=== PATIENT | male | born 1935 | race Caucasian/White ===

== ENCOUNTER 2016-05-22 10:33 | Emergency (ER) | payer MEDICARE ==
[~2016-05-22] VITALS: Ht 167.6 cm; Wt 76.2 kg
[~2016-05-22 10:33] MED LIST: ALFU10TA7 PO; ASPI-558 PO; ATEN100T77 PO; FINA5TAB30 PO; LISI-127 PO; SIMV20TA89 PO; [UNRECOGNIZED DRUG - CODE] PO
--- OUTSIDE RECORDS SUMMARY | 2016-05-22 10:37 | XMS REPORT | Referral Summary ---
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 Name Role Phone Lilliam Mancini Primary Care Physician [phone] Encounter VC Date(s): 07/08/14 - 07/08/14 [facility] [address] [place] [address] [place] [address]- Discharge Diagnosis: BPH with obstruction/lower urinary tract symptoms Discharge Disposition: 01-Home or Self Care Attending Physician: Jamie Meehan JR, MD Admitting Physician: Jamie Meehan JR, MD Referring Physician: Shiva Mancini MD Vital Signs Most recent to 1 oldest [Reference Range]: Peripheral Pulse 60 bpm Rate [60-100 bpm] (07/08/14 1:33 PM) Blood Pressure 154/72 mmHg [90-140/60-90 mmHg] *HI* (07/08/14 1:33 PM) Problem List Condition Effective Dates Status Health Status Informant Benign essential Active hypertension (disorder)(Confirmed ) Benign prostatic Active hypertrophy(Confirme d) gross bladder Active trabeculation(Confir med) Coronary Active arteriosclerosis (disorder)(Confirmed ) Generalized Active osteoarthritis (disorder)(Confirmed ) 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) Difficult or painful Active urination(Confirmed) Hx of hydrocele Active right side(Confirmed) Hyperlipidemia(Confi Active rmed) Impotence of organic Active origin (disorder)(Confirmed ) Obesity(Confirmed) Active patient Osteoarthritis(Confi Active rmed) Pneumonia(Confirmed) Active Pure Active hypercholesterolemia (disorder)(Confirmed ) Suprapubic Active pain(Confirmed) Allergies, Adverse Reactions, Alerts No Known Medication Allergies Medications Aspirin Low Dose 81 mg, Oral, Daily, 0 Refill(s) Start Date: 08/15/13 Status: Ordered atenolol 100 mg oral tablet See Instructions, TAKE 1 BY MOUTH EVERY DAY., # 90 unknown unit, 3 Refill(s), eRx: [facility] [id number], TAKE 1 BY MOUTH EVERY DAY. Start Date: 01/30/14 Status: Ordered ibuprofen 200 mg oral tablet 1 tabs, Oral, q6hr, as needed, 0 Refill(s) Start Date: 08/15/13 Status: Ordered lisinopril 40 mg oral tablet See Instructions, TAKE 1 TABLET (40MG) BY ORAL ROUTE EVERY DAY, # 90 unknown unit, 3 Refill(s), eRx: [facility] [id number], TAKE 1 TABLET (40MG) BY ORAL ROUTE EVERY DAY Start Date: 01/30/14 Status: Ordered multivitamin 1 tablet, Oral, Daily, 0 Refill(s) Start Date: 08/15/13 Status: Ordered Proscar 5 mg oral tablet See Instructions, TAKE 1 TABLET BY MOUTH AT BEDTIME., # 90 unknown unit, eRx: [facility] [id number], TAKE 1 TABLET BY MOUTH AT BEDTIME. Start Date: 12/22/14 Status: Ordered simvastatin 20 mg oral tablet See Instructions, TAKE 1 TABLET BY MOUTH EVERY DAY., # 90 unknown unit, 1 Refill (s), eRx: [facility] 05508, TAKE 1 TABLET BY MOUTH EVERY DAY. Start Date: 09/12/14 Status: Ordered Uroxatral 10 mg oral tablet, extended release See Instructions, TAKE 1 TABLET BY MOUTH AT BEDTIME., # 90 unknown unit, 2 Refill(s), eRx: [facility] [id number], TAKE 1 TABLET BY MOUTH AT BEDTIME. Start Date: 08/01/14 Status: Ordered Results No data available for this section Immunizations Vaccine Date Refusal Reason tetanus/diphth/pertuss (Tdap) adult/adol 09/11/12 influenza virus vaccine, inactivated 11/26/13 influenza virus vaccine, live 12/03/10 pneumococcal 13-valent conjugate vaccine1 06/18/14 pneumococcal 23-polyvalent vaccine 12/12/05 1Early/Late Reason: Nursing Judgment Procedures Procedure Date Related Diagnosis Body Site Knee replacement L 10/20/10 Cystoscopy 10/15/08 hydrodistention 10/15/08 Urethral dilatation 10/15/08 Orchiectomy 02/07/03 Social History Social History Type Response Smoking Status Never smoker Assessment and Plan Extracted from: Title: Ambulatory Patient Education Author: Jamie Meehan JR, MD Date : 07/08/14 Follow Up With: Where: When: Shiva Mancini [address]; [place] [address] Business (1) Within 3 to 5 days Comments: Follow Up With: Where: When: Jamie Zoran [address]; [place] [address] Business (1) In 6 months 01/08/2015 Comments: Extracted from: Title: Office Visit Note Author: Jamie Meehan JR, MD Date: 07/08/14 Assessment/Plan BPH with obstruction/lower urinary tract symptoms Strong family history of prostate cancer (brother). Continue taking the Uroxatral and finasteride. Recheck in my office in 6 months. PSA a week before next visit. 15 minute face to face visit with 2/3 of the visit devoted to counseling. Ordered: Office Visit Level 3 Est 39405
--- OUTSIDE RECORDS SUMMARY | 2016-05-22 10:37 | XMS REPORT | Referral Summary ---
Author Author [facility] Organization [facility] Address Unknown Phone Unavailable Care Team Providers Care Poiser Balance Name Role Phone Lilliam Mancini Primary Care Physician [phone] Encounter Date(s): 03/04/16 - 03/04/16 [facility] [address] [place], [place] [address] Discharge Diagnosis: ILD (interstitial lung disease) Discharge Diagnosis: Chronic hypoxemic respiratory failure Discharge Disposition: 01-Home or Self Care Attending Physician: Mynor Pillai MD Admitting Physician: Mynor Pillai MD Vital Signs Most recent to 1 oldest [Reference Range]: Peripheral Pulse 60 bpm Rate [60-100 bpm] (03/04/16 9:52 AM) Respiratory Rate 28 br/min [14-20 br/min] *HI* (03/04/16 9:52 AM) Blood Pressure 108/60 mmHg [90-140/60-90 mmHg] (03/04/16 9:52 AM) SpO2 95 % (03/04/16 9:52 AM) Problem List Condition Effective Dates Status Health Status Informant Benign essential Active hypertension (disorder)(Confirmed ) Benign prostatic Active hypertrophy(Confirme d) gross bladder Active trabeculation(Confir med) Coronary Active arteriosclerosis (disorder)(Confirmed ) Generalized Active osteoarthritis (disorder)(Confirmed ) 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) Difficult or painful Active urination(Confirmed) Hx of hydrocele Active right side(Confirmed) Impotence of organic Active origin (disorder)(Confirmed ) Hyperlipidemia(Confi Active rmed) Obesity(Confirmed) Active patient Osteoarthritis(Confi Active rmed) Pneumonia(Confirmed) Active Pure Active hypercholesterolemia (disorder)(Confirmed ) Suprapubic Active pain(Confirmed) Allergies, Adverse Reactions, Alerts No Known Medication Allergies Medications acetaminophen 500 mg oral tablet 1,000 mg 2 tabs, Oral, q6hr, as needed for pain, 0 Refill(s) Start Date: 03/25/15 Status: Ordered alfuzosin 10 mg oral tablet, extended release See Instructions, TAKE 1 TABLET BY MOUTH AT BEDTIME, # 90 tabs, eRx: [facility] [id number], TAKE 1 TABLET BY MOUTH AT BEDTIME Start Date: 01/20/16 Status: Ordered Aspirin Low Dose 81 mg, Oral, Daily, 0 Refill(s) Start Date: 08/15/13 Status: Ordered atenolol 100 mg oral tablet See Instructions, TAKE 1 TABLET BY MOUTH EVERY DAY, # 90 tabs, 1 Refill(s), eRx : [facility] [id number], TAKE 1 TABLET BY MOUTH EVERY DAY Start Date: 10/27/15 Status: Ordered finasteride 5 mg oral tablet See Instructions, TAKE 1 TABLET BY MOUTH AT BEDTIME, # 90 tabs, 1 Refill(s), eRx : [facility] [id number], TAKE 1 TABLET BY MOUTH AT BEDTIME Start Date: 12/17/15 Status: Ordered furosemide 20 mg oral tablet See Instructions, TAKE 1 TABLET BY MOUTH DAILY, # 30 tabs, 5 Refill(s), eRx: [facility] 52126, TAKE 1 TABLET BY MOUTH DAILY Start Date: 11/23/15 Status: Ordered Home Oxygen (DME) DME Item O2 to use with activity, 2 LPM per [place] OK for POC or OCD per patient choice to use with activity. Titrate SaO2 >/=90%. Dx: J84.9, R09.02 JANIE: 99 [facility], See Instructions, # 1 Each, 0 Refill(s), Supply Start Date: 10/15/15 Status: Ordered losartan 100 mg oral tablet 100 mg 1 tabs, Oral, Daily, # 90 tabs, 5 Refill(s), Pharmacy: [facility] [id number], 1 tabs Oral Daily Start Date: 10/07/15 Status: Ordered multivitamin 1 tablet, Oral, Daily, 0 Refill(s) Start Date: 08/15/13 Status: Ordered simvastatin 20 mg oral tablet See Instructions, TAKE 1 TABLET BY MOUTH EVERY DAY, # 90 tabs, 2 Refill(s), eRx : [facility] [id number], TAKE 1 TABLET BY MOUTH EVERY DAY Start Date: 09/07/15 Status: Ordered Results No data available for this section Immunizations Given and Recorded Vaccine Date Status Refusal Reason tetanus/diphth/pertuss (Tdap) adult/adol 09/11/12 Recorded influenza virus vaccine, inactivated 11/18/15 Recorded influenza virus vaccine, inactivated 11/20/14 Recorded influenza virus vaccine, inactivated 11/26/13 Recorded influenza virus vaccine, live 12/03/10 Given pneumococcal 13-valent conjugate vaccine1 06/18/14 Given pneumococcal 23-polyvalent vaccine 12/12/05 Recorded 1Early/Late Reason: Nursing Judgment Procedures Procedure Date Related Diagnosis Body Site Knee replacement L 10/20/10 Cystoscopy 10/15/08 hydrodistention 10/15/08 Urethral dilatation 10/15/08 Orchiectomy 02/07/03 Social History Social History Type Response Smoking Status Never smoker Assessment and Plan Extracted from: Title: Office Visit Note Author: Mynor Pillai MD Date: 03/04/16 Assessment/Plan 1.ILD (interstitial lung disease) 1. Would attribute his coughing and shortness of breath to some mild progression of the patient's interstitial lung disease. At the present time him not sureof his etiology. If it's mostly with idiopathic pulmonary fibrosis except for the lack of crackles on physical exam. 2. We'll see him back in 6 months with a spirometry and diffusion capacity. 3. He is up-to-date on all his vaccinations. 4. We'll add a proton pump inhibitordue to his gastroesophageal reflux complaints. 2.Chronic hypoxemic respiratory failure 1. Recommendedoxygen on a continuous basis at 2 L/m. He could turn this up to 3 L/mwith exertion.
--- OUTSIDE RECORDS SUMMARY | 2016-05-22 10:37 | XMS REPORT | Referral Summary ---
Author Author [facility] Organization [facility] Address Unknown Phone Unavailable Care Team Providers Care Belt Notcher Name Role Phone Lilliam Mancini Primary Care Physician [phone] Encounter VC Date(s): 07/07/15 - 07/07/15 [facility] [address] [place] [address] [place] [address]- Discharge Diagnosis: Hypercholesterolemia Discharge Diagnosis: BPH with obstruction/lower urinary tract symptoms Discharge Diagnosis: Family history of prostate cancer Discharge Diagnosis: Essential hypertension Discharge Disposition: 01-Home or Self Care Attending Physician: Jamie Meehan JR, MD Admitting Physician: Jamie Meehan JR, MD Vital Signs Most recent to 1 oldest [Reference Range]: Peripheral Pulse 60 bpm Rate [60-100 bpm] (07/07/15 10:15 AM) Blood Pressure 118/50 mmHg [90-140/60-90 mmHg] (07/07/15 10:15 AM) Problem List Condition Effective Dates Status [...] 0 Refill(s) Start Date: 03/25/15 Status: Ordered Aspirin Low Dose 81 mg, Oral, Daily, 0 Refill(s) Start Date: 08/15/13 Status: Ordered atenolol 100 mg oral tablet See Instructions, TAKE 1 BY MOUTH EVERY DAY., # 90 unknown unit, 1 Refill(s), eRx: [facility] [id number], TAKE 1 BY MOUTH EVERY DAY. Start Date: 04/24/15 Status: Ordered finasteride 5 mg oral tablet See Instructions, TAKE 1 TABLET BY MOUTH AT BEDTIME, # 90 tabs, eRx: [facility] [id number], TAKE 1 TABLET BY MOUTH AT BEDTIME Start Date: 06/23/15 Status: Ordered furosemide 20 mg oral tablet 20 mg 1 tabs, Oral, Daily, # 30 tabs, 3 Refill(s), Pharmacy: [facility] [id number], 1 tabs Oral Daily Start Date: 03/20/15 Status: Ordered ibuprofen 200 mg oral tablet 1 tabs, Oral, q6hr, as needed, 0 Refill(s) Start Date: 08/15/13 Status: Ordered lisinopril 40 mg oral tablet See Instructions, TAKE 1 TABLET (40MG) BY ORAL ROUTE EVERY DAY, # 90 unknown unit, 1 Refill(s), eRx: [facility] [id number], TAKE 1 TABLET (40MG) BY ORAL ROUTE EVERY DAY Start Date: 04/24/15 Status: Ordered multivitamin 1 tablet, Oral, Daily, 0 Refill(s) Start Date: 08/15/13 Status: Ordered simvastatin 20 mg oral tablet See Instructions, TAKE 1 TABLET BY MOUTH EVERY DAY, # 90 tabs, eRx: [facility] [id number], TAKE 1 TABLET BY MOUTH EVERY DAY Start Date: 06/12/15 Status: Ordered Uroxatral 10 mg oral tablet, extended release See Instructions, TAKE 1 TABLET BY MOUTH AT BEDTIME., # 90 unknown unit, eRx: [facility] [id number], TAKE 1 TABLET BY MOUTH AT BEDTIME. Start Date: 04/24/15 Status: Ordered Results No data available for this section Immunizations Vaccine Date Refusal Reason tetanus/diphth/pertuss (Tdap) adult/adol 09/11/12 influenza virus vaccine, inactivated 11/20/14 influenza virus vaccine, inactivated 10/7/14 influenza virus vaccine, live 12/03/10 pneumococcal 13-valent [...] Author: Jamie Meehan JR, MD Date : 07/07/15 Follow Up With: Where: When: [facility] [address] [place] [address] Drive; [place] [address] Business (1) Within 3 to 5 days Comments: Follow Up With: Where: When: Jamie Zoran [address]; [place] [address] Business (1) In 1 year 07/06/2016 Comments: Extracted from: Title: Office Visit Note Author: Jamie Meehan JR, MD Date: 07/07/15 Assessment/Plan 1.BPH with obstruction/lower urinary tract symptoms Ordered: Office Visit Level 3 Est 82791 2.Family history of prostate cancer Ordered: Office Visit Level 3 Est 04619 3.Hypercholesterolemia Ordered: Office Visit Level 3 Est 79587 4.Essential hypertension Ordered: Office Visit Level 3 Est 97512 Extracted from: Title: Office Visit Note Author: Jamie Meehan JR, MD Date: 07/07/15 Assessment/Plan 1.BPH with obstruction/lower urinary tract symptoms Continue Uroxatral and finasteride. Recheck in my office in one year or sooner if neededPSA a week before next visit. Ordered: Office Visit Level 3 Est 66592 2.Family history of prostate cancer PSA a week before next visit Ordered: Office Visit Level 3 Est 67144 3.Hypercholesterolemia Continuesimvastatin 20 mg daily Ordered: Office Visit Level 3 Est 43201 4.Essential hypertension Continue aspirin and atenolol and lisinopril Ordered: Office Visit Level 3 Est 06012
--- OUTSIDE RECORDS SUMMARY | 2016-05-22 10:37 | XMS REPORT | Referral Summary ---
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 Discharge Diagnosis: Hyperlipidemia Discharge Diagnosis: Pneumonia Discharge Diagnosis: Benign essential hypertension Discharge Diagnosis: Benign prostatic hypertrophy Discharge Disposition: 01-Home or Self Care Attending Physician: Shiva Mancini MD Admitting Physician: Shiva Mancini MD Referring Physician: Shiva Mancini MD Vital Signs Most recent to 1 oldest [Reference Range]: Temperature Tympanic 36.7 degC [36.6-38.1 degC] (06/18/14 2:11 PM) Peripheral Pulse 60 bpm Rate [60-100 bpm] (06/18/14 2:11 PM) Blood Pressure 146/56 mmHg [90-140/60-90 mmHg] *HI* (06/18/14 2:11 PM) SpO2 92 % (06/18/14 2:11 PM) Problem List Condition Effective Dates Status [...] # 90 unknown unit, 3 Refill(s), eRx: [facility] [id number], TAKE 1 BY MOUTH EVERY DAY. Start Date: 01/30/14 Status: Ordered ibuprofen 200 mg oral tablet 1 tabs, Oral, q6hr, as needed, 0 Refill(s) Start Date: 08/15/13 Status: Ordered lisinopril 40 mg oral tablet See Instructions, TAKE 1 TABLET (40MG) BY ORAL ROUTE EVERY DAY, # 90 unknown unit, 3 Refill(s), eRx: [facility] [id number], TAKE 1 TABLET (40MG) BY ORAL ROUTE EVERY DAY Start Date: 01/30/14 Status: Ordered multivitamin 1 tablet, Oral, Daily, 0 Refill(s) Start Date: 08/15/13 Status: Ordered Proscar 5 mg oral tablet See Instructions, TAKE 1 TABLET BY MOUTH AT BEDTIME., # 90 unknown unit, eRx: [facility] [id number], TAKE 1 TABLET BY MOUTH AT BEDTIME. Start Date: 12/22/14 Status: Ordered simvastatin 20 mg oral tablet See Instructions, TAKE 1 TABLET BY MOUTH EVERY DAY., # 90 unknown unit, 1 Refill (s), eRx: [facility] [id number], TAKE 1 TABLET BY MOUTH EVERY DAY. Start Date: 09/12/14 Status: Ordered Uroxatral 10 mg oral tablet, extended release See Instructions, TAKE 1 TABLET BY MOUTH AT BEDTIME., # 90 unknown unit, 2 Refill(s), eRx: [facility] [id number], TAKE 1 TABLET BY MOUTH AT BEDTIME. [...] Extracted from: Title: Ambulatory Patient Education Author: Shiva Mancini MD Date: Family Medicine Pneumonia, Adult Pneumonia is an infection of the lungs. It may be caused by a germ (virus or bacteria). Some types of pneumonia can spread easily from person to person. This can happen when you cough or sneeze. HOME CARE Only take medicine as told by your doctor. Take your medicine (antibiotics ) as told. Finish it even if you start to feel better. Do not smoke. You may use a vaporizer or humidifier in your room. This can help loosen thick spit (mucus ). Sleep so you are almost sitting up (semi-upright ). This helps reduce coughing. Rest. A shot (vaccine ) can help prevent pneumonia. Shots are often advised for: People over 65 years old. Patients on chemotherapy. People with long-term (chronic ) lung problems. People with immune system problems. GET HELP RIGHT AWAY IF: You are getting worse. You cannot control your cough, and you are losing sleep. You cough up blood. Your pain gets worse, even with medicine. You have a fever. Any of your problems are getting worse, not better. You have shortness of breath or chest pain. MAKE SURE YOU: Understand these instructions. Will watch your condition. Will get help right away if you are not doing well or get worse. Document Released: 07/25/2008 Document Revised: 04/30/2012 Document Reviewed: [employer] Patient Information 2014 [employer]. No follow up information was provided. Extracted from: Title: Office Visit Note Author: Shiva Mancini MD Date: 06/18/14 Assessment/Plan Benign essential hypertension Blood pressure is adequately controlled continue current medications and treatments without change. Follow-up in 3 months. Ordered: Office Visit Level 4 Est 78320 Benign prostatic hypertrophy Briceño stable no change in treatment recommended. Ordered: Office Visit Level 4 Est 55859 Coronary arteriosclerosis Stable no change in current treatment. We'll continue to follow-up with his rn hospital as well. Follow-up here in 3 months. Ordered: Office Visit Level 4 Est 74096 Degenerative joint disease involving multiple joints Stable no change in current treatment. Ordered: Office Visit Level 4 Est 64674 Hyperlipidemia Stable no change in current treatment. Follow-up in 3 months. Ordered: Office Visit Level 4 Est 50193 Pneumonia He appears to have recovered from his pneumonia fairly well. Give Prevnar today. If he has further problems or concerns he'll let me know. Ordered: pneumococcal 13-valent conjugate vaccine, 0.5 mL, IntraMuscular, Once, First Dose: 06/18/14 15:00:00 CDT, Stop Date: 06/18/14 15:00:00 CDT, Form: Injection Office Visit Level 4 Est 16145
--- OUTSIDE RECORDS SUMMARY | 2016-05-22 10:37 | XMS REPORT | Continuity of Care Document ---
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 - *Stable CAD, Unspecified - Chronic Hypercholesterolemia - Chronic Hypertension, Benign - Chronic Erectile Dysfunction - Chronic BPH - Chronic CAD, Unspecified - *Chronic CAD, Unspecified - Cardiomyopathy, Other Primary - Hypercholesterolemia - Hypertension, Unspecified - HX TIA/STROKE W/O RESID - BPH - *Controlled Family history of malignant neoplasm of prostate - *Routine Hypertension, Unspecified - *Controlled CAD, Unspecified - *Chronic Hypertension, Benign - *Chronic Hypercholesterolemia - *Chronic BPH - *Chronic Osteoarthrosis, generalized, involving unspecified site - * Chronic CAD, Unspecified - *Chronic Hypertension, Benign - *Chronic Hypercholesterolemia - *Chronic BPH - *Chronic Osteoarthrosis, generalized, involving unspecified site - * Chronic Erectile Dysfunction - *Chronic CAD, Unspecified - Chronic Hypertension, Benign - Chronic Hypercholesterolemia - Chronic BPH - Chronic Osteoarthrosis, generalized, involving unspecified site - Chronic Erectile Dysfunction - Chronic Upper Respiratory Infection, Acute - *Acute Hypertension, Benign - *Chronic CAD, Unspecified - *Chronic Hypercholesterolemia - *Chronic Osteoarthrosis, generalized, involving unspecified site - * Chronic Other symptoms involving cardiovascular system - *Chronic CAD (coronary artery disease) - *Controlled Hypertension - *Fair Control Hyperlipidemia LDL goal < 70 - *Controlled Hx-TIA (transient ischemic attack) - *Controlled PURE HYPERCHOLESTEROLEM - BENIGN HYPERTENSION - COR ATH UNSP VSL NTV/GFT - BPH - *Controlled Family history of malignant neoplasm of prostate - *Routine Hypertension, Benign - *Chronic CAD, Unspecified - *Chronic Hypercholesterolemia - *Chronic Osteoarthrosis, generalized, involving unspecified site - * Chronic BPH - *Chronic Erectile Dysfunction - *Chronic Hypertension, Benign - Chronic CAD, Unspecified - Chronic Hypercholesterolemia - Chronic Osteoarthrosis, generalized, involving unspecified site - Chronic BPH - Chronic Erectile Dysfunction - Chronic NEED FOR PROPHYLACTIC VACCINATION WITH COMBINED INSSHKPAGX-KLDPLGY-TZUUEJEUS ( DTP) (DTAP) VACCINE - CAD, Unspecified - *Chronic Hypertension, Benign - *Chronic Hypercholesterolemia - *Chronic Osteoarthrosis, generalized, involving unspecified site - * Chronic Erectile Dysfunction - *Chronic CAD, Unspecified - Chronic Hypertension, Benign - Chronic Hypercholesterolemia - Chronic Osteoarthrosis, generalized, involving unspecified site - Chronic Erectile Dysfunction - Chronic HYPERTROPHY (BENIGN) OF PROSTATE WITH URINARY OBSTRUCTION - * Chronic CAD, Unspecified - *Chronic Hypertension, Benign - *Chronic Hypercholesterolemia - *Chronic Osteoarthrosis, generalized, involving unspecified site - * Chronic BPH - *Chronic CAD, Unspecified - Chronic Hypertension, Benign - Chronic Hypercholesterolemia - Chronic Osteoarthrosis, generalized, involving unspecified site - Chronic BPH - Chronic Family History Family Member Diagnosis Age At Onset Status Unknown Social History Social History Element Description Quantity Unknown Allergies, Adverse Reactions, Alerts Substance Reaction Severity Status Unknown Medications Medication Instructions Dosage Effective Dates (start - stop) Status aspirin 81 mg chewable tablet chew 1 tablet (81MG) by oral route every day 81 MG - Active multivitamin tablet take 1 Tablet by Oral route every day 0 - Active lisinopril 40 mg tablet take 1 tablet (40MG) by oral route every day 40 MG - Active simvastatin 20 mg tablet Take 1 tablet by mouth every day. - Active atenolol 100 mg tablet Take 1 by mouth every day. - Active Proscar 5 mg tablet Take 1 tablet by mouth at bedtime. - Active IBUPROFEN (unknown strength) take 1 capsule by oral route every 6 hours as needed - Active Immunizations Vaccine Date Status Comments flu (split) (3 yrs or older) completed - Completed reason: previously given pneumo (2 yrs or older) (PPV23) completed - Completed reason: previously given Tdap (Boostrix r) completed Results Test Name Date and Time Measure Units Reference Range Abnormal Flag Comments Unknown Vital Signs Date / Time: Height Weight Pulse Rate Blood Pressure Temperature /10:55:00 65.50 in 179.50 lbs 58 /min 130/62 mm[Hg] /10:56:00 122/62 mm[Hg] Procedures Procedure Date Unknown Encounters Encounter Location Date Patient Visit [facility] Advance Directives Directive Effective Date Unknown
--- OUTSIDE RECORDS SUMMARY | 2016-05-22 10:37 | XMS REPORT | Referral Summary ---
Author Author [facility] Organization [facility] Address Unknown Phone Unavailable Care Team Providers Care Vegetable Loader Machine Operator Name Role Phone Lilliam Mancini Primary Care Physician [phone] Encounter [facility] Date(s): 10/15/15 - 10/15/15 [facility] [address] [place] [address] Discharge Diagnosis: SOB (shortness of breath) Discharge Disposition: 01-Home or Self Care Attending Physician: Mynor Pillai MD Admitting Physician: Mynor Pillai MD Vital Signs No data available for this section Problem List Condition Effective Dates Status Health [...] MOUTH AT BEDTIME, # 90 tabs, eRx: [facility] [id number], TAKE 1 TABLET BY MOUTH AT BEDTIME Start Date: 07/27/15 Status: Ordered Aspirin Low Dose 81 mg, Oral, Daily, 0 Refill(s) Start Date: 08/15/13 Status: Ordered atenolol 100 mg oral tablet See Instructions, TAKE 1 BY MOUTH EVERY DAY., # 90 unknown unit, 1 Refill(s), eRx: [facility] [id number], TAKE 1 BY MOUTH EVERY DAY. Start Date: 04/24/15 Status: Ordered finasteride 5 mg oral tablet See Instructions, TAKE 1 TABLET BY MOUTH AT BEDTIME, # 90 tabs, eRx: [facility] [id number], TAKE 1 TABLET BY MOUTH AT BEDTIME Start Date: 06/23/15 Status: Ordered furosemide 20 mg oral tablet See Instructions, TAKE 1 TABLET BY MOUTH DAILY, # 30 tabs, 2 Refill(s), eRx: [facility] [id number], TAKE 1 TABLET BY MOUTH DAILY Start Date: 08/25/15 Status: Ordered Home Oxygen (DME) DME Item [...] Daily, # 90 tabs, 5 Refill(s), Pharmacy: [facility] [id number], 1 tabs Oral Daily Start Date: 10/07/15 Status: Ordered multivitamin 1 tablet, Oral, Daily, 0 Refill(s) Start Date: 08/15/13 Status: Ordered simvastatin 20 mg oral tablet See Instructions, TAKE 1 TABLET BY MOUTH EVERY DAY, # 90 tabs, 2 Refill(s), eRx : [facility] [id number], TAKE 1 TABLET BY MOUTH EVERY DAY Start Date: 09/07/15 Status: Ordered Results Blood Gases Most recent to 1 oldest [Reference Range]: PCO2 Arterial POC 36 mmHg [34-45 mmHg] (10/15/15 9:50 AM) CO2 Totl Art [24-30 26 mmol/L mmol/L] (10/15/15 9:50 AM) Bicarbonate Arterial 24 mmol/L POC [23-29 mmol/L] (10/15/15 9:50 AM) Base Excess Arterial 0.0 mmol/L POC [-2.4-2.3 (10/15/15 9:50 AM) mmol/L] O2 Saturation 94 % Arterial POC [94-100 (10/15/15 9:50 AM) %] pH Arterial POC 7.44 1 [7.37-7.44] (10/15/15 9:50 AM) PO2 Arterial POC 67 mmHg [78-85 mmHg] *LOW* (10/15/15 9:50 AM) 1Result Comment: Room air Allens positive Immunizations Vaccine Date Refusal Reason tetanus/diphth/pertuss (Tdap) adult/adol 09/11/12 influenza virus vaccine, inactivated 11/20/14 influenza virus vaccine, inactivated 11/26/13 influenza virus vaccine, live 12/03/10 pneumococcal 13-valent conjugate vaccine1 06/18/14 pneumococcal 23-polyvalent vaccine 12/12/05 1Early/Late Reason: Nursing Judgment Procedures Procedure Date Related Diagnosis Body Site Knee replacement L 10/20/10 Cystoscopy 10/15/08 hydrodistention 10/15/08 Urethral dilatation 10/15/08 Orchiectomy 02/07/03 Social History Social History Type Response Smoking Status Never smoker Assessment and Plan No data available for this section
--- OUTSIDE RECORDS SUMMARY | 2016-05-22 10:37 | XMS REPORT ---
Author Author Jorge Macedo Organization [employer] Address Unknown Phone Unavailable Care Team Providers Care Supervisor Backfilling Name Role Phone Jorge Macedo CP Unavailable Allergies, Adverse Reactions, Alerts Substance Reaction Event Type hayfever runny nose Non Drug Allergy Problems Problem Type Condition Code Onset Dates Condition Status Assessment Dental caries, unspecified K02.9 Active Medications Medication Code System Code Instructions Start Date End Date Status Dosage Simvastatin [facility] [address]-60 not defined Alfuzosin HCl NDC 0 not defined Aspirin Adult Low Strength [facility] [address]-49 not defined Multi Vitamin Mens [facility] [address] not defined atenolol NDC 0 not defined Losartan Potassium [facility] [address]-93 not defined Finasteride [facility] [address]-39 not defined Furosemide NDC 0 not defined Procedures Procedure Coding System Code Date EXTRAC ERUPTED TOOTH/EXPOSED ROOT CPT-4 D7140 Oct 14, 2015 EXTRAC ERUPTED TOOTH/EXPOSED ROOT CPT-4 D7140 Oct 14, 2015 Vital Signs Date/Time: Oct 14, 2015 Blood Pressure Diastolic 63 mm Hg Blood Pressure Systolic 142 mm Hg Cardiac Monitoring Heart Rate 56 /min Results No Known Results Summary Purpose [employer] Submission
--- OUTSIDE RECORDS SUMMARY | 2016-05-22 10:37 | XMS REPORT | Referral Summary ---
Author Author [facility] Organization [facility] Address Unknown Phone Unavailable Care Team Providers Care Clip Riveter Name Role Phone Lilliam Mancini Primary Care Physician [phone] Encounter [facility] Date(s): 03/04/16 - 03/04/16 [facility] [address] [place], [place] [address] Discharge Diagnosis: SOB (shortness of breath) Discharge Disposition: 01-Home or Self Care Attending Physician: Mynor Pillai MD Vital Signs No [...] MOUTH AT BEDTIME, # 90 tabs, eRx: [facility] [id number], TAKE 1 TABLET BY MOUTH AT BEDTIME Start Date: 01/20/16 Status: Ordered Aspirin Low Dose 81 mg, Oral, Daily, 0 Refill(s) Start Date: 08/15/13 Status: Ordered atenolol 100 mg oral tablet See Instructions, TAKE 1 TABLET BY MOUTH EVERY DAY, # 90 tabs, 1 Refill(s), eRx : [facility] 11381, TAKE 1 TABLET BY MOUTH EVERY DAY Start Date: 10/27/15 Status: Ordered finasteride 5 mg oral tablet See Instructions, TAKE 1 TABLET BY MOUTH AT BEDTIME, # 90 tabs, 1 Refill(s), eRx : [facility] [id number], TAKE 1 TABLET BY MOUTH AT BEDTIME Start Date: 12/17/15 Status: Ordered furosemide 20 mg oral tablet See Instructions, TAKE 1 TABLET BY MOUTH DAILY, # 30 tabs, 5 Refill(s), eRx: [facility] 58735, TAKE 1 TABLET BY MOUTH DAILY Start [...] Daily, # 90 tabs, 5 Refill(s), Pharmacy: [facility] [id number], 1 tabs Oral Daily Start Date: 10/07/15 Status: Ordered multivitamin 1 tablet, Oral, Daily, 0 Refill(s) Start Date: 08/15/13 Status: Ordered simvastatin 20 mg oral tablet See Instructions, TAKE 1 TABLET BY MOUTH EVERY DAY, # 90 tabs, 2 Refill(s), eRx : [facility] [id number], TAKE 1 TABLET BY MOUTH EVERY DAY [...]
--- OUTSIDE RECORDS SUMMARY | 2016-05-22 10:37 | XMS REPORT | Referral Summary ---
Author Author [facility] Organization [facility] Address Unknown Phone Unavailable Care Team Providers Care Sales And Marketing Engineer Name Role Phone Lilliam Mancini Primary Care Physician [phone] Encounter Date(s): 10/07/15 - 10/07/15 [facility] [address] [place] [address] [place] [address] [place] Discharge Diagnosis: Cough Discharge Diagnosis: Coronary heart disease Discharge Diagnosis: Hypercholesteremia Discharge Diagnosis: Essential hypertension Discharge Diagnosis: Interstitial lung disease Discharge Disposition: 01-Home or Self Care Attending Physician: Rick Sun MD Admitting Physician: Rick Sun MD Referring Physician: Shiva Mancini MD Vital Signs Most recent to 1 oldest [Reference Range]: Peripheral Pulse 56 bpm Rate [60-100 bpm] *LOW* (10/07/15 1:17 PM) Blood Pressure 130/60 mmHg [90-140/60-90 mmHg] (10/07/15 1:17 PM) Problem List Condition Effective Dates Status [...] MOUTH AT BEDTIME, # 90 tabs, eRx: [facility] [id number], TAKE 1 TABLET BY MOUTH AT BEDTIME Start Date: 07/27/15 Status: Ordered Aspirin Low Dose 81 mg, Oral, Daily, 0 Refill(s) Start Date: 08/15/13 Status: Ordered atenolol 100 mg oral tablet See Instructions, TAKE 1 BY MOUTH EVERY DAY., # 90 unknown unit, 1 Refill(s), eRx: [facility] , TAKE 1 BY MOUTH EVERY DAY. Start Date: 04/24/15 Status: Ordered finasteride 5 mg oral tablet See Instructions, TAKE 1 TABLET BY MOUTH AT BEDTIME, # 90 tabs, eRx: [facility] , TAKE 1 TABLET BY MOUTH AT BEDTIME Start Date: 06/23/15 Status: Ordered furosemide 20 mg oral tablet See Instructions, TAKE 1 TABLET BY MOUTH DAILY, # 30 tabs, 2 Refill(s), eRx: [facility] , TAKE 1 TABLET BY MOUTH DAILY Start Date: 08/25/15 Status: Ordered ibuprofen 200 mg oral tablet 1 tabs, Oral, q6hr, as needed, 0 Refill(s) Start Date: 08/15/13 Status: Ordered losartan 100 mg oral tablet 100 mg 1 tabs, Oral, Daily, # 90 tabs, 5 Refill(s), Pharmacy: [facility] [id number], 1 tabs Oral Daily Start Date: 10/07/15 Status: Ordered multivitamin 1 tablet, Oral, Daily, 0 Refill(s) Start Date: 08/15/13 Status: Ordered simvastatin 20 mg oral tablet See Instructions, TAKE 1 TABLET BY MOUTH EVERY DAY, # 90 tabs, 2 Refill(s), eRx : [facility] , TAKE 1 TABLET BY MOUTH EVERY DAY Start Date: 09/07/15 Status: Ordered Results Hematology Most recent to 1 oldest [Reference Range]: WBC [4.8-10.8 10.9 10*3/uL 10*3/uL] *HI* (10/07/15 2:18 PM) RBC [4.60-6.20] 4.58 *LOW* (10/07/15 2:18 PM) Hgb [14.0-18.0 13.7 gm/dL gm/dL] *LOW* (10/07/15 2:18 PM) Hct [42.0-52.0 %] 40.7 % *LOW* (10/07/15 2:18 PM) MCV [82.0-99.0 fL] 88.9 fL (10/07/15 2:18 PM) MCH [27.0-32.0 pg] 29.9 pg (10/07/15 2:18 PM) MCHC [32.0-36.0 33.7 gm/dL gm/dL] (10/07/15 2:18 PM) RDW [11.5-14.5 %] 14.3 % (10/07/15 2:18 PM) Platelet [150-400 231 10*3/uL 10*3/uL] (10/07/15 2:18 PM) MPV [8.8-14.8 fL] 10.7 fL (10/07/15 2:18 PM) Immature 0.3 % Granulocytes (10/07/15 2:18 PM) [0.0-1.0 %] Neutrophils [51-75 63 % %] (10/07/15 2:18 PM) Lymphocytes [20-46 26 % %] (10/07/15 2:18 PM) Monocytes [4-11 %] 7 % (10/07/15 2:18 PM) Eosinophils [0-4 %] 4 % (10/07/15 2:18 PM) Basophils [0-2 %] 0 % (10/07/15 2:18 PM) Neutro Absolute 6.90 10*3 [1.90-7.00 10*3] (10/07/15 2:18 PM) Lymph Absolute 2.87 10*3 [0.80-3.30 10*3] (10/07/15 2:18 PM) [place] Absolute 0.71 10*3 [0.30-1.00 10*3] (10/07/15 2:18 PM) Eos Absolute 0.39 10*3 [0.00-0.50 10*3] (10/07/15 2:18 PM) Baso Absolute 0.03 10*3 [0.00-0.20 10*3] (10/07/15 2:18 PM) Chemistry Most recent to 1 oldest [Reference Range]: Sodium Lvl [135-144 141 mEq/L mEq/L] (10/07/15 2:18 PM) Potassium Lvl 5.0 mEq/L [3.5-5.2 mEq/L] (10/07/15 2:18 PM) Chloride [99-111 108 mEq/L mEq/L] (10/07/15 2:18 PM) CO2 [23-31 mEq/L] 25 mEq/L (10/07/15 2:18 PM) AGAP [3-20] 8 (10/07/15 2:18 PM) BUN [8-26 mg/dL] 19 mg/dL (10/07/15 2:18 PM) Glucose Lvl [70-99 92 mg/dL mg/dL] (10/07/15 2:18 PM) Creatinine Lvl 1.28 mg/dL [0.72-1.25 mg/dL] *HI* (10/07/15 2:18 PM) eGFR [>60 mL/min] 54 mL/min 1 *ABN* (10/07/15 2:18 PM) Calcium Lvl 9.6 mg/dL [8.9-10.5 mg/dL] (10/07/15 2:18 PM) Albumin Lvl [3.4-4.8 4.3 gm/dL gm/dL] (10/07/15 2:18 PM) Total Protein 6.7 gm/dL 2 [6.0-7.6 gm/dL] (10/07/15 2:18 PM) Globulin [1.8-4.0 2.4 gm/dL gm/dL] (10/07/15 2:18 PM) ALT [0-55 U/L] 22 U/L (10/07/15 2:18 PM) AST [5-34 U/L] 27 U/L (10/07/15 2:18 PM) Alk Phos [40-150 47 U/L U/L] (10/07/15 2:18 PM) Bili Total [0.2-1.2 0.6 mg/dL mg/dL] (10/07/15 2:18 PM) 1Result Comment: Multiply eGFR results by 1.21 for race. 2Result Comment: Please note new reference range for adult Protein. Immunizations Vaccine Date Refusal Reason tetanus/diphth/pertuss (Tdap) [...] Extracted from: Title: Office Visit Note Author: Rick Sun MD Date: 10/07/15 Assessment/Plan 1.Coronary heart disease Ordered: Comprehensive Metabolic Panel Echo, 2-D + Doppler + Color Flow Return to Clinic 2.Hypercholesteremia Ordered: Comprehensive Metabolic Panel Echo, 2-D + Doppler + Color Flow Return to Clinic 3.Essential hypertension Ordered: Comprehensive Metabolic Panel Echo, 2-D + Doppler + Color Flow Return to Clinic 4.Interstitial lung disease Ordered: Comprehensive Metabolic Panel Echo, 2-D + Doppler + Color Flow Return to Clinic 5.Cough Discussion:Usage this patient is very positive anddenies symptoms so his current status is a concern. I advised him to have a chest x-rayand an echocardiogram and relevant laboratory studies and a follow-up visit. I advised himto call if he notices any progression of his symptom. 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 Ordered: Comprehensive Metabolic Panel Echo, 2-D + Doppler + Color Flow Return to Clinic Orders: losartan, 100 mg 1 tabs, Oral, Daily, # 90 tabs, 5 Refill(s), Pharmacy : [facility] [id number], 1 tabs Oral Daily Referrals to Other Providers Referred by: Rick Sun MD
--- OUTSIDE RECORDS SUMMARY | 2016-05-22 10:37 | XMS REPORT | Referral Summary ---
Author Author [facility] Organization [facility] [place] Address Unknown Phone Unavailable Care Team Providers Care Insole Reinforcer Name Role Phone Lilliam Mancini Primary Care Physician [phone] Encounter [facility] Date(s): 10/19/15 - 10/19/15 [facility] [place] [address] [place], [place] [address] Discharge Disposition: 01-Home or Self Care Attending Physician: Mynor Pillai MD Admitting Physician: Mynor Pillai MD Referring Physician: Mynor Pillai MD Vital Signs No [...] MOUTH AT BEDTIME, # 90 tabs, eRx: [facility] [id number], TAKE 1 TABLET BY MOUTH AT BEDTIME Start Date: 07/27/15 Status: Ordered Aspirin Low Dose 81 mg, Oral, Daily, 0 Refill(s) Start Date: 08/15/13 Status: Ordered atenolol 100 mg oral tablet See Instructions, TAKE 1 BY MOUTH EVERY DAY., # 90 unknown unit, 1 Refill(s), eRx: [facility] [id number], TAKE 1 BY MOUTH EVERY DAY. Start Date: 04/24/15 Status: Ordered finasteride 5 mg oral tablet See Instructions, TAKE 1 TABLET BY MOUTH AT BEDTIME, # 90 tabs, eRx: [facility] [id number], TAKE 1 TABLET BY MOUTH AT BEDTIME Start Date: 06/23/15 Status: Ordered furosemide 20 mg oral tablet See Instructions, TAKE 1 TABLET BY MOUTH DAILY, # 30 tabs, 2 Refill(s), eRx: [facility] [id number], TAKE 1 TABLET BY MOUTH DAILY Start [...] Daily, # 90 tabs, 5 Refill(s), Pharmacy: [facility] [id number], 1 tabs Oral Daily Start Date: 10/07/15 Status: Ordered multivitamin 1 tablet, Oral, Daily, 0 Refill(s) Start Date: 08/15/13 Status: Ordered simvastatin 20 mg oral tablet See Instructions, TAKE 1 TABLET BY MOUTH EVERY DAY, # 90 tabs, 2 Refill(s), eRx : [facility] [id number], TAKE 1 TABLET BY MOUTH EVERY DAY [...]
--- OUTSIDE RECORDS SUMMARY | 2016-05-22 10:38 | XMS REPORT | Referral Summary ---
Author Author [facility] Organization [facility] Address Unknown Phone Unavailable Care Team Providers Care Resort Manager Name Role Phone Lilliam Mancini Primary Care Physician [phone] Encounter Date(s): 10/19/15 - 10/19/15 [facility] [address] [place] [address] Discharge Diagnosis: SOB (shortness of [...] MOUTH AT BEDTIME, # 90 tabs, eRx: [facility] [id number], TAKE 1 TABLET BY MOUTH AT BEDTIME Start Date: 07/27/15 Status: Ordered Aspirin Low Dose 81 mg, Oral, Daily, 0 Refill(s) Start Date: 08/15/13 Status: Ordered atenolol 100 mg oral tablet See Instructions, TAKE 1 BY MOUTH EVERY DAY., # 90 unknown unit, 1 Refill(s), eRx: [facility] [id number], TAKE 1 BY MOUTH EVERY DAY. Start Date: 04/24/15 Status: Ordered finasteride 5 mg oral tablet See Instructions, TAKE 1 TABLET BY MOUTH AT BEDTIME, # 90 tabs, eRx: [facility] [id number], TAKE 1 TABLET BY MOUTH AT BEDTIME Start Date: 06/23/15 Status: Ordered furosemide 20 mg oral tablet See Instructions, TAKE 1 TABLET BY MOUTH DAILY, # 30 tabs, 2 Refill(s), eRx: [facility] [id number], TAKE 1 TABLET BY MOUTH DAILY Start [...] Daily, # 90 tabs, 5 Refill(s), Pharmacy: [facility] [id number], 1 tabs Oral Daily Start Date: 10/07/15 Status: Ordered multivitamin 1 tablet, Oral, Daily, 0 Refill(s) Start Date: 08/15/13 Status: Ordered simvastatin 20 mg oral tablet See Instructions, TAKE 1 TABLET BY MOUTH EVERY DAY, # 90 tabs, 2 Refill(s), eRx : [facility] [id number], TAKE 1 TABLET BY MOUTH EVERY DAY Start Date: 09/07/15 Status: Ordered Results No data available for this section Immunizations Vaccine Date Refusal Reason tetanus/diphth/pertuss (Tdap) adult/adol 09/11/12 influenza virus vaccine, inactivated 11/20/14 influenza virus vaccine, inactivated 11/26/13 influenza virus vaccine, live 12/03/10 pneumococcal 13-valent conjugate vaccine1 06/18/14 pneumococcal 23-polyvalent vaccine 10/23/06 1Early/Late Reason: Nursing Judgment Procedures Procedure Date Related Diagnosis Body Site Knee replacement L 10/20/10 Cystoscopy 10/15/08 hydrodistention 10/15/08 Urethral dilatation 10/15/08 Orchiectomy 02/07/03 Social History Social History Type Response Smoking Status Never smoker Assessment and Plan No data available for this section
--- OUTSIDE RECORDS SUMMARY | 2016-05-22 10:38 | XMS REPORT | Referral Summary ---
Author Author [facility], [facility] Organization 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 Discharge Diagnosis: Coronary arteriosclerosis Discharge Disposition: 01-Home or Self Care Attending Physician: Shiva Mancini MD Admitting Physician: Shiva Mancini MD Vital Signs Most recent to 1 oldest [Reference Range]: Temperature Tympanic 36.6 degC [36.6-38.1 degC] (11/11/14 10:42 AM) Peripheral Pulse 68 bpm Rate [60-100 bpm] (11/11/14 10:42 AM) Respiratory Rate 16 br/min [14-20 br/min] (11/11/14 10:42 AM) Blood Pressure 148/64 mmHg [90-140/60-90 mmHg] *HI* (11/11/14 10:42 AM) Problem List Condition Effective Dates Status [...] # 90 unknown unit, 1 Refill(s), eRx: [facility] [id number], TAKE 1 BY MOUTH EVERY DAY. Start Date: 04/24/15 Status: Ordered furosemide 20 mg oral tablet 20 mg 1 tabs, Oral, Daily, # 30 tabs, 3 Refill(s), Pharmacy: [facility] [id number], 1 tabs Oral Daily Start Date: 03/20/15 Status: Ordered ibuprofen 200 mg oral tablet 1 tabs, Oral, q6hr, as needed, 0 Refill(s) Start Date: 08/15/13 Status: Ordered lisinopril 40 mg oral tablet See Instructions, TAKE 1 TABLET (40MG) BY ORAL ROUTE EVERY DAY, # 90 unknown unit, 1 Refill(s), eRx: [facility] [id number], TAKE 1 TABLET (40MG) BY ORAL ROUTE EVERY DAY Start Date: 04/24/15 Status: Ordered multivitamin 1 tablet, Oral, Daily, 0 Refill(s) Start Date: 08/15/13 Status: Ordered Proscar 5 mg oral tablet See Instructions, TAKE 1 TABLET BY MOUTH AT BEDTIME., # 90 unknown unit, 1 Refill(s), eRx: [facility] [id number], TAKE 1 TABLET BY MOUTH AT BEDTIME. Start Date: 03/25/15 Status: Ordered simvastatin 20 mg oral tablet See Instructions, TAKE 1 TABLET BY MOUTH EVERY DAY., # 30 tabs, eRx: [facility] [id number], TAKE 1 TABLET BY MOUTH EVERY DAY. Start Date: 03/06/15 Status: Ordered Tessalon Perles 100 mg oral capsule 200 mg 2 caps, Oral, q8hr, # 40 caps, 0 Refill(s), Pharmacy: [facility] [id number], 2 caps Oral q8hr Start Date: 04/06/15 Status: Ordered Uroxatral 10 mg oral tablet, extended release See Instructions, TAKE 1 TABLET BY MOUTH AT BEDTIME., # 90 unknown unit, eRx: [facility] [id number], TAKE 1 TABLET BY MOUTH AT BEDTIME. [...] Author: Shiva Mancini MD Date: Family Medicine Cholesterol Cholesterol is a white, waxy, fat-like substance needed by your body in small amounts. The liver makes all the cholesterol you need. Cholesterol is carried from the liver by the blood through the blood vessels. Deposits of cholesterol ( plaque) may build up on blood vessel jordan. These make the arteries narrower and stiffer. Cholesterol plaques increase the risk for heart attack and stroke. You cannot feel your cholesterol level even if it is very high. The only way to know it is high is with a blood test. Once you know your cholesterol levels, you should keep a record of the test results. Work with your health care provider to keep your levels in the desired range. WHAT DO THE RESULTS MEAN? Total cholesterol is a rough measure of all the cholesterol in your blood. LDL is the so-called bad cholesterol. This is the type that deposits cholesterol in the jordan of the arteries. You want this level to be low. HDL is the good cholesterol because it cleans the arteries and carries the LDL away. You want this level to be high. Triglycerides are fat that the body can either burn for energy or store. High levels are closely linked to heart disease. WHAT ARE THE DESIRED LEVELS OF CHOLESTEROL? Total cholesterol below 200. LDL below 100 for people at risk, below 70 for those at very high risk. HDL above 50 is good, above 60 is best. Triglycerides below 150. HOW CAN I LOWER MY CHOLESTEROL? Diet. Follow your diet programs as directed by your health care provider. Choose fish or white meat chicken and turkey, roasted or baked. Limit fatty cuts of red meat, fried foods, and processed meats, such as sausage and lunch meats. Eat lots of fresh fruits and vegetables. Choose whole grains, beans, pasta, potatoes, and cereals. Use only small amounts of olive, corn, or canola oils. Avoid butter, mayonnaise, shortening, or palm kernel oils. Avoid foods with trans fats. Drink skim or nonfat milk and eat low-fat or nonfat yogurt and cheeses. Avoid whole milk, cream, ice cream, egg yolks, and full-fat cheeses. Healthy desserts include carol food cake, adolfo snaps, animal crackers, hard candy, popsicles, and low-fat or nonfat frozen yogurt. Avoid pastries, cakes, pies, and cookies. Exercise. Follow your exercise programs as directed by your health care provider. A regular program helps decrease LDL and raise HDL. A regular program helps with weight control. Do things that increase your activity level like gardening, walking, or taking the stairs. Ask your health care provider about how you can be more active in your daily life. Medicine. Take medicine only as directed by your health care provider. Medicine may be prescribed by your health care provider to help lower cholesterol and decrease the risk for heart disease. If you have several risk factors, you may need medicine even if your levels are normal. Document Released: 11/01/2001 Document Revised: 06/23/2014 Document Reviewed: ExitCare Patient Information 2015 [employer]. This information is not intended to replace advice given to you by your health care provider. Make sure you discuss any questions you have with your health care provider. No follow up information was provided. Extracted from: Title: Office Visit Note Author: Shiva Mancini MD Date: 11/11/14 Assessment/Plan Benign essential hypertension Blood pressure appears to be adequately controlled. No changes are recommended. Continue current treatment plan. Report card reviewed and provided. Follow-up in 3 months with fasting lab. Ordered: Office Visit Level 4 Est 31747 Coronary arteriosclerosis No signs of ischemia continue current treatment plan. Recheck in 3 months. Ordered: Office Visit Level 4 Est 84196 Degenerative joint disease involving multiple joints Chronic stable no change in current treatment. Ordered: Office Visit Level 4 Est 31307 Pure hypercholesterolemia Laboratory studies reviewed from July no changes recommended. Recheck in 3 months with fasting lab. Ordered: Office Visit Level 4 Est 59123
--- OUTSIDE RECORDS SUMMARY | 2016-05-22 10:38 | XMS REPORT | Referral Summary ---
Author Author [facility] Organization [facility] Address Unknown Phone Unavailable Care Team Providers Care Assistant Professor Of Biology Name Role Phone Lilliam Mancini Primary Care Physician [phone] Encounter VC Date(s): 03/25/15 - 03/25/15 [facility] [address] [place] [address] [place] [address]- Discharge Disposition: 01-Home or Self Care Attending Physician: Rick Sun MD Admitting Physician: Rick Sun MD Referring Physician: Shiva Mancini MD Vital Signs Most recent to 1 oldest [Reference Range]: Peripheral Pulse 60 bpm Rate [60-100 bpm] (03/25/15 10:08 AM) Blood Pressure 110/64 mmHg [90-140/60-90 mmHg] (03/25/15 10:08 AM) Problem List Condition Effective Dates Status [...] MOUTH EVERY DAY., # 90 unknown unit, eRx: [facility] [id number], TAKE 1 BY MOUTH EVERY DAY. Start Date: 01/26/15 Status: Ordered furosemide 20 mg oral tablet 20 mg 1 tabs, Oral, Daily, # 30 tabs, 3 Refill(s), Pharmacy: [facility] [id number], 1 tabs Oral Daily Start Date: 03/20/15 Status: Ordered ibuprofen 200 mg oral tablet 1 tabs, Oral, q6hr, as needed, 0 Refill(s) Start Date: 08/15/13 Status: Ordered lisinopril 40 mg oral tablet See Instructions, TAKE 1 TABLET (40MG) BY ORAL ROUTE EVERY DAY, # 90 unknown unit, eRx: [facility] [id number], TAKE 1 TABLET (40MG) BY ORAL ROUTE EVERY DAY Start Date: 01/26/15 Status: Ordered multivitamin 1 tablet, Oral, Daily, 0 Refill(s) Start Date: 08/15/13 Status: Ordered Proscar 5 mg oral tablet See Instructions, TAKE 1 TABLET BY MOUTH AT BEDTIME., # 90 unknown unit, 1 Refill(s), eRx: [facility] [id number], TAKE 1 TABLET BY MOUTH AT BEDTIME. Start Date: 03/25/15 Status: Ordered simvastatin 20 mg oral tablet See Instructions, TAKE 1 TABLET BY MOUTH EVERY DAY., # 30 tabs, eRx: [facility] [id number], TAKE 1 TABLET BY MOUTH EVERY DAY. Start Date: 03/06/15 Status: Ordered Tessalon Perles 100 mg oral capsule 200 mg 2 caps, Oral, q8hr, # 30 caps, 0 Refill(s), Pharmacy: [facility] [id number], 2 caps Oral q8hr Start Date: 03/19/15 Stop Date: 04/20/15 Status: Ordered Uroxatral 10 mg oral tablet, extended release See Instructions, TAKE 1 TABLET BY MOUTH AT BEDTIME., # 90 unknown unit, 2 Refill(s), eRx: [facility] [id number], TAKE 1 TABLET BY MOUTH AT BEDTIME. [...]
--- OUTSIDE RECORDS SUMMARY | 2016-05-22 10:38 | XMS REPORT | Referral Summary ---
Author Organization Unknown Address Unknown Phone Unavailable Care Team Providers Care Accounting Director Name Role Phone Lilliam Mancini Primary Care Physician [phone] Encounter VC Date(s): 03/04/14 - 03/04/14 [facility] [address] [place] [address] [place] [address] Discharge Diagnosis: Coronary artery disease Discharge Diagnosis: Hypertension Discharge Diagnosis: Dyslipidemia Discharge Disposition: Home or Self Care Attending Physician: Compa Foley MD Admitting Physician: Compa Foley MD Referring Physician: Shiva Mancini MD Vital Signs Most recent to 1 oldest [Reference Range]: Peripheral Pulse 56 bpm Rate [60-100 bpm] *LOW* (03/04/14 10:04 AM) Blood Pressure 142/72 mmHg [90-140/60-90 mmHg] *HI* (03/04/14 10:04 AM) Problem List Condition Effective Dates Status [...] Impotence of organic Active origin (disorder)(Confirmed ) Osteoarthritis(Confi Active rmed) Pure Active hypercholesterolemia (disorder)(Confirmed ) Suprapubic Active pain(Confirmed) Allergies, Adverse Reactions, Alerts No Known Medication Allergies Medications Aspirin Low Dose 81 mg, Oral, Daily, 0 Refill(s) Start Date: 08/15/13 Status: Ordered atenolol 100 mg oral tablet See Instructions, TAKE 1 BY MOUTH EVERY DAY., # 90 unknown unit, 3 Refill(s), eRx: [facility] [id number], TAKE 1 BY MOUTH EVERY DAY. Special Instructions: TAKE 1 BY MOUTH EVERY DAY. Start Date: 01/30/14 Status: Ordered ibuprofen 200 mg oral tablet 1 tabs, Oral, q6hr, as needed, 0 Refill(s) Start Date: 08/15/13 Status: Ordered lisinopril 40 mg oral tablet See Instructions, TAKE 1 TABLET (40MG) BY ORAL ROUTE EVERY DAY, # 90 unknown unit, 3 Refill(s), eRx: [facility] [id number], TAKE 1 TABLET (40MG) BY ORAL ROUTE EVERY DAY Special Instructions: TAKE 1 TABLET (40MG) BY ORAL ROUTE EVERY DAY Start Date: 01/30/14 Status: Ordered multivitamin 1 tablet, Oral, Daily, 0 Refill(s) Start Date: 08/15/13 Status: Ordered Proscar 5 mg oral tablet 1 tabs, Oral, Daily, 0 Refill(s) Start Date: 08/15/13 Status: Ordered simvastatin 20 mg oral tablet See Instructions, TAKE 1 TABLET BY MOUTH EVERY DAY., # 90 unknown unit, 3 Refill (s), eRx: [facility] [id number], TAKE 1 TABLET BY MOUTH EVERY DAY. Special Instructions: TAKE 1 TABLET BY MOUTH EVERY DAY. Start Date: 09/12/13 Status: Ordered Uroxatral 10 mg oral tablet, extended release See Instructions, TAKE 1 TABLET BY MOUTH AT BEDTIME., # 90 unknown unit, eRx: [facility] [id number], TAKE 1 TABLET BY MOUTH AT BEDTIME. Special Instructions: TAKE 1 TABLET BY MOUTH AT BEDTIME. Start Date: 02/10/14 Status: Ordered Results No data available for this section Immunizations Vaccine Date Refusal Reason tetanus/diphth/pertuss (Tdap) adult/adol 09/11/12 influenza virus vaccine, inactivated 11/26/13 influenza virus vaccine, live 12/03/10 pneumococcal 23-polyvalent vaccine 12/12/05 Procedures Procedure Date Related Diagnosis Body Site Knee replacement L 10/20/10 Cystoscopy 10/15/08 hydrodistention 10/15/08 Urethral dilatation 10/15/08 Orchiectomy 02/07/03 Social History Social History Type Response Smoking Status Never smoker Assessment and Plan Extracted from: Title: Ambulatory Patient Education Author: Compa Foley MD Date: 03/04/14 Family Medicine Coronary Artery Disease, Risk Factors Research has shown that the risk of developing coronary artery disease (CAD) and having a heart attack increases with each factor you have. RISK FACTORS YOU CANNOT CHANGE Your age. Your risk goes up as you get older. Most heart attacks happen to people over the age of 65. Gender. Men have a greater risk of heart attack than women, and they have attacks earlier in life. However, women are more likely to from a heart attack. Heredity. Children of parents with heart disease are more likely to develop it themselves. Race. Americans and other ethnic groups have a higher risk, possibly because of high blood pressure, a tendency toward obesity, and diabetes. Your family. Most people with a strong family history of heart disease have one or more other risk factors. RISK FACTORS YOU CAN CHANGE Exposure to tobacco smoke. Even secondhand smoke greatly increases the risk for heart disease. High blood cholesterol may be lowered with changes in diet, activity, and medicines. High blood pressure makes the heart work harder. This causes the heart muscles to become thick and, eventually, weaker. It also increases your risk of stroke, heart attack, and kidney or heart failure. Physical inactivity is a risk factor for CAD. Regular physical activity helps prevent heart and blood vessel disease. Exercise helps control blood cholesterol, diabetes, obesity, and it may help lower blood pressure in some people. Excess body fat, especially belly fat, increases the risk of heart disease and stroke even if there are no other risk factors. Excess weight increases the heart's workload and raises blood pressure and blood cholesterol. Diabetes seriously increases your risk of developing CAD. If you have diabetes, you should work with your caregiver to manage it and control other risk factors. OTHER RISK FACTORS FOR CAD How you respond to stress. Drinking too much alcohol may raise blood pressure, cause heart failure, and lead to stroke. Total cholesterol greater than 200 milligrams. HDL (good) cholesterol less than 40 milligrams. HDL helps keep cholesterol from building up in the jordan of the arteries. PREVENTING CAD Maintain a healthy weight. Exercise or do physical activity. Eat a heart-healthy diet low in fat and salt and high in fiber. Control your blood pressure to keep it below 120 over 80. Keep your cholesterol at a level that lowers your risk. Manage diabetes if you have it. Stop smoking. Learn how to manage stress. HEART SMART SUBSTITUTIONS Instead of whole or 2% milk and cream, use skim milk. Instead of fried foods, eat baked, steamed, boiled, broiled, or microwaved foods. Instead of lard, butter, palm and coconut oils, cook with unsaturated vegetable oils, such as corn, olive, canola, safflower, sesame, soybean, sunflower, or peanut. Instead of fatty cuts of meat, eat lean cuts of meat or cut off the fatty parts. Instead of 1 whole egg in recipes, use 2 egg whites. Instead of sauces, butter, and salt, season vegetables with herbs and spices. Instead of regular hard and processed cheeses, eat low-fat, low-sodium cheeses. Instead of salted potato chips, choose low-fat, unsalted tortilla and potato chips and unsalted pretzels and popcorn. Instead of sour cream and mayonnaise, use plain low-fat yogurt, low-fat cottage cheese, or low-fat or "light" sour cream. FOR MORE INFORMATION [employer]: www.nhlbi.nih.gov/health/hearttruth [place] [employer]: www.heart.org/HEARTORG Document Released: 04/28/2004 Document Revised: 04/30/2012 Document Reviewed: ExitCare Patient Information 2014 [employer]. No follow up information was provided. Extracted from: Title: Office Visit Note Author: Compa Foley MD Date: 03/04/14 Assessment/Plan Coronary artery disease status post four-vessel CABG in 2005 with likely some areas of scar tissue in the apical and lateral jordan on dobutamine stress echocardiogram from 2010. Aneurysmal segments seen in the distal septal and distal anteroseptal jordan with preserved left ventricular systolic function overall. Free of any anginal symptoms currently. Continue aspirin for prevention. Men stress testing to exclude underlying ischemia; assess for interval changes. History cardiomyopathy, but with last echocardiogram with preserved left ventricular systolic function. Watch for congestive heart symptoms. Low-salt diet encourage. Hypertension, borderline elevated today, but controlled at home. Continue to monitor blood pressure at home. Continue current medical therapy. Emphasized low-salt diet and consistent exercise. History of TIA, continue aspirin. Dyslipidemia, with last cholesterol undercontrol. Continue activities with walking. Continue simvastatin. Heart healthy diet discussed. Referrals to Other Providers Referred by: Compa Foley MD
--- OUTSIDE RECORDS SUMMARY | 2016-05-22 10:38 | XMS REPORT | Referral Summary ---
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 Start Date: 01/30/14 Status: Ordered ibuprofen 200 mg oral tablet 1 tabs, Oral, q6hr, as needed, 0 Refill(s) Start Date: 08/15/13 Status: Ordered lisinopril 40 mg oral tablet See Instructions, TAKE 1 TABLET (40MG) BY ORAL ROUTE EVERY DAY, # 90 unknown unit, 3 Refill(s), eRx: [facility] [id number], TAKE 1 TABLET (40MG) BY ORAL ROUTE EVERY DAY Start Date: 01/30/14 Status: Ordered multivitamin 1 tablet, Oral, Daily, 0 Refill(s) Start Date: 08/15/13 Status: Ordered Proscar 5 mg oral tablet See Instructions, TAKE 1 TABLET BY MOUTH AT BEDTIME., # 90 unknown unit, eRx: [facility] [id number], TAKE 1 TABLET BY MOUTH AT BEDTIME. Start Date: 12/22/14 Status: Ordered simvastatin 20 mg oral tablet See Instructions, TAKE 1 TABLET BY MOUTH EVERY DAY., # 90 unknown unit, 1 Refill (s), eRx: [facility] [id number], TAKE 1 TABLET BY MOUTH EVERY DAY. Start Date: 09/12/14 Status: Ordered Uroxatral 10 mg oral tablet, extended release See Instructions, TAKE 1 TABLET BY MOUTH AT BEDTIME., # 90 unknown unit, 2 Refill(s), eRx: [facility] [id number], TAKE 1 TABLET BY MOUTH AT BEDTIME. [...] Up With: Where: When: Shiva Mancini [address]; [place] [address] Business (1) Within 3 to 5 days Comments: Follow Up With: Where: When: Jamie Zoran [address]; [place] [address] Business (1) In 6 months [...] counseling. Ordered: Office Visit Level 3 Est 94526
--- OUTSIDE RECORDS SUMMARY | 2016-05-22 10:38 | XMS REPORT | Continuity of Care Document ---
Author Author [facility] Organization [facility] Address Unknown Phone Unavailable Allergies Active Description Code Type Severity Reaction Onset Reported/Identified Relationship to Patient Clinical Status Yes No Known Drug Intolerances No Known Drug Intolerances Drug Allergy Unknown N/A 03/17/2005 Yes NO KNOW CONTRAST MEDIA ALLERGY NO KNOW CONTRAST MEDIA ALLERGY Drug Allergy Unknown N/A 2005 Yes No Known Drug Allergies No Known Drug Allergies Drug Allergy Unknown N/A 03/19/2005 Yes No Known Food Allergies No Known Food Allergies Drug Allergy Unknown N/A 03/19/2005 Yes No Known Other Allergies No Known Other Allergies Drug Allergy Unknown N/A 03/19/2005 Yes No Known Medication Allergies NKMA N/A N/A 08/28/2013 Yes No Known Drug Intolerances No Known Drug Intolerances Drug Allergy Unknown Z 05/27/2014 Medications Problems Date Dx Coded Attending Type Code Diagnosis Diagnosed By 05/27/2014 Dameon LOCKE, Wassim H F 038.9 SEPTICEMIA NOS 05/27/2014 Dameon LOCKE, Wassim H F 272.4 HYPERLIPIDEMIA NEC/NOS 05/27/2014 Dameon LOCKE, Wassim H F 401.9 HYPERTENSION NOS 05/27/2014 Dameon LOCKE, Wassim H F 410.91 ACUTE MYOCARD INFARCT,UNSPEC SITE, INITIAL EPISODE 05/27/2014 Dameon LOCKE, Wassim H F 414.00 CORON ATHEROSCLER NOS TYPE VESSEL, [place] OR GRAFT 05/27/2014 Dameon LOCKE, Wassim H F 486 PNEUMONIA, ORGANISM NOS 05/27/2014 Dameon LOCKE, Wassim H F 780.2 SYNCOPE AND COLLAPSE 05/27/2014 Dameon LOCKE, Wassim H A 786.50 05/27/2014 Dameon LOCKE, Wassim H F 995.92 SEVERE SEPSIS 05/27/2014 Dameon LOCKE, Wassim H F V45.81 AORTOCORONARY BYPASS Procedures Results Test Result Range CHEM/HEM PROFILE-BEDSIDE - 05/27/14 04:13 POTASSIUM 3.8 mmol/L 3.5-5.3 METHOD Bedside ANION GAP 22 mmol/L 10-20 METHOD Bedside GLUCOSE 144 mg/dL 70-99 BLOOD UREA NITROGEN 24 mg/dL 7-20 CREATININE 1.7 mg/dL 0.8-1.3 HEMOGLOBIN 11.9 gm/dL 14.0-18.0 HEMATOCRIT 35.0 % 40.0-54.0 SODIUM 140 mmol/L 135-148 CHLORIDE 105 mmol/L 98-110 CARBON DIOXIDE 17 mmol/L 21-32 CALCIUM IONIZED 4.7 mg/dL 4.5-5.3 TROPONIN I BEDSIDE - 05/27/14 04:14 METHOD Bedside TROPONIN I < 0.04 ng/mL < 0.11 CBC - 05/27/14 04:45 MEAN CELL HGB 28.9 pg 27.0-33.0 MEAN CELL HGB CONCENTRATION 33.2 g/dL 32.0-37.0 MEAN CELL VOLUME 87.3 fl 80.0-100.0 RED BLOOD CELL 4.18 m/cumm 4.00-6.00 RED CELL DISTRIBUTION WIDTH 13.2 % 11.0- 15.6 WHITE BLOOD CELL 26.6 k/cumm 5.0-10.0 HEMOGLOBIN 12.1 gm/dL 14.0-18.0 HEMATOCRIT 36.5 % 40.0-54.0 PLATELET COUNT 197 k/cumm 150-400 PROTHROMBIN TIME WITH INR - 05/27/14 04:45 INTERNATIONAL NORMAL RATIO 1.3 0.9-1.1 PROTHROMBIN TIME 14.4 sec 9.3-12.2 PARTIAL THROMBOPLASTIN TIME - 05/27/14 04:45 PARTIAL THROMBOPLASTIN TIME 30 sec 24-36 BC REFLEX LACTIC ACID - 05/27/14 06:55 LACTIC ACID 2.1 mmol/L 0.5-2.2 TROPONIN I - 05/27/14 06:55 TROPONIN I 0.06 ng/mL < 0.07 BLOOD CULTURE - 05/27/14 06:55 Microbiology BLOOD CULTURE - 05/27/14 06:55 Microbiology VIRUS RESPIRATORY PROFILE - 05/27/14 07:46 Microbiology PROTHROMBIN TIME WITH INR - 05/27/14 10:03 INTERNATIONAL NORMAL RATIO 1.4 0.9-1.1 PROTHROMBIN TIME 16.3 sec 9.3-12.2 PARTIAL THROMBOPLASTIN TIME - 05/27/14 10:03 PARTIAL THROMBOPLASTIN TIME 29 sec 24-36 METABOLIC PANEL, COMPREHN - 05/27/14 10:03 POTASSIUM 3.9 mmol/L 3.5-5.3 EST GFR (MDRD) 39 mL/min > 59 ANION GAP 11 mmol/L 5-15 EST CrCl (CG) 33 mL/min > 59 GLUCOSE 216 mg/dL 70-99 CALCIUM 8.3 mg/dL 8.5-10.1 BLOOD UREA NITROGEN 30 mg/dL 7-20 CREATININE 1.8 mg/dL 0.8-1.3 SODIUM 140 mmol/L 135-148 CHLORIDE 109 mmol/L 98-110 AST/SGOT 45 Units/L 10-37 ALT/SGPT 25 Units/L < 66 CARBON DIOXIDE 20 mmol/L 21-32 TOTAL PROTEIN 5.9 gm/dL 6.4-8.2 ALBUMIN 3.0 gm/dL 3.4-5.0 BILI TOTAL 0.7 mg/dL 0.0-1.0 ALKALINE PHOSPHATASE TOTAL 50 IU/L 45- 117 CK MB - 05/27/14 10:03 CK MB 7.9 ng/mL < 4.0 MAGNESIUM - 05/27/14 10:03 MAGNESIUM 2.1 mg/dL 1.8-2.4 THYROID STIM HORMONE (TSH) - 05/27/14 10:03 THYROID STIM HORMONE (TSH) 0.86 uIU/mL 0.34-4.82 TROPONIN I - 05/27/14 10:03 TROPONIN I 0.07 ng/mL < 0.07 B-TYPE NATRIURETIC PEPTIDE - 05/27/14 10:03 B-TYPE NATRIURETIC PEPTIDE 712 pg/mL < 100 HEMOGLOBIN A1C - 05/27/14 10:03 HEMOGLOBIN A1C 5.7 % < 5.7 URINALYSIS, ROUTINE - 05/27/14 12:08 UA LEUKOCYTE ESTERASE DIPSTICK NEGATIVE NEGATIVE UA NITRITE DIPSTICK NEGATIVE NEGATIVE UA PROTEIN DIPSTICK TRACE NEGATIVE UA GLUCOSE DIPSTICK NEGATIVE NEGATIVE UA KETONE DIPSTICK NEGATIVE NEGATIVE UA UROBILINOGEN DIPSTICK NORMAL NORMAL UA BILIRUBIN DIPSTICK NEGATIVE NEGATIVE UA BLOOD DIPSTICK 2+ NEGATIVE UA SPECIFIC GRAVITY 1.021 1.015-1.025 UR PH 5.0 5.0-7.0 UA MICROSCOPIC - 05/27/14 12:08 UA HYALINE CAST 5-10 cast/lpf 0 - 1 UA MUCUS 2+ NEG TO 1+ UA RBC 3-5 rbc/hpf 0 - 3 UA VOLUME FOR EXAM 12.0 mL (12mL STD) UA WBC 0-1 wbc/hpf 0 - 5 URINE CULTURE - 05/27/14 12:08 Microbiology GRAM STAIN SPUTUM - SPUTUM CULTURE - 05/27/14 15:55 Microbiology TROPONIN I - 05/27/14 20:14 TROPONIN I 0.07 ng/mL < 0.07 METABOLIC PANEL, BASIC - 05/28/14 03:45 POTASSIUM 3.9 mmol/L 3.5-5.3 EST GFR (MDRD) 57 mL/min > 59 ANION GAP 5 mmol/L 5-15 EST CrCl (CG) 46 mL/min > 59 GLUCOSE 100 mg/dL 70-99 CALCIUM 7.2 mg/dL 8.5-10.1 BLOOD UREA NITROGEN 24 mg/dL 7-20 CREATININE 1.3 mg/dL 0.8-1.3 SODIUM 137 mmol/L 135-148 CHLORIDE 110 mmol/L 98-110 CARBON DIOXIDE 22 mmol/L 21-32 LIPID PANEL - 05/28/14 03:45 CHOLESTEROL/HDL RATIO 2.3 < 5.0 LDL CHOLESTEROL 35 mg/dL < 100 VLDL CHOLESTEROL 13 mg/dL < 30 TRIGLYCERIDES 65 mg/dL < 150 CHOLESTEROL 86 mg/dL < 200 HDL CHOLESTEROL 38 mg/dL > 39 MAGNESIUM - 05/28/14 03:45 MAGNESIUM 2.2 mg/dL 1.8-2.4 B-TYPE NATRIURETIC PEPTIDE - 05/28/14 03:45 B-TYPE NATRIURETIC PEPTIDE 236 pg/mL < 100 CBC W/DIFF - 05/28/14 03:45 COMMENT REVIEWED GRANULOCYTE # 21.1 k/cumm 2.0-9.0 LYMPHOCYTE # 1.6 k/cumm 1.0-4.0 LYMPHOCYTE % 7 % 20-30 MEAN CELL HGB 28.9 pg 27.0-33.0 MEAN CELL HGB CONCENTRATION 32.6 g/dL 32.0-37.0 MEAN CELL VOLUME 88.9 fl 80.0-100.0 MONOCYTE # 0.7 k/cumm 0.1-1.0 MONOCYTE % 3 % 4-6 RED BLOOD CELL 3.87 m/cumm 4.00-6.00 RED CELL DISTRIBUTION WIDTH 13.6 % 11.0- 15.6 WHITE BLOOD CELL 23.4 k/cumm 5.0-10.0 HEMOGLOBIN 11.2 gm/dL 14.0-18.0 HEMATOCRIT 34.4 % 40.0-54.0 PLATELET COUNT 178 k/cumm 150-400 MANUAL DIFF(R) - 05/28/14 03:45 DIFFERENTIAL MANUAL RBC MORPH NOTED SEGMENTED NEUTROPHIL % 90 % 50-70 Encounters ACCT No. Visit Date/Time Discharge Status Pt. Type Provider Facility Loc./Unit Complaint [id number] 03/25/2013 09:03:00 03/25/2013 23 :59:59 CLS Outpatient [id number] 02/27/2013 10:49:00 02/27/2013 23 :59:59 CLS Outpatient [id number] 12/18/2012 08:50:00 12/18/2012 23 :59:59 CLS Outpatient
--- OUTSIDE RECORDS SUMMARY | 2016-05-22 10:38 | XMS REPORT | Referral Summary ---
Author Author [facility] Organization [facility] Address Unknown Phone Unavailable Care Team Providers Care Guest Room Attendant Name Role Phone Lilliam Mancini Primary Care Physician [phone] Encounter Date(s): 04/06/15 - 04/06/15 [facility] [address] [place] [address]- Discharge Diagnosis: Coronary arteriosclerosis Discharge Diagnosis: Benign essential hypertension Discharge Diagnosis: Cough Discharge Disposition: 01-Home or Self Care Attending Physician: Shiva Mancini MD Admitting Physician: Shiva Mancini MD Vital Signs Most recent to 1 oldest [Reference Range]: Temperature Tympanic 36.5 degC [36.6-38.1 degC] *LOW* (04/06/15 1:14 PM) Peripheral Pulse 64 bpm Rate [60-100 bpm] (04/06/15 1:14 PM) Respiratory Rate 16 br/min [14-20 br/min] (04/06/15 1:14 PM) Blood Pressure 108/50 mmHg [90-140/60-90 mmHg] (04/06/15 1:14 PM) Problem List Condition Effective Dates Status [...] EVERY DAY., # 90 unknown unit, eRx: [facility] [id number], TAKE 1 BY MOUTH EVERY DAY. Start Date: 01/26/15 Status: Ordered furosemide 20 mg oral tablet 20 mg 1 tabs, Oral, Daily, # 30 tabs, 3 Refill(s), Pharmacy: [id number], 1 tabs Oral Daily Start Date: 03/20/15 Status: Ordered ibuprofen 200 mg oral tablet 1 tabs, Oral, q6hr, as needed, 0 Refill(s) Start Date: 08/15/13 Status: Ordered lisinopril 40 mg oral tablet See Instructions, TAKE 1 TABLET (40MG) BY ORAL ROUTE EVERY DAY, # 90 unknown unit, eRx: [facility] [id number], TAKE 1 TABLET (40MG) BY ORAL ROUTE EVERY DAY Start Date: 01/26/15 Status: Ordered multivitamin 1 tablet, Oral, Daily, 0 Refill(s) Start Date: 08/15/13 Status: Ordered Proscar 5 mg oral tablet See Instructions, TAKE 1 TABLET BY MOUTH AT BEDTIME., # 90 unknown unit, 1 Refill(s), eRx: [facility] [id number], TAKE 1 TABLET BY MOUTH AT BEDTIME. Start Date: 03/25/15 Status: Ordered simvastatin 20 mg oral tablet See Instructions, TAKE 1 TABLET BY MOUTH EVERY DAY., # 30 tabs, eRx: [facility] [id number], TAKE 1 TABLET BY MOUTH EVERY DAY. Start Date: 03/06/15 Status: Ordered Tessalon Perles 100 mg oral capsule 200 mg 2 caps, Oral, q8hr, # 40 caps, 0 Refill(s), Pharmacy: [facility] [id number], 2 caps Oral q8hr Start Date: 04/06/15 Status: Ordered Uroxatral 10 mg oral tablet, extended release See Instructions, TAKE 1 TABLET BY MOUTH AT BEDTIME., # 90 unknown unit, 2 Refill(s), eRx: [id number], TAKE 1 TABLET BY MOUTH AT BEDTIME. Start Date: 08/01/14 Status: Ordered Results Hematology Most recent to 1 oldest [Reference Range]: WBC [4.8-10.8 11.9 10*3/uL 10*3/uL] *HI* (04/06/15 1:55 PM) RBC [4.60-6.20] 3.91 *LOW* (04/06/15 1:55 PM) Hgb [14.0-18.0 11.4 gm/dL gm/dL] *LOW* (04/06/15 1:55 PM) Hct [42.0-52.0 %] 34.5 % *LOW* (04/06/15 1:55 PM) MCV [82.0-99.0 fL] 88.2 fL (04/06/15 1:55 PM) MCH [27.0-32.0 pg] 29.2 pg (04/06/15 1:55 PM) MCHC [32.0-36.0 33.0 gm/dL gm/dL] (04/06/15 1:55 PM) RDW [11.5-14.5 %] 14.8 % *HI* (04/06/15 1:55 PM) Platelet [150-400 276 10*3/uL 10*3/uL] (04/06/15 1:55 PM) MPV [8.8-14.8 fL] 10.0 fL (04/06/15 1:55 PM) Immature 0.3 % Granulocytes (04/06/15 1:55 PM) [0.0-1.0 %] Neutrophils [51-75 73 % %] (04/06/15 1:55 PM) Lymphocytes [20-46 19 % %] *LOW* (04/06/15 1:55 PM) Monocytes [4-11 %] 6 % (04/06/15 1:55 PM) Eosinophils [0-4 %] 2 % (04/06/15 1:55 PM) Basophils [0-2 %] 0 % (04/06/15 1:55 PM) Neutro Absolute 8.62 10*3 [1.90-7.00 10*3] *HI* (04/06/15 1:55 PM) Lymph Absolute 2.23 10*3 [0.80-3.30 10*3] (04/06/15 1:55 PM) [place] Absolute 0.74 10*3 [0.30-1.00 10*3] (04/06/15 1:55 PM) Eos Absolute 0.22 10*3 [0.00-0.50 10*3] (04/06/15 1:55 PM) Baso Absolute 0.02 10*3 [0.00-0.20 10*3] (04/06/15 1:55 PM) Chemistry Most recent to 1 oldest [Reference Range]: Sodium Lvl [135-144 135 mEq/L mEq/L] (04/06/15 1:55 PM) Potassium Lvl 4.4 mEq/L [3.5-5.2 mEq/L] (04/06/15 1:55 PM) Chloride [99-111 103 mEq/L mEq/L] (04/06/15 1:55 PM) CO2 [23-31 mEq/L] 24 mEq/L (04/06/15 1:55 PM) AGAP [3-20] 8 (04/06/15 1:55 PM) BUN [8-26 mg/dL] 16 mg/dL (04/06/15 1:55 PM) Glucose Lvl [70-99 129 mg/dL mg/dL] *HI* (04/06/15 1:55 PM) Creatinine Lvl 1.24 mg/dL [0.72-1.25 mg/dL] (04/06/15 1:55 PM) eGFR [>60 mL/min] 56 mL/min 1 *ABN* (04/06/15 1:55 PM) Calcium Lvl 8.9 mg/dL [8.9-10.5 mg/dL] (04/06/15 1:55 PM) 1Result Comment: Multiply eGFR results by 1.21 for race. Immunizations Vaccine Date Refusal Reason tetanus/diphth/pertuss (Tdap) [...] Visit Note Author: Shiva Mancini MD Date: 04/06/15 Assessment/Plan Atherosclerotic heart disease of [place] coronary artery without angina pectoris , Coronary arteriosclerosis Overall this appears stable no change in current treatment is recommended Ordered: Basic Metabolic Panel Office Visit Level 4 Est 01130 Benign essential hypertension, Essential (primary) hypertension Blood pressures well-controlled no change in current treatment Ordered: Basic Metabolic Panel Office Visit Level 4 Est 77929 Cough, Cough I agree with Dr. Sun that a pulmonology consultation would be appropriate in light of his recentchest x-rayabnormalities and his ongoing cough. Willschedule that. In the interim I gave some Tessalon Perles to be used on a when necessary basis. He may use cough drops as well. I've also recommended some lab today. Ordered: Basic Metabolic Panel CBC w/ Differential Office Visit Level 4 Est 83789 Orders: benzonatate, 200 mg 2 caps, Oral, q8hr, # 40 caps, 0 Refill(s), Pharmacy: [id number], 2 caps Oral q8hr
--- OUTSIDE RECORDS SUMMARY | 2016-05-22 10:38 | XMS REPORT | Referral Summary ---
Author Author [facility] Organization [facility] Address Unknown Phone Unavailable Care Team Providers Care Form Worker Name Role Phone Lilliam Mancnii Primary Care Physician [phone] Encounter Date(s): 10/15/15 - 10/15/15 [facility] [address] [place] [address] Discharge Diagnosis: ILD (interstitial lung disease) Discharge Disposition: 01-Home or Self Care Attending Physician: Mynor Pillai MD Admitting Physician: Mynor Pillai MD Referring Physician: Rick Sun MD Vital Signs Most recent to 1 oldest [Reference Range]: Peripheral Pulse 60 bpm Rate [60-100 bpm] (10/15/15 8:08 AM) Respiratory Rate 24 br/min [14-20 br/min] *HI* (10/15/15 8:08 AM) Blood Pressure 120/60 mmHg [90-140/60-90 mmHg] (10/15/15 8:08 AM) SpO2 94 % (10/15/15 8:08 AM) Problem List Condition Effective Dates Status [...] MOUTH AT BEDTIME, # 90 tabs, eRx: [facility] [id number], TAKE 1 TABLET BY MOUTH AT BEDTIME Start Date: 07/27/15 Status: Ordered Aspirin Low Dose 81 mg, Oral, Daily, 0 Refill(s) Start Date: 08/15/13 Status: Ordered atenolol 100 mg oral tablet See Instructions, TAKE 1 BY MOUTH EVERY DAY., # 90 unknown unit, 1 Refill(s), eRx: [facility] [id number], TAKE 1 BY MOUTH EVERY DAY. Start Date: 04/24/15 Status: Ordered finasteride 5 mg oral tablet See Instructions, TAKE 1 TABLET BY MOUTH AT BEDTIME, # 90 tabs, eRx: [facility] [id number], TAKE 1 TABLET BY MOUTH AT BEDTIME Start Date: 06/23/15 Status: Ordered furosemide 20 mg oral tablet See Instructions, TAKE 1 TABLET BY MOUTH DAILY, # 30 tabs, 2 Refill(s), eRx: [facility] [id number], TAKE 1 TABLET BY MOUTH DAILY Start [...] Daily, # 90 tabs, 5 Refill(s), Pharmacy: [facility] [id number], 1 tabs Oral Daily Start Date: 10/07/15 Status: Ordered multivitamin 1 tablet, Oral, Daily, 0 Refill(s) Start Date: 08/15/13 Status: Ordered simvastatin 20 mg oral tablet See Instructions, TAKE 1 TABLET BY MOUTH EVERY DAY, # 90 tabs, 2 Refill(s), eRx : [facility] [id number], TAKE 1 TABLET BY MOUTH EVERY DAY Start Date: 09/07/15 Status: Ordered Results Hematology Most recent to 1 oldest [Reference Range]: WBC [4.8-10.8 10.2 10*3/uL 10*3/uL] (10/15/15 9:30 AM) RBC [4.60-6.20] 4.42 *LOW* (10/15/15 9:30 AM) Hgb [14.0-18.0 13.1 gm/dL gm/dL] *LOW* (10/15/15 9:30 AM) Hct [42.0-52.0 %] 39.1 % *LOW* (10/15/15 9:30 AM) MCV [82.0-99.0 fL] 88.5 fL (10/15/15 9:30 AM) MCH [27.0-32.0 pg] 29.6 pg (10/15/15 9:30 AM) MCHC [32.0-36.0 33.5 gm/dL gm/dL] (10/15/15 9:30 AM) RDW [11.5-14.5 %] 14.0 % (10/15/15 9:30 AM) Platelet [150-400 226 10*3/uL 10*3/uL] (10/15/15 9:30 AM) MPV [8.8-14.8 fL] 11.0 fL (10/15/15 9:30 AM) Immature 0.1 % Granulocytes (10/15/15 9:30 AM) [0.0-1.0 %] Neutrophils [51-75 75 % %] (10/15/15 9:30 AM) Lymphocytes [20-46 15 % %] *LOW* (10/15/15 9:30 AM) Monocytes [4-11 %] 8 % (10/15/15 9:30 AM) Eosinophils [0-4 %] 2 % (10/15/15 9:30 AM) Basophils [0-2 %] 0 % (10/15/15 9:30 AM) Neutro Absolute 7.70 10*3 [1.90-7.00 10*3] *HI* (10/15/15 9:30 AM) Lymph Absolute 1.53 10*3 [0.80-3.30 10*3] (10/15/15 9:30 AM) [place] Absolute 0.80 10*3 [0.30-1.00 10*3] (10/15/15 9:30 AM) Eos Absolute 0.16 10*3 [0.00-0.50 10*3] (10/15/15 9:30 AM) Baso Absolute 0.02 10*3 [0.00-0.20 10*3] (10/15/15 9:30 AM) Sed Rate [0-15] 9 (10/15/15 9:30 AM) Chemistry Most recent to 1 oldest [Reference Range]: Sodium Lvl [135-144 138 mEq/L mEq/L] (10/15/15:30 AM) Potassium Lvl 4.7 mEq/L [3.5-5.2 mEq/L] (10/15/15 9:30 AM) Chloride [99-111 106 mEq/L mEq/L] (10/15/15:30 AM) CO2 [23-31 mEq/L] 24 mEq/L (10/15/15:30 AM) AGAP [3-20] 8 (10/15/15 9:30 AM) BUN [8-26 mg/dL] 16 mg/dL (10/15/15:30 AM) Glucose Lvl [70-99 97 mg/dL mg/dL] (10/15/15 9:30 AM) Creatinine Lvl 1.19 mg/dL [0.72-1.25 mg/dL] (10/15/15 9:30 AM) eGFR [>60 mL/min] 59 mL/min 1 *ABN* (10/15/15:30 AM) Calcium Lvl 9.6 mg/dL [8.9-10.5 mg/dL] (10/15/15 9:30 AM) Albumin Lvl [3.4-4.8 3.5 gm/dL gm/dL] (10/15/15 9:30 AM) Total Protein 6.2 gm/dL 2 [6.0-7.6 gm/dL] (10/15/15 9:30 AM) Globulin [1.8-4.0 2.7 gm/dL gm/dL] (8/25/16 9:30 AM) ALT [0-55 U/L] 19 U/L (10/15/15 9:30 AM) AST [5-34 U/L] 23 U/L (10/15/15 9:30 AM) Alk Phos [40-150 46 U/L U/L] (10/15/15 9:30 AM) Bili Total [0.2-1.2 1.0 mg/dL mg/dL] (10/15/15 9:30 AM) BNP [0-99 pg/mL] 390 pg/mL *HI* (10/15/15 9:30 AM) 1Result Comment: Multiply eGFR results by 1.21 [...] Extracted from: Title: Ambulatory Patient Education Author: Mynor Pillai MD Date: 10/15/15 Pulmonary Medicine Pulmonary Fibrosis Pulmonary fibrosis is a type of lung disease that causes scarring. Over time, the scar tissue (fibrosis) builds up in the air sacs of your lungs. This makes it hard for you to breathe. Less oxygen can get into your blood. Scarring from pulmonary fibrosis gets worse over time. This damage is permanent. Having damaged lungs may make it more likely that you will have heart problems as well. CAUSES Usually, the cause of pulmonary fibrosis is not known (idiopathic pulmonary fibrosis). However, pulmonary fibrosis can be caused by: Exposure to occupational and environmental toxins. These include asbestos , silica, and metal dusts. Inhaling moldy hay. This can cause an allergic reaction in the lung ( handy's lung) that can lead to pulmonary fibrosis. Inhaling toxic fumes. Certain medicines. These include drugs used in radiation therapy or used to treat seizures, heart problems, and some infections. Autoimmune diseases, such as rheumatoid arthritis, systemic sclerosis, and connective tissue diseases. Sarcoidosis. In this disease, areas of inflammatory cells (granulomas) form and most often affect the lungs. Genes. Some cases of pulmonary fibrosis may be passed down through families. RISK FACTORS You may be at a higher risk for developing pulmonary fibrosis if: You have a family history of the disease. You have an autoimmune disease or another condition linked to pulmonary fibrosis. You are exposed to certain substances or fumes found in agricultural, farm, construction, or factory work. You take certain medicines. SIGNS AND SYMPTOMS Symptoms may include: Difficulty breathing that gets worse with activity. Dry, hacking cough. Rapid, shallow breathing during exercise or while at rest. Shortness of breath that gets worse (dyspnea). Bluish skin and lips. Loss of appetite. Loss of strength. Weight loss and fatigue. Rounded and enlarged fingertips (clubbing). DIAGNOSIS Your health care provider may suspect pulmonary fibrosis based on your symptoms and medical history. Diagnosis may include a physical exam. Your health care provider will check for signs that strongly suggest that you have pulmonary fibrosis, such as: Blue skin around your fingernails or mouth from reduced oxygen. Clubbing around the ends of your fingers. A crackling sound when you breathe. Your health care provider may also do tests to confirm the diagnosis. These may include: Looking inside your lungs with an instrument (bronchoscopy). Imaging studies of your lungs and heart using: X-rays. CT scan. Sound waves (echocardiogram). Tests to measure how well you are breathing (pulmonary function tests). Exercise testing to see how well your lungs work while you are walking. Blood tests. A procedure to remove a small piece of lung tissue to examine in a lab ( biopsy). TREATMENT There is no cure for pulmonary fibrosis. Treatments focus on managing symptoms and preventing scarring from getting worse. This can include: Medicines. You may take steroids to prevent permanent lung changes. Your health care provider may put you on a high dose at first, then on lower dosages for the retirement. Medicines to suppress your body's defense (immune) system. These can have serious side effects. You may be monitored with X-rays and laboratory work. Oxygen therapy may be helpful if oxygen in your blood is low. Surgery. In some cases, a lung transplant is an option. HOME CARE INSTRUCTIONS Take medicines only as directed by your health care provider. Keep your vaccinations up to date as recommended by your health care provider. Do not use any tobacco products, including cigarettes, chewing tobacco, or electronic cigarettes. If you need help quitting, ask your health care provider. Get regular exercise, but do not overexert yourself. Ask your health care provider to suggest some activities that are safe for you to do. Walking and chair exercises can help if you have physical limitations. Consider joining a pulmonary rehabilitation program or a support group for people with pulmonary fibrosis. Eat small meals often so you do not get too full. Overeating can make breathing trouble worse. Maintain a healthy weight. Lose weight if you need to. Do breathing exercises as directed by your health care provider. Keep all follow-up visits as directed by your health care provider. This is important. SEEK MEDICAL CARE IF: You are not able to be as active as usual. You have a long-lasting (chronic) cough. You are often short of breath. You have a fever or chills. SEEK IMMEDIATE MEDICAL CARE IF: You have chest pain. Your breathing is much worse. You cannot take a deep breath. You have blue skin around your mouth or fingers. You have clubbing of your fingers. You cough up mucus that is dark in color. You have a lot of headaches. You get very confused or sleepy. This information is not intended to replace advice given to you by your health care provider. Make sure you discuss any questions you have with your health care provider. Document Released: 04/28/2004 Document Revised: 02/27/2015 Document Reviewed: [employer] Patient Information 2016 [employer]. No follow up information was provided.
--- OUTSIDE RECORDS SUMMARY | 2016-05-22 10:38 | XMS REPORT | Continuity of Care Document ---
Author Author Genesis Chong RN Ambulatory Address [facility] [place] [address] Phone Unavailable Care Team Providers Care Manager Dairy Name Role Phone Shiva Mancini PP Unavailable Payers Payer name Insurance type Covered libertarian ID Authorization(s) Unknown Problems Condition Effective Dates (start - stop) Clinical Status CAD, Unspecified - *Chronic Hypertension, Benign - *Chronic Hypercholesterolemia - *Chronic BPH - *Chronic Osteoarthrosis, generalized, involving unspecified site - * Chronic Erectile Dysfunction - *Chronic CAD, Unspecified - Chronic Hypertension, Benign - Chronic Hypercholesterolemia - Chronic BPH - Chronic Osteoarthrosis, generalized, involving unspecified site - Chronic Erectile Dysfunction - Chronic Upper Respiratory Infection, Acute - *Acute CAD, Unspecified - Chronic Hypercholesterolemia - Chronic [...] site - * Chronic CAD, Unspecified - *Stable Other and unspecified hyperlipidemia - *Chronic Hypertension, Unspecified - *Controlled Cardiomyopathy, Other Primary - *Stable HX TIA/STROKE W/O RESID - *Stable Hypertension, Benign - *Chronic CAD, Unspecified - [...] Chronic NEED FOR PROPHYLACTIC VACCINATION WITH COMBINED [id number] ( DTP) (DTAP) VACCINE - CAD, Unspecified [...] Height Weight Pulse Rate Blood Pressure Temperature /09:07:00 65.50 in 180.00 lbs 52 /min 136/60 mm[Hg] 97.7 F Procedures Procedure Date Unknown Encounters Encounter Location Date Patient Visit [facility] Patient Visit [facility] Patient Visit [facility] Patient Visit [facility] Patient Visit [facility] Patient Visit [facility] Patient Visit [facility] Visit Conversion Patient Visit [facility] Patient Visit [facility] Patient Visit [facility] Patient Visit [facility] Patient Visit [facility] Advance Directives Directive Effective Date Unknown
--- OUTSIDE RECORDS SUMMARY | 2016-05-22 10:38 | XMS REPORT | Referral Summary ---
Author Author [facility], [facility] Organization [facility] Address Unknown Phone Unavailable Care Team Providers Care Claims Manager Name Role Phone Lilliam Mancini Primary Care Physician [phone] Encounter VC Date(s): 03/20/15 - 03/20/15 [facility] [address] [place] [address]- Discharge Diagnosis: Cough Discharge Diagnosis: Benign essential hypertension Discharge Diagnosis: Acute CHF Discharge Diagnosis: Coronary arteriosclerosis Discharge Disposition: 01-Home or Self Care Attending Physician: Shiva Mancini MD Admitting Physician: Shiva Mancini MD Vital Signs Most recent to 1 oldest [Reference Range]: Temperature Tympanic 36.6 degC [36.6-38.1 degC] (03/20/15 11:05 AM) Peripheral Pulse 66 bpm Rate [60-100 bpm] (03/20/15 11:05 AM) Respiratory Rate 32 br/min [14-20 br/min] *HI* (03/20/15 11:05 AM) Blood Pressure 128/68 mmHg [90-140/60-90 mmHg] (03/20/15 11:05 AM) SpO2 93 % (03/20/15 11:05 AM) Problem List Condition Effective Dates Status [...] EVERY DAY., # 90 unknown unit, eRx: [facility] [id number], TAKE 1 BY MOUTH EVERY DAY. Start Date: 01/26/15 Status: Ordered furosemide 20 mg oral tablet 20 mg 1 tabs, Oral, Daily, # 30 tabs, 3 Refill(s), Pharmacy: [facility] [id number], 1 tabs Oral Daily Start Date: 03/20/15 Status: Ordered ibuprofen 200 mg oral tablet 1 tabs, Oral, q6hr, as needed, 0 Refill(s) Start Date: 08/15/13 Status: Ordered Levaquin 500 mg oral tablet 500 mg 1 tabs, Oral, q24hr, X 10 days, # 10 tabs, 0 Refill(s), Pharmacy: [facility] [id number], 1 tabs Oral q24hr,x10 days Start Date: 03/16/15 Stop Date: 03/26/15 Status: Ordered lisinopril 40 mg oral tablet See Instructions, TAKE 1 TABLET (40MG) BY ORAL ROUTE EVERY DAY, # 90 unknown unit, eRx: [facility] [id number], TAKE 1 TABLET (40MG) BY ORAL ROUTE EVERY DAY Start Date: 01/26/15 Status: Ordered multivitamin 1 tablet, Oral, Daily, 0 Refill(s) Start Date: 08/15/13 Status: Ordered Proscar 5 mg oral tablet See Instructions, TAKE 1 TABLET BY MOUTH AT BEDTIME., # 90 unknown unit, eRx: [facility] [id number], TAKE 1 TABLET BY MOUTH AT BEDTIME. Start Date: 12/22/14 Status: Ordered simvastatin 20 mg oral tablet See Instructions, TAKE 1 TABLET BY MOUTH EVERY DAY., # 30 tabs, eRx: [facility] [id number], TAKE 1 TABLET BY MOUTH EVERY DAY. Start Date: 03/06/15 Status: Ordered Tessalon Perles 100 mg oral capsule 200 mg 2 caps, Oral, q8hr, # 30 caps, 0 Refill(s), Pharmacy: [facility] [id number], 2 caps Oral q8hr Start Date: 03/19/15 Stop Date: 04/20/15 Status: Ordered traMADol 50 mg oral tablet 50 mg 1 tabs, Oral, q8hr, as needed for pain, cathleen, # 30 tabs, 0 Refill(s) Start Date: 02/09/15 Status: Ordered Uroxatral 10 mg oral tablet, extended release See Instructions, TAKE 1 TABLET BY MOUTH AT BEDTIME., # 90 unknown unit, 2 Refill(s), eRx: [facility] [id number], TAKE 1 TABLET BY MOUTH AT BEDTIME. Start Date: 08/01/14 Status: Ordered Results Chemistry Most recent to 1 oldest [Reference Range]: Sodium Lvl [135-144 134 mEq/L mEq/L] *LOW* (03/20/15 12:18 PM) Potassium Lvl 4.4 mEq/L [3.5-5.2 mEq/L] (03/20/15 12:18 PM) Chloride [99-111 105 mEq/L mEq/L] (03/20/15 12:18 PM) CO2 [23-31 mEq/L] 22 mEq/L *LOW* (03/20/15 12:18 PM) AGAP [3-20] 7 (03/20/15 12:18 PM) BUN [8-26 mg/dL] 34 mg/dL *HI* (03/20/15 12:18 PM) Glucose Lvl [70-99 98 mg/dL mg/dL] (03/20/15 12:18 PM) Creatinine Lvl 1.45 mg/dL [0.72-1.25 mg/dL] *HI* (03/20/15 12:18 PM) eGFR [>60 mL/min] 47 mL/min 1 *ABN* (03/20/15 12:18 PM) Calcium Lvl 8.9 mg/dL [8.9-10.5 mg/dL] (03/20/15 12:18 PM) BNP [0-99 pg/mL] 451 pg/mL *HI* (03/20/15 12:18 PM) 1Result Comment: Multiply eGFR results by [...] Visit Note Author: Shiva Mancini MD Date: 03/20/15 Assessment/Plan Acute CHF, Acute on chronic diastolic (congestive) heart failure His chest x-ray looks like there some fluid on board. 3 months and furosemide 20 mg a day and checksome electrolytes and BNP. He does have an appointment to reestablish care with Dr. Sunnex. He may need an echo and further evaluation ifhe does indeed have some heart failureas I suspect. Ordered: B-Type Natriuretic Peptide Basic Metabolic Panel Office Visit Level 4 Est 21453 Atherosclerotic heart disease of [place] coronary artery without angina pectoris , Coronary arteriosclerosis This appears to be chronic and stable no signs of ischemia. Ordered: Office Visit Level 4 Est 40040 Benign essential hypertension, Essential (primary) hypertension Blood pressure is adequately controlled no change in treatment. Ordered: Office Visit Level 4 Est 80143 Cough I've asked him to finish out his antibiotic. He may use Tessalon Perles as needed. His cough may improve with theLasix if we canhave some mild diuresis as well. Ordered: Office Visit Level 4 Est 21511 XR Chest 2 Views Orders: benzonatate, 200 mg 2 caps, Oral, q8hr, # 30 caps, 0 Refill(s), Pharmacy: [facility] 11825, 2 caps Oral q8hr furosemide, 20 mg 1 tabs, Oral, Daily, # 30 tabs, 3 Refill(s), Pharmacy: [facility] 30950, 1 tabs Oral Daily
[2016-05-22 10:39] VITALS: Ht 167.6 cm; Wt 76.2 kg
--- OUTSIDE RECORDS SUMMARY | 2016-05-22 10:39 | XMS REPORT | Referral Summary ---
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 Discharge Diagnosis: Bicipital tendinitis of shoulder Discharge Disposition: Home or Self Care Attending Physician: Shiva Mancini MD Admitting Physician: Shiva Mancini MD Vital Signs Most recent to 1 oldest [Reference Range]: Temperature Tympanic 36.1 degC [36.6-38.1 degC] *LOW* (03/28/14 10:02 AM) Peripheral Pulse 52 bpm Rate [60-100 bpm] *LOW* (03/28/14 10:02 AM) Respiratory Rate 14 br/min [14-20 br/min] (03/28/14 10:02 AM) Blood Pressure 132/62 mmHg [90-140/60-90 mmHg] (03/28/14 10:02 AM) Problem List Condition Effective Dates Status [...] # 90 unknown unit, 3 Refill(s), eRx: [facility] [id number], TAKE 1 BY MOUTH EVERY DAY. Special Instructions: TAKE 1 BY MOUTH EVERY DAY. Start Date: 01/30/14 Status: Ordered ibuprofen 200 mg oral tablet 1 tabs, Oral, q6hr, as needed, 0 Refill(s) Start Date: 08/15/13 Status: Ordered lisinopril 40 mg oral tablet See Instructions, TAKE 1 TABLET (40MG) BY ORAL ROUTE EVERY DAY, # 90 unknown unit, 3 Refill(s), eRx: [facility] [id number], TAKE 1 TABLET (40MG) BY ORAL ROUTE EVERY DAY Special Instructions: TAKE 1 TABLET (40MG) BY ORAL ROUTE EVERY DAY Start Date: 01/30/14 Status: Ordered multivitamin 1 tablet, Oral, Daily, 0 Refill(s) Start Date: 08/15/13 Status: Ordered Proscar 5 mg oral tablet See Instructions, TAKE 1 TABLET BY MOUTH AT BEDTIME., # 90 unknown unit, eRx: [facility] [id number], TAKE 1 TABLET BY MOUTH AT BEDTIME. Special Instructions: TAKE 1 TABLET BY MOUTH AT BEDTIME. Start Date: 03/27/14 Status: Ordered simvastatin 20 mg oral tablet See Instructions, TAKE 1 TABLET BY MOUTH EVERY DAY., # 90 unknown unit, 3 Refill (s), eRx: [facility] [id number], TAKE 1 TABLET BY MOUTH EVERY DAY. Special Instructions: TAKE 1 TABLET BY MOUTH EVERY DAY. Start Date: 09/12/13 Status: Ordered triamcinolone 0.1% topical cream 1 laureen, Topical, BID, # 60 g, 0 Refill(s), Pharmacy: [facility] Start Date: 03/28/14 Status: Ordered Uroxatral 10 mg oral tablet, extended release See Instructions, TAKE 1 TABLET BY MOUTH AT BEDTIME., # 90 unknown unit, eRx: [facility] [id number], TAKE 1 TABLET BY MOUTH AT BEDTIME. [...] Author: Shiva Mancini MD Date: Family Medicine Bicipital Tendonitis Bicipital tendonitis refers to redness, soreness, and swelling (inflammation ) or irritation of the bicep tendon. The biceps muscle is located between the elbow and shoulder of the inner arm. The tendon heads, similar to pieces of rope , connect the bicep muscle to the shoulder socket. They are called short head and long head tendons. When tendonitis occurs, the long head tendon is inflamed and swollen, and may be thickened or partially torn. Bicipital tendonitis can occur with other problems as well, such as arthritis in the shoulder or acromioclavicular joints, tears in the tendons, or other rotator cuff problems. CAUSES Overuse of of the arms for overhead activities is the major cause of tendonitis. Many athletes, such as swimmers, baseball players, and tennis players are prone to bicipital tendonitis. Jobs that require manual labor or routine chores, especially chores involving overhead activities can result in overuse and tendonitis. SYMPTOMS Symptoms may include: Pain in and around the front of the shoulder. Pain may be worse with overhead motion. Pain or aching that radiates down the arm. Clicking or shifting sensations in the shoulder. DIAGNOSIS Your caregiver may perform the following: Physical exam and tests of the biceps and shoulder to observe range of motion, strength, and stability. X-rays or magnetic resonance imaging (MRI) to confirm the diagnosis. In most common cases, these tests are not necessary. Since other problems may exist in the shoulder or rotator cuff, additional tests may be recommended. TREATMENT Treatment may include the following: Medications Your caregiver may prescribe [id number]-[id number] pain relievers. Steroid injections, such as cortisone, may be recommended. These may help to reduce inflammation and pain. Physical Therapy - Your caregiver may recommend gentle exercises with the arm. These can help restore strength and range of motion. They may be done at home or with a physical therapist's supervision and input. Surgery - Arthroscopic or open surgery sometimes is necessary. Surgery may include: Reattachment or repair of the tendon at the shoulder socket. Removal of the damaged section of the tendon. Anchoring the tendon to a different area of the shoulder (tenodesis ). HOME CARE INSTRUCTIONS Avoid overhead motion of the affected arm or any other motion that causes pain. Take medication for pain as directed. Do not take these for more than 3 weeks, unless directed to do so by your caregiver. Ice the affected area for 20 minutes at a time, 3-[address] a towel on the skin over the painful area and the ice or cold pack over the towel. Do not place ice directly on the skin. Perform gentle exercises at home as directed. These will increase strength and flexibility. PREVENTION Modify your activities as much as possible to protect your arm. A physical therapist or sports medicine physician can help you understand options for safe motion. Avoid repetitive overhead pulling, lifting, reaching, and throwing until your caregiver tells you it is ok to resume these activities. SEEK MEDICAL CARE IF: Your pain worsens. You have difficulty moving the affected arm. You have trouble performing any of the self-care instructions. MAKE SURE YOU: Understand these instructions. Will watch your condition. Will get help right away if you are not doing well or get worse. Document Released: 03/11/2011 Document Revised: 04/30/2012 Document Reviewed: [facility] Patient Information 2014 [employer]. No follow up information was provided. Extracted from: Title: Office Visit Note Author: Shiva Mancini MD Date: 03/28/14 Assessment/Plan Benign essential hypertension Blood pressure is adequately controlled. Continue current treatment plan. Report card provided. Recent laboratory studies reviewed. Follow-up in 3 months. Ordered: Office Visit Level 4 Est 78254 Bicipital tendinitis of shoulder Recommended activity restriction and using a topical sports cream. If not improving he'll let me know. Ordered: Office Visit Level 4 Est 92041 Coronary arteriosclerosis Stable no change in current treatment plan follow- up in 3 months. Ordered: Office Visit Level 4 Est 03286 Degenerative joint disease involving multiple joints Stable no change in current treatment plan. Ordered: Office Visit Level 4 Est 04866 Dry skin I recommended some triamcinolone cream 0.1 percent applied twice a day continue moisturizing creams as well if not improving let me know. Ordered: Office Visit Level 4 Est 55026 Pure hypercholesterolemia Stable lab studies from December reviewed. Follow-up in 3 months with fasting lab prior to that appointment. Ordered: Office Visit Level 4 Est 22058 Orders: triamcinolone topical, 1 laureen, Topical, BID, # 60 g, 0 Refill(s), Pharmacy: [facility] [id number]
--- OUTSIDE RECORDS SUMMARY | 2016-05-22 10:39 | XMS REPORT | Referral Summary ---
Author Author [facility], [facility] Organization [facility] Address Unknown Phone Unavailable Care Team Providers Care Winery Worker Name Role Phone Lilliam Mancini Primary Care Physician [phone] Encounter VC Date(s): 01/06/15 - 01/06/15 [facility], [facility] [address] [place] [address] [place] [address]- Discharge Diagnosis: Family history of prostate cancer Discharge Diagnosis: Family history of prostate cancer Discharge Diagnosis: Benign localized prostatic hyperplasia with lower urinary tract symptoms (LUTS) Discharge Disposition: -Home or Self Care Attending Physician: Jamie Meehan JR, MD Admitting Physician: Jamie Meehan JR, MD Referring Physician: Shiva Mancini MD Vital Signs Most recent to 1 oldest [Reference Range]: Peripheral Pulse 54 bpm Rate [60-100 bpm] *LOW* (01/06/15 10:33 AM) Blood Pressure 140/66 mmHg [90-140/60-90 mmHg] (01/06/15 10:33 AM) Problem List Condition Effective Dates Status [...] # 90 unknown unit, 3 Refill(s), eRx: [facility] [id number], TAKE 1 BY MOUTH EVERY DAY. Start Date: 01/30/14 Status: Ordered ibuprofen 200 mg oral tablet 1 tabs, Oral, q6hr, as needed, 0 Refill(s) Start Date: 08/15/13 Status: Ordered lisinopril 40 mg oral tablet See Instructions, TAKE 1 TABLET (40MG) BY ORAL ROUTE EVERY DAY, # 90 unknown unit, 3 Refill(s), eRx: [facility] [id number], TAKE 1 TABLET (40MG) BY ORAL ROUTE EVERY DAY Start Date: 01/30/14 Status: Ordered multivitamin 1 tablet, Oral, Daily, 0 Refill(s) Start Date: 08/15/13 Status: Ordered Proscar 5 mg oral tablet See Instructions, TAKE 1 TABLET BY MOUTH AT BEDTIME., # 90 unknown unit, eRx: [facility] [id number], TAKE 1 TABLET BY MOUTH AT BEDTIME. Start Date: 12/22/14 Status: Ordered simvastatin 20 mg oral tablet See Instructions, TAKE 1 TABLET BY MOUTH EVERY DAY., # 90 unknown unit, 1 Refill (s), eRx: [facility] [id number], TAKE 1 TABLET BY MOUTH EVERY DAY. Start Date: 09/12/14 Status: Ordered Uroxatral 10 mg oral tablet, extended release See Instructions, TAKE 1 TABLET BY MOUTH AT BEDTIME., # 90 unknown unit, 2 Refill(s), eRx: [facility] [id number], TAKE 1 TABLET BY MOUTH AT BEDTIME. [...] Author: Jamie Meehan JR, MD Date : 01/06/15 Follow Up With: Where: When: Shiva Mancini [address] [place] [address] Drive; [place] [address] Business (1) Within 3 to 5 days Comments: Follow Up With: Where: When: Jamie Meehan [address]; [place], [place] [id number] Business (1) In 6 months 07/07/2015 Comments: Extracted from: Title: Office Visit Note Author: Jamie Meehan JR, MD Date: 01/06/15 Assessment/Plan 1.Family history of prostate cancer, Family history of prostate cancer his PSA is rising. His prostate examination is abnormal. I will see this patient again in 6 months repeat PSA a week before next visit. Continue Uroxatral and finasteride Ordered: Office Visit Level 3 Est 64835 2.Benign localized prostatic hyperplasia with lower urinary tract symptoms ( LUTS)
--- OUTSIDE RECORDS SUMMARY | 2016-05-22 10:39 | XMS REPORT | Referral Summary ---
Author Author [facility], [facility] Organization [facility] Address Unknown Phone Unavailable Care Team Providers Care Process Control Supervisor Name Role Phone Lilliam Mancini Primary Care Physician [phone] Encounter VC Date(s): 03/16/15 - 03/16/15 [facility] [address] [place] [address]- Discharge Diagnosis: Benign essential hypertension Discharge Diagnosis: Coronary arteriosclerosis Discharge Diagnosis: Left otitis media Discharge Diagnosis: Acute bronchitis Discharge Disposition: 01-Home or Self Care Attending Physician: Shiva Mancini MD Admitting Physician: Shiva Mancini MD Vital Signs Most recent to 1 oldest [Reference Range]: Temperature Tympanic 36.6 degC [36.6-38.1 degC] (03/16/15 9:13 AM) Peripheral Pulse 72 bpm Rate [60-100 bpm] (03/16/15 9:13 AM) Respiratory Rate 28 br/min [14-20 br/min] *HI* (03/16/15 9:13 AM) Blood Pressure 100/52 mmHg [90-140/60-90 mmHg] (03/16/15 9:13 AM) Problem List Condition Effective Dates Status [...] EVERY DAY., # 90 unknown unit, eRx: [facility] 70061, TAKE 1 BY MOUTH EVERY DAY. Start Date: 01/26/15 Status: Ordered ibuprofen 200 mg oral tablet 1 tabs, Oral, q6hr, as needed, 0 Refill(s) Start Date: 08/15/13 Status: Ordered Levaquin 500 mg oral tablet 500 mg 1 tabs, Oral, q24hr, X 10 days, # 10 tabs, 0 Refill(s), Pharmacy: [facility] 66444, 1 tabs Oral q24hr,x10 days Start Date: 03/16/15 Stop Date: 03/26/15 Status: Ordered lisinopril 40 mg oral tablet See Instructions, TAKE 1 TABLET (40MG) BY ORAL ROUTE EVERY DAY, # 90 unknown unit, eRx: [facility] [id number], TAKE 1 TABLET (40MG) BY ORAL ROUTE EVERY DAY Start Date: 01/26/15 Status: Ordered multivitamin 1 tablet, Oral, Daily, 0 Refill(s) Start Date: 08/15/13 Status: Ordered Proscar 5 mg oral tablet See Instructions, TAKE 1 TABLET BY MOUTH AT BEDTIME., # 90 unknown unit, eRx: [facility] 57535, TAKE 1 TABLET BY MOUTH AT BEDTIME. Start Date: 12/22/14 Status: Ordered simvastatin 20 mg oral tablet See Instructions, TAKE 1 TABLET BY MOUTH EVERY DAY., # 30 tabs, eRx: [facility] 56105, TAKE 1 TABLET BY MOUTH EVERY DAY. Start Date: 03/06/15 Status: Ordered traMADol 50 mg oral tablet 50 mg 1 tabs, Oral, q8hr, as needed for pain, cathleen, # 30 tabs, 0 Refill(s) Start Date: 02/09/15 Status: Ordered Uroxatral 10 mg oral tablet, extended release See Instructions, TAKE 1 TABLET BY MOUTH AT BEDTIME., # 90 unknown unit, 2 Refill(s), eRx: [facility] 69974, TAKE 1 TABLET BY MOUTH AT BEDTIME. [...] Visit Note Author: Shiva Mancini MD Date: 03/16/15 Assessment/Plan Acute bronchitis I've recommended [id number] mg daily. Over-the- counter Mucinexmay beof benefit. Plenty of rest and increased fluid intake encouraged. Ordered: Office Visit Level 4 Est 15978 Benign essential hypertension Blood pressures adequately controlled no change in current treatment. Ordered: Office Visit Level 4 Est 37384 Coronary arteriosclerosis Stable no signs of ischemia. Ordered: Office Visit Level 4 Est 42275 Left otitis media He did have a left ear that look infected. Levaquin should cover this as well. Ordered: Office Visit Level 4 Est 88797 Orders: levofloxacin, 500 mg 1 tabs, Oral, q24hr, X 10 days, # 10 tabs, 0 Refill(s), Pharmacy: [facility] 23443, 1 tabs Oral q24hr,x10 days
--- OUTSIDE RECORDS SUMMARY | 2016-05-22 10:39 | XMS REPORT | Referral Summary ---
Author Author [facility] Organization [facility] Address Unknown Phone Unavailable Care Team Providers Care Charging Crane Operator Name Role Phone Lilliam Mancini Primary Care Physician [phone] Encounter VC Date(s): 02/26/16 - 02/26/16 [facility] [address] [place] [address]- Discharge Diagnosis: Generalized osteoarthritis (disorder) Discharge Diagnosis: Hyperlipidemia Discharge Diagnosis: Benign essential hypertension Discharge Diagnosis: Interstitial lung disease Discharge Diagnosis: Coronary arteriosclerosis Discharge Disposition: 01-Home or Self Care Attending Physician: Shiva Mancini MD Vital Signs Most recent to 1 oldest [Reference Range]: Temperature Tympanic 36.0 degC [36.6-38.1 degC] *LOW* (02/26/16 1:31 PM) Peripheral Pulse 72 bpm Rate [60-100 bpm] (02/26/16 1:31 PM) Blood Pressure 126/56 mmHg [90-140/60-90 mmHg] (02/26/16 1:31 PM) SpO2 85 % (02/26/16 1:31 PM) Problem List Condition Effective Dates Status [...] MOUTH AT BEDTIME, # 90 tabs, eRx: [facility] [id number], TAKE 1 TABLET BY MOUTH AT BEDTIME Start Date: 01/20/16 Status: Ordered Aspirin Low Dose 81 mg, Oral, Daily, 0 Refill(s) Start Date: 08/15/13 Status: Ordered atenolol 100 mg oral tablet See Instructions, TAKE 1 TABLET BY MOUTH EVERY DAY, # 90 tabs, 1 Refill(s), eRx : [facility] [id number], TAKE 1 TABLET BY MOUTH EVERY DAY Start Date: 10/27/15 Status: Ordered finasteride 5 mg oral tablet See Instructions, TAKE 1 TABLET BY MOUTH AT BEDTIME, # 90 tabs, 1 Refill(s), eRx : [facility] [id number], TAKE 1 TABLET BY MOUTH AT BEDTIME Start Date: 12/17/15 Status: Ordered furosemide 20 mg oral tablet See Instructions, TAKE 1 TABLET BY MOUTH DAILY, # 30 tabs, 5 Refill(s), eRx: [facility] [id number], TAKE 1 TABLET BY MOUTH DAILY Start [...] Daily, # 90 tabs, 5 Refill(s), Pharmacy: [facility] [id number], 1 tabs Oral Daily Start Date: 10/07/15 Status: Ordered multivitamin 1 tablet, Oral, Daily, 0 Refill(s) Start Date: 08/15/13 Status: Ordered simvastatin 20 mg oral tablet See Instructions, TAKE 1 TABLET BY MOUTH EVERY DAY, # 90 tabs, 2 Refill(s), eRx : [facility] [id number], TAKE 1 TABLET BY MOUTH EVERY DAY [...] Visit Note Author: Shiva Mancini MD Date: 02/26/16 Assessment/Plan 1.Benign essential hypertension Blood pressure appears to be adequately controlled. Medications and treatments reviewed no changes are recommended. Report card reviewed and provided. Follow-up in 3 months. 2.Coronary arteriosclerosis Chronic stable no signs of ischemia or angina. No change in current treatment. Follow-up in 3 months. 3.Generalized osteoarthritis (disorder) Chronic and relatively stable no change in current treatment. 4.Hyperlipidemia Previous laboratory studies reviewed no changes are recommended at this time. 5.Interstitial lung disease His O2 sats are office sitting at restwere in the mid 80s. Emphasized importance of using his oxygen perhaps a little more consistently than just at night. I encouraged him to keep his pulmonary follow-up.
--- OUTSIDE RECORDS SUMMARY | 2016-05-22 10:39 | XMS REPORT ---
Author Author Jorge Macedo Organization [employer] Address Unknown Phone Unavailable Care Team Providers Care Filler In Name Role Phone Jorge Macedo CP Unavailable Allergies, Adverse Reactions, Alerts Substance Reaction Event Type hayfever runny nose Non Drug Allergy Problems Problem Type Condition Code Onset Dates Condition Status Assessment Encounter for dental examination and cleaning without abnormal findings Z01.20 Active Medications Medication Code System Code Instructions Start Date End Date Status Dosage Finasteride [facility] [address]-34 not defined Alfuzosin HCl NDC 0 not defined Simvastatin [facility] [address]-59 not defined Multi Vitamin Mens [facility] [address] not defined Lisinopril [facility] [address]-97 not defined atenolol NDC 0 not defined Procedures Procedure Coding System Code Date LTD ORAL EVALUATION - PROBLEM FOCUS CPT-4 D0140 Oct 06, 2015 Results No Known Results Summary Purpose [employer] Submission
--- OUTSIDE RECORDS SUMMARY | 2016-05-22 10:39 | XMS REPORT | Referral Summary ---
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 Discharge Diagnosis: Hyperlipidemia Discharge Diagnosis: Pneumonia Discharge Diagnosis: Benign essential hypertension Discharge Diagnosis: Benign prostatic hypertrophy Discharge Disposition: Home or Self Care Attending Physician: Shiva Mancini MD Admitting Physician: Shiva Mancini MD Referring Physician: Shiva Mancini MD Vital Signs Most recent to 1 oldest [Reference Range]: Temperature Tympanic 36.7 degC [36.6-38.1 degC] (06/18/14 2:11 PM) Peripheral Pulse 60 bpm Rate [60-100 bpm] (06/18/14 2:11 PM) Blood Pressure 146/56 mmHg [90-140/60-90 mmHg] *HI* (06/18/14 2:11 PM) Most recent to 1 oldest [Reference Range]: SpO2 92 % (06/18/14 2:11 PM) Problem [...] # 90 unknown unit, 3 Refill(s), eRx: [facility] [id number], TAKE 1 BY MOUTH EVERY DAY. Special Instructions: TAKE 1 BY MOUTH EVERY DAY. Start Date: 01/30/14 Status: Ordered ibuprofen 200 mg oral tablet 1 tabs, Oral, q6hr, as needed, 0 Refill(s) Start Date: 08/15/13 Status: Ordered lisinopril 40 mg oral tablet See Instructions, TAKE 1 TABLET (40MG) BY ORAL ROUTE EVERY DAY, # 90 unknown unit, 3 Refill(s), eRx: [facility] [id number], TAKE 1 TABLET (40MG) BY ORAL ROUTE EVERY DAY Special Instructions: TAKE 1 TABLET (40MG) BY ORAL ROUTE EVERY DAY Start Date: 01/30/14 Status: Ordered multivitamin 1 tablet, Oral, Daily, 0 Refill(s) Start Date: 08/15/13 Status: Ordered Proscar 5 mg oral tablet See Instructions, TAKE 1 TABLET BY MOUTH AT BEDTIME., # 90 unknown unit, eRx: [facility] [id number], TAKE 1 TABLET BY MOUTH AT BEDTIME. Special Instructions: TAKE 1 TABLET BY MOUTH AT BEDTIME. Start Date: 03/27/14 Status: Ordered simvastatin 20 mg oral tablet See Instructions, TAKE 1 TABLET BY MOUTH EVERY DAY., # 90 unknown unit, 3 Refill (s), eRx: [facility] [id number], TAKE 1 TABLET BY MOUTH EVERY DAY. Special Instructions: TAKE 1 TABLET BY MOUTH EVERY DAY. Start Date: 09/12/13 Status: Ordered triamcinolone 0.1% topical cream 1 laureen, Topical, BID, # 60 g, 0 Refill(s), Pharmacy: [facility] Start Date: 03/28/14 Status: Ordered Uroxatral 10 mg oral tablet, extended release See Instructions, TAKE 1 TABLET BY MOUTH AT BEDTIME., # 90 unknown unit, eRx: [facility] [id number], TAKE 1 TABLET BY MOUTH AT BEDTIME. Special Instructions: TAKE 1 TABLET BY MOUTH AT BEDTIME. Start Date: 05/14/14 Status: Ordered Results No data available for [...] 04/30/2012 Document Reviewed: ExitCare Patient Information 2014 [email or web address] [facility]. No follow up information was provided. Extracted from: Title: Office Visit Note Author: Shiva Mancini MD Date: 06/18/14 Assessment/Plan Benign essential hypertension Blood pressure is adequately controlled continue current medications and treatments without change. Follow-up in 3 months. Ordered: Office Visit Level 4 Est 17421 Benign prostatic hypertrophy Briceño stable no change in treatment recommended. Ordered: Office Visit Level 4 Est 53552 Coronary arteriosclerosis Stable no change in current treatment. We'll continue to follow-up with his flake miller helper as well. Follow-up here in 3 months. Ordered: Office Visit Level 4 Est 56404 Degenerative joint disease involving multiple joints Stable no change in current treatment. Ordered: Office Visit Level 4 Est 62396 Hyperlipidemia Stable no change in current treatment. Follow-up in 3 months. Ordered: Office Visit Level 4 Est 08029 Pneumonia He appears to have recovered from his pneumonia fairly well. Give Prevnar today. If he has further problems or concerns he'll let me know. Ordered: pneumococcal 13-valent conjugate vaccine, 0.5 mL, IntraMuscular, Once, First Dose: 06/18/14 15:00:00 CDT, Stop Date: 06/18/14 15:00:00 CDT, Form: Injection Office Visit Level 4 Est 75040
--- OUTSIDE RECORDS SUMMARY | 2016-05-22 10:39 | XMS REPORT | Referral Summary ---
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 Career Representative Name Role Phone Lilliam Mancini Primary Care Physician [phone] Encounter VC Date(s): 07/08/14 - 07/08/14 [facility] [address] [place] [address] [place] [address]- Discharge Diagnosis: BPH with obstruction/lower urinary tract [...] # 90 unknown unit, 3 Refill(s), eRx: [facility] [id number], TAKE 1 BY MOUTH EVERY DAY. Start Date: 01/30/14 Status: Ordered ibuprofen 200 mg oral tablet 1 tabs, Oral, q6hr, as needed, 0 Refill(s) Start Date: 08/15/13 Status: Ordered lisinopril 40 mg oral tablet See Instructions, TAKE 1 TABLET (40MG) BY ORAL ROUTE EVERY DAY, # 90 unknown unit, 3 Refill(s), eRx: [facility] 85956, TAKE 1 TABLET (40MG) BY ORAL ROUTE EVERY DAY Start Date: 01/30/14 Status: Ordered multivitamin 1 tablet, Oral, Daily, 0 Refill(s) Start Date: 08/15/13 Status: Ordered Proscar 5 mg oral tablet See Instructions, TAKE 1 TABLET BY MOUTH AT BEDTIME., # 90 unknown unit, eRx: [facility] 47454, TAKE 1 TABLET BY MOUTH AT BEDTIME. Start Date: 12/22/14 Status: Ordered simvastatin 20 mg oral tablet See Instructions, TAKE 1 TABLET BY MOUTH EVERY DAY., # 90 unknown unit, 1 Refill (s), eRx: [facility] 61762, TAKE 1 TABLET BY MOUTH EVERY DAY. Start Date: 09/12/14 Status: Ordered Uroxatral 10 mg oral tablet, extended release See Instructions, TAKE 1 TABLET BY MOUTH AT BEDTIME., # 90 unknown unit, 2 Refill(s), eRx: [facility] 23699, TAKE 1 TABLET BY MOUTH AT BEDTIME. [...] Up With: Where: When: Shiva Mancini [address]; [place] [address] Business (1) Within 3 to 5 days Comments: Follow Up With: Where: When: Jamie Zoran [address]; [place] [address] Business (1) In 6 months [...] counseling. Ordered: Office Visit Level 3 Est 46958
--- OUTSIDE RECORDS SUMMARY | 2016-05-22 10:39 | XMS REPORT | Continuity of Care Document ---
Author Author Darwin Dennis MA Ambulatory Address [address] [place] [id number] Phone Unavailable Care Team Providers Care Internet Database Specialist Name Role Phone Shiva Mancini PP Unavailable Payers Payer name Insurance type Covered constitution party ID Authorization(s) Unknown Problems Condition Effective Dates (start - stop) Clinical Status CAD, Unspecified - *Chronic Hypertension, Benign - *Chronic Hypercholesterolemia - *Chronic Osteoarthrosis, generalized, involving unspecified site - * Chronic Erectile Dysfunction - *Chronic CAD, Unspecified - Chronic Hypertension, Benign - Chronic Hypercholesterolemia - Chronic Osteoarthrosis, generalized, involving unspecified site - Chronic Erectile Dysfunction - Chronic CAD, Unspecified - Chronic Hypercholesterolemia [...] generalized, involving unspecified site - * Chronic Hypertension, Benign - *Chronic CAD, Unspecified - [...] Chronic NEED FOR PROPHYLACTIC VACCINATION WITH COMBINED [id number] ( DTP) (DTAP) VACCINE - HYPERTROPHY (BENIGN) OF PROSTATE WITH URINARY OBSTRUCTION [...] Height Weight Pulse Rate Blood Pressure Temperature /08:56:00 65.50 in 151.00 lbs 64 /min 130/60 mm[Hg] 98.2 F Procedures Procedure Date Unknown Encounters Encounter Location Date Patient Visit [facility] Patient Visit [facility] Patient Visit [facility] Patient Visit [facility] Patient Visit [facility] Patient Visit [facility] Patient Visit [facility] Patient Visit [facility] Patient Visit [facility] Patient Visit [facility] Patient Visit [facility] Patient Visit [facility] Patient Visit [facility] Patient Visit [facility] Patient Visit [facility] Advance Directives Directive Effective Date Unknown
--- OUTSIDE RECORDS SUMMARY | 2016-05-22 10:39 | XMS REPORT | Referral Summary ---
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 Commercial Lease Administrator Name Role Phone Lilliam Mancini Primary Care Physician [phone] Encounter VC Date(s): 07/08/14 - 07/08/14 [facility] [address] [place] [address] [place] [address]- Discharge Diagnosis: BPH with obstruction/lower urinary tract [...] # 90 unknown unit, 3 Refill(s), eRx: [facility] 68447, TAKE 1 BY MOUTH EVERY DAY. Start Date: 01/30/14 Status: Ordered ibuprofen 200 mg oral tablet 1 tabs, Oral, q6hr, as needed, 0 Refill(s) Start Date: 08/15/13 Status: Ordered lisinopril 40 mg oral tablet See Instructions, TAKE 1 TABLET (40MG) BY ORAL ROUTE EVERY DAY, # 90 unknown unit, 3 Refill(s), eRx: [facility] 92282, TAKE 1 TABLET (40MG) BY ORAL ROUTE EVERY DAY Start Date: 01/30/14 Status: Ordered multivitamin 1 tablet, Oral, Daily, 0 Refill(s) Start Date: 08/15/13 Status: Ordered Proscar 5 mg oral tablet See Instructions, TAKE 1 TABLET BY MOUTH AT BEDTIME., # 90 unknown unit, eRx: [facility] 37213, TAKE 1 TABLET BY MOUTH AT BEDTIME. Start Date: 12/22/14 Status: Ordered simvastatin 20 mg oral tablet See Instructions, TAKE 1 TABLET BY MOUTH EVERY DAY., # 90 unknown unit, 1 Refill (s), eRx: [facility] 88346, TAKE 1 TABLET BY MOUTH EVERY DAY. Start Date: 09/12/14 Status: Ordered Uroxatral 10 mg oral tablet, extended release See Instructions, TAKE 1 TABLET BY MOUTH AT BEDTIME., # 90 unknown unit, 2 Refill(s), eRx: [facility] 88502, TAKE 1 TABLET BY MOUTH AT BEDTIME. [...] Up With: Where: When: Shiva Mancini [address]; [place] [address] Business (1) Within 3 to 5 days Comments: Follow Up With: Where: When: Jamie Zoran [address]; [place] [address] Business (1) In 6 months [...] counseling. Ordered: Office Visit Level 3 Est 43036
--- OUTSIDE RECORDS SUMMARY | 2016-05-22 10:39 | XMS REPORT | Referral Summary ---
Author Author [facility] Organization [facility] Address Unknown Phone Unavailable Care Team Providers Care Semiconductor Wafers Etch Operator Name Role Phone Lilliam Mancini Primary Care Physician [phone] Encounter Date(s): 12/30/15 - 12/30/15 [facility] How[facility] [address] [place] [address]- Discharge Diagnosis: Interstitial lung disease Discharge Diagnosis: Acute maxillary sinusitis Discharge Disposition: 01-Home or Self Care Attending Physician: Norma Goldsmith APRN Admitting Physician: Norma Goldsmith APRN Vital Signs Most recent to 1 oldest [Reference Range]: Temperature Tympanic 36.8 degC [36.6-38.1 degC] (12/30/15 8:24 AM) Peripheral Pulse 78 bpm Rate [60-100 bpm] (12/30/15 8:24 AM) Blood Pressure 122/72 mmHg [90-140/60-90 mmHg] (12/30/15 8:24 AM) SpO2 93 % (12/30/15 8:24 AM) Problem List Condition Effective Dates Status [...] MOUTH AT BEDTIME, # 90 tabs, eRx: [facility] [id number], TAKE 1 TABLET BY MOUTH AT BEDTIME Start Date: 10/27/15 Status: Ordered amoxicillin 875 mg oral tablet 875 mg 1 tabs, Oral, BID, X 10 days, # 20 tabs, 0 Refill(s), Pharmacy: [facility] [id number], 1 tabs Oral BID,x10 days Start Date: 12/30/15 Stop Date: 01/09/16 Status: Ordered Aspirin Low Dose 81 mg, Oral, Daily, 0 Refill(s) Start Date: 08/15/13 Status: Ordered atenolol 100 mg oral tablet See Instructions, TAKE 1 TABLET BY MOUTH EVERY DAY, # 90 tabs, 1 Refill(s), eRx : [facility] [id number], TAKE 1 TABLET BY MOUTH EVERY DAY Start Date: 10/27/15 Status: Ordered finasteride 5 mg oral tablet See Instructions, TAKE 1 TABLET BY MOUTH AT BEDTIME, # 90 tabs, 1 Refill(s), eRx : [facility] [id number], TAKE 1 TABLET BY MOUTH AT BEDTIME Start Date: 12/17/15 Status: Ordered furosemide 20 mg oral tablet See Instructions, TAKE 1 TABLET BY MOUTH DAILY, # 30 tabs, 5 Refill(s), eRx: [facility] 38742, TAKE 1 TABLET BY MOUTH DAILY Start [...] Daily, # 90 tabs, 5 Refill(s), Pharmacy: [facility] 75394, 1 tabs Oral Daily Start Date: 10/07/15 Status: Ordered multivitamin 1 tablet, Oral, Daily, 0 Refill(s) Start Date: 08/15/13 Status: Ordered simvastatin 20 mg oral tablet See Instructions, TAKE 1 TABLET BY MOUTH EVERY DAY, # 90 tabs, 2 Refill(s), eRx : [facility] 77787, TAKE 1 TABLET BY MOUTH EVERY DAY Start Date: 09/07/15 Status: Ordered Results No data available for this section Immunizations Vaccine Date Refusal Reason tetanus/diphth/pertuss (Tdap) adult/adol 09/11/12 influenza virus vaccine, inactivated 11/18/15 influenza virus vaccine, inactivated 11/20/14 influenza virus [...] and Plan Extracted from: Title: Office Visit Note-sinus Author: Norma Goldsmith POT FILLER Date: Assessment/Plan 1.Acute maxillary sinusitis Patient counseled regarding diagnosis, natural history, pathophysiology, typical treatment, and expected results. Questions and concerns answered. There is no overlying erythema to suggest an associated cellulitis or abscess formation. Take antibiotics till complete. Amoxicillin 875 mg one by mouth twice a day 10 days. Mucinex twice a day as needed. . Tylenol per package instructions for comfort. Notify office if symptoms fail to improve. 2.Interstitial lung disease Monitor closely for increased shortness of breath/cough. If symptoms get worse let us know.
--- OUTSIDE RECORDS SUMMARY | 2016-05-22 10:39 | XMS REPORT | Referral Summary ---
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 Start Date: 01/26/15 Status: Ordered ibuprofen 200 mg oral tablet 1 tabs, Oral, q6hr, as needed, 0 Refill(s) Start Date: 08/15/13 Status: Ordered lisinopril 40 mg oral tablet See Instructions, TAKE 1 TABLET (40MG) BY ORAL ROUTE EVERY DAY, # 90 unknown unit, eRx: [facility] 74137, TAKE 1 TABLET (40MG) BY ORAL ROUTE EVERY DAY Start Date: 01/26/15 Status: Ordered multivitamin 1 tablet, Oral, Daily, 0 Refill(s) Start Date: 08/15/13 Status: Ordered Proscar 5 mg oral tablet See Instructions, TAKE 1 TABLET BY MOUTH AT BEDTIME., # 90 unknown unit, eRx: [facility] 98585, TAKE 1 TABLET BY MOUTH AT BEDTIME. Start Date: 12/22/14 Status: Ordered simvastatin 20 mg oral tablet See Instructions, TAKE 1 TABLET BY MOUTH EVERY DAY., # 90 unknown unit, 1 Refill (s), eRx: [facility] 05096, TAKE 1 TABLET BY MOUTH EVERY DAY. Start Date: 09/12/14 Status: Ordered traMADol 50 mg oral tablet 50 mg 1 tabs, Oral, q8hr, as needed for pain, cathleen, # 30 tabs, 0 Refill(s) Start Date: 02/09/15 Status: Ordered Uroxatral 10 mg oral tablet, extended release See Instructions, TAKE 1 TABLET BY MOUTH AT BEDTIME., # 90 unknown unit, 2 Refill(s), eRx: [facility] 47148, TAKE 1 TABLET BY MOUTH AT BEDTIME. [...] Visit Note Author: Shiva Mancini MD Date: 08/07/14 Assessment/Plan Benign essential hypertension Medications reviewed no changes recommended. Blood pressure appears to be well controlled. I have asked him to cut back on his ibuprofen to 2 tablets 3-4 times a day as needed. Ordered: Office Visit Level 4 Est 38537 Coronary arteriosclerosis Stable no signs of ischemia. If symptoms persist or worsen or further problems develop follow-up. Ordered: Office Visit Level 4 Est 98713 Degenerative joint disease involving multiple joints I've asked him to cut back on ibuprofen to 2 tablets 3-4 times a day and add an extra strength Tylenol 3-4 times a day and see how that works. Ordered: Office Visit Level 4 Est 12838 Pure hypercholesterolemia Recent laboratory studies reviewed lipid studies are excellent no change in current treatment recommended. Ordered: Office Visit Level 4 Est 05586 Left hip pain X-ray of left hip today we talked about hip replacement this symptoms continue to progress and his pain is severe enough. Call with questions or concerns.
--- OUTSIDE RECORDS SUMMARY | 2016-05-22 10:39 | XMS REPORT | Referral Summary ---
Author Author [facility] Organization [facility] Address Unknown Phone Unavailable Care Team Providers Care Folder Inspector Name Role Phone Lilliam Mancini Primary Care Physician [phone] Encounter VC Date(s): 11/20/15 - 11/20/15 [facility] [address] [place] [address]- Discharge Diagnosis: Generalized osteoarthritis (disorder) Discharge Diagnosis: Hyperlipidemia Discharge Diagnosis: Coronary arteriosclerosis Discharge Diagnosis: Interstitial lung disease Discharge Diagnosis: Benign essential hypertension Discharge Disposition: 01-Home or Self Care Attending Physician: Shiva Mancini MD Admitting Physician: Shiva Mancini MD Referring Physician: Shiva Mancini MD Vital Signs Most recent to 1 oldest [Reference Range]: Temperature Tympanic 36.0 degC [36.6-38.1 degC] *LOW* (11/20/15 1:37 PM) Peripheral Pulse 56 bpm Rate [60-100 bpm] *LOW* (11/20/15 1:37 PM) Respiratory Rate 16 br/min [14-20 br/min] (11/20/15 1:37 PM) Blood Pressure 124/62 mmHg [90-140/60-90 mmHg] (11/20/15 1:37 PM) Problem List Condition Effective Dates Status [...] MOUTH AT BEDTIME, # 90 tabs, eRx: [facility] [id number], TAKE 1 TABLET BY MOUTH AT BEDTIME Start Date: 10/27/15 Status: Ordered Aspirin Low Dose 81 mg, Oral, Daily, 0 Refill(s) Start Date: 08/15/13 Status: Ordered atenolol 100 mg oral tablet See Instructions, TAKE 1 TABLET BY MOUTH EVERY DAY, # 90 tabs, 1 Refill(s), eRx : [facility] [id number], TAKE 1 TABLET BY MOUTH EVERY DAY Start Date: 10/27/15 Status: Ordered finasteride 5 mg oral tablet See Instructions, TAKE 1 TABLET BY MOUTH AT BEDTIME, # 90 tabs, eRx: [facility] [id number], TAKE 1 TABLET BY MOUTH AT BEDTIME Start Date: 06/23/15 Status: Ordered furosemide 20 mg oral tablet See Instructions, TAKE 1 TABLET BY MOUTH DAILY, # 30 tabs, 2 Refill(s), eRx: [facility] , TAKE 1 TABLET BY MOUTH DAILY [...] Daily, # 90 tabs, 5 Refill(s), Pharmacy: [facility] 77084, 1 tabs Oral Daily Start Date: 10/07/15 Status: Ordered multivitamin 1 tablet, Oral, Daily, 0 Refill(s) Start Date: 08/15/13 Status: Ordered simvastatin 20 mg oral tablet See Instructions, TAKE 1 TABLET BY MOUTH EVERY DAY, # 90 tabs, 2 Refill(s), eRx : [facility] 09343, TAKE 1 TABLET BY MOUTH EVERY DAY [...] Visit Note Author: Shiva Mancini MD Date: 11/20/15 Assessment/Plan 1.Coronary arteriosclerosis Chronic relatively stable no change in current treatment is recommended. No signs of angina or ischemia. Follow-up in 3 months. Ordered: Office Visit Level 4 Est 76791 2.Generalized osteoarthritis (disorder) Chronic stable no change in current treatment. Ordered: Office Visit Level 4 Est 37617 3.Hyperlipidemia Chronic and stable previous laboratory studies reviewed follow-up in 3 months with fasting lab. Ordered: Office Visit Level 4 Est 40052 4.Interstitial lung disease He'll continue to follow-up with pulmonology and Dr. Ramsay change in current treatment I encouraged him to use oxygen asprescribed. Ordered: Office Visit Level 4 Est 31522 5.Benign essential hypertension Blood pressure is adequately controlled. Medications and treatments reviewed no changes recommended. Recent laboratory studies reviewed. Follow-up in3 months. Ordered: Office Visit Level 4 Est 93799
--- OUTSIDE RECORDS SUMMARY | 2016-05-22 10:39 | XMS REPORT | Referral Summary ---
Author Organization Unknown Address Unknown Phone Unavailable Care Team Providers Care Seat Builder Name Role Phone Lilliam Mancini Primary Care Physician [phone] Encounter VC Date(s): 06/02/14 - 06/02/14 [facility], Srinivas, Family [address] [place] [address] Discharge Diagnosis: Benign essential hypertension Discharge Diagnosis: Coronary arteriosclerosis Discharge Diagnosis: Hyperlipidemia Discharge Diagnosis: Pneumonia Discharge Disposition: Home or Self Care Attending Physician: Shiva Mancini MD Admitting Physician: Shiva Mancini MD Vital Signs Most recent to 1 oldest [Reference Range]: Temperature Tympanic 36.6 degC [36.6-38.1 degC] (06/02/14 3:19 PM) Peripheral Pulse 64 bpm Rate [60-100 bpm] (06/02/14 3:19 PM) Respiratory Rate 16 br/min [14-20 br/min] (06/02/14 3:19 PM) Blood Pressure 152/60 mmHg [90-140/60-90 mmHg] *HI* (06/02/14 3:19 PM) Most recent to 1 oldest [Reference Range]: SpO2 97 % (06/02/14 3:19 PM) Problem List Condition Effective Dates Status [...] ) Obesity(Confirmed) Active patient Osteoarthritis(Confi Active rmed) Pure Active hypercholesterolemia (disorder)(Confirmed ) Suprapubic Active pain(Confirmed) Allergies, Adverse Reactions, Alerts No Known Medication Allergies Medications Aspirin Low Dose 81 mg, Oral, Daily, 0 Refill(s) Start Date: 08/15/13 Status: Ordered atenolol 100 mg oral tablet See Instructions, TAKE 1 BY MOUTH EVERY DAY., # 90 unknown unit, 3 Refill(s), eRx: [facility] [id number], TAKE 1 BY MOUTH EVERY DAY. Special Instructions: TAKE 1 BY MOUTH EVERY DAY. Start Date: 01/30/14 Status: Ordered ibuprofen 200 mg oral tablet 1 tabs, Oral, q6hr, as needed, 0 Refill(s) Start Date: 08/15/13 Status: Ordered lisinopril 40 mg oral tablet See Instructions, TAKE 1 TABLET (40MG) BY ORAL ROUTE EVERY DAY, # 90 unknown unit, 3 Refill(s), eRx: QPD [id number], TAKE 1 TABLET (40MG) BY ORAL ROUTE EVERY DAY Special Instructions: TAKE 1 TABLET (40MG) BY ORAL ROUTE EVERY DAY Start Date: 01/30/14 Status: Ordered multivitamin 1 tablet, Oral, Daily, 0 Refill(s) Start Date: 08/15/13 Status: Ordered Omnicef 300 mg, Oral, q12hr, 0 Refill(s) Start Date: 05/30/14 Stop Date: 06/05/14 Status: Ordered Proscar 5 mg oral tablet See Instructions, TAKE 1 TABLET BY MOUTH AT BEDTIME., # 90 unknown unit, eRx: QPD [id number], TAKE 1 TABLET BY MOUTH AT BEDTIME. Special Instructions: TAKE 1 TABLET BY MOUTH AT BEDTIME. Start Date: 03/27/14 Status: Ordered simvastatin 20 mg oral tablet See Instructions, TAKE 1 TABLET BY MOUTH EVERY DAY., # 90 unknown unit, 3 Refill (s), eRx: QPD [id number], TAKE 1 TABLET BY MOUTH EVERY DAY. Special Instructions: TAKE 1 TABLET BY MOUTH EVERY DAY. Start Date: 09/12/13 Status: Ordered triamcinolone 0.1% topical cream 1 laureen, Topical, BID, # 60 g, 0 Refill(s), Pharmacy: [facility] [id number] Start Date: 03/28/14 Status: Ordered Uroxatral 10 mg oral tablet, extended release See Instructions, TAKE 1 TABLET BY MOUTH AT BEDTIME., # 90 unknown unit, eRx: [facility] 18335, TAKE 1 TABLET BY MOUTH AT BEDTIME. [...] Pneumonia is an infection of the lungs. CAUSES Pneumonia may be caused by bacteria or a virus. Usually, these infections are caused by breathing infectious particles into the lungs (respiratory tract ). SYMPTOMS Cough. Fever. Chest pain. Increased rate of breathing. Wheezing. Mucus production. DIAGNOSIS If you have the common symptoms of pneumonia, your caregiver will typically confirm the diagnosis with a chest X-ray. The X-ray will show an abnormality in the lung (pulmonary infiltrate ) if you have pneumonia. Other tests of your blood, urine, or sputum may be done to find the specific cause of your pneumonia. Your caregiver may also do tests (blood gases or pulse oximetry) to see how well your lungs are working. TREATMENT Some forms of pneumonia may be spread to other people when you cough or sneeze. You may be asked to wear a mask before and during your exam. Pneumonia that is caused by bacteria is treated with antibiotic medicine. Pneumonia that is caused by the influenza virus may be treated with an antiviral medicine. Most other viral infections must run their course. These infections will not respond to antibiotics. PREVENTION A pneumococcal shot (vaccine ) is available to prevent a common bacterial cause of pneumonia. This is usually suggested for: People over 65 years old. Patients on chemotherapy. People with chronic lung problems, such as bronchitis or emphysema. People with immune system problems. If you are over 65 or have a high risk condition, you may receive the pneumococcal vaccine if you have not received it before. In some countries, a routine influenza vaccine is also recommended. This vaccine can help prevent some cases of pneumonia.You may be offered the influenza vaccine as part of your care. If you smoke, it is time to quit. You may receive instructions on how to stop smoking. Your caregiver can provide medicines and counseling to help you quit. HOME CARE INSTRUCTIONS Cough suppressants may be used if you are losing too much rest. However, coughing protects you by clearing your lungs. You should avoid using cough suppressants if you can. Your caregiver may have prescribed medicine if he or she thinks your pneumonia is caused by a bacteria or influenza. Finish your medicine even if you start to feel better. Your caregiver may also prescribe an expectorant. This loosens the mucus to be coughed up. Only take [id number] or prescription medicines for pain, discomfort, or fever as directed by your caregiver. Do not smoke. Smoking is a common cause of bronchitis and can contribute to pneumonia. If you are a smoker and continue to smoke, your cough may last several weeks after your pneumonia has cleared. A cold steam vaporizer or humidifier in your room or home may help loosen mucus. Coughing is often worse at night. Sleeping in a semi-upright position in a recliner or using a couple pillows under your head will help with this. Get rest as you feel it is needed. Your body will usually let you know when you need to rest. SEEK IMMEDIATE MEDICAL CARE IF: Your illness becomes worse. This is especially true if you are elderly or weakened from any other disease. You cannot control your cough with suppressants and are losing sleep. You begin coughing up blood. You develop pain which is getting worse or is uncontrolled with medicines. You have a fever. Any of the symptoms which initially brought you in for treatment are getting worse rather than better. You develop shortness of breath or chest pain. MAKE SURE YOU: Understand these instructions. Will watch your condition. Will get help right away if you are not doing well or get worse. Document Released: 02/06/2006 Document Revised: 04/30/2012 Document Reviewed: Exit[employer] Patient Information 2014 [employer]. No follow up information was provided. Extracted from: Title: Office Visit Note Author: Shiva Mancini MD Date: 06/02/14 Assessment/Plan Benign essential hypertension Blood pressure is mildly elevated here today will continue to follow and monitor carefully. Continue current treatment plan. Ordered: Office Visit Level 4 Est 84346 Coronary arteriosclerosis Overall appears stable no change in current treatment. Ordered: Office Visit Level 4 Est 07930 Hyperlipidemia Stable no change in current treatment. Ordered: Office Visit Level 4 Est 43221 Pneumonia He'll finish out his Omnicef and continued use oxygen as needed. When I recheck him in 2 weeks. She has problems before then or further difficulties prior to that appointment he'll let me know. Ordered: Office Visit Level 4 Est 06505
--- OUTSIDE RECORDS SUMMARY | 2016-05-22 10:39 | XMS REPORT | Referral Summary ---
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 Start Date: 01/30/14 Status: Ordered ibuprofen 200 mg oral tablet 1 tabs, Oral, q6hr, as needed, 0 Refill(s) Start Date: 08/15/13 Status: Ordered lisinopril 40 mg oral tablet See Instructions, TAKE 1 TABLET (40MG) BY ORAL ROUTE EVERY DAY, # 90 unknown unit, 3 Refill(s), eRx: [facility] 52010, TAKE 1 TABLET (40MG) BY ORAL ROUTE EVERY DAY Start Date: 01/30/14 Status: Ordered multivitamin 1 tablet, Oral, Daily, 0 Refill(s) Start Date: 08/15/13 Status: Ordered Proscar 5 mg oral tablet See Instructions, TAKE 1 TABLET BY MOUTH AT BEDTIME., # 90 unknown unit, eRx: [facility] 17186, TAKE 1 TABLET BY MOUTH AT BEDTIME. Start Date: 12/22/14 Status: Ordered simvastatin 20 mg oral tablet See Instructions, TAKE 1 TABLET BY MOUTH EVERY DAY., # 90 unknown unit, 1 Refill (s), eRx: [facility] 18679, TAKE 1 TABLET BY MOUTH EVERY DAY. Start Date: 09/12/14 Status: Ordered Uroxatral 10 mg oral tablet, extended release See Instructions, TAKE 1 TABLET BY MOUTH AT BEDTIME., # 90 unknown unit, 2 Refill(s), eRx: [facility] 54959, TAKE 1 TABLET BY MOUTH AT BEDTIME. [...] Up With: Where: When: Shiva Mancini [address]; [place] [address] Business (1) Within 3 to 5 days Comments: Follow Up With: Where: When: Jamie Zoran [address]; [place] [address] Business (1) In 6 months [...] counseling. Ordered: Office Visit Level 3 Est 33931
--- OUTSIDE RECORDS SUMMARY | 2016-05-22 10:39 | XMS REPORT | Referral Summary ---
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 Start Date: 01/30/14 Status: Ordered ibuprofen 200 mg oral tablet 1 tabs, Oral, q6hr, as needed, 0 Refill(s) Start Date: 08/15/13 Status: Ordered lisinopril 40 mg oral tablet See Instructions, TAKE 1 TABLET (40MG) BY ORAL ROUTE EVERY DAY, # 90 unknown unit, 3 Refill(s), eRx: [facility] 49051, TAKE 1 TABLET (40MG) BY ORAL ROUTE EVERY DAY Start Date: 01/30/14 Status: Ordered multivitamin 1 tablet, Oral, Daily, 0 Refill(s) Start Date: 08/15/13 Status: Ordered Proscar 5 mg oral tablet See Instructions, TAKE 1 TABLET BY MOUTH AT BEDTIME., # 90 unknown unit, eRx: [facility] 64941, TAKE 1 TABLET BY MOUTH AT BEDTIME. Start Date: 12/22/14 Status: Ordered simvastatin 20 mg oral tablet See Instructions, TAKE 1 TABLET BY MOUTH EVERY DAY., # 90 unknown unit, 1 Refill (s), eRx: [facility] 69786, TAKE 1 TABLET BY MOUTH EVERY DAY. Start Date: 09/12/14 Status: Ordered Uroxatral 10 mg oral tablet, extended release See Instructions, TAKE 1 TABLET BY MOUTH AT BEDTIME., # 90 unknown unit, 2 Refill(s), eRx: [facility] 60012, TAKE 1 TABLET BY MOUTH AT BEDTIME. [...] Up With: Where: When: Shiva Mancini [address]; [place] [address] Business (1) Within 3 to 5 days Comments: Follow Up With: Where: When: Jamie Zoran [address]; [place] [address] Business (1) In 6 months [...] counseling. Ordered: Office Visit Level 3 Est 83748
--- OUTSIDE RECORDS SUMMARY | 2016-05-22 10:40 | XMS REPORT | Referral Summary ---
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 Marketing Agent Name Role Phone Lilliam Mancini Primary Care Physician [phone] Encounter VC Date(s): 07/08/14 - 07/08/14 [facility] [address] [place] [address] [place] [address] Discharge Diagnosis: BPH with obstruction/lower urinary tract symptoms Discharge Disposition: 01-Home or Self Care Attending Physician: Jamie Meehan JR, MD Admitting Physician: Jamei Meehan JR, MD Referring Physician: Shiva Mancini [...] # 90 unknown unit, 3 Refill(s), eRx: [email or web address] 07147, TAKE 1 BY MOUTH EVERY DAY. Start Date: 01/30/14 Status: Ordered ibuprofen 200 mg oral tablet 1 tabs, Oral, q6hr, as needed, 0 Refill(s) Start Date: 08/15/13 Status: Ordered lisinopril 40 mg oral tablet See Instructions, TAKE 1 TABLET (40MG) BY ORAL ROUTE EVERY DAY, # 90 unknown unit, 3 Refill(s), eRx: [facility] 78948, TAKE 1 TABLET (40MG) BY ORAL ROUTE EVERY DAY Start Date: 01/30/14 Status: Ordered multivitamin 1 tablet, Oral, Daily, 0 Refill(s) Start Date: 08/15/13 Status: Ordered Proscar 5 mg oral tablet See Instructions, TAKE 1 TABLET BY MOUTH AT BEDTIME., # 90 unknown unit, eRx: [email or web address] 97893, TAKE 1 TABLET BY MOUTH AT BEDTIME. Start Date: 12/22/14 Status: Ordered simvastatin 20 mg oral tablet See Instructions, TAKE 1 TABLET BY MOUTH EVERY DAY., # 90 unknown unit, 1 Refill (s), eRx: [facility] 76987, TAKE 1 TABLET BY MOUTH EVERY DAY. Start Date: 09/12/14 Status: Ordered Uroxatral 10 mg oral tablet, extended release See Instructions, TAKE 1 TABLET BY MOUTH AT BEDTIME., # 90 unknown unit, 2 Refill(s), eRx: [facility] 64479, TAKE 1 TABLET BY MOUTH AT BEDTIME. [...] Up With: Where: When: Shiva Mancini [address]; [place] [address] Business (1) Within 3 to 5 days Comments: Follow Up With: Where: When: Jamie Zoran [address]; [place] [address] Business (1) In 6 months [...] counseling. Ordered: Office Visit Level 3 Est 46628
--- OUTSIDE RECORDS SUMMARY | 2016-05-22 10:40 | XMS REPORT ---
Author Author Dionna Aylaa Organization [employer] Address Unknown Phone Unavailable Care Team Providers Care Ward Attendant Name Role Phone Dionna Ayala CP Unavailable Allergies, Adverse Reactions, Alerts Substance Reaction Event Type hayfever runny nose Non Drug Allergy Problems Problem Type Condition Code Onset Dates Condition Status Assessment Gingival ulcer K06.8 Active Medications Medication Code System Code Instructions Start Date End Date Status Dosage Finasteride [facility] [address]-55 not defined Furosemide NDC 0 not defined atenolol NDC 0 not defined Simvastatin [facility] [address]-43 not defined Alfuzosin HCl NDC 0 not defined Aspirin Adult Low Strength [facility] [address]-55 not defined Losartan Potassium [facility] [address]-20 not defined Multi Vitamin Mens [facility] 1975[address]-4[address] not defined Lidocaine Viscous [facility] [address]-35 2 % Mouth/Throat every 3 hrs Oct 22, 2015 Oct 27, 2015 5 ml as needed Procedures Procedure Coding System Code Date OFFICE VISIT, EST-LOW COMPLEXITY (15 MIN.) CPT-4 78548 Oct 21, 2015 [facility] visit Established Patient CPT-4 G0467 Oct 21, 2015 Vital Signs Date/Time: Oct 21, 2015 Temperature 98.1 F Height 65 in Weight 159.4 lbs Blood Pressure Diastolic 60 mm Hg Blood Pressure Systolic 138 mm Hg Cardiac Monitoring Heart Rate 56 /min BMI 26.52 Index Respiratory Rate 20 /min Results No Known Results Summary Purpose [employer] Submission
--- OUTSIDE RECORDS SUMMARY | 2016-05-22 10:40 | XMS REPORT | Referral Summary ---
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 Name Role Phone Lilliam Mancini Primary Care Physician [phone] Encounter VC Date(s): 02/09/15 - 02/09/15 [facility] [address] [place] [address]- Discharge Diagnosis: Benign essential hypertension Discharge Diagnosis: Generalized osteoarthritis (disorder) Discharge Diagnosis: Back contusion Discharge Diagnosis: Hyperlipidemia Discharge Disposition: 01-Home or Self Care Attending Physician: Shiva Mancini MD Admitting Physician: Shiva Mancini MD Vital Signs Most recent to 1 oldest [Reference Range]: Temperature Tympanic 36.4 degC [36.6-38.1 degC] *LOW* (02/09/15 1:58 PM) Peripheral Pulse 68 bpm Rate [60-100 bpm] (02/09/15 1:58 PM) Respiratory Rate 22 br/min [14-20 br/min] *HI* (02/09/15 1:58 PM) Blood Pressure 106/56 mmHg [90-140/60-90 mmHg] (02/09/15 1:58 PM) Problem List Condition Effective Dates Status [...] EVERY DAY., # 90 unknown unit, eRx: [facility] 16506, TAKE 1 BY MOUTH EVERY DAY. Start Date: 01/26/15 Status: Ordered ibuprofen 200 mg oral tablet 1 tabs, Oral, q6hr, as needed, 0 Refill(s) Start Date: 08/15/13 Status: Ordered lisinopril 40 mg oral tablet See Instructions, TAKE 1 TABLET (40MG) BY ORAL ROUTE EVERY DAY, # 90 unknown unit, eRx: [facility] 88464, TAKE 1 TABLET (40MG) BY ORAL ROUTE EVERY DAY Start Date: 01/26/15 Status: Ordered multivitamin 1 tablet, Oral, Daily, 0 Refill(s) Start Date: 08/15/13 Status: Ordered Proscar 5 mg oral tablet See Instructions, TAKE 1 TABLET BY MOUTH AT BEDTIME., # 90 unknown unit, eRx: [facility] 24771, TAKE 1 TABLET BY MOUTH AT BEDTIME. Start Date: 12/22/14 Status: Ordered simvastatin 20 mg oral tablet See Instructions, TAKE 1 TABLET BY MOUTH EVERY DAY., # 90 unknown unit, 1 Refill (s), eRx: [facility] 87280, TAKE 1 TABLET BY MOUTH EVERY DAY. Start Date: 09/12/14 Status: Ordered traMADol 50 mg oral tablet 50 mg 1 tabs, Oral, q8hr, as needed for pain, cathleen, # 30 tabs, 0 Refill(s) Start Date: 02/09/15 Status: Ordered Uroxatral 10 mg oral tablet, extended release See Instructions, TAKE 1 TABLET BY MOUTH AT BEDTIME., # 90 unknown unit, 2 Refill(s), eRx: [facility] 69089, TAKE 1 TABLET BY MOUTH AT BEDTIME. [...] Visit Note Author: Shiva Mancini MD Date: 02/09/15 Assessment/Plan Back contusion Overall this will improve with time. I did call out some tramadol for him to use on a when necessary basis along with Tylenol. If she' s not improving or worsening Ordered: Office Visit Level 4 Est 43979 Benign essential hypertension Blood pressures adequately controlled no change in current treatment is recommended. Report card reviewed and provided. Laboratory studies reviewed. Follow-up in 3 months. Ordered: Office Visit Level 4 Est 25407 Generalized osteoarthritis (disorder) Chronic relatively stable contributing to his back and hip pain. No change in treatmentother than as mentioned above. Ordered: Office Visit Level 4 Est 32513 Hyperlipidemia Chronic stable no change in current treatment. Ordered: Office Visit Level 4 Est 60828 Orders: traMADol, 50 mg 1 tabs, Oral, q8hr, as needed for pain, cathleen, # 30 tabs, 0 Refill(s)
--- OUTSIDE RECORDS SUMMARY | 2016-05-22 10:40 | XMS REPORT | Referral Summary ---
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 Name Role Phone Lilliam Mancini Primary Care Physician [phone] Encounter Date(s): 11/05/15 - 11/05/15 [facility] [address] [place], [place] [address] Discharge Diagnosis: Exercise hypoxemia Discharge Diagnosis: Nocturnal hypoxia Discharge Diagnosis: ILD (interstitial lung disease) Discharge Disposition: 01-Home or Self Care Attending Physician: Mynor Pillai MD Admitting Physician: Mynor Pillai MD Vital Signs Most recent to 1 oldest [Reference Range]: Peripheral Pulse 57 bpm Rate [60-100 bpm] *LOW* (11/05/15 1:49 PM) Respiratory Rate 24 br/min [14-20 br/min] *HI* (11/05/15 1:49 PM) Blood Pressure 120/60 mmHg [90-140/60-90 mmHg] (11/05/15 1:49 PM) SpO2 93 % (11/05/15 1:49 PM) Problem List Condition Effective Dates Status [...] MOUTH AT BEDTIME, # 90 tabs, eRx: [facility] 03914, TAKE 1 TABLET BY MOUTH AT BEDTIME Start Date: 10/27/15 Status: Ordered Aspirin Low Dose 81 mg, Oral, Daily, 0 Refill(s) Start Date: 08/15/13 Status: Ordered atenolol 100 mg oral tablet See Instructions, TAKE 1 TABLET BY MOUTH EVERY DAY, # 90 tabs, 1 Refill(s), eRx : [facility] 10967, TAKE 1 TABLET BY MOUTH EVERY DAY Start Date: 10/27/15 Status: Ordered finasteride 5 mg oral tablet See Instructions, TAKE 1 TABLET BY MOUTH AT BEDTIME, # 90 tabs, eRx: [facility] 77199, TAKE 1 TABLET BY MOUTH AT BEDTIME Start Date: 06/23/15 Status: Ordered furosemide 20 mg oral tablet See Instructions, TAKE 1 TABLET BY MOUTH DAILY, # 30 tabs, 2 Refill(s), eRx: [facility] 17067, TAKE 1 TABLET BY MOUTH DAILY Start [...] Daily, # 90 tabs, 5 Refill(s), Pharmacy: [facility] 21256, 1 tabs Oral Daily Start Date: 10/07/15 Status: Ordered multivitamin 1 tablet, Oral, Daily, 0 Refill(s) Start Date: 08/15/13 Status: Ordered simvastatin 20 mg oral tablet See Instructions, TAKE 1 TABLET BY MOUTH EVERY DAY, # 90 tabs, 2 Refill(s), eRx : [facility] 36856, TAKE 1 TABLET BY MOUTH EVERY DAY [...] Visit Note Author: Mynor Pillai MD Date: 11/05/15 Assessment/Plan 1.ILD (interstitial lung disease) 1. Have discussed with him lack of diagnosis. I've told him that in all likelihood will require an open lung biopsy which would be a surgical procedure. This was discussed. 2. The above objective data was reviewed with the patient as well as giving the patient copies of his high-resolution CT scan and laboratory tests. 3. We'll try to obtain a more portable source of oxygen. 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 He takes would not be sufficient to allow him to do this. 4. Supplemental oxygen with exertion and nighttime at 2 L/m. 5. Repeat overnight oximetry on 2 L. 6. Have discussed empiric treatment with steroids. Given the patient's slow progression lack of signs of inflammation I think this would probably be counterproductive. Will defer on this at the present time. 7. Prevnar 13 will be given today. Patient will be getting his flu shot in a couple weeks. 8. We'll see the patient back in 6 months or when necessary. I see him back in 6 months we'll have him do a spirometry and a diffusion capacity. 2.Exercise hypoxemia 1. See above. 3.Nocturnal hypoxia 1. See above.
--- OUTSIDE RECORDS SUMMARY | 2016-05-22 10:40 | XMS REPORT | Referral Summary ---
Author Author [facility], [facility] Organization [facility] Address Unknown Phone Unavailable Care Team Providers Care Community Integration Specialist Name Role Phone Lilliam Mancini Primary Care Physician [phone] Encounter VC Date(s): 05/04/15 - 05/04/15 [facility] [address] [place] [address]- Discharge Diagnosis: Benign prostatic hypertrophy Discharge Diagnosis: Generalized osteoarthritis (disorder) Discharge Diagnosis: Coronary arteriosclerosis Discharge Diagnosis: Benign essential hypertension Discharge Disposition: 01-Home or Self Care Attending Physician: Shiva Mancini MD Admitting Physician: Shiva Mancini MD Vital Signs Most recent to 1 oldest [Reference Range]: Temperature Tympanic 36.5 degC [36.6-38.1 degC] *LOW* (05/04/15 10:56 AM) Peripheral Pulse 64 bpm Rate [60-100 bpm] (05/04/15 10:56 AM) Respiratory Rate 18 br/min [14-20 br/min] (05/04/15 10:56 AM) Blood Pressure 90/64 mmHg [90-140/60-90 mmHg] (05/04/15 10:56 AM) Problem List Condition Effective Dates Status [...] # 90 unknown unit, 1 Refill(s), eRx: [facility] [id number], TAKE 1 BY MOUTH EVERY DAY. Start Date: 04/24/15 Status: Ordered furosemide 20 mg oral tablet 20 mg 1 tabs, Oral, Daily, # 30 tabs, 3 Refill(s), Pharmacy: [facility] [id number], 1 tabs Oral Daily Start Date: 03/20/15 Status: Ordered ibuprofen 200 mg oral tablet 1 tabs, Oral, q6hr, as needed, 0 Refill(s) Start Date: 08/15/13 Status: Ordered lisinopril 40 mg oral tablet See Instructions, TAKE 1 TABLET (40MG) BY ORAL ROUTE EVERY DAY, # 90 unknown unit, 1 Refill(s), eRx: [facility] [id number], TAKE 1 TABLET (40MG) BY ORAL ROUTE EVERY DAY Start Date: 04/24/15 Status: Ordered multivitamin 1 tablet, Oral, Daily, 0 Refill(s) Start Date: 08/15/13 Status: Ordered Proscar 5 mg oral tablet See Instructions, TAKE 1 TABLET BY MOUTH AT BEDTIME., # 90 unknown unit, 1 Refill(s), eRx: [facility] [id number], TAKE 1 TABLET BY MOUTH AT BEDTIME. Start Date: 03/25/15 Status: Ordered simvastatin 20 mg oral tablet See Instructions, TAKE 1 TABLET BY MOUTH EVERY DAY., # 30 tabs, eRx: [facility] [id number], TAKE 1 TABLET BY MOUTH EVERY DAY. Start Date: 03/06/15 Status: Ordered Tessalon Perles 100 mg oral capsule 200 mg 2 caps, Oral, q8hr, # 40 caps, 0 Refill(s), Pharmacy: [facility] [id number], 2 caps Oral q8hr Start Date: 04/06/15 Status: Ordered Uroxatral 10 mg oral tablet, extended release See Instructions, TAKE 1 TABLET BY MOUTH AT BEDTIME., # 90 unknown unit, [id number], TAKE 1 TABLET BY MOUTH AT BEDTIME. [...] Visit Note Author: Shiva Mancini MD Date: 05/04/15 Assessment/Plan Atherosclerotic heart disease of [place] coronary artery without angina pectoris , Coronary arteriosclerosis Chronic stable no signs of ischemia. Continue current treatment plan. Ordered: Office Visit Level 4 Est 11643 Benign essential hypertension, Essential (primary) hypertension I've asked him to reduce his lisinopril from 40 to 20 mg daily. He'll continue to monitor his blood pressure. Recheck here in 3 months. Ordered: Office Visit Level 4 Est 52634 Benign prostatic hypertrophy, Enlarged prostate without lower urinary tract symptoms Chronic stable no change in current treatment. Ordered: Office Visit Level 4 Est 43086 Generalized osteoarthritis (disorder), Polyosteoarthritis, unspecified Chronic stable no change in current treatment Ordered: Office Visit Level 4 Est 70684 Interstitial lung disease This showed up on his last chest x-ray. He feels like his respiratory status is back to normal. We talked previously about seeing a blueprinter. He's fairly adamant that he doesn't want to proceed with that since he's feels like he is back to normalif hehas any increased and respiratory difficulties he' ll let us know.
--- NOTE | 2016-05-22 10:51 | NUR ---
O2 INCREASED TO 6L TO GET SAO2 UP TO 91%
[2016-05-22] MEDS ORDERED: FURO20TA4 PO (10:53)
[2016-05-22] MEDS ORDERED: LOSA100T44 PO (10:53)
[2016-05-22] MEDS ORDERED: MULT1TAB69 PO (10:53)
--- OUTSIDE RECORDS SUMMARY | 2016-05-22 10:55 | XMS REPORT | Continuity of Care Document ---
Author Author [facility] Organization [facility] Address Unknown Phone Unavailable Allergies Active Description [...] F 414.00 CORON ATHEROSCLER NOS TYPE VESSEL, BIG LAGOON OR GRAFT 05/27/2014 Dameon LOCKE, Wassim H [...] Status Pt. Type Provider Facility Loc./Unit Complaint [id number] 03/25/2013 09:03:00 03/25/2013 23 :59:59 CLS Outpatient [id number] 02/27/2013 10:49:00 02/27/2013 23 :59:59 CLS Outpatient [id number] 12/18/2012 08:50:00 12/18/2012 23 :59:59 CLS Outpatient
--- NOTE | 2016-05-22 11:15 | NUR ---
O2 DECREASED TO 4L/NC
--- NOTE | 2016-05-22 11:25 | NUR ---
DR Lilliam MORENO IN
[2016-05-22 11:34] LABS: BASOPHILS % (AUTO) 0.4 % (0-2); EOSINOPHILS # (AUTO) 0.4 T/MM3 (0-0.5); EOSINOPHILS % (AUTO) 3.6 % (0-4); HCT - HEMATOCRIT 37.7 % (41-53); HGB - HEMOGLOBIN 12.2 GM/DL (13.5-17.5); IMMATURE GRANULOCYTE # (AUTO) 0.05 T/MM3 (0.00-0.03); IMMATURE GRANULOCYTE % (AUTO) 0.4 % (0.0-0.5); LYMPHOCYTES # (AUTO) 2.2 T/MM3 (1-4.8); LYMPHOCYTES % (AUTO) 18.9 % (23-45); MEAN CORPUSCULAR HGB 29.5 UUG (26-34); MEAN CORPUSCULAR HGB CONC(MCHC 32.4 GM/DL (31-37); MEAN CORPUSCULAR VOLUME 91.3 UM3 (80-100); MEAN PLATELET VOLUME 10.8 UM3 (9.4-12.4); MONOCYTES # (AUTO) 0.5 T/MM3 (0-0.8); MONOCYTES % (AUTO) 4.5 % (0-9.0); NEUTROPHILS #(AUTO)-ABSOLUTE 8.2 T/MM3 (1.8-7.7); NEUTROPHILS % (AUTO) 72.2 % (33-66); RED BLOOD COUNT 4.13 M/MM3 (4.50-5.90); WBC - WHITE BLOOD COUNT 11.4 T/MM3 (4.5-11.0)
[2016-05-22 11:49] LABS: ALBUMIN 3.8 G/DL (3.5-5.0); ALBUMIN/GLOBULIN RATIO 1.5 RATIO (1.1-2.2); ALKALINE PHOSPHATASE 57 U/L (38-126); ALT (SGPT) 46 U/L (21-72); ANION GAP 11 MEQ/L (5-15); AST (SGOT) 38 U/L (17-59); BUN/CREATININE RATIO 18 RATIO (6-26); CALCIUM 9.4 MG/DL (8.4-10.2); CHLORIDE 105 MEQ/L (98-107); CO2 - CARBON DIOXIDE 25 MEQ/L (22-30); CREATININE 1.3 MG/DL (0.8-1.5); GLOMERULAR FILTRATION RATE 53; GLUCOSE 177 MG/DL (75-110); POTASSIUM 4.3 MEQ/L (3.6-5); SODIUM 141 MEQ/L (134-144); TOTAL PROTEIN 6.4 G/DL (6.3-8.2)
--- NOTE | 2016-05-22 11:55 | NUR ---
O2 DECREASED TO 3L/NC
--- NOTE | 2016-05-22 12:21 | NUR ---
IVL PT ACCIDENTALLY PULLED IVL OUT
--- NOTE | 2016-05-22 12:28 | ERPDOC ---
Departure Disposition Decision Date: May 22, 2016 Disposition Decision Time: 12:25 Disposition: 01 DISCHARGED HOME, SELF-CARE Impression Impression Impression: Primary Impression: Acute on chronic respiratory failure with hypoxia Additional Impressions: Hypoxemia requiring supplemental oxygen Pulmonary edema Chronicity: acute Qualified Codes: J81.0 - Acute pulmonary edema Severity: Moderate Condition: Stable Seen By: Physician only Referrals: CORINE MANCINI MD (Family) 1 Day Patient Instructions: Using Oxygen at Home (ED) Problems/Meds/Labs Reviewed?: Yes Medications reviewed and manag: Yes Additional Instructions: Call your medical supply company in the morning and see if they will give you the smaller portable O2 tanks instead of the concentrator. If they need a doctor 's order to do that, call your PCP and get him to help arrange this. Take two of your Lasix pills when you get home (total 40 mg). This should make you have to pass the extra fluid that we see in your lungs out in your urine. Follow up with Dr Mancini this week as already scheduled to see if you need to increase the Lasix to a higher dose on a daily basis. Follow up care ordered?: Yes Mental Status: Alert, Oriented HPI - Dyspnea General Chief Complaint: Dyspnea/Respdistress Stated Complaint: SOA Time Seen by Provider: 10:44 Source: patient, RN notes reviewed, old records Exam Limitations: no limitations HPI - Dyspnea Initial Comments This patient presents complaining of increased dyspnea with walking for one room to the next today. He has chronic home O2 on and was complaining that his O2 concentrator wasn't working. He was doing fine on his home O2 from the O2 tanks however. He had called and gotten a different concentrator, but does not feel any O2 coming from it. EMS was called and when they got there, his sats were in the 70s on the concentrator. They switched him to their O2 supply and his sats immediately came up to the 90s. They switched back again to his concentrator and the sats went down again, so they put him back on the EMS oxygen. When his sats were low he felt somewhat dizzy and his family says that he was more confused. No cough or fever, no increased edema recently. Symptoms are gone with O2 back on. Occurred At: home Onset/Timing: Rapid Pain/Severity Scale: Now: 0/10 Activities at Onset: activity (walking to next room) Prior Episodes/Possible Cause: occasional episodes Modifying Factors: IMPROVES WITH: oxygen Associated Symptoms: shortness of breath Hx of Similar Symptoms: Yes Allergies: Coded Allergies: No Known Drug Allergies (Verified Allergy, Unknown, 05/22/16) Past History Past Medical History Metabolic: hypercholesterolemia, hypertension ENMT: other (chronic hearing loss) Cardiac: CAD, [place] Respiratory: pneumonia (as a child) Male: BPH Musculoskeletal: osteoarthritis Hematologic: blood transfusion Surgical History Cardiac: cardiac bypass (x4) Joint: knee (bilateral TKA) Vaccines Hx Influenza Vaccination: Yes (APRIL 2011) Hx Pneumococcal Vaccination: Yes (2009) Social History Smoking Status: Unknown if ever smoked Substance Use Type: does not use Alcohol Intake: none Record Review Pertinent history updated: Yes Review of Systems Constitutional Constitutional: dizziness, see HPI, DENIES: appetite decrease, fever, insomnia , syncope, weakness, weight loss Eyes General: DENIES: pain Lids/Accessories: DENIES: erythema Vision: DENIES: blurring ENMT Ears: DENIES: pain Hearing: hearing loss (chronic) Balance: DENIES: vertigo Sinuses: DENIES: congestion, rhinorrhea Mouth/Throat: DENIES: sore throat Teeth: DENIES: pain Cardiovascular Cardiac: dyspnea on exertion, see HPI, DENIES: chest pain Rhythm/Rate: DENIES: palpitations Vascular: DENIES: pedal edema, unilateral swelling Pulmonary Respiratory: dyspnea, see HPI, DENIES: cough, pleuritic chest pain, sputum GI Upper Abdomen: DENIES: heartburn/indigestion, nausea, vomiting Lower Abdomen: DENIES: blood in stool, constipation, diarrhea General: frequency, nocturia Musculoskeletal Comments joint stiffness - diffuse Integumentary Skin: DENIES: itching, rash Neurological General: DENIES: headache, memory disturbances, seizures, syncope Psychiatric Psychiatric: DENIES: anxiety, depression Endocrine Endocrine: DENIES: heat/cold intolerance Hematologic/Lymphatic Hematologic/Lymphatic: DENIES: anemia, easy bruising Allergic/Immunological Allergic/Immunoligical: DENIES: hives All other Systems All Other Systems: Reviewed and Negative Physical Exam General General Nourishment: well nourished, well developed, appears stated age, no acute distress, adult General Body Habitus: well groomed Vitals and Pain First Documented Vital Signs Date Time Temp Pulse Resp B/P Pulse Ox O2 Delivery O2 Flow Rate FiO2 05/22/16 10:35 99.0 56 24 121/57 67 Room Air 05/22/16 10:37 4.00 Weight: Kilograms: 76.200 Height (feet): 5 Height (inches): 6.00 Triage Pain Scale: RN VS reviewed by Provider: Yes Normal Exams: Head: Normocephalic w/o trauma Eyes: Pupils are PERRLA w/ EOMI, No scleral icterus, irritation, or foreign bodies noted ENMT: No facial trauma, nasal exudates, pharyngeal erythema, or exudates are noted Dental: No fractured, loose, or missing teeth noted Neck: Full range of motion, without adenopathy, JVD, bruits or thyromegaly Chest/Resp: Clear all marinelli, with good airflow, and symmetry bilaterally CV: Regular rate and rhythm, without murmur or gallop, Pulses 2+ all extremities, capillary refill, <2 seconds all ext., no pedal edema noted Abdomen: Bowel sounds positive, soft, non-tender, non-distended, no hepatosplenomegaly, masses or bruits noted Lymphatic: No lymphadenopathy, or lymphedema noted Musculoskeletal: No tenderness, or deformity noted, good range of motion, all extremities Integumentary: No rashes, hives, or bruising noted, hair and nails, without abnormality Neurologic: Patient is alert, and oriented, cranial nerves, motor/sensory/ cerebellar, exams w/o gross deficits, to observation Psychiatric: Patient exhibits, appropriate attention, emotion and affect Differential Diagnoses Considering: Acute Bronchitis, Acute Respiratory Failure, Influenza, Pneumonia , Viral Syndrome, Other (malfunction of oxygen supply) Progress Results/Orders Orders Procedure Category Date Status Time Iv Lock (Ed Only) EDM 05/22/16 Transmitted 11:06 Oxygen Administration EDM 05/22/16 Transmitted 11:06 Nothing By Mouth (Ed EDM 05/22/16 Transmitted Only) 11:06 Cbc W/Auto LAB 05/22/16 Complete Diff-Reflex Manual 11:06 Cmp - Comprehensive LAB 05/22/16 Complete Metabolic 11:06 Blood Culture YONG 05/22/16 In Process 11:06 Chest 1 View RAD 05/22/16 Resulted 11:06 EKG EKG 05/22/16 Taken 11:06 Troponin I W LAB 05/22/16 Complete Hemolysis Index 11:06 Lab Results Laboratory Tests Test 4/2/17 11:14 White Blood Count 11.4T/MM3 Red Blood Count 4.13M/MM3 Hemoglobin 12.2GM/DL Hematocrit 37.7% Mean Corpuscular Volume 91.3UM3 Mean Corpuscular Hemoglobin 29.5UUG Mean Corpuscular Hemoglobin Concent 32.4GM/DL RDW Standard Deviation 46.1FL Platelet Count 223T/MM3 Mean Platelet Volume 10.8UM3 Immature Granulocyte % (Auto) 0.4% Neutrophils (%) (Auto) 72.2% Lymphocytes (%) (Auto) 18.9% Monocytes (%) (Auto) 4.5% Eosinophils (%) (Auto) 3.6% Basophils (%) (Auto) 0.4% Absolute Immature Granulocyte (auto 0.05T/MM3 Absolute Neutrophils (auto) 8.2T/MM3 Absolute Lymphocytes (auto) 2.2T/MM3 Absolute Monocytes (auto) 0.5T/MM3 Absolute Eosinophils (auto) 0.4T/MM3 Absolute Basophils (auto) 0.0T/MM3 Turbidity < 20 Sodium Level 141MEQ/L Potassium Level 4.3MEQ/L Chloride Level 105MEQ/L Carbon Dioxide Level 25MEQ/L Anion Gap 11MEQ/L Blood Urea Nitrogen 23.0MG/DL Creatinine 1.3MG/DL Glomerular Filtration Rate Calc 53 BUN/Creatinine Ratio 18RATIO Glucose Level 177MG/DL Calculated Osmolality 279MOSM/KG Calcium Level 9.4MG/DL Total Bilirubin 0.90MG/DL Icterus Index < 2 Aspartate Amino Transf (AST/SGOT) 38U/L Alanine Aminotransferase (ALT/SGPT) 46U/L Alkaline Phosphatase 57U/L Troponin I 0.015ng/ml Total Protein 6.4G/DL Albumin 3.8G/DL Globulin 2.6G/DL Albumin/Globulin Ratio 1.5RATIO Chemistry Specimen Hemolysis 16 Progress Progress Labs were okay EKG minor changes. CXR showed possible bibasilar effusions and mild cardiomegaly with either edema, consolidation or fibrosis. Suspect some of this is chronic by history. Patient will be given extra dose of diuretics today to see if this helps him -- may have some edema due to increased stress on the heart from the low oxygenation. Patient was asymptomatic once he was back on oxygen. Will have him use his tanks instead of the concentrator and work on getting the smaller portable oxygen supply. Suspect this was due to a malfunction of the concentrator. Follow up with PCP. EKG EKG : Rate: <60 (50) Rhythm: sinus [place]: normal QRS: normal Intervals: normal ST/T: inverted Interpreted by: signing physician EKG Comments resolution of inferior T wave inversions (II,III,aVF) on 07/15/11, with new inversions on V3-4 Xray Xray : Xray: CXR Portable Interpretation: Abnormal, Interpreted by Me, Reviewed Written Report ( bibasilar effusions with cardiomegaly, poss pulm edema versus fibrosis) SONNY MORENO MD May 22, 2016 12:28
--- NOTE | 2016-05-22 12:57 | DI ---
Indication: ITS.REASON: low sats PROCEDURE: CHEST 1 VIEW: Encounter: Initial Comparison: None Findings: Bilateral airspace consolidation with interstitial opacity as well with a basilar predominance. Small possible effusions. No pneumothorax. Cardiac silhouette is mildly enlarged. Prior CABG. Pulmonary vascularity is obscured by the pulmonary process. Impression: Bilateral basilar predominant interstitial and airspace disease. Findings could be due to severe pulmonary edema, atypical pneumonia and/or a chronic process such as pulmonary fibrosis/usual interstitial pneumonitis. Comparison with prior radiographs would be helpful. Noncontrast chest CT may be helpful for further evaluation. .
[2016-05-22 13:05] VITALS: BP 135/62; PULSE 46; RESP 22; TEMP 98.3; O2SAT 94
--- NOTE | 2016-05-22 13:05 | NUR ---
DISMISSAL PER WC ON O2
== END 2016-05-22 13:05 | disposition home or self-care (01) ==
LOC: ED 10:33
DX: J96.21 Acute and chronic respiratory failure with hypoxia (principal); Z99.81 Dependence on supplemental oxygen; J81.0 Acute pulmonary edema
CPT/HCPCS: 36415; 80053; 84484; 85025; 87040; 93005

== ENCOUNTER → 2016-06-15 | Outpatient (CLI) | payer MEDICARE ==
[~2016-06-15] VITALS: Ht 160 cm; Wt 74.1 kg
[~2016-06-15] MED LIST changes: +FURO20TA4 PO; -LISI-127 PO; +LOSA100T44 PO; +MULT1TAB69 PO
== END ==
LOC: RC 14:02
PROVIDERS: ATTEND Internal Medicine Pulmonary Disease
DX: J84.112 Idiopathic pulmonary fibrosis (principal); R94.2 Abnormal results of pulmonary function studies
CPT/HCPCS: 94060; 94726

== ENCOUNTER 2016-08-16 14:26 | Inpatient (IN) ==
[2016-08-16] MEDS ORDERED: ALBUTEROL/IPRATROPIUM 2.5mg-0.5mg/3ml NEB AEROSOL ONE (14:43)
--- NOTE | 2016-08-16 15:52 | XRay Report ---
Indication: sob PROCEDURE: XR chest 1V: Encounter: Initial Comparison: May 22, 2016 Findings: Poststernotomy changes. Continued severe bilateral airspace disease with interstitial infiltrates. Small bilateral pleural effusions. No pneumothorax. Cardiac silhouette remains moderately enlarged. Mediastinal contours are unchanged. Pulmonary vascularity is indistinct. Impression: Severe pulmonary edema, probably due to CHF. .
[2016-08-16] MEDS ORDERED: CEFEPIME 1 GM in NS 100 ML IV ONE (16:06)
[2016-08-16] MEDS ORDERED: FUROSEMIDE 20 MG/2 ML INJECTION IVP ONE (16:14)
[2016-08-16] MEDS ORDERED: ASPIRIN 81 MG CHEWABLE TABLET PO ONE (16:15)
--- NOTE | 2016-08-16 16:29 | Emergency Department Report ---
General Adult HPI - General Chief complaint: Shortness of Breath/Dyspnea Stated complaint: diff breathing,dizzy Time Seen by Provider: 08/16/16 14:40 Source: patient, family Mode of arrival: ambulatory Limitations: no limitations - History of Present Illness HPI narrative: 80-year-old male who is a do not resuscitate presents to the emergency department with a chief complaint of shortness of breath. Patient has noted increasing shortness of breath over the past several days along with bilateral lower extremity edema. Patient also notes a productive cough of thick yellow- brown phlegm. Patient denies any pain or discomfort. Patient is oxygen dependent. Patient normally uses at least 4 L of oxygen per nasal cannula at all times secondary to pulmonary fibrosis. Patient denies any other complaints or associated symptoms. He notes that he has had to increase his oxygen level via nasal cannula over the past several days as well. He notes that he does feel better with the increased oxygen supply. Patient was at home when his symptoms began. Symptoms have been persistent in nature since onset. Patient does note feeling slightly lightheaded but is not truly dizzy. - Related Data Home Medications Medication Instructions Recorded Confirmed Acetaminophen [Tylenol Extra 500 mg PO Q4HR PRN #0 10/15/08 08/16/16 Strength] Alfuzosin HCl [Uroxatral] 10 mg PO HS #0 10/15/08 08/16/16 Finasteride [Proscar] 5 mg PO DAILY #0 10/15/08 08/16/16 Simvastatin 20 mg PO HS #0 10/15/08 08/16/16 Aspirin [Aspir 81] 81 mg PO DAILY #0 10/18/10 08/16/16 Atenolol 100 mg PO DAILY #0 10/18/10 08/16/16 Furosemide 20 mg PO DAILY #0 05/22/16 08/16/16 Losartan Potassium 100 mg PO DAILY #0 05/22/16 08/16/16 Multivitamin [Multivitamins] 1 tab PO DAILY #0 05/22/16 08/16/16 Pirfenidone [Esbriet] 801 mg PO TID 08/16/16 08/16/16 Allergies Allergy/AdvReac Type Severity Reaction Status Date / Time No Known Drug Allergies Allergy Unknown Verified 08/16/16 17:53 Review of Systems Constitutional: Denies: fever, chills Eyes: Denies: eye pain, vision change ENT: Denies: ear pain, throat pain Cardiovascular: Denies: chest pain, dyspnea on exertion Respiratory: Reports: cough, dyspnea. Denies: hemoptysis Gastrointestinal: Denies: abdominal pain, nausea, vomiting, diarrhea Genitourinary: Denies: urgency, dysuria Musculoskeletal: Denies: back pain, arthralgia Integumentary: Denies: erythema, rash Neurological: Denies: headache, numbness Psychiatric: Denies: anxiety, depression Endocrine: Denies: fatigue, heat or cold intolerance Hematological/Lymphatic: Denies: easy bleeding, easy bruising Allergic/Immunologic: Denies: facial swelling, urticaria PFSH Patient Stated Medical History Hypertension Yes Myocardial Infarction Yes Other Respiratory Yes: PULMONARY FIBROSIS Gastroesophageal Reflux Yes Disease Other Musculoskeletal Yes: "A LITTLE" ARTHRITIS PER SPOUSE Surgical History: bilateral total knee replacement, orchiectomy, CABG Family History: Brother had prostate cancer Mother of colon cancer Father of stomach cancer - Social History Smoking status: Never smoker Substance use type: does not use Alcohol intake frequency: does not drink Physical Exam - Limitations Limitations: no limitations - General General appearance: alert, in distress (Mod. Respiratory distress) - Normal Exams: Head:: Normocephalic without trauma Eyes:: Pupils are PERRLA w/ EOMI, No scleral icterus, irritation, or foreign bodies noted ENMT:: No facial trauma, nasal exudates, pharyngeal erythema, or exudates are noted Dental: No fractured, loose, or missing teeth noted Neck:: Full range of motion, without adenopathy, JVD, bruits or thyromegaly Chest/Respirations:: with good airflow, and symmetry bilaterally (Bilateral crackles noted. ) Cardiovascular:: Regular rate and rhythm, without murmur or gallop, Pulses 2+ all extremities, capillary refill, <2 seconds all extremities (2+ BLE Pitting Edema. ) Abdomen:: Bowel sounds positive, soft, non-tender, non-distended, no hepatosplenomegaly, masses or bruits noted Lymphatic:: No lymphadenopathy, or lymphedema noted Musculoskeletal:: No tenderness, or deformity noted, good range of motion, all extremities Integumentary:: No rashes, hives, or bruising noted, hair and nails, without abnormality Neurological:: Patient is alert, and oriented, cranial nerves, motor/sensory/ cerebellar, exams w/o gross deficits, to observation Psychiatric:: Patient exhibits, appropriate attention, emotion and affect Course Vital Signs Temperature 97.4 F 08/16/16 14:28 Pulse Rate 74 08/16/16 14:28 Respiratory Rate 58 H 08/16/16 14:28 Blood Pressure 121/58 08/16/16 14:28 Pulse Oximetry 53 L 08/16/16 14:28 Temperature 99.8 F 08/17/16 04:01 Pulse Rate 47 L 08/17/16 06:00 Respiratory Rate 33 H 08/17/16 06:52 Blood Pressure 102/50 08/17/16 06:00 Pulse Oximetry 100 08/17/16 06:52 Medical Decision Making - MDM Narrative Medical decision making narrative: Labs/imaging were discussed in detail with the patient and family and questions are answered. Patient was given 2 DuoNeb treatments immediately upon arrival to the emergency department and placed on BiPAP with marked improvement. Blood cultures and lactic acid were obtained. Patient was started on cefepime 1 g IV times one at 1606 when sepsis was considered after CXR was reviewed. It is not possible to rule out pneumonia after CXR is reviewed. Patient does have productive cough and leukocytosis so antibiotic therapy was initiated. Patient did have a single blood pressure with a map of 64 while in the emergency Department. Patient is not able to receive 30 mL/kg of normal saline intravenously. Patient is a DO NOT RESUSCITATE who is currently on BiPAP with a severe CHF exacerbation with bilateral rales. Ejection fraction is unknown. Severe pulmonary edema noted on CXR. Pro BNP- 21,500. Patient is already in respiratory distress and increased fluid volume will be extremely detrimental to the patient possibly even causing . Patient is a DNR who declines intubation. Patient is admitted to the hospitalist Dr. Evans in improved condition. Patient and family are in agreement with the current plan of management. Patient will be admitted to the CCU in improved condition. No further orders from accepting physician who is in agreement with the current plan of management. 60 minutes of critical care time was assessed to the patient due to the need for repeated assessment at the bedside, potential for decompensation, and complex medical decision-making. Patient was admitted to the ICU following the ER visit. Patient was hypoxic at 53% upon arrival to the emergency department. Patient was given aspirin 324 mg by mouth times one. Patient was given Lasix 20 mg IV 1 due to the borderline hypotension. Gentle IV hydration will be accomplished by the hospitalist when feasible and not detrimental to patient care. Patient remained pain-free during his emergency department stay. Sepsis considered at 1606 - Cefepime 1 g iv ordered. - Differential Diagnosis pneumonia, pulmonary edema, pulmonary fibrosis, metabolic process - Lab Data Result diagrams: 08/17/16 04:35 08/17/16 04:35 Lab Results 08/16/16 08/16/16 08/16/16 Range/Units 14:55 14:55 14:55 WBC 21.5 H (4.5-11.0) T/MM3 RBC 3.52 L (4.50-5.90) M/MM3 Hgb 10.3 L (13.5-17.5) GM/DL Hct 32.2 L (41-53) % MCV 91.5 (80-100) UM3 MCH 29.3 (26-34) UUG MCHC 32.0 (31-37) GM/DL RDW Std Deviation 46.4 (36.9-50.2) FL Plt Count 237 (130-400) T/MM3 MPV 9.7 (9.4-12.4) UM3 Immature Gran % (Auto) Not performed Neut % (Auto) Not performed Lymph % (Auto) Not performed [place] % (Auto) Not performed Eos % (Auto) Not performed Baso % (Auto) Not performed Neut # Not performed Lymph # Not performed [place] # Not performed Eos # Not performed Baso # Not performed Abs Immat Gran (auto) Not performed Neutrophils % (Manual) 94.0 H (33-66) % Lymphocytes % (Manual) 4.0 L (23-45) % Monocytes % (Manual) 2.0 (0-9.0) % Neutrophils # (Manual) 20.2 H (1.8-7.7) T/MM3 Lymphocytes # (Manual) 0.9 L (1-4.8) T/MM3 Monocytes # (Manual) 0.4 (0-0.8) T/MM3 RBC Morph Comment 2+ spherocytes Turbidity < 20 (0-20) Sodium 136 (134-144) MEQ/L Potassium 4.8 (3.6-5) MEQ/L Chloride 101 (98-107) MEQ/L Carbon Dioxide 20 L (22-30) MEQ/L Anion Gap 15 (5-15) MEQ/L BUN 31.0 H (9-20) MG/DL Creatinine 1.6 H (0.8-1.5) MG/DL GFR Calculation 42 BUN/Creatinine Ratio 19 (6-26) RATIO Glucose 201 H (75-110) MG/DL Calculated Osmolality 275 (261-280) MOSM/KG Calcium 8.7 (8.4-10.2) MG/DL Total Bilirubin 1.00 (0.20-1.30) MG/DL Icterus Index < 2 (0-7) AST 63 H (17-59) U/L ALT 75 H (21-72) U/L Alkaline Phosphatase 70 (38-126) U/L Troponin I 0.076 (0-0.12) ng/ml B-Natriuretic Peptide 02616 H (0-175) pg/mL Total Protein 5.7 L (6.3-8.2) G/DL Albumin 3.5 (3.5-5.0) G/DL Globulin 2.2 L (2.4-3.6) G/DL Albumin/Globulin Ratio 1.6 (1.1-2.2) RATIO Plasma Lactate 2.3 H (0.6-2.2) MMOL/L Procalcitonin 1.69 NG/ML Specimen Hemolysis < 15 (0-25) Ur Collection Type Urine Color (YELLOW) Urine Clarity Urine pH (5.0-8.0) Ur Specific [place] (1.015-1.025) Urine Protein (NEGATIVE) Urine Glucose (UA) (NEGATIVE) Urine Ketones (NEGATIVE) Urine Occult Blood (NEGATIVE) Urine Nitrate (NEGATIVE) Urine Bilirubin (NEGATIVE) Urine Urobilinogen (NORMAL) EU/DL Ur Leukocyte Esterase (NEGATIVE) Urine RBC (0-3) /HPF Urine WBC (0-5) /HPF Ur Squamous Epith Cells Amorphous Sediment Urine Bacteria (NEGATIVE) Hyaline Casts /LPF Ur Culture Indicated? 08/16/16 Range/Units 16:47 WBC (4.5-11.0) T/MM3 RBC (4.50-5.90) M/MM3 Hgb (13.5-17.5) GM/DL Hct (41-53) % MCV (80-100) UM3 MCH (26-34) UUG MCHC (31-37) GM/DL RDW Std Deviation (36.9-50.2) FL Plt Count (130-400) T/MM3 MPV (9.4-12.4) UM3 Immature Gran % (Auto) Neut % (Auto) Lymph % (Auto) [place] % (Auto) Eos % (Auto) Baso % (Auto) Neut # Lymph # [place] # Eos # Baso # Abs Immat Gran (auto) Neutrophils % (Manual) (33-66) % Lymphocytes % (Manual) (23-45) % Monocytes % (Manual) (0-9.0) % Neutrophils # (Manual) (1.8-7.7) T/MM3 Lymphocytes # (Manual) (1-4.8) T/MM3 Monocytes # (Manual) (0-0.8) T/MM3 RBC Morph Comment Turbidity (0-20) Sodium (134-144) MEQ/L Potassium (3.6-5) MEQ/L Chloride (98-107) MEQ/L Carbon Dioxide (22-30) MEQ/L Anion Gap (5-15) MEQ/L BUN (9-20) MG/DL Creatinine (0.8-1.5) MG/DL GFR Calculation BUN/Creatinine Ratio (6-26) RATIO Glucose (75-110) MG/DL Calculated Osmolality (261-280) MOSM/KG Calcium (8.4-10.2) MG/DL Total Bilirubin (0.20-1.30) MG/DL Icterus Index (0-7) AST (17-59) U/L ALT (21-72) U/L Alkaline Phosphatase (38-126) U/L Troponin I (0-0.12) ng/ml B-Natriuretic Peptide (0-175) pg/mL Total Protein (6.3-8.2) G/DL Albumin (3.5-5.0) G/DL Globulin (2.4-3.6) G/DL Albumin/Globulin Ratio (1.1-2.2) RATIO Plasma Lactate (0.6-2.2) MMOL/L Procalcitonin NG/ML Specimen Hemolysis (0-25) Ur Collection Type Urine, clean catch Urine Color Yellow (YELLOW) Urine Clarity Sl cloudy Urine pH 6.0 (5.0-8.0) Ur Specific [place] 1.025 (1.015-1.025) Urine Protein 2+ A (NEGATIVE) Urine Glucose (UA) Negative (NEGATIVE) Urine Ketones Negative (NEGATIVE) Urine Occult Blood 1+ A (NEGATIVE) Urine Nitrate Negative (NEGATIVE) Urine Bilirubin Negative (NEGATIVE) Urine Urobilinogen 1.0 (NORMAL) EU/DL Ur Leukocyte Esterase Negative (NEGATIVE) Urine RBC None seen (0-3) /HPF Urine WBC 0-1 (0-5) /HPF Ur Squamous Epith Cells None seen Amorphous Sediment Moderate Urine Bacteria Trace H (NEGATIVE) Hyaline Casts 0-1 /LPF Ur Culture Indicated? Cult not indicated - Radiology Data CXR - Severe pulmonary edema. - EKG Data EKG #1 EKG results narrative: Sinus rhythm with occasional PVC. 71 bpm. No STEMI. Similar to EKG from . Critical Care Time Critical Care Time: Yes Total Critical Care Time: 60 Attestation: 60 minutes of critical care time was assessed to the patient due to the need for repeated assessment at the bedside, complex medical decision-making, and the potential for decompensation. The time was spent evaluating and treating the patient, discussing with family members, and documenting the medical record , and making needed telephone calls for patient care. Patient is admitted to the CCU on BiPAP after being hypoxic at 53% on 8L NC upon arrival to the emergency department. Disposition Clinical Impression: HYPOXIA, CHF EXACERBATION Disposition: 02 To [facility] [place] Condition: Improved Time of Disposition: 16:00 (Admit. Dr. Evans. ) - Seen By: physician
[2016-08-16] MEDS: SALINE FLUSH 10ml SYRINGE IVF PRN ×2 (16:52→17:02)
--- NOTE | 2016-08-16 17:03 | History & Physical Report ---
<Judy Rangel - Last Filed: 08/16/16 17:52> History of Present Illness Date: 08/16/16 Chief complaint: Difficulty breathing HPI: Eliot Gonzalez is an 80 y/o male with a hx of chronic O2 use secondary to progressive idiopathic pulmonary fibrosis which has significantly worsened from 09/2015 to 05/2016. According to his family, he has had mild difficulty breathing that started about a month ago but became quite worse about 3 days ago. They've increased his oxygen from 4L to 8L, and on 08/15/16 he was still gasping and breathing hard. Family saw his head droop down and actually thought he . He' s been poorly responsive, lethargic, and not able to speak well. , Tamela, notes increased lower ext swelling over the last few days. He has had a poor appetite without n/v. He's had a low-grade fever of 99.1. He has had a productive cough, but brown-red sputum has increased x1 months. He's been weak and dizzy. Notes constipation. Hx of nocturia - chronic d/t BPH. Tends to bruise easily. No sores or rashes. He's lost a few lbs over the last few months. No paresthesias. Family took him to the emergency department on 08/16/16 for evaluation. His oxygen sats were 53% on 4L of oxygen and he was placed on BiPAP. CXR showed severe pulmonary edema. He also received a DuoNeb. Labs were consistent with severe sepsis - lactate was elevated at 2.3; PCT 1.69; BNP markedly elevated at 21,500; SIRS = WBC were high at 21.5; resp rate was 58. He was given Lasix 20 mg IV, cefepime 1 gm. He improved greatly on BiPAP, and was A &O when I arrived to see him. He was able to participate in discussion, ROS (as above), and advanced care discussion ( Tamela - DPOA; no living will but does not want intubation; requests DNR status). Review of Systems All systems: reviewed and no additional remarkable complaints except as stated - Constitutional Constitutional: Present: fever(s), lethargy - EENMT Eyes: Absent: blurry vision, change in vision Mouth/Throat: Absent: sore throat, changes in swallowing - Cardiovascular Cardiovascular: Absent: chest pain Vascular: Present: pedal edema - Respiratory Respiratory: Present: as per HPI, cough, dyspnea, hemoptysis (possible) - Gastrointestinal Gastrointestinal: Present: as per HPI, constipation. Absent: abdominal pain, diarrhea, nausea, vomiting - Genitourinary Genitourinary: Present: nocturia (chronic) - Musculoskeletal Musculoskeletal: Present: muscle weakness - Integumentary/Breasts Integumentary: Absent: lesions, wounds - Neurological Neurological: Present: as per HPI, confusion. Absent: frequent falls, numbness , paresthesias - Psychiatric Psychiatric: Absent: anxiety, depression - Hematologic/Lymphatic Hematologic/Lymphatic: Present: easy bruising PFSH Idiopathic pulmonary fibrosis Chronic respiratory failure requiring continuous oxygen Coronary arteriosclerosis, history of CO Diastolic HF; Diastolic dysfunction with preserved EF per echo 10/09/15 Hypertension Hyperlipidemia GERD BPH Osteoarthritis Surgical History: Bilateral knee replacements. foreign body, removed from the knee 07/15/11. Cystoscopy with ureteral dilatation 2008. 4 vessel bypass 2005. 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 Mancini [facility] Medications Home Medications Medication Instructions Recorded Confirmed Type Acetaminophen [Tylenol Extra 500 mg PO Q4HR PRN #0 10/15/08 08/16/16 History Strength] Alfuzosin HCl [Uroxatral] 10 mg PO HS #0 10/15/08 08/16/16 History Finasteride [Proscar] 5 mg PO DAILY #0 10/15/08 08/16/16 History Simvastatin 20 mg PO HS #0 10/15/08 08/16/16 History Aspirin [Aspir 81] 81 mg PO DAILY #0 10/18/10 08/16/16 History Atenolol 100 mg PO DAILY #0 10/18/10 08/16/16 History Furosemide 20 mg PO DAILY #0 05/22/16 08/16/16 History Losartan Potassium 100 mg PO DAILY #0 05/22/16 08/16/16 History Multivitamin [Multivitamins] 1 tab PO DAILY #0 05/22/16 08/16/16 History Pirfenidone [Esbriet] 801 mg PO TID 08/16/16 08/16/16 History Allergies Allergy/AdvReac Type Severity Reaction Status Date / Time No Known Drug Allergies Allergy Unknown Verified 08/16/16 17:53 Exam Vital Signs: Temperature 97.4 F 08/16/16 14:28 Pulse Rate 74 08/16/16 14:28 Respiratory Rate 31 H 08/16/16 14:53 Blood Pressure 121/58 08/16/16 14:28 Pulse Oximetry 99 08/16/16 14:53 Oxygen Delivery Method Nasal Cannula Oxygen Flow Rate 4 Telemetry Rhythm: Sinus Rhythm Height: 1.65 m Weight: 74.6 kg - Constitutional Present: no acute distress (on BiPAP), well nourished, well developed - Routine HEENT Exam Eye: Absent: conjunctival icterus, scleral injection ENT: Present: mucous membranes dry - Routine Neck Exam Present: supple. Absent: lymphadenopathy - Routine Respiratory Exam Present: decreased breath sounds, crackles, diminished air movement - Routine Cardiovascular Exam Present: RRR, S1, S2 - Routine Abdominal Exam Present: soft, normoactive bowel sounds, non distended, non tender - Routine Extremities Exam Present: clubbing, edema (2-3+) - Routine Skin Exam Present: intact, pallor, warm - Routine Neurological Exam Present: alert, oriented X3 - Routine Psychiatric Exam Present: normal affect, normal thought process Results - Labs CBC & Chem 7: 08/16/16 14:55 08/16/16 14:55 Microbiology Results: Microbiology 08/16/16 15:14 Peripheral/Iv Start Blood Culture - Preliminary Culture Initiated - Results Pending 08/16/16 15:24 Peripheral/Iv Start Blood Culture - Preliminary Culture Initiated - Results Pending Assessment and Plan (1) Pulmonary edema Current visit: Yes Status: Acute (2) Severe sepsis Current visit: Yes Status: Acute (3) Acute respiratory failure Current visit: Yes Status: Acute (4) Acute encephalopathy Current visit: Yes Status: Acute (5) Diastolic CHF, acute on chronic Current visit: Yes Status: Acute (6) Elevated serum creatinine Current visit: Yes Status: Acute Assessment and Plan: Admit to inpatient status under the hospitalist service. Acute respiratory failure requiring BiPAP secondary to severe pulmonary edema superimposed on progressive idiopathic pulmonary fibrosis; diastolic CHF -Continue BiPAP -Bumex 1 mg IV now, likely will need further diuresis -Repeat echocardiogram. Last echocardiogram was done September 2015 showing an EF of 56%, diastolic dysfunction, and trace MR, trace TR. Pulmonary pressures were unable to be estimated. -trend troponin -baseline oxygen about 4L -Care Consultant is Dr. Jocy Ko -continue pirfenidone -repeat CXR in am -consider systemic steroids if no improvement with above measures Severe sepsis (possible), based on lactic acidosis and respiratory failure; also with SIRS criteria including leukocytosis and tachypnea -Repeat lactate improved to 0.9 -lactic acidosis could be secondary to profound hypoxia rather than infectious cause -however, cannot rule out pneumonia -Start Rocephin and azithromycin -repeat PCT in am Elevated creatinine -Hold losartan Elevated LFTs -Hold Tylenol and statin -poss liver congestion from CHF Acute encephalopathy -likely from hypoxia -much improved with BiPAP Weakness -Will need PT/OT evaluation once medical condition stabilizes CAD, HTN, HLD -cont ASA, atenolol -hold statin d/t elevated LFTs Advanced directives -DPOA - Tamela -DNR, DNI requested following discussion of resuscitation and expected outcomes. Family in agreement. Pt is critically ill, and >30 minutes were spent at the bedside evaluating the patient and discussing plans. Discussed with Dr. Evans. Hospital Course Summary Disclaimer: The visit summary below is not to be considered part of the above Progress Note. Hospital Course: 08/16/16 17:50 Admit to inpatient status under the hospitalist service. Acute respiratory failure requiring BiPAP secondary to severe pulmonary edema superimposed on progressive idiopathic pulmonary fibrosis; diastolic CHF -Continue BiPAP -Bumex 1 mg IV now, likely will need further diuresis -Repeat echocardiogram. Last echocardiogram was done September 2015 showing an EF of 56%, diastolic dysfunction, and trace MR, trace TR. Pulmonary pressures were unable to be estimated. -trend troponin -baseline oxygen about 4L -Care Consultant is Dr. Jocy Ko -continue pirfenidone -repeat CXR in am Severe sepsis (possible), based on lactic acidosis and respiratory failure; also with SIRS criteria including leukocytosis and tachypnea -Repeat lactate improved to 0.9 -lactic acidosis could be secondary to profound hypoxia rather than infectious cause -however, cannot rule out pneumonia -Start Rocephin and azithromycin -repeat PCT in am Elevated creatinine -Hold losartan Elevated LFTs -Hold Tylenol and statin -poss liver congestion from CHF Acute encephalopathy -likely from hypoxia -much improved with BiPAP Weakness -Will need PT/OT evaluation once medical condition stabilizes CAD, HTN, HLD -cont ASA, atenolol -hold statin d/t elevated LFTs Advanced directives -DPOA - Tamela -DNR, DNI requested following discussion of resuscitation and expected outcomes. Family in agreement. Pt is critically ill, and >30 minutes were spent at the bedside evaluating the patient and discussing plans. Discussed with Dr. Evans. <Hazel Evans - Last Filed: 08/16/16 20:09> History of Present Illness Date: 08/16/16 [facility] Patient Stated Medical History Hearing Loss Yes: Bilateral hearing aides Congestive Heart Failure Yes Hypertension Yes Myocardial Infarction Yes Other Respiratory Yes: PULMONARY FIBROSIS Gastroesophageal Reflux Yes Disease Other Yes: Difficulty starting stream Other Musculoskeletal Yes: "A LITTLE" ARTHRITIS PER SPOUSE Exam Vital Signs: Temperature 98.5 F 08/16/16 17:59 Pulse Rate 63 08/16/16 19:31 Respiratory Rate 38 H 08/16/16 19:31 Blood Pressure 135/65 08/16/16 19:30 Pulse Oximetry 87 L 08/16/16 19:31 Oxygen Delivery Method BiPAP Fraction of Inspired Oxygen 40 SaO2/FiO2 Ratio 235 Height: 1.65 m Weight: 74.6 kg Results - Labs CBC & Chem 7: 08/16/16 14:55 08/16/16 14:55 Assessment and Plan (1) Pulmonary edema Current visit: Yes Status: Acute (2) Acute respiratory failure Problem details: Acute hypoxic respiratory failure Current visit: Yes Status : Acute (3) Severe sepsis Current visit: Yes Status: Acute (4) Diastolic CHF, acute on chronic Current visit: Yes Status: Acute (5) Acute encephalopathy Current visit: Yes Status: Acute (6) Elevated serum creatinine Problem details: Baseline creatinine 1.1-1.3 per outpatient records Current visit: Yes Status: Acute (7) Elevated troponin Current visit: Yes Status: Acute (8) Anemia Current visit: Yes Status: Acute (9) CKD (chronic kidney disease) stage 3, GFR 30-59 ml/min Current visit: Yes Status: Chronic (10) CAD (coronary artery disease) Current visit: Yes Status: Chronic (11) Pulmonary fibrosis Current visit: Yes Status: Chronic Assessment and Plan: I have independently evaluated and examined this patient. I reviewed the chart, the patient's history, and the [employer]'s documented findings as above. We discussed and formulated the assessment and plan as above with additions as below: Mr. Gonzalez is an elderly gentleman who has had progressive dyspnea/hypoxia over the past year. He reports significant deterioration in the past 3-4 days during which time he is noted worsening exertional dyspnea, dyspnea at rest, and PND although he really doesn't describe orthopnea. Has been increased cough and sputum production in conjunction with significant fluid retention. He describes minimal fever and had profound hypoxia on presentation. Exam is notable for 3+ pitting edema in bilateral lower extremities and minor edema above the knees in the dependent thighs. Respirations are moderately labored with speaking and he continues to require high flow oxygen through facemask. No wheezing was present at the time of my assessment but there are crackles jail up the posterior marinelli with diminished sounds at the bases. Cardiac rhythm is regular with S1-S2 present, murmur was not evident. Sinus rhythm is present on bedside telemetry and twelve-lead although occasional PACs are present. Abdomen is moderately distended but soft. Chest x-ray reviewed by myself and consistent with pulmonary edema, no focal infiltrate present. Twelve-lead EKG reviewed and demonstrates deep T-wave inversion in V1 and V2 with inverted T waves across the precordium and some ST depression in the anterior leads. Subsequently old EKG from May 2016 was identified demonstrating similar changes. Laboratory data notable for marked elevation in BNP, minor elevation in troponin (0.125), leukocytosis with left shift, and anemia. Agree with diuresis and antibiotic therapy as noted above. Cardiology consultation requested-discussed EKG changes with Alexandra for Dr. Langston. Given possibility of silent ischemia will resume simvastatin-transaminase elevation minor and almost certainly due to passive congestion. Stress test 09/03 revealed apical scar and trace basal lateral wall ischemia. Mild systolic dysfunction was reported with rest ejection fraction 42% and 38% ejection fraction with stress. Severe apical hypo-/akinesis present on rest and stress imaging. Preliminary report of echocardiogram suggest significant elevation in pulmonary artery pressures-check d-dimer to exclude PE. DO NOT RESUSCITATE noted. Critically ill-45 minutes spent at bedside and in acute patient management. Discussed with Dr. Quinn and cardiology service. Outpatient and old hospital records reviewed. EKGs and chest x-ray reviewed by myself. Hospital Course Summary Disclaimer: The visit summary below is not to be considered part of the above Progress Note.
[2016-08-16 17:45] VITALS: BMI 27.3
[2016-08-16] MEDS ORDERED: CEFTRIAXONE 1 G in NS 100 ML IV SCH (17:45)
[2016-08-16] MEDS: AZITHROMYCIN IV 500 MG in NS 250ml 250 ML IV SCH (20:05)
[2016-08-16] MEDS: ALBUTEROL/IPRATROPIUM 2.5mg-0.5mg/3ml NEB AEROSOL SCH (20:10)
[2016-08-16] MEDS ORDERED: BUMETANIDE 2.5mg/10ml INJECTION IV ONE (20:13)
[2016-08-16] MEDS ORDERED: HEPARIN 1,000unit/ml INJECTION 10ml IVP ONE (20:14)
[2016-08-16] MEDS ORDERED: HEPARIN DRIP 20,000 UNIT/500 ML BAG IV SCH (20:16)
[2016-08-16] MEDS: ALFUZOSIN ER 10 MG TABLET PO SCH (22:13)
[2016-08-16] MEDS: FINASTERIDE 5 MG TABLET PO SCH (22:14)
[2016-08-16] MEDS: SIMVASTATIN 20 MG TABLET PO SCH (22:14)
[2016-08-17] MEDS ORDERED: FentaNYL 100 MCG/2 ML INJECTION IVP PRN ×2 (00:16→06:30)
[2016-08-17] MEDS: ACETAMINOPHEN 325 MG TABLET PO PRN ×3 (00:23→19:31)
[2016-08-17] MEDS: SALINE FLUSH 10ml SYRINGE IVF PRN ×5 (00:27→17:50)
--- NOTE | 2016-08-17 07:53 | Pharmacy Consult ---
Pharmacy Consult-Heparin - Laboratory Information Heparin Plt Count 209 T/MM3 (130-400) 08/17/16 04:35 APTT 57.1 SEC (24-36) H 08/17/16 04:35 - Consult Information HEPARIN PROTOCOL: I received a call @ [phone] (08/16) at home by RN to start a Heparin Protocol for Cardiac administration. The patient weighed 74.6 kg. Using the patient's weight, I calculated a heparin bolus of 4,500 units and started an infusion of 900 units (22.5 mLs/hr. I ordered an PTT for 0430 (. At 0530, I received a call from RN and the PTT was 75 secs. I told the RN to continue the heparin @ 22.5 mLs/hr. I then ordered a PTT for 1030. Thanks for the Heparin Protocol, Rito Miller, [facility]
[2016-08-17] MEDS: ALBUTEROL/IPRATROPIUM 2.5mg-0.5mg/3ml NEB AEROSOL SCH ×3 (08:23→19:15)
--- NOTE | 2016-08-17 08:29 | XRay Report ---
Indication: pulm edema PROCEDURE: XR chest 1V: Encounter: Initial Comparison: August 16, 2016 Findings: Severe bilateral airspace and interstitial infiltrates are again seen without significant change. Small pleural effusions. No pneumothorax. Heart size and mediastinal contours are stable. Poststernotomy changes. Pulmonary vascularity is enlarged and indistinct. Impression: Continued severe bilateral airspace disease could be due to pulmonary edema or widespread pneumonia. .
[2016-08-17] MEDS: MULTI-VITAMIN PLAIN TABLET PO SCH (08:51)
[2016-08-17] MEDS: ASPIRIN *EC* 81 MG TABLET PO SCH (08:58)
[2016-08-17] MEDS ORDERED: ESBRIET 267 MG PO SCH ×2 (09:00→11:34)
[2016-08-17] MEDS ORDERED: PIRFENIDONE PO SCH (09:00)
[2016-08-17] MEDS ORDERED: ATENOLOL 100 MG TABLET PO SCH (09:00)
[2016-08-17] MEDS: ATENOLOL 50 MG TABLET PO SCH (09:12)
--- NOTE | 2016-08-17 10:26 | Echocardiogram ---
DATE OF PROCEDURE August 16, [address] Hazel Evans This is a two-dimensional echo with spectral Doppler, color-flow and M-mode. It was obtained in a patient with pulmonary edema. Left atrium is dilated. Left ventricle end-diastolic dimension is normal. Left ventricle wall thickness is normal. LV systolic function is reduced with global hypokinesia with ejection fraction of about 40-45%. Right atrium is dilated. Right ventricle is normal. Aortic root dimension is normal. Mitral valve annulus is calcified. Mitral valve leaflets are sclerotic with no stenosis. Mild mitral regurgitation is present. Aortic valve shows no stenosis with trace of aortic insufficiency. Tricuspid valve shows moderate tricuspid regurgitation with severe pulmonary hypertension with estimated pulmonary artery systolic pressure of 80. Pulmonary valve shows trace of pulmonary insufficiency. There is no pericardial effusion. IMPRESSION 1. Technically difficult study. 2. Global hypokinesia with ejection fraction of about 40-45%. 3. Biatrial dilation. 4. Mitral annulus calcification with mitral sclerosis and mild mitral regurgitation. 5. Moderate tricuspid regurgitation with severe pulmonary hypertension with estimated pulmonary artery systolic pressure of 80. 6. Trace of aortic insufficiency. 7. Trace of pulmonary insufficiency. MTDD
[2016-08-17] MEDS ORDERED: METHYLPREDNISOLONE SOD SUCC 125mg/2ml INJECTION IVP SCH ×2 (11:30→18:00)
--- NOTE | 2016-08-17 11:34 | Cardiology Consult Note ---
History of Present Illness Consult date: 08/16/16 <Mckenzie Jalloh - 08/17/16 11:52> Requesting physician: Hazel Evans <Mckenzie Jalloh - 08/17/16 11:52> Consult reason: hypertension (elevated pulmonary pressure, elevated troponin) <Mckenzie Jalloh - 08/17/16 11:52> Chief complaint: dyspnea <Mckenzie Jalloh 08/17/16 12:58> History of present illness: Eliot Gonzalez is an 80 year old male with a history of chronic O2 use secondary to progressive idiopathic pulmonary fibrosis which has significantly worsened from 09/2015 to 05/2016. According to his family, he has had mild difficulty breathing that started about a month ago but became quite worse about 3 days ago. They've increased his oxygen from 4L to 8L, and on 08/15/16 he was still gasping and breathing hard. Family saw his head droop down and actually thought he . He's been poorly responsive, lethargic, and not able to speak well. , Tamela, notes increased lower ext swelling over the last few days. He has had a poor appetite without n/v. He's had a low-grade fever of 99.1. He has had a productive cough, but brown-red sputum has increased x1 months. He's been weak and dizzy. Family took him to the emergency department on 08/16/16 for evaluation. His oxygen sats were 53% on 4L of oxygen and he was placed on BiPAP. CXR showed severe pulmonary edema. He also received a DuoNeb. Labs were consistent with severe sepsis He was given Lasix 20 mg IV, cefepime 1 gm. He improved greatly on BiPAP, advanced care discussion ( Tamela - DPOA; no living will but does not want intubation; requests DNR status). <Mckenzie Jalloh - 08/18/16 14:00> Review of Systems - Constitutional Constitutional: Present: fever(s), lethargy <Mckenzie Jalloh - 08/17/16 11:52> - EENMT Eyes: Absent: blurry vision, change in vision <Mckenzie Jalloh 08/17/16 11:52 > Mouth/Throat: Absent: sore throat, changes in swallowing <Mckenzie Jalloh 11:52> - Cardiovascular Cardiovascular: Absent: chest pain <Mckenzie Jalloh 08/17/16 11:52> Vascular: Present: pedal edema <Mckenzie Jalloh 08/17/16 11:52> - Respiratory Respiratory: Present: as per HPI, cough, dyspnea, hemoptysis (possible) < Mckenzie Jalloh 08/17/16 11:52> - Gastrointestinal Gastrointestinal: Present: as per HPI, constipation. Absent: abdominal pain, diarrhea, nausea, vomiting <Mckenzie Jalloh 08/17/16 11:52> - Genitourinary Genitourinary: Present: nocturia (chronic) <Mckenzie Jalloh 08/17/16 11:52> - Musculoskeletal Musculoskeletal: Present: muscle weakness <Mckenzie Jalloh 08/17/16 11:52> - Integumentary/Breasts Integumentary: Absent: erythema, rash <Mckenzie Jalloh 08/17/16 11:52> - Neurological Neurological: Present: as per HPI, confusion. Absent: frequent falls, numbness , paresthesias <Mckenzie Jalloh 08/17/16 11:52> - Psychiatric Psychiatric: Absent: anxiety, depression <Mckenzie Jalloh 08/17/16 11:52> - Hematologic/Lymphatic Hematologic/Lymphatic: Present: easy bruising <Mckenzie Jalloh 08/17/16 11:52 > [facility] Patient Stated Medical History Hearing Loss Yes: Bilateral hearing aides Congestive Heart Failure Yes Hypertension Yes Myocardial Infarction Yes Other Respiratory Yes: PULMONARY FIBROSIS Gastroesophageal Reflux Yes Disease Other Yes: Difficulty starting stream Other Musculoskeletal Yes: "A LITTLE" ARTHRITIS PER SPOUSE <Beni Langston - 08/24/16 08:10> Patient Stated Medical History Hearing Loss Yes: Bilateral hearing aides Congestive Heart Failure Yes Hypertension Yes Myocardial Infarction Yes Other Respiratory Yes: PULMONARY FIBROSIS Gastroesophageal Reflux Yes Disease Other Yes: Difficulty starting stream Other Musculoskeletal Yes: "A LITTLE" ARTHRITIS PER SPOUSE <Mckenzie Jalloh 08/17/16 11:52> Surgical History: Bilateral knee replacements. foreign body, removed from the knee 07/15/11. Cystoscopy with ureteral dilatation 2008. 4 vessel bypass 2005. Orchiectomy 2002 <Mckenzie Jalloh - 08/17/16 11:52> Family History: Brother had prostate cancer Mother of colon cancer Father of stomach cancer <Mckenzie Jalloh - 08/17/16 11:52> - Social History Smoking status: Never smoker <Mckenzie Jalloh - 08/17/16 11:52> Substance use type: does not use <Mckenzie Jalloh - 08/17/16 11:52> Alcohol intake frequency: does not drink <Mckenzie Jalloh - 08/17/16 11:52> Current occupational status: retired <Mckenzie Jalloh - 08/17/16 11:52> Medications Home Medications Medication Instructions Recorded Confirmed Type Acetaminophen [Tylenol Extra 500 mg PO Q4HR PRN #0 10/15/08 08/16/16 History Strength] Alfuzosin HCl [Uroxatral] 10 mg PO HS #0 10/15/08 08/16/16 History Finasteride [Proscar] 5 mg PO DAILY #0 10/15/08 08/16/16 History Simvastatin 20 mg PO HS #0 10/15/08 08/16/16 History Aspirin [Aspir 81] 81 mg PO DAILY #0 10/18/10 08/16/16 History Atenolol 100 mg PO DAILY #0 10/18/10 08/16/16 History Furosemide 20 mg PO DAILY #0 05/22/16 08/16/16 History Losartan Potassium 100 mg PO DAILY #0 05/22/16 08/16/16 History Multivitamin [Multivitamins] 1 tab PO DAILY #0 05/22/16 08/16/16 History Pirfenidone [Esbriet] 801 mg PO TID 08/16/16 08/16/16 History <Beni Langston - 08/24/16 08:10> Allergies Allergy/AdvReac Type Severity Reaction Status Date / Time No Known Drug Allergies Allergy Unknown Verified 08/16/16 17:53 <Beni Langston - 08/24/16 08:10> Exam Vital signs: Temperature 97.5 F 08/24/16 04:00 Pulse Rate 74 08/24/16 06:00 Respiratory Rate 20 08/24/16 06:00 Blood Pressure 116/60 08/24/16 06:00 Pulse Oximetry 95 08/24/16 06:00 Oxygen Delivery Method BiPAP Oxygen Flow Rate 15 Fraction of Inspired Oxygen 50 SaO2/FiO2 Ratio 186 <Beni Langston - 08/24/16 08:10> Temperature 68.2 F L 08/17/16 10:00 Pulse Rate 64 08/17/16 11:00 Respiratory Rate 30 H 08/17/16 11:00 Blood Pressure 133/65 08/17/16 11:00 Pulse Oximetry 94 08/17/16 11:00 Oxygen Delivery Method BiPAP Oxygen Flow Rate 7 Fraction of Inspired Oxygen 40 SaO2/FiO2 Ratio 240 <ShubhamMckenzie [facility] 08/17/16 11:52> - Constitutional mild distress, well developed, cooperative <ShubhamMckenzie [facility] 08/17/16 11:52> - Routine HEENT Exam ENT: Present: mucous membranes dry <ShubhamMckenzie [facility] 08/17/16 11:52> - Routine Neck Exam Absent: JVD, carotid bruit <ShubhamMckenzie 08/17/16 11:52> - Routine Chest/Breast/Axilla Exam Chest wall: Absent: tenderness <ShubhamMckenzie [facility] 08/17/16 11:52> - Routine Respiratory Exam Present: crackles, diminished air movement <ShubhamMckenzie [facility] 08/17/16 11:52> - Routine Cardiovascular Exam Present: RRR, S1, S2 <ShubhamMckenzie [facility] 08/17/16 11:52> - Routine Abdominal Exam Present: soft, normoactive bowel sounds <ShubhamMckenzie [facility] 08/17/16 11:52> - Routine Extremities Exam Present: clubbing, edema <ShubhamMckenzie [facility] 08/17/16 11:52> - Routine Skin Exam Present: intact <ShubhamMckenzie [facility] 08/17/16 11:52> - Routine Neurological Exam Present: alert, oriented X3 <ShubhamMckenzie [facility] 08/17/16 11:52> - Routine Psychiatric Exam Present: normal affect, normal thought process <ShubhamMckenzie [facility] 08/17/16 11: 52> Results 08/23/16 11:34 08/23/16 11:34 <Beni Langston - 08/24/16 08:10> Cardiac Enzymes 08/23/16 Range/Units 11:34 AST 28 (17-59) U/L CBC 08/23/16 Range/Units 11:34 WBC 25.8 H* (4.5-11.0) T/MM3 RBC 3.73 L (4.50-5.90) M/MM3 Hgb 10.7 L (13.5-17.5) GM/DL Hct 33.9 L (41-53) % Plt Count 343 (130-400) T/MM3 Neut # Not performed Lymph # Not performed [place] # Not performed Eos # Not performed Baso # Not performed Comprehensive Metabolic Panel 08/23/16 Range/Units 11:34 Sodium 134 (134-144) MEQ/L Potassium 3.6 (3.6-5) MEQ/L Chloride 91 L (98-107) MEQ/L Carbon Dioxide 39 H (22-30) MEQ/L BUN 41.0 H (9-20) MG/DL Creatinine 1.5 (0.8-1.5) MG/DL Glucose 184 H (75-110) MG/DL Calcium 8.5 (8.4-10.2) MG/DL AST 28 (17-59) U/L ALT 87 H (21-72) U/L Alkaline Phosphatase 50 (38-126) U/L Total Protein 5.4 L (6.3-8.2) G/DL Albumin 3.3 L (3.5-5.0) G/DL Intake and Output 08/23/16 08/24/16 08/24/16 22:59 06:59 14:59 Intake Total 450 / 450 120 / 120 Output Total 1675 / 1675 905 / 905 Balance -1225 / -1225 -785 / -785 Intake: Oral 450 / 450 120 / 120 Output: Urine Amount (Catheter) 1675 / 1675 905 / 905 Other: # Bowel Movements 1 <Beni Langston - 08/24/16 08:10> Cardiac Enzymes 08/16/16 08/16/16 08/17/16 Range/Units 18:03 23:49 04:35 AST 44 (17-59) U/L Troponin I 0.125 H D 0.192 H 0.193 H (0-0.12) ng/ml 08/17/16 Range/Units 10:49 AST (17-59) U/L Troponin I 0.126 H (0-0.12) ng/ml Coagulation 08/17/16 08/17/16 Range/Units 04:35 10:49 APTT 57.1 H 53.3 H (24-36) SEC CBC 08/17/16 Range/Units 04:35 WBC 17.6 H (4.5-11.0) T/MM3 RBC 3.23 L (4.50-5.90) M/MM3 Hgb 9.3 L (13.5-17.5) GM/DL Hct 29.4 L (41-53) % Plt Count 209 (130-400) T/MM3 Neut # Not performed Lymph # Not performed [place] # Not performed Eos # Not performed Baso # Not performed Comprehensive Metabolic Panel 08/17/16 Range/Units 04:35 Sodium 137 (134-144) MEQ/L Potassium 4.0 (3.6-5) MEQ/L Chloride 102 (98-107) MEQ/L Carbon Dioxide 27 D (22-30) MEQ/L BUN 37.0 H (9-20) MG/DL Creatinine 1.8 H D (0.8-1.5) MG/DL Glucose 119 H (75-110) MG/DL Calcium 8.3 L (8.4-10.2) MG/DL AST 44 (17-59) U/L ALT 64 (21-72) U/L Alkaline Phosphatase 62 (38-126) U/L Total Protein 5.3 L (6.3-8.2) G/DL Albumin 3.1 L (3.5-5.0) G/DL Intake and Output 08/16/16 08/17/16 08/17/16 22:59 06:59 14:59 Intake Total 585.250 / 685.250 420.0 / 420.0 720.0 / 720.0 Output Total 1155 / 1155 511 / 511 241 / 241 Balance -569.750 / -469.750 -91.0 / -91.0 479.0 / 479.0 Intake: IV 385.250 / 385.250 180.0 / 180.0 90.0 / 90.0 Zithromax 500 mg In 250.000 / 250.000 Normal Saline 250 ml @ 167 mls/hr IV Q24H [facility] Rx #:[id number] Rocephin 1 G In Normal 100 / 100 Saline 100 ml @ 200 mls/ hr IV Q24H [facility] Rx#: [id number] HEPARIN DRIP 20,000 unit 35.25 / 35.25 180.0 / 180.0 90.0 / 90.0 In 500 ml @ 22.5 mls/hr IV .[id number] [facility] Rx#: [id number] Oral 200 / 200 240 / 240 630 / 630 Output: Urine 275 / 275 Urine Amount (Catheter) 880 / 880 511 / 511 241 / 241 Other: Weight 164 lb 7.437 oz 168 lb 6.931 oz Patient Weight 08/18/16 06:59 Weight 168 lb 6.931 oz Laboratory Results - last 48 hr 08/16/16 08/16/16 08/16/16 14:55 14:55 14:55 WBC 21.5 H RBC 3.52 L Hgb 10.3 L Hct 32.2 L MCV 91.5 MCH 29.3 MCHC 32.0 RDW Std Deviation 46.4 Plt Count 237 MPV 9.7 Immature Gran % (Auto) Not performed Neut % (Auto) Not performed Lymph % (Auto) Not performed [place] % (Auto) Not performed Eos % (Auto) Not performed Baso % (Auto) Not performed Neut # Not performed Lymph # Not performed [place] # Not performed Eos # Not performed Baso # Not performed Abs Immat Gran (auto) Not performed Neutrophils % (Manual) 94.0 H Band Neutrophils % Lymphocytes % (Manual) 4.0 L Monocytes % (Manual) 2.0 Metamyelocytes % Neutrophils # (Manual) 20.2 H Band Neutrophils # Lymphocytes # (Manual) 0.9 L Monocytes # (Manual) 0.4 Metamyelocytes # RBC Morph Comment 2+ spherocytes APTT D-Dimer Turbidity < 20 Sodium 136 Potassium 4.8 Chloride 101 Carbon Dioxide 20 L Anion Gap 15 BUN 31.0 H Creatinine 1.6 H GFR Calculation 42 BUN/Creatinine Ratio 19 Glucose 201 H Calculated Osmolality 275 Calcium 8.7 Total Bilirubin 1.00 Icterus Index < 2 AST 63 H ALT 75 H Alkaline Phosphatase 70 Troponin I 0.076 B-Natriuretic Peptide 07374 H Total Protein 5.7 L Albumin 3.5 Globulin 2.2 L Albumin/Globulin Ratio 1.6 Plasma Lactate 2.3 H Procalcitonin 1.69 Specimen Hemolysis < 15 Ur Collection Type Urine Color Urine Clarity Urine pH Ur Specific [place] Urine Protein Urine Glucose (UA) Urine Ketones Urine Occult Blood Urine Nitrate Urine Bilirubin Urine Urobilinogen Ur Leukocyte Esterase Urine RBC Urine WBC Ur Squamous Epith Cells Amorphous Sediment Urine Bacteria Hyaline Casts Ur Culture Indicated? 08/16/16 08/16/16 08/16/16 16:47 17:17 18:03 WBC RBC Hgb Hct MCV MCH MCHC RDW Std Deviation Plt Count MPV Immature Gran % (Auto) Neut % (Auto) Lymph % (Auto) [place] % (Auto) Eos % (Auto) Baso % (Auto) Neut # Lymph # [place] # Eos # Baso # Abs Immat Gran (auto) Neutrophils % (Manual) Band Neutrophils % Lymphocytes % (Manual) Monocytes % (Manual) Metamyelocytes % Neutrophils # (Manual) Band Neutrophils # Lymphocytes # (Manual) Monocytes # (Manual) Metamyelocytes # RBC Morph Comment APTT D-Dimer Turbidity Sodium Potassium Chloride Carbon Dioxide Anion Gap BUN Creatinine GFR Calculation BUN/Creatinine Ratio Glucose Calculated Osmolality Calcium Total Bilirubin Icterus Index AST ALT Alkaline Phosphatase Troponin I 0.125 H D B-Natriuretic Peptide Total Protein Albumin Globulin Albumin/Globulin Ratio Plasma Lactate 0.9 Procalcitonin Specimen Hemolysis < 15 Ur Collection Type Urine, clean catch Urine Color Yellow Urine Clarity Sl cloudy Urine pH 6.0 Ur Specific [place] 1.025 Urine Protein 2+ A Urine Glucose (UA) Negative Urine Ketones Negative Urine Occult Blood 1+ A Urine Nitrate Negative Urine Bilirubin Negative Urine Urobilinogen 1.0 Ur Leukocyte Esterase Negative Urine RBC None seen Urine WBC 0-1 Ur Squamous Epith Cells None seen Amorphous Sediment Moderate Urine Bacteria Trace H Hyaline Casts 0-1 Ur Culture Indicated? Cult not indicated 08/16/16 08/16/16 08/17/16 23:49 23:49 04:35 WBC 17.6 H RBC 3.23 L Hgb 9.3 L Hct 29.4 L MCV 91.0 MCH 28.8 MCHC 31.6 RDW Std Deviation 45.0 Plt Count 209 MPV 9.7 Immature Gran % (Auto) Not performed Neut % (Auto) Not performed Lymph % (Auto) Not performed [place] % (Auto) Not performed Eos % (Auto) Not performed Baso % (Auto) Not performed Neut # Not performed Lymph # Not performed [place] # Not performed Eos # Not performed Baso # Not performed Abs Immat Gran (auto) Not performed Neutrophils % (Manual) 91.0 H Band Neutrophils % 1.0 Lymphocytes % (Manual) 2.0 L Monocytes % (Manual) 4.0 Metamyelocytes % 2.0 H Neutrophils # (Manual) 16.0 H Band Neutrophils # 0.2 Lymphocytes # (Manual) 0.4 L Monocytes # (Manual) 0.7 Metamyelocytes # 0.4 RBC Morph Comment 1+ poikilocytosis APTT D-Dimer 446 H Turbidity Sodium Potassium Chloride Carbon Dioxide Anion Gap BUN Creatinine GFR Calculation BUN/Creatinine Ratio Glucose Calculated Osmolality Calcium Total Bilirubin Icterus Index AST ALT Alkaline Phosphatase Troponin I 0.192 H B-Natriuretic Peptide Total Protein Albumin Globulin Albumin/Globulin Ratio Plasma Lactate Procalcitonin Specimen Hemolysis < 15 Ur Collection Type Urine Color Urine Clarity Urine pH Ur Specific [place] Urine Protein Urine Glucose (UA) Urine Ketones Urine Occult Blood Urine Nitrate Urine Bilirubin Urine Urobilinogen Ur Leukocyte Esterase Urine RBC Urine WBC Ur Squamous Epith Cells Amorphous Sediment Urine Bacteria Hyaline Casts Ur Culture Indicated? 08/17/16 08/17/16 08/17/16 04:35 04:35 04:35 WBC RBC Hgb Hct MCV MCH MCHC RDW Std Deviation Plt Count MPV Immature Gran % (Auto) Neut % (Auto) Lymph % (Auto) [place] % (Auto) Eos % (Auto) Baso % (Auto) Neut # Lymph # [place] # Eos # Baso # Abs Immat Gran (auto) Neutrophils % (Manual) Band Neutrophils % Lymphocytes % (Manual) Monocytes % (Manual) Metamyelocytes % Neutrophils # (Manual) Band Neutrophils # Lymphocytes # (Manual) Monocytes # (Manual) Metamyelocytes # RBC Morph Comment APTT 57.1 H D-Dimer Turbidity < 20 Sodium 137 Potassium 4.0 Chloride 102 Carbon Dioxide 27 D Anion Gap 8 BUN 37.0 H Creatinine 1.8 H D GFR Calculation 36 BUN/Creatinine Ratio 21 Glucose 119 H Calculated Osmolality 274 Calcium 8.3 L Total Bilirubin 0.70 Icterus Index < 2 AST 44 ALT 64 Alkaline Phosphatase 62 Troponin I 0.193 H B-Natriuretic Peptide Total Protein 5.3 L Albumin 3.1 L Globulin 2.2 L Albumin/Globulin Ratio 1.4 Plasma Lactate Procalcitonin 2.34 H* Specimen Hemolysis < 15 Ur Collection Type Urine Color Urine Clarity Urine pH Ur Specific [place] Urine Protein Urine Glucose (UA) Urine Ketones Urine Occult Blood Urine Nitrate Urine Bilirubin Urine Urobilinogen Ur Leukocyte Esterase Urine RBC Urine WBC Ur Squamous Epith Cells Amorphous Sediment Urine Bacteria Hyaline Casts Ur Culture Indicated? 08/17/16 08/17/16 10:49 10:49 WBC RBC Hgb Hct MCV MCH MCHC RDW Std Deviation Plt Count MPV Immature Gran % (Auto) Neut % (Auto) Lymph % (Auto) [place] % (Auto) Eos % (Auto) Baso % (Auto) Neut # Lymph # [place] # Eos # Baso # Abs Immat Gran (auto) Neutrophils % (Manual) Band Neutrophils % Lymphocytes % (Manual) Monocytes % (Manual) Metamyelocytes % Neutrophils # (Manual) Band Neutrophils # Lymphocytes # (Manual) Monocytes # (Manual) Metamyelocytes # RBC Morph Comment APTT 53.3 H D-Dimer Turbidity Sodium Potassium Chloride Carbon Dioxide Anion Gap BUN Creatinine GFR Calculation BUN/Creatinine Ratio Glucose Calculated Osmolality Calcium Total Bilirubin Icterus Index AST ALT Alkaline Phosphatase Troponin I 0.126 H B-Natriuretic Peptide Total Protein Albumin Globulin Albumin/Globulin Ratio Plasma Lactate Procalcitonin Specimen Hemolysis < 15 Ur Collection Type Urine Color Urine Clarity Urine pH Ur Specific [place] Urine Protein Urine Glucose (UA) Urine Ketones Urine Occult Blood Urine Nitrate Urine Bilirubin Urine Urobilinogen Ur Leukocyte Esterase Urine RBC Urine WBC Ur Squamous Epith Cells Amorphous Sediment Urine Bacteria Hyaline Casts Ur Culture Indicated? <Mckenzie Jalloh - 08/17/16 11:52> - Imaging and Cardiology EKG results: image reviewed <Mckenzie Jalloh - 08/17/16 11:52> Imaging & Cardiology Narrative: Date of Exam: 08/16/16 Type of Exam(s): US echo doppler complete DATE OF PROCEDURE August 16, [address] Hazel Evans This is a two-dimensional echo with spectral Doppler, color-flow and M-mode. It was obtained in a patient with pulmonary edema. Left atrium is dilated. Left ventricle end-diastolic dimension is normal. Left ventricle wall thickness is normal. LV systolic function is reduced with global hypokinesia with ejection fraction of about 40-45%. Right atrium is dilated. Right ventricle is normal. Aortic root dimension is normal. Mitral valve annulus is calcified. Mitral valve leaflets are sclerotic with no stenosis. Mild mitral regurgitation is present. Aortic valve shows no stenosis with trace of aortic insufficiency. Tricuspid valve shows moderate tricuspid regurgitation with severe pulmonary hypertension with estimated pulmonary artery systolic pressure of 80. Pulmonary valve shows trace of pulmonary insufficiency. There is no pericardial effusion. IMPRESSION 1. Technically difficult study. 2. Global hypokinesia with ejection fraction of about 40-45%. 3. Biatrial dilation. 4. Mitral annulus calcification with mitral sclerosis and mild mitral regurgitation. 5. Moderate tricuspid regurgitation with severe pulmonary hypertension with estimated pulmonary artery systolic pressure of 80. 6. Trace of aortic insufficiency. 7. Trace of pulmonary insufficiency. 08/17/16 11:46 <Mckenzie Jalloh - 08/17/16 11:52> EKG interpretations - EKG EKG results cardiology: sinus rhythm <Mckenzie Jalloh - 08/17/16 11:52> - Blocks, axis, hypertrophy, ST abn Repolarization changes or abnormalities: nonspecific abnormality, ST segment, and/or T wave <Mckenzie Jalloh - 08/17/16 11:52> Assessment and Plan (1) Severe sepsis Current visit: Yes Status: Acute (2) Elevated troponin Current visit: Yes Status: Resolved (3) CAD (coronary artery disease) Current visit: Yes Status: Chronic (4) Pulmonary fibrosis Current visit: Yes Status: Chronic (5) Pulmonary hypertension Current visit: Yes Status: Chronic (6) Hypertension Current visit: Yes Status: Acute (7) Bradycardia Current visit: Yes Status: Acute <Beni Langston - 08/24/16 08:10> (1) Severe sepsis Current visit: Yes Status: Acute Per attending: Severe sepsis (possible), based on lactic acidosis and respiratory failure; also with SIRS criteria including leukocytosis and tachypnea -Repeat lactate improved to 0.9 -lactic acidosis could be secondary to profound hypoxia rather than infectious cause -however, cannot rule out pneumonia -Start Rocephin and azithromycin -repeat PCT in am (2) Elevated troponin Current visit: Yes Status: Acute Likely due to Respiratory state. Trending down. 1) 0.076, 2) 0.125, 3) 0.192, 4) 0,193, 5) 0.126. EKG consistent with old EKG Change IV Heparin to SQ (3) Pulmonary hypertension Current visit: Yes Status: Chronic Echo IMPRESSION 1. Technically difficult study. 2. Global hypokinesia with ejection fraction of about 40-45%. 3. Biatrial dilation. 4. Mitral annulus calcification with mitral sclerosis and mild mitral regurgitation. 5. Moderate tricuspid regurgitation with severe pulmonary hypertension with estimated pulmonary artery systolic pressure of 80. 6. Trace of aortic insufficiency. 7. Trace of pulmonary insufficiency. (4) CAD (coronary artery disease) Current visit: Yes Status: Chronic (5) Pulmonary fibrosis Current visit: Yes Status: Chronic <Mckenzie Jalloh Hyacinth - 08/18/16 13:59> - Attestation Attestation Narrative: 08/24/16 08:10 Recommendation After examining the patient I agree with the above assessment. I am involved in the formulation of the patient's plan of care. <Beni Langston - 08/24/16 08:10> Hospital Course Summary Disclaimer: The visit summary below is not to be considered part of the above Progress Note. <Beni Langston - 08/24/16 08:10> The visit summary below is not to be considered part of the above Progress Note. <Mckenzie Jalloh - 08/17/16 11:52> Hospital Course: 08/16/16 17:50 Admit to inpatient status under the hospitalist service. Acute respiratory failure requiring BiPAP secondary to severe pulmonary edema superimposed on progressive idiopathic pulmonary fibrosis; diastolic CHF -Continue BiPAP -Bumex 1 mg IV now, likely will need further diuresis -Repeat echocardiogram. Last echocardiogram was done September 2015 showing an EF of 56%, diastolic dysfunction, and trace MR, trace TR. Pulmonary pressures were unable to be estimated. -trend troponin -baseline oxygen about 4L -Medical Tech is Dr. Jocy Ko -continue pirfenidone -repeat CXR in am Severe sepsis (possible), based on lactic acidosis and respiratory failure; also with SIRS criteria including leukocytosis and tachypnea -Repeat lactate improved to 0.9 -lactic acidosis could be secondary to profound hypoxia rather than infectious cause -however, cannot rule out pneumonia -Start Rocephin and azithromycin -repeat PCT in am Elevated creatinine -Hold losartan Elevated LFTs -Hold Tylenol and statin -poss liver congestion from CHF Acute encephalopathy -likely from hypoxia -much improved with BiPAP Weakness -Will need PT/OT evaluation once medical condition stabilizes CAD, HTN, HLD -cont ASA, atenolol -hold statin d/t elevated LFTs Advanced directives -DPOA - Tamela -DNR, DNI requested following discussion of resuscitation and expected outcomes. Family in agreement. Pt is critically ill, and >30 minutes were spent at the bedside evaluating the patient and discussing plans. Discussed with Dr. Evans. <Mckenzie Jalloh - 08/17/16 11:52> Sepsis Assessment - Evaluation Sepsis screening result: No Definite Risk <Mckenzie Jalloh 08/17/16 11:52>
--- NOTE | 2016-08-17 11:36 | Pharmacy Consult ---
Pharmacy Consult-Heparin - Laboratory Information Heparin Plt Count 209 T/MM3 (130-400) 08/17/16 04:35 APTT 53.3 SEC (24-36) H 08/17/16 10:49 - Consult Information The PTT scheduled for 1030 today came back in therapeutic range. Will continue current rate of heparin at 22.5 ml/hr. Thank you.
[2016-08-17] MEDS: MORPHINE SULFATE 2 MG SYRINGE IVP PRN ×2 (12:07→12:27)
[2016-08-17] MEDS ORDERED: NITROGLYCERIN 0.4 MG SUBLINGUAL TABLET SL PRN (12:54)
--- NOTE | 2016-08-17 13:19 | Progress Note ---
Subjective: Mr. Gonzalez was seen earlier this morning on BiPAP at which time he described his breathing is improved with residual dry cough. He denied chest pain, nausea , fever, or any pain. He reported that he slept well and that his appetite was good at breakfast. Several hours later I was notified that the patient was acutely dyspneic/tachypnea/hypoxic on BiPAP/and in respiratory distress. FiO2 was increased to 80% and morphine administered. Patient denied chest pain although suggested some tightness in his chest. Objective Vital signs: Temperature 68.2 F L 08/17/16 10:00 Pulse Rate 64 08/17/16 11:00 Respiratory Rate 30 H 08/17/16 11:00 Blood Pressure 133/65 08/17/16 11:00 Pulse Oximetry 94 08/17/16 11:00 Oxygen Delivery Method BiPAP Oxygen Flow Rate 7 Fraction of Inspired Oxygen 40 SaO2/FiO2 Ratio 240 I/O 1105/1666 reported weight up 1.8 kg from yesterday EXAM-initial General-NAD, alert, mild tachypnea while speaking-on BiPAP with FiO2 40% HEENT-conjunctiva clear, oropharynx clear Lungs-respirations mildly labored with good airflow and decreased breath sounds/ crackles at the bases bilaterally Cardiac-regular rhythm, S1-S2 Abd-soft, nontender,diminished bowel sounds Ext-+1 pretibial edema; pitting edema more evident in the dependent portion of the calves and anterior shins Neuro-moving upper extremities symmetrically Psych-calm, cooperative - Repeat exam at 1 AM Patient pale/clammy but not diaphoretic Tachypnea, FiO2 80% on BiPAP Poor air flow, no wheezing Tachycardic, regular rhythm Weight: 76.4 kg Results - Labs CBC & Chem 7: 08/17/16 04:35 08/17/16 04:35 Labs: Differential segs 91, bands 1, lymphocytes 2, monocytes 4, metamyelocytes 2 Procalcitonin 2.34, lactic acid 0.9 Liver enzymes have normalized overnight Troponin 0.076-0.125-0.192-0.193-0.126 Microbiology Results: Sputum Gram stain-no neutrophils, few gram-positive cocci in pairs Blood Cultures 2 negative overnight - Imaging and Cardiology Chest x-ray Status: image reviewed by me (diffuse infiltrates mid and lower lung marinelli bilaterally-fibrosis versus pulmonary edema) Assessment and Plan (1) Pulmonary fibrosis Current visit: Yes Status: Chronic (2) Pulmonary edema Current visit: Yes Status: Acute (3) Acute respiratory failure Problem details: Acute hypoxic respiratory failure Current visit: Yes Status : Acute (4) Severe sepsis Current visit: Yes Status: Acute (5) Diastolic CHF, acute on chronic Current visit: Yes Status: Acute (6) Acute encephalopathy Current visit: Yes Status: Acute (7) Elevated serum creatinine Problem details: Baseline creatinine 1.1-1.3 per outpatient records Current visit: Yes Status: Acute (8) Elevated troponin Current visit: Yes Status: Acute (9) Anemia Current visit: Yes Status: Acute (10) CKD (chronic kidney disease) stage 3, GFR 30-59 ml/min Current visit: Yes Status: Chronic (11) CAD (coronary artery disease) Current visit: Yes Status: Chronic (12) Pulmonary hypertension Current visit: Yes Status: Chronic Resuscitation Status: Do Not Resuscitate Assessment and Plan: Mr. Gonzalez remains critically ill. He is diuresed minimally overnight with slight increase in creatinine (although there may be component of ATN present due to profound hypoxia present on admission). Findings reviewed with Dr. Langston and subsequently the patient's talend etl developer Dr. Ko. Recent high- resolution CT of the lungs reviewed by myself with Dr. Ko revealing advanced pulmonary fibrosis with changes primarily in the mid and lower lung marinelli; suspect majority of changes weeks currently see on the chest x-ray reflect fibrosis rather than infection or pulmonary edema. We discussed option of transferring to [place] the pulmonary did not feel that any additional services could be offered there to the advanced disease. He felt that only additional treatment to be offered would be high-dose steroids which will be started. Transfer to [place] offered to family but they prefer to remain in [place]. The patient's managing talend etl developer and power bender operator both felt hospice care may need to be considered and that prior to decompensation the patient was approaching hospice. Family indicated awareness of this status and reported additional family members are assembling. Acute decompensation just before noon, treated with IV morphine 2 and sublingual nitroglycerin. Breathing treatment additionally provided and FiO2 increased to 80%. Oxygen saturation was adequate when I was at the bedside. Continue supportive care. Suspect cardiac ischemia-low blood pressures earlier today and when not acutely distressed may limit therapeutic options. Continue diuresis, reassess electrolytes/renal function later this afternoon. Edema less evident with legs elevated. Pulmonary hypertension consistent with degree of pulmonary fibrosis. Creatinine up slightly-check urine sodium/urine creatinine although use of diuretics may skew interpretation. Critically ill-55 minutes spent at the bedside and in acute patient care management; additional time spent in discussion with consultants. Sepsis Assessment - Evaluation Sepsis screening result: No Definite Risk Hospital Course Summary Disclaimer: The visit summary below is not to be considered part of the above Progress Note. Hospital Course: 08/16/16 17:50 Admit to inpatient status under the hospitalist service. Acute respiratory failure requiring BiPAP secondary to severe pulmonary edema superimposed on progressive idiopathic pulmonary fibrosis; diastolic CHF -Continue BiPAP -Bumex 1 mg IV now, likely will need further diuresis -Repeat echocardiogram. Last echocardiogram was done September 2015 showing an EF of 56%, diastolic dysfunction, and trace MR, trace TR. Pulmonary pressures were unable to be estimated. -trend troponin -baseline oxygen about 4L -Button Spindler is Dr. Jocy Ko -continue pirfenidone -repeat CXR in am Severe sepsis (possible), based on lactic acidosis and respiratory failure; also with SIRS criteria including leukocytosis and tachypnea -Repeat lactate improved to 0.9 -lactic acidosis could be secondary to profound hypoxia rather than infectious cause -however, cannot rule out pneumonia -Start Rocephin and azithromycin -repeat PCT in am Elevated creatinine -Hold losartan Elevated LFTs-Hold Tylenol -poss liver congestion from CHF Acute encephalopathy -likely from hypoxia -much improved with BiPAP Weakness -Will need PT/OT evaluation once medical condition stabilizes CAD, HTN, HLD-cont ASA, atenolol -Initial troponin modestly elevated, EKG with anterior T-wave inversion and minor ST depression-appears to be old; Dr. Langston consulted. Advanced directives -DPOA - Tamela -DNR, DNI requested following discussion of resuscitation and expected outcomes. Family in agreement. Pt is critically ill, and >30 minutes were spent at the bedside evaluating the patient and discussing plans. Discussed with Dr. Evans. 08/17/16 13:42 Mr. Gonzalez remains critically ill. He is diuresed minimally overnight with slight increase in creatinine (although there may be component of ATN present due to profound hypoxia present on admission). Findings reviewed with Dr. Langston and subsequently the patient's talend etl developer Dr. Ko. Recent high- resolution CT of the lungs reviewed by myself with Dr. Ko revealing advanced pulmonary fibrosis with changes primarily in the mid and lower lung marinelli; suspect majority of changes weeks currently see on the chest x-ray reflect fibrosis rather than infection or pulmonary edema. We discussed option of transferring to [place] the pulmonary did not feel that any additional services could be offered there to the advanced disease. He felt that only additional treatment to be offered would be high-dose steroids which will be started. Transfer to [place] offered to family but they prefer to remain in [place]. The patient's managing talend etl developer and power bender operator both felt hospice care may need to be considered and that prior to decompensation the patient was approaching hospice. Family indicated awareness of this status and reported additional family members are assembling. Acute decompensation just before noon, treated with IV morphine 2 and sublingual nitroglycerin. Breathing treatment additionally provided and FiO2 increased to 80%. Oxygen saturation was adequate when I was at the bedside. Continue supportive care. Suspect cardiac ischemia-low blood pressures earlier today and when not acutely distressed may limit therapeutic options. Continue diuresis, reassess electrolytes/renal function later this afternoon. Edema less evident with legs elevated. Pulmonary hypertension consistent with degree of pulmonary fibrosis. Creatinine up slightly-check urine sodium/urine creatinine although use of diuretics may skew interpretation.
--- NOTE | 2016-08-17 14:18 | Pharmacy Consult- Renal Dosing ---
Pharamcy Consul-Renal Dosing - Laboratory Information 08/17/16 04:35 BUN 37.0 H Creatinine 1.8 H D - Consult Information RENAL DOSING: Today's SCr = 1.8 mg/dl. Calculated CrCl = 31 ml/min. We Will decrease the dose of pip/tazo to 2.25gm ivpb q6h
[2016-08-17] MEDS: PIPERACILLIN/TAZOBACTAM 2.25 GM in NS 100 ML IV SCH ×2 (15:07→20:14)
[2016-08-17] MEDS: HEPARIN SUB-Q 5,000 UNITS/0.5 ML INJECTION SQ SCH (17:08)
[2016-08-17] MEDS: METHYLPREDNISOLONE SOD SUCC 125mg/2ml INJECTION IVP SCH (17:51)
[2016-08-17] MEDS: AZITHROMYCIN IV 500 MG in NS 250ml 250 ML IV SCH (17:58)
[2016-08-17] MEDS: NON-FORMULARY MEDICATION 1 EACH EACH (Pirfenidone [Esbriet] 801 MG) PO SCH (18:16)
[2016-08-17] MEDS: NS 500 ML IV SCH ×3 (20:47→20:57)
[2016-08-17] MEDS ORDERED: NS 250 ML IV SCH (20:53)
[2016-08-17] MEDS: FINASTERIDE 5 MG TABLET PO SCH (21:05)
[2016-08-17] MEDS: SIMVASTATIN 20 MG TABLET PO SCH (21:05)
[2016-08-17] MEDS: ALFUZOSIN ER 10 MG TABLET PO SCH (21:05)
[2016-08-18] MEDS: METHYLPREDNISOLONE SOD SUCC 125mg/2ml INJECTION IVP SCH ×4 (00:28→17:24)
[2016-08-18] MEDS: SALINE FLUSH 10ml SYRINGE IVF PRN ×4 (00:29→22:50)
[2016-08-18] MEDS: HEPARIN SUB-Q 5,000 UNITS/0.5 ML INJECTION SQ SCH ×3 (00:30→17:24)
[2016-08-18] MEDS: PIPERACILLIN/TAZOBACTAM 2.25 GM in NS 100 ML IV SCH ×4 (02:03→20:31)
[2016-08-18] MEDS: ALBUTEROL/IPRATROPIUM 2.5mg-0.5mg/3ml NEB AEROSOL SCH ×4 (06:52→19:35)
[2016-08-18] MEDS: ASPIRIN *EC* 81 MG TABLET PO SCH (08:27)
[2016-08-18] MEDS: ATENOLOL 50 MG TABLET PO SCH (08:29)
[2016-08-18] MEDS: NON-FORMULARY MEDICATION 1 EACH EACH (Pirfenidone [Esbriet] 801 MG) PO SCH ×3 (08:29→17:23)
[2016-08-18] MEDS: MULTI-VITAMIN PLAIN TABLET PO SCH (08:30)
[2016-08-18] MEDS: NS FLUSH BAG 500ml IV PRN ×2 (08:37→22:50)
--- NOTE | 2016-08-18 10:04 | Progress Note ---
Subjective: Pt is doing better today. HR noted over the night was in the mid 40's. Pt and family agree he is better today. No further episodes of acute dyspnea. He had an episode of acute respiratory distress yesterday, after a breathing treatment , no recurrence. Appetite is picking up. Pt is in good spirits. Objective Vital signs: Temperature 97.7 F 08/18/16 09:00 Pulse Rate 51 L 08/18/16 08:00 Respiratory Rate 26 H 08/18/16 09:00 Blood Pressure 129/59 08/18/16 09:00 Pulse Oximetry 93 08/18/16 09:00 Oxygen Delivery Method High Flow Nasal Cannula Oxygen Flow Rate 15 Fraction of Inspired Oxygen 70 SaO2/FiO2 Ratio 142 Rhythm: Normal Sinus Rhythm Weight: 76.9 kg - Constitutional Present: mild distress, obese - Routine HEENT Exam Head: Present: normocephalic, atraumatic Eye: Present: EOMI, PERRL - Routine Respiratory Exam Present: accessory muscle use, dyspnea Comments: Fair air entry bilaterally. Has diffuse crackles. Diminished air entry on the R apex is more prominent - Routine Cardiovascular Exam Present: RRR - Routine Abdominal Exam Present: soft, non distended, non tender - Routine Extremities Exam Present: edema. Absent: cyanosis - Routine Neurological Exam Present: alert, oriented X3 Results - Labs CBC & Chem 7: 08/18/16 04:51 08/18/16 04:51 Assessment and Plan (1) Pulmonary edema Current visit: Yes Status: Acute (2) Severe sepsis Current visit: Yes Status: Acute (3) Acute respiratory failure Problem details: Acute hypoxic respiratory failure Current visit: Yes Status : Acute (4) Acute encephalopathy Current visit: Yes Status: Acute (5) Diastolic CHF, acute on chronic Current visit: Yes Status: Acute (6) Elevated serum creatinine Problem details: Baseline creatinine 1.1-1.3 per outpatient records Current visit: Yes Status: Acute (7) Elevated troponin Current visit: Yes Status: Acute (8) Anemia Current visit: Yes Status: Acute (9) CKD (chronic kidney disease) stage 3, GFR 30-59 ml/min Current visit: Yes Status: Chronic (10) CAD (coronary artery disease) Current visit: Yes Status: Chronic (11) Pulmonary fibrosis Current visit: Yes Status: Chronic (12) Pulmonary hypertension Current visit: Yes Status: Chronic Assessment and Plan: Summary - This is an 80 YO with IPF, that came due to SOB and has been slowly improving on the ICU. He had a recent high-resolution CT of the lungs that showed advanced pulmonary fibrosis with changes primarily in the mid and lower lung marinelli. On admission the patient's managing supervisor industrial arts education and esol teacher assistant both felt hospice care may need to be considered and that prior to decompensation the patient was approaching hospice. Pt has advanced IPF + Pulmonary HTN, CHF (Diastolic), and renal failure. Family indicated awareness of this status as well. Had an episode of acute decompensation (08/17) probably due to ischemia and/or bronchospasm. Pt was managed with IV morphine and SL NTG + Duonebs, with improved status today. DIAGNOSIS 1) IPF - With superimposed bronchitis/PNA + possible pulmonary edema on admisison - improved now. - Pt was placed on BIPAP and stabilized; He is now off BiPap now on NC and talkative, can speak in full sentences. - 2-D echo (09/2015) EF of 56%, diastolic dysfunction, and trace MR, trace TR. Will check new Echo. - Type II TnI elevation on admission trending down. - Continue pirfenidone - Recheck LFT's (where high before) 2) CARDIOLOGY ASSESSMENT A) CONGESTIVE HEART FAILURE - SYSTOLIC AND DIASTOLIC - CHRONIC + ACUTE 2-D echo (NEW) "............................................... IMPRESSION 1. Technically difficult study. 2. Global hypokinesia with ejection fraction of about 40-45%. 3. Biatrial dilation. 4. Mitral annulus calcification with mitral sclerosis and mild mitral regurgitation. 5. Moderate tricuspid regurgitation with severe pulmonary hypertension with estimated pulmonary artery systolic pressure of 80. 6. Trace of aortic insufficiency. 7. Trace of pulmonary insufficiency. ........................................................" B) CAD - no [place] - TnI with type II elevation trending down. - Continue ASA - Would prefer to have pt take Metoprolol if possible as opposed to atenolol. In the meantime I decreased the dose to 37.5 mg/day as pt has been bradycardic and a superimposed low output state will not be helpful. - HR was when I examined him in the low 60's - Initial troponin modestly elevated, EKG with anterior T-wave inversion and minor ST depression-appears to be old. Will receck TnI now. C) HTN - Stable D) Hyperlipidemia on Zocor will check CPK levels. 3) Severe sepsis on admission, probably lactate elevation was more due to hypoxemia per Dr Evans's notes. - Lactic acid high, SIRS criteria, leukocytosis and tachypnea. - Possible superimposed PNA. - Started on Rocephin and azithromycin -> changed to Zosyn and Azithro. - 4) Renal failure, with creatinine of 2.0 today. - Continue holding losartan. - Check CPK - Will get a fractional excretion of urea since FeNa is not reliable when using diuretics. 5) Anemia, most likely ACD + possibly due to CKD. - Check basic anemia workup. 6) CODE STATUS - DNR - DNI. -DPOA - Tamela -[employer] Sales Consultant is Dr. Jocy Ko Discussed current situation and plan of care with pt and family. Sepsis Assessment - Evaluation Sepsis screening result: Severe Sepsis Risk Hospital Course Summary Disclaimer: The visit summary below is not to be considered part of the above Progress Note. Hospital Course: 08/16/16 17:50 Admit to inpatient status under the hospitalist service. Acute respiratory failure requiring BiPAP secondary to severe pulmonary edema superimposed on progressive idiopathic pulmonary fibrosis; diastolic CHF -Continue BiPAP -Bumex 1 mg IV now, likely will need further diuresis -Repeat echocardiogram. Last echocardiogram was done September 2015 showing an EF of 56%, diastolic dysfunction, and trace MR, trace TR. Pulmonary pressures were unable to be estimated. -trend troponin -baseline oxygen about 4L -[employer] Sales Consultant is Dr. Jocy Ko -continue pirfenidone -repeat CXR in am Severe sepsis (possible), based on lactic acidosis and respiratory failure; also with SIRS criteria including leukocytosis and tachypnea -Repeat lactate improved to 0.9 -lactic acidosis could be secondary to profound hypoxia rather than infectious cause -however, cannot rule out pneumonia -Start Rocephin and azithromycin -repeat PCT in am Elevated creatinine -Hold losartan Elevated LFTs-Hold Tylenol -poss liver congestion from CHF Acute encephalopathy -likely from hypoxia -much improved with BiPAP Weakness -Will need PT/OT evaluation once medical condition stabilizes CAD, HTN, HLD-cont ASA, atenolol -Initial troponin modestly elevated, EKG with anterior T-wave inversion and minor ST depression-appears to be old; Dr. Langston consulted. Advanced directives -DPOA - Tamela -DNR, DNI requested following discussion of resuscitation and expected outcomes. Family in agreement. Pt is critically ill, and >30 minutes were spent at the bedside evaluating the patient and discussing plans. Discussed with Dr. Evans. 08/17/16 13:42 Mr. Gonzalez remains critically ill. He is diuresed minimally overnight with slight increase in creatinine (although there may be component of ATN present due to profound hypoxia present on admission). Findings reviewed with Dr. Langston and subsequently the patient's supervisor industrial arts education Dr. Ko. Recent high- resolution CT of the lungs reviewed by myself with Dr. Ko revealing advanced pulmonary fibrosis with changes primarily in the mid and lower lung marinelli; suspect majority of changes weeks currently see on the chest x-ray reflect fibrosis rather than infection or pulmonary edema. We discussed option of transferring to [place] the pulmonary did not feel that any additional services could be offered there to the advanced disease. He felt that only additional treatment to be offered would be high-dose steroids which will be started. Transfer to [place] offered to family but they prefer to remain in [place]. The patient's managing supervisor industrial arts education and esol teacher assistant both felt hospice care may need to be considered and that prior to decompensation the patient was approaching hospice. Family indicated awareness of this status and reported additional family members are assembling. Acute decompensation just before noon, treated with IV morphine 2 and sublingual nitroglycerin. Breathing treatment additionally provided and FiO2 increased to 80%. Oxygen saturation was adequate when I was at the bedside. Continue supportive care. Suspect cardiac ischemia-low blood pressures earlier today and when not acutely distressed may limit therapeutic options. Continue diuresis, reassess electrolytes/renal function later this afternoon. Edema less evident with legs elevated. Pulmonary hypertension consistent with degree of pulmonary fibrosis. Creatinine up slightly-check urine sodium/urine creatinine although use of diuretics may skew interpretation.
--- NOTE | 2016-08-18 14:04 | Cardiology Progress Note ---
Subjective Principal diagnosis: dyspnea <Mckenzie Jalloh 08/18/16 14:14> Interval history: Eliot is seen in his bed in CCU. Respiratory is much improved today and he is on only high flow nasal cannula. He denies chest pain or pressure, palpitations, dizziness or lightheadedness. <Mckenzie Jalloh 08/18/16 14:34> Exam Vital signs: Temperature 97.5 F 08/24/16 04:00 Pulse Rate 74 08/24/16 06:00 Respiratory Rate 20 08/24/16 06:00 Blood Pressure 116/60 08/24/16 06:00 Pulse Oximetry 95 08/24/16 06:00 Oxygen Delivery Method BiPAP Oxygen Flow Rate 15 Fraction of Inspired Oxygen 50 SaO2/FiO2 Ratio 186 <KianBeni - 08/24/16 08:14> Temperature 97.7 F 08/18/16 09:00 Pulse Rate 65 08/18/16 12:00 Respiratory Rate 35 H 08/18/16 11:54 Blood Pressure 129/59 08/18/16 09:00 Pulse Oximetry 100 08/18/16 11:54 Oxygen Delivery Method High Flow Nasal Cannula Oxygen Flow Rate 15 Fraction of Inspired Oxygen 70 SaO2/FiO2 Ratio 142 <Mckenzie Jalloh 08/18/16 14:14> - Constitutional no acute distress, cooperative <Mckenzie Jalloh 08/18/16 14:34> - Routine HEENT Exam ENT: Present: mucous membranes moist <Mckenzie Jalloh 08/18/16 14:34> - Routine Neck Exam Absent: JVD, carotid bruit <Mckenzie Jalloh 08/18/16 14:34> - Routine Chest/Breast/Axilla Exam Chest wall: Absent: tenderness <Mckenzie Jalloh 08/18/16 14:34> - Routine Respiratory Exam Present: diminished air movement. Absent: dyspnea, rales <Mckenzie Jalloh 14:34> - Routine Cardiovascular Exam Present: RRR, S1, S2 Mckenzie Carvalho 08/18/16 14:34> - Routine Abdominal Exam Present: soft, normoactive bowel sounds <Mckenzie Jalloh 08/18/16 14:34> - Routine Extremities Exam Present: no edema <Mckenzie Jalloh 08/18/16 14:34> - Routine Skin Exam Present: intact <Mckenzie Jalloh 08/18/16 14:34> - Routine Neurological Exam Present: alert, oriented X3 <Mckenzie Jalloh - 08/18/16 14:34> - Routine Psychiatric Exam Present: normal affect, normal thought process <Mckenzie Jalloh 08/18/16 14: 34> - Urinary Catheter Management Urethral Cath placed during this visit: no <Beni Langston - 08/24/16 08:14> yes <Mckenzie Jalloh 08/18/16 18:46> Urethral indwelling: Yes <Mckenzie Jalloh 08/18/16 14:34> Reason for continuing: Accurate I&O/Aggressive Diuresis <Mckenzie Jalloh 14:34> Insertion date: 08/16/16 <Mckenzie Jalloh 08/18/16 14:14> Insertion time: 16:45 <Mckenzie Jalloh 08/18/16 14:14> Hospital Course This is a general summary of the patient's hospital course. For more details refer to the complete medical record. <Beni Langston - 08/24/16 08:14> This is a general summary of the patient's hospital course. For more details refer to the complete medical record. <Mckenzie Jalloh - 08/18/16 14:14> Hospital course: 08/16/16 17:50 Admit to inpatient status under the hospitalist service. Acute respiratory failure requiring BiPAP secondary to severe pulmonary edema superimposed on progressive idiopathic pulmonary fibrosis; diastolic CHF -Continue BiPAP -Bumex 1 mg IV now, likely will need further diuresis -Repeat echocardiogram. Last echocardiogram was done September 2015 showing an EF of 56%, diastolic dysfunction, and trace MR, trace TR. Pulmonary pressures were unable to be estimated. -trend troponin -baseline oxygen about 4L -Band Leader is Dr. Jocy Ko -continue pirfenidone -repeat CXR in am Severe sepsis (possible), based on lactic acidosis and respiratory failure; also with SIRS criteria including leukocytosis and tachypnea -Repeat lactate improved to 0.9 -lactic acidosis could be secondary to profound hypoxia rather than infectious cause -however, cannot rule out pneumonia -Start Rocephin and azithromycin -repeat PCT in am Elevated creatinine -Hold losartan Elevated LFTs -Hold Tylenol and statin -poss liver congestion from CHF Acute encephalopathy -likely from hypoxia -much improved with BiPAP Weakness -Will need PT/OT evaluation once medical condition stabilizes CAD, HTN, HLD -cont ASA, atenolol -hold statin d/t elevated LFTs Advanced directives -DPOA - Tamela -DNR, DNI requested following discussion of resuscitation and expected outcomes. Family in agreement. Pt is critically ill, and >30 minutes were spent at the bedside evaluating the patient and discussing plans. Discussed with Dr. Evans. 08/18/16 Change Atenolol to Metoprolol 25mg BID <Mckenzie Jalloh - 08/18/16 18:46> Progress Note-A&P (1) Severe sepsis Status: Acute Current Visit: Yes (2) Elevated troponin Status: Resolved Current Visit: Yes (3) CAD (coronary artery disease) Status: Chronic Current Visit: Yes (4) Pulmonary fibrosis Status: Chronic Current Visit: Yes (5) Pulmonary hypertension Status: Chronic Current Visit: Yes (6) Hypertension Status: Acute Current Visit: Yes (7) Bradycardia Status: Acute Current Visit: Yes <Beni Langston - 08/24/16 08:14> (1) Severe sepsis Status: Acute Current Visit: Yes (2) Elevated troponin Status: Acute Current Visit: Yes (3) Pulmonary hypertension Status: Chronic Current Visit: Yes (4) CAD (coronary artery disease) Status: Chronic Current Visit: Yes (5) Pulmonary fibrosis Status: Chronic Current Visit: Yes <Mckenzie Jlaloh - 08/18/16 18:45> - Time Spent With Patient Total time spent is greater than 50% in coordination of care (as documented) at patient's floor/unit and/or counseling patient: <Beni Langston - 08/24/16 08:14> Total time spent is greater than 50% in coordination of care (as documented) at patient's floor/unit and/or counseling patient: <Mckenzie Jalloh - 08/18/16 14:14> less than 15 minutes <Mckenzie Jalloh 08/18/16 18:46> - Attestation Attestation Narrative: Recommendation After examining the patient I agree with the above assessment. I am involved in the formulation of the patient's plan of care. <Beni Langston - 08/24/16 08:14> Sepsis Assessment - Evaluation Sepsis screening result: No Definite Risk <Mckenzie Jalloh - 08/18/16 14:14>
[2016-08-18] MEDS: AZITHROMYCIN IV 500 MG in NS 250ml 250 ML IV SCH (17:25)
[2016-08-18] MEDS: SIMVASTATIN 20 MG TABLET PO SCH (22:06)
[2016-08-18] MEDS: ALFUZOSIN ER 10 MG TABLET PO SCH (22:06)
[2016-08-18] MEDS: FINASTERIDE 5 MG TABLET PO SCH (22:06)
[2016-08-19] MEDS: METHYLPREDNISOLONE SOD SUCC 125mg/2ml INJECTION IVP SCH ×4 (00:24→18:09)
[2016-08-19] MEDS: HEPARIN SUB-Q 5,000 UNITS/0.5 ML INJECTION SQ SCH ×3 (00:24→17:04)
[2016-08-19] MEDS: MORPHINE SULFATE 2 MG SYRINGE IVP PRN (00:24)
[2016-08-19] MEDS: SALINE FLUSH 10ml SYRINGE IVF PRN ×6 (00:25→18:09)
[2016-08-19] MEDS: PIPERACILLIN/TAZOBACTAM 2.25 GM in NS 100 ML IV SCH ×4 (02:06→21:19)
[2016-08-19] MEDS: ALBUTEROL/IPRATROPIUM 2.5mg-0.5mg/3ml NEB AEROSOL SCH ×4 (06:41→20:27)
[2016-08-19] MEDS: ASPIRIN *EC* 81 MG TABLET PO SCH (08:36)
[2016-08-19] MEDS: NON-FORMULARY MEDICATION 1 EACH EACH (Pirfenidone [Esbriet] 801 MG) PO SCH ×3 (08:36→17:05)
[2016-08-19] MEDS ORDERED: ATENOLOL 25 MG TABLET PO SCH (09:00)
[2016-08-19] MEDS: MULTI-VITAMIN PLAIN TABLET PO SCH (09:11)
--- NOTE | 2016-08-19 09:34 | Progress Note ---
Subjective: Pt states he is feeling fine. Had a good night. No new episodes of acute onset of SOB. VSS, HR still in the high 50's. Objective Vital signs: Temperature 98.2 F 08/19/16 04:00 Pulse Rate 59 L 08/19/16 07:15 Respiratory Rate 42 H 08/19/16 07:15 Blood Pressure 152/69 H 08/19/16 07:01 Pulse Oximetry 94 08/19/16 07:15 Oxygen Delivery Method BiPAP Oxygen Flow Rate 15 Fraction of Inspired Oxygen 50 SaO2/FiO2 Ratio 142 Rhythm: Normal Sinus Rhythm Weight: 97.2 kg - Constitutional Present: no acute distress - Routine HEENT Exam Head: Present: normocephalic, atraumatic Eye: Present: EOMI, PERRL - Routine Respiratory Exam Present: prolonged expiratory phase, crackles Comments: Diffuse crackles, likely from fibrosis. Occ wheezing, more so in the RUL - Routine Cardiovascular Exam Present: RRR - Routine Abdominal Exam Present: soft, non distended, non tender - Routine Extremities Exam Present: edema. Absent: cyanosis, clubbing - Routine Neurological Exam Present: alert, oriented X3 - Routine Psychiatric Exam Present: normal affect, cooperative, good insight Results - Labs CBC & Chem 7: 08/19/16 05:13 08/19/16 05:13 Assessment and Plan (1) Pulmonary edema Current visit: Yes Status: Acute (2) Severe sepsis Current visit: Yes Status: Acute (3) Acute respiratory failure Problem details: Acute hypoxic respiratory failure Current visit: Yes Status : Acute (4) Acute encephalopathy Current visit: Yes Status: Acute (5) Diastolic CHF, acute on chronic Current visit: Yes Status: Acute (6) Elevated serum creatinine Problem details: Baseline creatinine 1.1-1.3 per outpatient records Current visit: Yes Status: Acute (7) Elevated troponin Current visit: Yes Status: Acute (8) Anemia Current visit: Yes Status: Acute (9) CKD (chronic kidney disease) stage 3, GFR 30-59 ml/min Current visit: Yes Status: Chronic (10) CAD (coronary artery disease) Current visit: Yes Status: Chronic (11) Pulmonary fibrosis Current visit: Yes Status: Chronic (12) Pulmonary hypertension Current visit: Yes Status: Chronic Assessment and Plan: Summary - This is an 80 YO with IPF, that came due to SOB and has been slowly improving on the ICU. He had a recent high-resolution CT of the lungs that showed advanced pulmonary fibrosis with changes primarily in the mid and lower lung marinelli. Pt has advanced IPF + Pulmonary HTN, CHF (Systolic and diastolic), and presented with renal failure, on admission. The patient's managing stunner and shackler and imaging technologist both felt hospice care may need to be considered and that prior to decompensation the patient was approaching hospice; Family indicated awareness of this status as well. He had an episode of acute decompensation (Shortness of breath -desaturation - on 08/17) probably due to ischemia and/or bronchospasm. Pt was managed with IV morphine and SL NTG + Duonebs, with improved status, Overall had a better dayon 08/18 and continues to stablize on 08/19. His BB was changed from Atenolol to Metoprolol on 08/18. He remains stable in the ICU with his BIPAP. DIAGNOSIS 1) IPF - With superimposed bronchitis/PNA + possible pulmonary edema on admission - improved now. - Pt was placed on BIPAP; he looks a bit better today. - Type II TnI elevation on admission trending down. - Continue pirfenidone - LFT normal (08/18) 2) CARDIOVASCULAR ASSESSMENT A) CONGESTIVE HEART FAILURE - SYSTOLIC (Reduced LVEF) AND DIASTOLIC - CHRONIC + ACUTE - 2-D echo (09/2015) EF of 56%, diastolic dysfunction, and trace MR, trace TR. - New Echo (This admission) EF has decreased now to 40-45%, with bi- atrial dilatation, MR, TR and severe pulmonary HTN with estimated pressure of 80mmHg - Continue Bipap, steroids, BB. May resume ARB in the AM if creatinine remains stable. Once started it is expected for creatinine to go up about 20% B) CAD - no HI - TnI with type II elevation trending down. - Continue ASA - Initial troponin modestly elevated, EKG with anterior T-wave inversion and minor ST depression-appears to be old. C) HTN - Stable D) Hyperlipidemia on Zocor will check CPK levels. E) Severe pulmonary HTN due to fibrosis/hypoxemia. Continue pirfenidone - LFT normal (08/18) 3) Severe sepsis on admission, probably lactate elevation was more due to hypoxemia than infection. - WBC 19.5k (08/19) Trending up will recheck in the PM. - On admission - Lactic acid high, SIRS criteria, leukocytosis and tachypnea. - Possible superimposed PNA; Started on Rocephin and azithromycin -> changed to Zosyn and Azithro. 4) Acute Renal failure, with an admission creatinine of 2.0 - down to 1.5 (08/19 ) - Holding losartan - May resume tomorrow if OK with cardiology and creatinine is about the same or less. - CPK - 62 (normal - on 08/19/2016) - Check PSA for completeness. - Fractional excretion of urea ordered (08/18) - Urea in urine still pending () 5) Anemia, most likely ACD + possibly due to CKD. - Check basic anemia workup. 6) CODE STATUS - DNR - DNI. -CARLOS Rapp -Statistics Intern is Dr. Jocy Ko Discussed current situation and plan of care with pt and family. Sepsis Assessment - Evaluation Sepsis screening result: No Definite Risk Hospital Course Summary Disclaimer: The visit summary below is not to be considered part of the above Progress Note. Hospital Course: 08/16/16 17:50 Admit to inpatient status under the hospitalist service. Acute respiratory failure requiring BiPAP secondary to severe pulmonary edema superimposed on progressive idiopathic pulmonary fibrosis; diastolic CHF -Continue BiPAP -Bumex 1 mg IV now, likely will need further diuresis -Repeat echocardiogram. Last echocardiogram was done September 2015 showing an EF of 56%, diastolic dysfunction, and trace MR, trace TR. Pulmonary pressures were unable to be estimated. -trend troponin -baseline oxygen about 4L -Statistics Intern is Dr. Jocy Ko -continue pirfenidone -repeat CXR in am Severe sepsis (possible), based on lactic acidosis and respiratory failure; also with SIRS criteria including leukocytosis and tachypnea -Repeat lactate improved to 0.9 -lactic acidosis could be secondary to profound hypoxia rather than infectious cause -however, cannot rule out pneumonia -Start Rocephin and azithromycin -repeat PCT in am Elevated creatinine -Hold losartan Elevated LFTs -Hold Tylenol and statin -poss liver congestion from CHF Acute encephalopathy -likely from hypoxia -much improved with BiPAP Weakness -Will need PT/OT evaluation once medical condition stabilizes CAD, HTN, HLD -cont ASA, atenolol -hold statin d/t elevated LFTs Advanced directives -CARLOS Rapp -DNR, DNI requested following discussion of resuscitation and expected outcomes. Family in agreement. Pt is critically ill, and >30 minutes were spent at the bedside evaluating the patient and discussing plans. Discussed with Dr. Evans. 08/18/16 Change Atenolol to Metoprolol 25mg BID
--- NOTE | 2016-08-19 11:37 | Cardiology Progress Note ---
Subjective Principal diagnosis: dyspnea <Mckenzie Jalloh 08/19/16 11:37> Interval history: Eliot is seen in his bed in CCU. He is currently on Bi-Pap after being off for breakfast. He denies chest pain or pressure, palpitations, dizziness or lightheadedness. <Mckenzie Jalloh 08/19/16 11:37> Exam Vital signs: Temperature 95.7 F L 08/28/16 07:52 Pulse Rate 84 08/28/16 07:52 Respiratory Rate 27 H 08/28/16 08:01 Blood Pressure 136/69 08/28/16 07:52 Pulse Oximetry 100 08/28/16 08:01 Oxygen Delivery Method BiPAP Oxygen Flow Rate 11 Fraction of Inspired Oxygen 45 SaO2/FiO2 Ratio 186 <[email or web address] - 08/28/16 11:19> Temperature 98.2 F 08/19/16 04:00 Pulse Rate 59 L 08/19/16 11:01 Respiratory Rate 30 H 08/19/16 11:01 Blood Pressure 124/58 08/19/16 11:00 Pulse Oximetry 96 08/19/16 11:01 Oxygen Delivery Method BiPAP Oxygen Flow Rate 15 Fraction of Inspired Oxygen 50 SaO2/FiO2 Ratio 142 <Mckenzie Jalloh 08/19/16 11:37> - Constitutional mild distress, cooperative <Mckenzie Jalloh 08/19/16 11:37> - Routine HEENT Exam ENT: Present: mucous membranes moist <Mckenzie Jalloh 08/19/16 11:37> - Routine Neck Exam Absent: JVD, carotid bruit <Mckenzie Jalloh 08/19/16 11:37> - Routine Chest/Breast/Axilla Exam Chest wall: Absent: tenderness <Mckenzie Jalloh 08/19/16 11:37> - Routine Respiratory Exam Present: decreased breath sounds, diminished air movement. Absent: rales, wheezes <Mckenzie Jalloh 08/19/16 11:37> - Routine Cardiovascular Exam Present: RRR, S1, S2, no murmur <Mckenzie Jalloh 08/19/16 11:37> - Routine Abdominal Exam Present: soft, normoactive bowel sounds <Mckenzie Jalloh 08/19/16 11:37> - Routine Extremities Exam Present: edema <Mckenzie Jalloh - 08/19/16 11:37> - Routine Skin Exam Present: intact <Mckenzie Jalloh 08/19/16 11:37> - Routine Neurological Exam Present: alert, oriented X3 <Mckenzie Jalloh - 08/19/16 11:37> - Routine Psychiatric Exam Present: normal affect, normal thought process <Mckenzie Jalloh 08/19/16 11: 37> - Urinary Catheter Management Urethral Cath placed during this visit: no <Beni Langston - 08/28/16 11:19> yes <Mckenzie Jalloh - 08/25/16 12:14> Urethral indwelling: Yes <Mckenzie Jalloh 08/19/16 11:37> Reason for continuing: Accurate I&O/Aggressive Diuresis <Mckenzie Jalloh - 08/06 12:14> Insertion date: 08/16/16 <Mckenzie Jalloh - 08/19/16 11:37> Insertion time: 16:45 <Mckenzie Jalloh - 08/19/16 11:37> Hospital Course This is a general summary of the patient's hospital course. For more details refer to the complete medical record. <eBni Langston - 08/28/16 11:19> This is a general summary of the patient's hospital course. For more details refer to the complete medical record. <Mckenzie Jalloh - 08/19/16 11:37> Hospital course: 08/16/16 17:50 Admit to inpatient status under the hospitalist service. Acute respiratory failure requiring BiPAP secondary to severe pulmonary edema superimposed on progressive idiopathic pulmonary fibrosis; diastolic CHF -Continue BiPAP -Bumex 1 mg IV now, likely will need further diuresis -Repeat echocardiogram. Last echocardiogram was done September 2015 showing an EF of 56%, diastolic dysfunction, and trace MR, trace TR. Pulmonary pressures were unable to be estimated. -trend troponin -baseline oxygen about 4L -Extension Course Coordinator is Dr. Jocy Ko -continue pirfenidone -repeat CXR in am Severe sepsis (possible), based on lactic acidosis and respiratory failure; also with SIRS criteria including leukocytosis and tachypnea -Repeat lactate improved to 0.9 -lactic acidosis could be secondary to profound hypoxia rather than infectious cause -however, cannot rule out pneumonia -Start Rocephin and azithromycin -repeat PCT in am Elevated creatinine -Hold losartan Elevated LFTs -Hold Tylenol and statin -poss liver congestion from CHF Acute encephalopathy -likely from hypoxia -much improved with BiPAP Weakness -Will need PT/OT evaluation once medical condition stabilizes CAD, HTN, HLD -cont ASA, atenolol -hold statin d/t elevated LFTs Advanced directives -DPOA - Tamela -DNR, DNI requested following discussion of resuscitation and expected outcomes. Family in agreement. Pt is critically ill, and >30 minutes were spent at the bedside evaluating the patient and discussing plans. Discussed with Dr. Evans. 08/18/16 Change Atenolol to Metoprolol 25mg BID <Mckenzie Jalloh - 08/19/16 11:37> Progress Note-A&P (1) Severe sepsis Status: Resolved Current Visit: Yes (2) Elevated troponin Status: Resolved Current Visit: Yes (3) CAD (coronary artery disease) Status: Chronic Current Visit: Yes (4) Pulmonary fibrosis Status: Chronic Current Visit: Yes (5) Pulmonary hypertension Status: Chronic Current Visit: Yes (6) Hypertension Status: Acute Current Visit: Yes (7) Bradycardia Status: Resolved Current Visit: Yes <Beni Langston - 08/28/16 11:19> (1) Severe sepsis Status: Resolved Current Visit: Yes (2) Elevated troponin Status: Resolved Current Visit: Yes (3) CAD (coronary artery disease) Status: Chronic Current Visit: Yes (4) Pulmonary fibrosis Status: Chronic Current Visit: Yes (5) Pulmonary hypertension Status: Chronic Current Visit: Yes (6) Hypertension <Mckenzie Jalloh - 08/25/16 12:13> - Time Spent With Patient Total time spent is greater than 50% in coordination of care (as documented) at patient's floor/unit and/or counseling patient: <Beni Langston - 08/28/16 11:19> Total time spent is greater than 50% in coordination of care (as documented) at patient's floor/unit and/or counseling patient: <Mckenzie Jalloh - 08/19/16 11:37> less than 15 minutes <Mckenzie Jalloh 08/19/16 11:50> - Attestation Attestation Narrative: Recommendation After examining the patient I agree with the above assessment. I am involved in the formulation of the patient's plan of care. <Beni Langston - 08/28/16 11:19> Sepsis Assessment - Evaluation Sepsis screening result: No Definite Risk <Mckenzie Jalloh - 08/19/16 11:37>
[2016-08-19] MEDS: AZITHROMYCIN IV 500 MG in NS 250ml 250 ML IV SCH (17:05)
[2016-08-19] MEDS: ALFUZOSIN ER 10 MG TABLET PO SCH (21:24)
[2016-08-19] MEDS: FINASTERIDE 5 MG TABLET PO SCH (21:24)
[2016-08-19] MEDS: SIMVASTATIN 20 MG TABLET PO SCH (21:25)
[2016-08-20] MEDS: METHYLPREDNISOLONE SOD SUCC 125mg/2ml INJECTION IVP SCH ×4 (00:30→17:39)
[2016-08-20] MEDS: HEPARIN SUB-Q 5,000 UNITS/0.5 ML INJECTION SQ SCH ×3 (01:20→17:39)
[2016-08-20] MEDS: PIPERACILLIN/TAZOBACTAM 2.25 GM in NS 100 ML IV SCH ×4 (02:25→21:30)
[2016-08-20] MEDS: ALBUTEROL/IPRATROPIUM 2.5mg-0.5mg/3ml NEB AEROSOL SCH ×4 (07:25→20:55)
[2016-08-20] MEDS: NON-FORMULARY MEDICATION 1 EACH EACH (Pirfenidone [Esbriet] 801 MG) PO SCH ×3 (09:03→19:00)
[2016-08-20] MEDS: MULTI-VITAMIN PLAIN TABLET PO SCH (09:03)
[2016-08-20] MEDS: SALINE FLUSH 10ml SYRINGE IVF PRN (13:04)
--- NOTE | 2016-08-20 14:23 | Progress Note ---
Subjective: Pt appears to be more dyspneic today. He was being fed, with a NC and face mask - Sats in the mid 70's. He is awake alert and coversant. Objective Vital signs: Temperature 98.8 F 08/20/16 10:18 Pulse Rate 53 L 08/20/16 10:15 Respiratory Rate 32 H 08/20/16 11:33 Blood Pressure 154/68 H 08/20/16 10:00 Pulse Oximetry 97 08/20/16 11:33 Oxygen Delivery Method High Flow Nasal Cannula Oxygen Flow Rate 15 Fraction of Inspired Oxygen 50 SaO2/FiO2 Ratio 142 Rhythm: Normal Sinus Rhythm Cardiac Ectopy: Rare PVC's Weight: 77.7 kg - Constitutional Present: moderate distress - Routine HEENT Exam Head: Present: normocephalic, atraumatic Eye: Present: EOMI, PERRL - Routine Respiratory Exam Present: accessory muscle use, dyspnea, crackles - Routine Cardiovascular Exam Present: RRR, no murmur - Routine Abdominal Exam Present: soft, non distended, non tender - Routine Extremities Exam Present: cyanosis, edema. Absent: clubbing - Routine Skin Exam Present: intact - Routine Neurological Exam Present: alert, oriented X3 - Routine Psychiatric Exam Present: normal affect, good insight, good judgment Results - Labs CBC & Chem 7: 08/19/16 05:13 08/19/16 05:13 Assessment and Plan (1) Pulmonary edema Current visit: Yes Status: Acute (2) Severe sepsis Current visit: Yes Status: Acute (3) Acute respiratory failure Problem details: Acute hypoxic respiratory failure Current visit: Yes Status : Acute (4) Acute encephalopathy Current visit: Yes Status: Acute (5) Diastolic CHF, acute on chronic Current visit: Yes Status: Acute (6) Elevated serum creatinine Problem details: Baseline creatinine 1.1-1.3 per outpatient records Current visit: Yes Status: Acute (7) Elevated troponin Current visit: Yes Status: Resolved (8) Anemia Current visit: Yes Status: Acute (9) CKD (chronic kidney disease) stage 3, GFR 30-59 ml/min Current visit: Yes Status: Chronic (10) CAD (coronary artery disease) Current visit: Yes Status: Chronic (11) Pulmonary fibrosis Current visit: Yes Status: Chronic (12) Pulmonary hypertension Current visit: Yes Status: Chronic Assessment and Plan: Summary - This is an 80 YO with IPF, that came due to SOB and has been slowly improving on the ICU. He had a recent high-resolution CT of the lungs that showed advanced pulmonary fibrosis with changes primarily in the mid and lower lung marinelli. Pt has advanced IPF + Pulmonary HTN, CHF (Systolic and diastolic), and presented with renal failure, on admission. The patient's managing supervisor instrument mechanics and voltage tester both felt hospice care may need to be considered and that prior to decompensation the patient was approaching hospice; Family indicated awareness of this status as well. He had an episode of acute decompensation (Shortness of breath -desaturation - on 08/17) probably due to ischemia and/or bronchospasm. Pt was managed with IV morphine and SL NTG + Duonebs, with improved status, Overall had a better dayon 08/18 and continues to stablize on 08/19. His BB was changed from Atenolol to Metoprolol on 08/18. He remains in the ICU, seems like he is more SOA today. DIAGNOSIS 1) IPF - With superimposed bronchitis/PNA + possible pulmonary edema on admission - improved now. - Pt was placed on BIPAP; he looks a bit better today. - Type II TnI elevation on admission trending down. - Continue pirfenidone - LFT normal (08/18) - SOA it worse today. 2) CARDIOVASCULAR ASSESSMENT A) CONGESTIVE HEART FAILURE - SYSTOLIC (Reduced LVEF) AND DIASTOLIC - CHRONIC + ACUTE - 2-D echo (09/2015) EF of 56%, diastolic dysfunction, and trace MR, trace TR. - New Echo (This admission) EF has decreased now to 40-45%, with bi- atrial dilatation, MR, TR and severe pulmonary HTN with estimated pressure of 80mmHg - Continue Bipap, steroids, BB. - Creatinine 1.5 (08/19) will recheck, if stable will give ACEI/ARB - Once started it is expected for creatinine to go up about 20% B) CAD - no OR - TnI with type II elevation trending down. - Continue ASA - Initial troponin modestly elevated, EKG with anterior T-wave inversion and minor ST depression-appears to be old. C) HTN - Stable D) Hyperlipidemia on Zocor will check CPK levels. E) Severe pulmonary HTN due to fibrosis/hypoxemia. Continue pirfenidone - LFT normal (08/18) 3) Severe sepsis on admission, probably lactate elevation was more due to hypoxemia than infection. - WBC 19.5k (08/19) will recheck. - On admission - Lactic acid high, SIRS criteria, leukocytosis and tachypnea. - Possible superimposed PNA; Started on Rocephin and azithromycin -> changed to Zosyn and Azithro. 4) Acute Renal failure, with an admission creatinine of 2.0 - down to 1.5 (08/19 ) will recheck. - Holding losartan - May resume if creatinine is stable. - CPK - 62 (normal - on 08/19/2016) - Check PSA for completeness. - Fractional excretion of urea ordered (08/18) - Urea in urine still pending () 5) Anemia, most likely ACD + possibly due to CKD. - Check basic anemia workup. 6) Hyponatremia with Na level of 130 (08/19) will recheck. 7) CODE STATUS - DNR - DNI. -DPOA - Tamela -Auto Phone Installer is Dr. Jocy Ko Discussed current situation and plan of care with pt and family. Sepsis Assessment - Evaluation Sepsis screening result: No Definite Risk Hospital Course Summary Disclaimer: The visit summary below is not to be considered part of the above Progress Note. Hospital Course: 08/16/16 17:50 Admit to inpatient status under the hospitalist service. Acute respiratory failure requiring BiPAP secondary to severe pulmonary edema superimposed on progressive idiopathic pulmonary fibrosis; diastolic CHF -Continue BiPAP -Bumex 1 mg IV now, likely will need further diuresis -Repeat echocardiogram. Last echocardiogram was done September 2015 showing an EF of 56%, diastolic dysfunction, and trace MR, trace TR. Pulmonary pressures were unable to be estimated. -trend troponin -baseline oxygen about 4L -Auto Phone Installer is Dr. Jocy Ko -continue pirfenidone -repeat CXR in am Severe sepsis (possible), based on lactic acidosis and respiratory failure; also with SIRS criteria including leukocytosis and tachypnea -Repeat lactate improved to 0.9 -lactic acidosis could be secondary to profound hypoxia rather than infectious cause -however, cannot rule out pneumonia -Start Rocephin and azithromycin -repeat PCT in am Elevated creatinine -Hold losartan Elevated LFTs -Hold Tylenol and statin -poss liver congestion from CHF Acute encephalopathy -likely from hypoxia -much improved with BiPAP Weakness -Will need PT/OT evaluation once medical condition stabilizes CAD, HTN, HLD -cont ASA, atenolol -hold statin d/t elevated LFTs Advanced directives -DPOA - Tamela -DNR, DNI requested following discussion of resuscitation and expected outcomes. Family in agreement. Pt is critically ill, and >30 minutes were spent at the bedside evaluating the patient and discussing plans. Discussed with Dr. Evans. 08/18/16 Change Atenolol to Metoprolol 25mg BID
[2016-08-20] MEDS: ASPIRIN *EC* 81 MG TABLET PO SCH (16:36)
[2016-08-20] MEDS: AZITHROMYCIN IV 500 MG in NS 250ml 250 ML IV SCH (19:43)
[2016-08-20] MEDS: ALFUZOSIN ER 10 MG TABLET PO SCH (21:08)
[2016-08-20] MEDS: FINASTERIDE 5 MG TABLET PO SCH (21:08)
[2016-08-20] MEDS: SIMVASTATIN 20 MG TABLET PO SCH (21:08)
[2016-08-20] MEDS: FUROSEMIDE 40 MG/4 ML INJECTION IVP SCH ×2 (21:08→21:23)
[2016-08-20] MEDS: ACETAMINOPHEN 325 MG TABLET PO PRN (22:28)
[2016-08-21] MEDS: METHYLPREDNISOLONE SOD SUCC 125mg/2ml INJECTION IVP SCH ×5 (00:01→23:26)
[2016-08-21] MEDS: PIPERACILLIN/TAZOBACTAM 2.25 GM in NS 100 ML IV SCH ×4 (02:06→20:10)
[2016-08-21] MEDS ORDERED: GLUCOSE ORAL GEL 40% 37.5gm PO PRN (07:50)
[2016-08-21] MEDS ORDERED: DEXTROSE 50% SYRINGE 50ml (1 AMP) IVP PRN (07:50)
[2016-08-21] MEDS: MULTI-VITAMIN PLAIN TABLET PO SCH (08:20)
[2016-08-21] MEDS: NON-FORMULARY MEDICATION 1 EACH EACH (Pirfenidone [Esbriet] 801 MG) PO SCH ×3 (08:20→18:30)
[2016-08-21] MEDS: FUROSEMIDE 40 MG/4 ML INJECTION IVP SCH ×2 (08:21→21:31)
[2016-08-21] MEDS: HEPARIN SUB-Q 5,000 UNITS/0.5 ML INJECTION SQ SCH ×3 (08:37→16:51)
[2016-08-21] MEDS: LOSARTAN 50 MG TABLET PO SCH (09:06)
[2016-08-21] MEDS: ALBUTEROL/IPRATROPIUM 2.5mg-0.5mg/3ml NEB AEROSOL SCH ×4 (09:13→20:36)
--- NOTE | 2016-08-21 09:47 | Progress Note ---
Subjective: Pt looks much more comfortable today. His HR is in the mid 80's. He is back to a nasal canula. Tolerating PO well, conversant, orineted x 3, coherent. Objective Vital signs: Temperature 98.8 F 08/20/16 10:18 Pulse Rate 45 L 08/21/16 06:01 Respiratory Rate 29 H 08/21/16 09:16 Blood Pressure 187/82 H 08/21/16 06:01 Pulse Oximetry 96 08/21/16 09:16 Oxygen Delivery Method BiPAP Oxygen Flow Rate 15 Fraction of Inspired Oxygen 60 SaO2/FiO2 Ratio 142 Rhythm: Normal Sinus Rhythm Cardiac Ectopy: Rare PVC's Weight: 77.7 kg - Constitutional Present: mild distress - Routine HEENT Exam Head: Present: normocephalic, atraumatic Eye: Present: EOMI, PERRL - Routine Respiratory Exam Present: dyspnea Comments: Dyspnea is MUCH less than yesterday - Routine Cardiovascular Exam Present: RRR, no murmur - Routine Abdominal Exam Present: soft, non distended, non tender - Routine Extremities Exam Present: edema. Absent: cyanosis, clubbing - Routine Skin Exam Present: intact - Routine Neurological Exam Present: alert, oriented X3, CN II-XII intact - Routine Psychiatric Exam Present: normal affect, good insight, good judgment Results - Labs CBC & Chem 7: 08/20/16 14:51 08/20/16 14:51 Assessment and Plan (1) Pulmonary edema Current visit: Yes Status: Acute (2) Severe sepsis Current visit: Yes Status: Acute (3) Acute respiratory failure Problem details: Acute hypoxic respiratory failure Current visit: Yes Status : Acute (4) Acute encephalopathy Current visit: Yes Status: Acute (5) Diastolic CHF, acute on chronic Current visit: Yes Status: Acute (6) Elevated serum creatinine Problem details: Baseline creatinine 1.1-1.3 per outpatient records Current visit: Yes Status: Acute (7) Elevated troponin Current visit: Yes Status: Resolved (8) Anemia Current visit: Yes Status: Acute (9) CKD (chronic kidney disease) stage 3, GFR 30-59 ml/min Current visit: Yes Status: Chronic (10) CAD (coronary artery disease) Current visit: Yes Status: Chronic (11) Pulmonary fibrosis Current visit: Yes Status: Chronic (12) Pulmonary hypertension Current visit: Yes Status: Chronic Assessment and Plan: Summary - This is an 80 YO with IPF, that came due to SOB and has been slowly improving on the ICU. He had a recent high-resolution CT of the lungs that showed advanced pulmonary fibrosis with changes primarily in the mid and lower lung marinelli. Pt has advanced IPF + Pulmonary HTN, CHF (Systolic and diastolic), and presented with renal failure, on admission. 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 He had an episode of acute decompensation (Shortness of breath -desaturation - on 08/17) probably due to ischemia and/or bronchospasm. Pt was managed with IV morphine and SL NTG + Duonebs, with improved status, Overall had a better dayon 08/18 and continues to stablize on 08/19. His BB was changed from Atenolol to Metoprolol on 08/18. He has not been receiving metoprolol due to his HR dropping to the 40's. Much improved today, will discuss with cardiology if we can D/C BB (consider maybe entresto ?) DIAGNOSIS 1) IPF - With superimposed bronchitis/PNA + possible pulmonary edema on admission - improved now, less dyspnea. - Much better today, off BIPAP. - Type II TnI elevation on admission trending down. - Continue pirfenidone - LFT normal (08/18) - SOA is improved today. - Will start TAPERING IV steroids. 2) CARDIOVASCULAR ASSESSMENT A) CONGESTIVE HEART FAILURE - SYSTOLIC (Reduced LVEF) AND DIASTOLIC - CHRONIC + ACUTE - This is a special case of CHF as this pt has IPF with minimal pulmonary reserve. His HR was in the 40's initially. He needs to be able to have a higher HR when he is very hypoxemic to compensate. His BB was changed from Atenolol to Metoprolol as he had an episode of severe dyspnea that could have been due to bronchospasm. His Metoprolol was written with parameters and he has not received any. I have resumed his ARB today. I want cardiology to consider stopping the BB - and consider Entresto ? maybe. I checked and BB with [facility] apparently don't work for CHF. - 2-D echo (09/2015) EF of 56%, diastolic dysfunction, and trace MR, trace TR. - New Echo (This admission) EF has decreased now to 40-45%, with bi- atrial dilatation, MR, TR and severe pulmonary HTN with estimated pressure of 80mmHg - Continue Bipap, steroids. BB have been on hold since 08/18 due to bradycardia. - I have resumed Losartan today (Cr stable x 2 days) BP a bit up. B) CAD - no [place] - TnI with type II elevation trending down. - Continue ASA - Initial troponin modestly elevated, EKG with anterior T-wave inversion and minor ST depression-appears to be old. C) HTN - BP high today - will start ARB. D) Hyperlipidemia on Zocor - CPK was normal. E) Severe pulmonary HTN due to fibrosis/hypoxemia. 3) Acute Renal failure, with an admission creatinine of 2.0 - down to 1.5 (08/19 ) will recheck. - Resume Losartan (08/21) at a lower dose (50mg/day) - Creatinine is 1.3 today - may expect Creatinine to go up close to 2 over the next several days. - CPK - 62 (normal - on 08/19/2016) - Check PSA for completeness. - Fractional excretion of urea ordered (08/18) - Urea in urine still pending () 4) Severe sepsis on admission, probably lactate elevation was more due to hypoxemia than infection. RESOLVED. - WBC 19.5k (08/19) now is 19.3, will stat tapering IV steroids. - On admission - Lactic acid high, SIRS criteria, leukocytosis and tachypnea. - Possible superimposed PNA; Started on Rocephin and azithromycin -> changed to Zosyn and Azithro. 5) Anemia, most likely ACD + possibly due to CKD. - Check basic anemia workup. 6) Hyponatremia with Na level of 130 (08/19) and 130 (08/21) Stable. 7) CODE STATUS - DNR - DNI. -CARLOS Rapp -Triage Assistant is Dr. Jocy Ko Discussed current situation and plan of care with pt and family. Sepsis Assessment - Evaluation Sepsis screening result: No Definite Risk Hospital Course Summary Disclaimer: The visit summary below is not to be considered part of the above Progress Note. Hospital Course: 08/16/16 17:50 Admit to inpatient status under the hospitalist service. Acute respiratory failure requiring BiPAP secondary to severe pulmonary edema superimposed on progressive idiopathic pulmonary fibrosis; diastolic CHF -Continue BiPAP -Bumex 1 mg IV now, likely will need further diuresis -Repeat echocardiogram. Last echocardiogram was done September 2015 showing an EF of 56%, diastolic dysfunction, and trace MR, trace TR. Pulmonary pressures were unable to be estimated. -trend troponin -baseline oxygen about 4L -Triage Assistant is Dr. Jocy Ko -continue pirfenidone -repeat CXR in am Severe sepsis (possible), based on lactic acidosis and respiratory failure; also with SIRS criteria including leukocytosis and tachypnea -Repeat lactate improved to 0.9 -lactic acidosis could be secondary to profound hypoxia rather than infectious cause -however, cannot rule out pneumonia -Start Rocephin and azithromycin -repeat PCT in am Elevated creatinine -Hold losartan Elevated LFTs -Hold Tylenol and statin -poss liver congestion from CHF Acute encephalopathy -likely from hypoxia -much improved with BiPAP Weakness -Will need PT/OT evaluation once medical condition stabilizes CAD, HTN, HLD -cont ASA, atenolol -hold statin d/t elevated LFTs Advanced directives -DPOA - Tamela -DNR, DNI requested following discussion of resuscitation and expected outcomes. Family in agreement. Pt is critically ill, and >30 minutes were spent at the bedside evaluating the patient and discussing plans. Discussed with Dr. Evans. 08/18/16 Change Atenolol to Metoprolol 25mg BID
[2016-08-21] MEDS: INSULIN ASPART 100unit/ml INJECTION SQ PRN ×3 (11:24→20:15)
[2016-08-21] MEDS: ASPIRIN *EC* 81 MG TABLET PO SCH (11:25)
[2016-08-21] MEDS: MORPHINE SULFATE 2 MG SYRINGE IVP PRN ×3 (12:26→21:31)
[2016-08-21] MEDS: AZITHROMYCIN IV 500 MG in NS 250ml 250 ML IV SCH (17:10)
[2016-08-21] MEDS: NS FLUSH BAG 500ml IV PRN (20:11)
[2016-08-21] MEDS: SALINE FLUSH 10ml SYRINGE IVF PRN (20:12)
[2016-08-21] MEDS: ALFUZOSIN ER 10 MG TABLET PO SCH (21:30)
[2016-08-21] MEDS: FINASTERIDE 5 MG TABLET PO SCH (21:30)
[2016-08-21] MEDS: ACETAMINOPHEN 325 MG TABLET PO PRN (21:30)
[2016-08-21] MEDS: SIMVASTATIN 20 MG TABLET PO SCH (21:30)
[2016-08-22] MEDS: HEPARIN SUB-Q 5,000 UNITS/0.5 ML INJECTION SQ SCH ×3 (01:42→17:46)
[2016-08-22] MEDS: PIPERACILLIN/TAZOBACTAM 2.25 GM in NS 100 ML IV SCH ×4 (01:42→20:50)
[2016-08-22] MEDS ORDERED: AMLODIPINE 5 MG TABLET PO PRN ×2 (03:13→06:30)
[2016-08-22] MEDS ORDERED: HYDRALAZINE 25 MG TABLET PO ONE (05:12)
[2016-08-22] MEDS: METHYLPREDNISOLONE SOD SUCC 125mg/2ml INJECTION IVP SCH (05:22)
[2016-08-22] MEDS: ALBUTEROL/IPRATROPIUM 2.5mg-0.5mg/3ml NEB AEROSOL SCH ×4 (08:03→20:17)
[2016-08-22] MEDS: NON-FORMULARY MEDICATION 1 EACH EACH (Pirfenidone [Esbriet] 801 MG) PO SCH ×3 (08:15→17:47)
[2016-08-22] MEDS: ASPIRIN *EC* 81 MG TABLET PO SCH (08:34)
[2016-08-22] MEDS: MULTI-VITAMIN PLAIN TABLET PO SCH (08:34)
[2016-08-22] MEDS: LOSARTAN 50 MG TABLET PO SCH (08:34)
[2016-08-22] MEDS: FUROSEMIDE 40 MG/4 ML INJECTION IVP SCH ×2 (08:35→21:14)
--- NOTE | 2016-08-22 09:14 | Cardiology Progress Note ---
Subjective Principal diagnosis: dyspnea <JatintammyClaudia rios L - 08/22/16 09:47> Interval history: Mr. Gonzalez is resting comfortably in bed after breakfast, conversing with ease through Hi flow mask. He denies chest pain, reports tightness associated with air hunger. Spoke with Dr. Camara, he requests managing heart rate to target 70 due to fibrotic nature of his lungs to improve cardiac output. Pt had been on home atenolol, then changed to metoprolol for a cardiac selective BB after an episode of possible bronchospasm. Losartan restarted yesterday, metoprolol was held over the weekend but dose given this am. <UrbanoDianneClaudia L - 08/22/16 09:47> Exam Vital signs: Temperature 95.7 F L 08/28/16 07:52 Pulse Rate 84 08/28/16 07:52 Respiratory Rate 27 H 08/28/16 08:01 Blood Pressure 136/69 08/28/16 07:52 Pulse Oximetry 100 08/28/16 08:01 Oxygen Delivery Method BiPAP Oxygen Flow Rate 11 Fraction of Inspired Oxygen 45 SaO2/FiO2 Ratio 186 <Beni Langston - 08/28/16 11:14> Temperature 98.4 F 08/22/16 04:00 Pulse Rate 72 08/22/16 06:01 Respiratory Rate 27 H 08/22/16 08:03 Blood Pressure 157/72 H 08/22/16 06:01 Pulse Oximetry 93 08/22/16 08:03 Oxygen Delivery Method High Flow Nasal Cannula Oxygen Flow Rate 15 Fraction of Inspired Oxygen 60 SaO2/FiO2 Ratio 142 <UrbanoClaudia L - 08/22/16 09:47> Narrative: TELE sinus, sinus oz, frequent PVC's <JatintammyDianne riosca L - 08/22/16 09:47> - Constitutional no acute distress, cooperative <UrbanoClaudia L - 08/22/16 09:47> - Routine HEENT Exam Head: Present: normocephalic <UrbanoClaudia L - 08/22/16 09:47> Eye: Present: PERRL, conjunctivae pink <Claudia Clement - 08/22/16 09:47> ENT: Present: mucous membranes moist <Claudia Clement - 08/22/16 09:47> - Routine Neck Exam Absent: JVD, carotid bruit <Dianne Clementca L - 08/22/16 09:47> - Routine Respiratory Exam Present: decreased breath sounds <Dianne Clementca L - 08/22/16 09:47> - Routine Cardiovascular Exam Present: murmur (II/IV), bradycardia <Dianne Clementca L - 08/22/16 09:47> - Routine Abdominal Exam Present: normoactive bowel sounds <Dianne Clementca L - 08/22/16 09:47> - Routine Extremities Exam Present: edema (1+pitting), pulses intact <Dianne Clementca L - 08/22/16 09:47> - Routine Skin Exam Present: intact <Dianne Clementca L - 08/22/16 09:47> - Routine Neurological Exam Present: alert, oriented X3 <Dianne Clementca L - 08/22/16 09:47> - Routine Psychiatric Exam Present: normal affect <Dianne Clementca L - 08/22/16 09:47> - Urinary Catheter Management Urethral Cath placed during this visit: no <Beni Langston - 08/28/16 11:14> yes <Dianne Clementca L - 08/22/16 09:47> Urethral indwelling: Yes <Dianne Clementca L - 08/22/16 09:47> Reason for continuing: Straight Catheter - not indwelling <Dianne Clementca L - 08/22/16 09:47> Insertion date: 08/16/16 <Nancy Clementecca L - 08/22/16 09:47> Insertion time: 16:45 <UrbanoCluadia L - 08/22/16 09:47> Hospital Course This is a general summary of the patient's hospital course. For more details refer to the complete medical record. <NancyisaíasgabrielBeni - 08/28/16 11:14> This is a general summary of the patient's hospital course. For more details refer to the complete medical record. <UrbanoDianneClaudia L - 08/22/16 09:47> Hospital course: 08/16/16 17:50 Admit to inpatient status under the hospitalist service. Acute respiratory failure requiring BiPAP secondary to severe pulmonary edema superimposed on progressive idiopathic pulmonary fibrosis; diastolic CHF -Continue BiPAP -Bumex 1 mg IV now, likely will need further diuresis -Repeat echocardiogram. Last echocardiogram was done September 2015 showing an EF of 56%, diastolic dysfunction, and trace MR, trace TR. Pulmonary pressures were unable to be estimated. -trend troponin -baseline oxygen about 4L -[employer] is Dr. Jocy Ko -continue pirfenidone -repeat CXR in am Severe sepsis (possible), based on lactic acidosis and respiratory failure; also with SIRS criteria including leukocytosis and tachypnea -Repeat lactate improved to 0.9 -lactic acidosis could be secondary to profound hypoxia rather than infectious cause -however, cannot rule out pneumonia -Start Rocephin and azithromycin -repeat PCT in am Elevated creatinine -Hold losartan Elevated LFTs -Hold Tylenol and statin -poss liver congestion from CHF Acute encephalopathy -likely from hypoxia -much improved with BiPAP Weakness -Will need PT/OT evaluation once medical condition stabilizes CAD, HTN, HLD -cont ASA, atenolol -hold statin d/t elevated LFTs Advanced directives -DPOA - Tamela -DNR, DNI requested following discussion of resuscitation and expected outcomes. Family in agreement. Pt is critically ill, and >30 minutes were spent at the bedside evaluating the patient and discussing plans. Discussed with Dr. Evans. 08/18/16 Change Atenolol to Metoprolol 25mg BID <Claudia Clement - 08/22/16 09:47> Time spent with patient: less than 15 minutes <Claudia Clement - 08/22/16 09: 47> DVT Prophylaxis: SCD's <Claudia Clement - 08/22/16 09:47> Progress Note-A&P (1) Severe sepsis Status: Resolved Current Visit: Yes (2) Elevated troponin Status: Resolved Current Visit: Yes (3) CAD (coronary artery disease) Status: Chronic Current Visit: Yes (4) Pulmonary fibrosis Status: Chronic Current Visit: Yes (5) Pulmonary hypertension Status: Chronic Current Visit: Yes (6) Hypertension Status: Acute Current Visit: Yes (7) Bradycardia Status: Resolved Current Visit: Yes <Beni Langston - 08/28/16 11:14> (1) Severe sepsis Status: Acute Assessment and plan: per attending Current Visit: Yes (2) Elevated troponin Status: Resolved Assessment and plan: trending down, will recheck today Current Visit: Yes (3) CAD (coronary artery disease) Status: Chronic Assessment and plan: risk management, ASA, statin. Monitor for chest pain. Current Visit: Yes (4) Pulmonary fibrosis Status: Chronic Current Visit: Yes (5) Pulmonary hypertension Status: Chronic Assessment and plan: EF 40% on echo, Pa pressures show severe pulm HTN 75-80mmHg Current Visit: Yes (6) Hypertension Status: Acute Assessment and plan: BP elevated over the weekend with metoprolol hold by primary due to bradycardia. He has prn amlodipine 5mg for sbp>180. Received a one time dose of hydralazine IV this am, bp systolic 130's right now. Loartan restarted, cr stable at 1.6. Will follow, discussed nitrates as a treatment option. Current Visit: Yes (7) Bradycardia Status: Acute Assessment and plan: home atenolol dc'd monday, metoprolol 25mg bid ordered, held by primary team over weekend. Dose give this am, will follow tele trends. Consider 12.5mg bid dosing if bradycardia persists. Current Visit: Yes <Claudia Clement - 08/22/16 09:08> - Time Spent With Patient Total time spent is greater than 50% in coordination of care (as documented) at patient's floor/unit and/or counseling patient: <Beni Langston - 08/28/16 11:14> Total time spent is greater than 50% in coordination of care (as documented) at patient's floor/unit and/or counseling patient: <Claudia Clement - 08/22/16 09:47> less than 15 minutes <Claudia Clement - 08/22/16 09:47> - Attestation Attestation Narrative: Recommendation After examining the patient I agree with the above assessment. I am involved in the formulation of the patient's plan of care. <Beni Langston - 08/28/16 11:14> Sepsis Assessment - Evaluation Sepsis screening result: No Definite Risk <Claudia Clement - 08/22/16 09:47>
--- NOTE | 2016-08-22 10:30 | Progress Note ---
Subjective: Pt looked very stable this AM, was up in bed on NC with normal VSS chatting. Reported a good night. HR was in the 80's. He recieved his ARB and BB. Objective Vital signs: Temperature 98.4 F 08/22/16 08:00 Pulse Rate 65 08/22/16 08:00 Respiratory Rate 27 H 08/22/16 08:03 Blood Pressure 193/84 H 08/22/16 08:00 Pulse Oximetry 93 08/22/16 08:03 Oxygen Delivery Method Nasal Cannula Oxygen Flow Rate 15 Fraction of Inspired Oxygen 60 SaO2/FiO2 Ratio 142 Rhythm: Normal Sinus Rhythm Weight: 75.9 kg - Constitutional Present: no acute distress - Routine HEENT Exam Head: Present: normocephalic, atraumatic Eye: Present: EOMI, PERRL - Routine Respiratory Exam Present: diminished air movement - Routine Cardiovascular Exam Present: RRR - Routine Extremities Exam Present: edema. Absent: cyanosis, clubbing - Routine Neurological Exam Present: alert, oriented X3, CN II-XII intact - Routine Psychiatric Exam Present: normal affect, good insight, good judgment Results - Labs CBC & Chem 7: 08/22/16 07:39 08/22/16 07:39 Assessment and Plan (1) Pulmonary edema Current visit: Yes Status: Acute (2) Severe sepsis Current visit: Yes Status: Acute (3) Acute respiratory failure Problem details: Acute hypoxic respiratory failure Current visit: Yes Status : Acute (4) Acute encephalopathy Current visit: Yes Status: Acute (5) Diastolic CHF, acute on chronic Current visit: Yes Status: Acute (6) Elevated serum creatinine Problem details: Baseline creatinine 1.1-1.3 per outpatient records Current visit: Yes Status: Acute (7) Elevated troponin Current visit: Yes Status: Resolved (8) Anemia Current visit: Yes Status: Acute (9) CKD (chronic kidney disease) stage 3, GFR 30-59 ml/min Current visit: Yes Status: Chronic (10) CAD (coronary artery disease) Current visit: Yes Status: Chronic (11) Pulmonary fibrosis Current visit: Yes Status: Chronic (12) Pulmonary hypertension Current visit: Yes Status: Chronic Assessment and Plan: Summary - This is an 80 YO with IPF, that came due to SOB and has been slowly improving on the ICU. He had a recent high-resolution CT of the lungs that showed advanced pulmonary fibrosis with changes primarily in the mid and lower lung marinelli. Pt has advanced IPF + Pulmonary HTN, CHF (Systolic and diastolic), and presented with renal failure, on admission. He had an episode of acute decompensation (Shortness of breath -desaturation - on 08/17) probably due to hypoxemia; this could have been triggerd bronchospasm or mucus plugging. Pt was managed with IV morphine and SL NTG + Duonebs, with improved status. His BB was changed from Atenolol to Metoprolol on 08/18. He was off BB since 08/18 due to low HR, today HR was higher and it was resumed. I have discussed with cardiology about trying to decrease BB as much as possible, pt needs to be able to increase his HR when his sats drop, since his pulmonary reserve is near non- existent. On admission there was discussion about hospice, pt is a DNR/DNI, but has not been placed on Hospice yes. DIAGNOSIS 1) IPF - With superimposed bronchitis/PNA + possible pulmonary edema on admission - improved now, less dyspnea. - Much better today, off BIPAP. - Type II TnI elevation on admission trending down. - Continue pirfenidone - LFT normal (08/18) - Will recheck. - SOA is improved today. - Will taper IV steroids. 2) CARDIOVASCULAR ASSESSMENT A) CONGESTIVE HEART FAILURE - SYSTOLIC (Reduced LVEF) AND DIASTOLIC - CHRONIC + ACUTE - 2-D echo (09/2015) EF of 56%, diastolic dysfunction, and trace MR, trace TR. - New Echo (This admission) EF has decreased now to 40-45%, with bi- atrial dilatation, MR, TR and severe pulmonary HTN with estimated pressure of 80mmHg - Continue Bipap, Steroid - will start tapering (08/22) - Losartan resumed (08/21) - sCr - 1.3 (08/21); sCr - 1.5 (08/22) - Hydralazine added on 08/22 for better BP control. B) CAD - no [place] - TnI with type II elevation trending down. - Continue ASA - Initial troponin modestly elevated, EKG with anterior T-wave inversion and minor ST depression-appears to be old. C) HTN - BP control a bit erratic could be due to episodes of hypoxemia - with release of adrenaline (acute stress) D) Hyperlipidemia on Zocor - CPK was normal. E) Severe pulmonary HTN due to fibrosis/hypoxemia. 3) Anemia, most likely ACD + possibly due to CKD. - Check basic anemia workup (ORDERED/PENDING) 4) RESOLVED/MONITORING - Acute Renal failure, with an admission creatinine of 2.0 - > 1.5 (08/19) -> 1.3 (08/21) - resumed ARB (08/21) - Resume Losartan (08/21) at a lower dose (50mg/day) - Creatinine is 1.5 today - may expect Creatinine to go up close to 2 over the next several days. - CPK - 62 (normal - on 08/19/2016) - Fractional excretion of urea ordered (08/18) - Urea in urine still pending ( 08/19) 5) RESOLVED - Severe sepsis on admission, probably lactate elevation was more due to hypoxemia than infection. Blood cultures x 2 negative, sputum culture - normal calin. WBC fluctuating above 15K probably due to streoids will start weaning off steroids and observe. - WBC 19.5k (08/19) now is 24k, will stat tapering IV steroids. - On admission - Lactic acid high, SIRS criteria, leukocytosis and tachypnea. - Possible superimposed PNA; Started on Rocephin and azithromycin -> then changed to - - Zosyn day # 6 will stop tomorrow. - Azithro day # 7 STOPPED. 6) RESOLVED - Hyponatremia with Na level of 130 (08/19) and 130 (08/21) - NORMAL () 7) CODE STATUS - DNR - DNI. -DPOA - Tamela -Blade Groover is Dr. Jocy Ko Discussed current situation and plan of care with pt and family. Sepsis Assessment - Evaluation Sepsis screening result: No Definite Risk Hospital Course Summary Disclaimer: The visit summary below is not to be considered part of the above Progress Note. Hospital Course: 08/16/16 17:50 Admit to inpatient status under the hospitalist service. Acute respiratory failure requiring BiPAP secondary to severe pulmonary edema superimposed on progressive idiopathic pulmonary fibrosis; diastolic CHF -Continue BiPAP -Bumex 1 mg IV now, likely will need further diuresis -Repeat echocardiogram. Last echocardiogram was done September 2015 showing an EF of 56%, diastolic dysfunction, and trace MR, trace TR. Pulmonary pressures were unable to be estimated. -trend troponin -baseline oxygen about 4L -Blade Groover is Dr. Jocy Ko -continue pirfenidone -repeat CXR in am Severe sepsis (possible), based on lactic acidosis and respiratory failure; also with SIRS criteria including leukocytosis and tachypnea -Repeat lactate improved to 0.9 -lactic acidosis could be secondary to profound hypoxia rather than infectious cause -however, cannot rule out pneumonia -Start Rocephin and azithromycin -repeat PCT in am Elevated creatinine -Hold losartan Elevated LFTs -Hold Tylenol and statin -poss liver congestion from CHF Acute encephalopathy -likely from hypoxia -much improved with BiPAP Weakness -Will need PT/OT evaluation once medical condition stabilizes CAD, HTN, HLD -cont ASA, atenolol -hold statin d/t elevated LFTs Advanced directives -DPOA - Tamela -DNR, DNI requested following discussion of resuscitation and expected outcomes. Family in agreement. Pt is critically ill, and >30 minutes were spent at the bedside evaluating the patient and discussing plans. Discussed with Dr. Evans. 08/18/16 Change Atenolol to Metoprolol 25mg BID
[2016-08-22] MEDS ORDERED: POTASSIUM CHLORIDE 20 MEQ/15 ML ORAL LIQUID PO SCH ×2 (10:52→17:30)
[2016-08-22] MEDS: METHYLPREDNISOLONE SOD SUCC 40mg/ml INJECTION IVP SCH ×2 (11:02→17:46)
[2016-08-22] MEDS: INSULIN ASPART 100unit/ml INJECTION SQ PRN ×3 (11:12→20:51)
[2016-08-22] MEDS ORDERED: POTASSIUM CHLORIDE 20 MEQ/15 ML ORAL LIQUID PO ONE (17:30)
[2016-08-22] MEDS: NS FLUSH BAG 500ml IV PRN (20:51)
[2016-08-22] MEDS: SALINE FLUSH 10ml SYRINGE IVF PRN (20:52)
[2016-08-22] MEDS: ALFUZOSIN ER 10 MG TABLET PO SCH (21:14)
[2016-08-22] MEDS: SIMVASTATIN 20 MG TABLET PO SCH (21:15)
[2016-08-22] MEDS: FINASTERIDE 5 MG TABLET PO SCH (21:15)
[2016-08-22] MEDS: ACETAMINOPHEN 325 MG TABLET PO PRN (21:49)
[2016-08-23] MEDS: METHYLPREDNISOLONE SOD SUCC 40mg/ml INJECTION IVP SCH ×3 (01:52→20:36)
[2016-08-23] MEDS: HEPARIN SUB-Q 5,000 UNITS/0.5 ML INJECTION SQ SCH ×3 (01:52→19:13)
[2016-08-23] MEDS: PIPERACILLIN/TAZOBACTAM 2.25 GM in NS 100 ML IV SCH ×2 (01:52→07:28)
[2016-08-23] MEDS: INSULIN ASPART 100unit/ml INJECTION SQ PRN ×3 (06:06→14:31)
[2016-08-23] MEDS: ALBUTEROL/IPRATROPIUM 2.5mg-0.5mg/3ml NEB AEROSOL SCH ×2 (07:05→11:11)
[2016-08-23] MEDS: SALINE FLUSH 10ml SYRINGE IVF PRN ×2 (07:29→08:29)
[2016-08-23] MEDS: ASPIRIN *EC* 81 MG TABLET PO SCH (08:22)
[2016-08-23] MEDS: MULTI-VITAMIN PLAIN TABLET PO SCH (08:22)
[2016-08-23] MEDS: LOSARTAN 50 MG TABLET PO SCH (08:22)
[2016-08-23] MEDS: NON-FORMULARY MEDICATION 1 EACH EACH (Pirfenidone [Esbriet] 801 MG) PO SCH ×3 (08:24→19:13)
[2016-08-23] MEDS: FUROSEMIDE 40 MG/4 ML INJECTION IVP SCH ×2 (09:48→20:35)
[2016-08-23] MEDS ORDERED: ALBUTEROL 2.5mg/0.5ml (0.5%) NEB IH SCH (11:15)
--- NOTE | 2016-08-23 11:20 | Progress Note ---
Subjective: Pt remains on Bipap at this time. Otherwise he has been hemodinamically stable. Objective Vital signs: Temperature 97.2 F 08/23/16 08:00 Pulse Rate 92 08/23/16 08:30 Respiratory Rate 37 H 08/23/16 08:30 Blood Pressure 158/72 H 08/23/16 08:00 Pulse Oximetry 90 08/23/16 08:30 Oxygen Delivery Method Nasal Cannula Oxygen Flow Rate 15 Fraction of Inspired Oxygen 50 SaO2/FiO2 Ratio 180 Rhythm: Normal Sinus Rhythm Weight: 74.7 kg - Constitutional Present: mild distress - Routine HEENT Exam Head: Present: normocephalic, atraumatic Eye: Present: EOMI, PERRL - Routine Respiratory Exam Present: CTA bilaterally - Routine Cardiovascular Exam Present: RRR - Routine Abdominal Exam Present: soft, non distended, non tender - Routine Extremities Exam Absent: cyanosis, clubbing, edema - Routine Neurological Exam Present: alert, oriented X3 Results - Labs CBC & Chem 7: 08/22/16 07:39 08/22/16 07:39 Assessment and Plan (1) Pulmonary edema Current visit: Yes Status: Acute (2) Severe sepsis Current visit: Yes Status: Acute (3) Acute respiratory failure Problem details: Acute hypoxic respiratory failure Current visit: Yes Status : Acute (4) Acute encephalopathy Current visit: Yes Status: Acute (5) Diastolic CHF, acute on chronic Current visit: Yes Status: Acute (6) Elevated serum creatinine Problem details: Baseline creatinine 1.1-1.3 per outpatient records Current visit: Yes Status: Acute (7) Elevated troponin Current visit: Yes Status: Resolved (8) Anemia Current visit: Yes Status: Acute (9) CKD (chronic kidney disease) stage 3, GFR 30-59 ml/min Current visit: Yes Status: Chronic (10) CAD (coronary artery disease) Current visit: Yes Status: Chronic (11) Pulmonary fibrosis Current visit: Yes Status: Chronic (12) Pulmonary hypertension Current visit: Yes Status: Chronic Assessment and Plan: Summary - This is an 80 YO with IPF, that came due to SOB and has been slowly improving on the ICU. He had a recent high-resolution CT of the lungs that showed advanced pulmonary fibrosis with changes primarily in the mid and lower lung marinelli. Pt has advanced IPF + Pulmonary HTN, CHF (Systolic and diastolic), and presented with renal failure, on admission. He had an episode of acute decompensation (Shortness of breath -desaturation - on 08/17) probably due to hypoxemia ? of bronchospasm. At that time he was on a non-selective BB that was changed to a selective BB. Pt was managed with IV morphine and SL NTG + Duonebs , with improved status. His BB was changed from Atenolol to Metoprolol on 08/18. He was off BB since 08/18 due to low HR, that was resumed on 08/22. HR was higher and it was resumed. On admission there was discussion about hospice, pt is a DNR /DNI, but has not been placed on Hospice yes. Pt has been stable over the last 72 hrs and will need to go to a facility where he can use a Bipap. Today's labs are pending. DIAGNOSIS 1) IPF - With superimposed bronchitis/PNA + possible pulmonary edema on admission - improved now. Remains with hypoxemia due to his IPF, probably reaching his baseline. - Type II TnI elevation on admission trending down. - Continue pirfenidone - LFT normal (08/18) - Will recheck. - Tapering IV steroids, slowly. - Added Tiotropium (08/23) - Changed Duonebs to Albuterol nebs. 2) CARDIOVASCULAR ASSESSMENT A) CONGESTIVE HEART FAILURE - SYSTOLIC (Reduced LVEF) AND DIASTOLIC - CHRONIC + ACUTE - STABILIZING. - 2-D echo (09/2015) EF of 56%, diastolic dysfunction, and trace MR, trace TR. New Echo (This admission) EF has decreased now to 40-45%, with bi-atrial dilatation, MR, TR and severe pulmonary HTN with estimated pressure of 80mmHg - Continue Bipap, Steroid - will start tapering (08/22) - Losartan resumed (08/21) - sCr - 1.3 (08/21); sCr - 1.5 (08/22) - Hydralazine added on 08/22 for better BP control. - Severe pulmonary HTN due to fibrosis/hypoxemia. B) CAD - no [place] - TnI with type II elevation trending down. - Continue ASA - Initial troponin modestly elevated, EKG with anterior T-wave inversion and minor ST depression-appears to be old. C) HTN - BP control a bit erratic could be due to episodes of hypoxemia - with release of adrenaline (acute stress). Changed Bumex from IV to PO (1mg PO BID) and added HCTZ since BP is better but systolics a bit high. D) Hyperlipidemia on Zocor - CPK was normal. 3) Anemia, most likely ACD + possibly due to CKD. - Check basic anemia workup (ORDERED/PENDING) 4) MONITORING/STABLE - Acute Renal failure, with an admission creatinine of 2.0 - > 1.5 (08/19) -> 1.3 (08/21) - resumed ARB (08/21) -> sCr - 1.5 (08/23) - Resume Losartan (08/21) at a lower dose (50mg/day) - Creatinine is 1.5 today - may expect Creatinine to go up close to 2 over the next several days. - CPK - 62 (normal - on 08/19/2016) 5) RESOLVED - Severe sepsis on admission, probably lactate elevation was more due to hypoxemia than infection. Blood cultures x 2 negative, sputum culture - normal calin. WBC fluctuating above 15K probably due to streoids will start weaning off steroids and observe. - WBC 19.5k (08/19) now is 24k, will stat tapering IV steroids. - On admission - Lactic acid high, SIRS criteria, leukocytosis and tachypnea. - Possible superimposed PNA; Started on Rocephin and azithromycin -> then changed to - - Zosyn day # 7 WILL STOP (08/23) - Azithro day # 7 STOPPED (08/22). 6) RESOLVED - Hyponatremia with Na level of 130 (08/19) and 130 (08/21) - NORMAL () 7) CODE STATUS - DNR - DNI. -DPOA - Tamela -Field Operator is Dr. Jocy Ko Discussed current situation and plan of care with pt and family. Sepsis Assessment - Evaluation Sepsis screening result: No Definite Risk Hospital Course Summary Disclaimer: The visit summary below is not to be considered part of the above Progress Note. Hospital Course: 08/16/16 17:50 Admit to inpatient status under the hospitalist service. Acute respiratory failure requiring BiPAP secondary to severe pulmonary edema superimposed on progressive idiopathic pulmonary fibrosis; diastolic CHF -Continue BiPAP -Bumex 1 mg IV now, likely will need further diuresis -Repeat echocardiogram. Last echocardiogram was done September 2015 showing an EF of 56%, diastolic dysfunction, and trace MR, trace TR. Pulmonary pressures were unable to be estimated. -trend troponin -baseline oxygen about 4L -Field Operator is Dr. Jocy Ko -continue pirfenidone -repeat CXR in am Severe sepsis (possible), based on lactic acidosis and respiratory failure; also with SIRS criteria including leukocytosis and tachypnea -Repeat lactate improved to 0.9 -lactic acidosis could be secondary to profound hypoxia rather than infectious cause -however, cannot rule out pneumonia -Start Rocephin and azithromycin -repeat PCT in am Elevated creatinine -Hold losartan Elevated LFTs -Hold Tylenol and statin -poss liver congestion from CHF Acute encephalopathy -likely from hypoxia -much improved with BiPAP Weakness -Will need PT/OT evaluation once medical condition stabilizes CAD, HTN, HLD -cont ASA, atenolol -hold statin d/t elevated LFTs Advanced directives -DPOA - Tamela -DNR, DNI requested following discussion of resuscitation and expected outcomes. Family in agreement. Pt is critically ill, and >30 minutes were spent at the bedside evaluating the patient and discussing plans. Discussed with Dr. Evans. 08/18/16 Change Atenolol to Metoprolol 25mg BID
[2016-08-23] MEDS: ALBUTEROL 2.5mg/3ml (0.083%) NEB AEROSOL SCH ×3 (11:41→21:03)
[2016-08-23] MEDS: TIOTROPIUM 18mcg/cap HANDIHALER ORAL INH SCH (12:27)
[2016-08-23] MEDS: BUMETANIDE 1 MG TABLET PO SCH (14:37)
[2016-08-23] MEDS: ALFUZOSIN ER 10 MG TABLET PO SCH (21:37)
[2016-08-23] MEDS: SIMVASTATIN 20 MG TABLET PO SCH (21:38)
[2016-08-23] MEDS: FINASTERIDE 5 MG TABLET PO SCH (21:38)
[2016-08-24] MEDS: HEPARIN SUB-Q 5,000 UNITS/0.5 ML INJECTION SQ SCH ×3 (01:11→17:39)
[2016-08-24] MEDS: ALBUTEROL 2.5mg/3ml (0.083%) NEB AEROSOL SCH ×4 (03:53→19:12)
[2016-08-24] MEDS: SALINE FLUSH 10ml SYRINGE IVF PRN ×2 (04:08→08:57)
[2016-08-24] MEDS: INSULIN ASPART 100unit/ml INJECTION SQ PRN ×2 (05:42→14:23)
[2016-08-24] MEDS: NON-FORMULARY MEDICATION 1 EACH EACH (Pirfenidone [Esbriet] 801 MG) PO SCH ×3 (08:55→17:39)
[2016-08-24] MEDS: FUROSEMIDE 40 MG/4 ML INJECTION IVP SCH (08:56)
[2016-08-24] MEDS: BUMETANIDE 1 MG TABLET PO SCH ×2 (08:56→14:23)
[2016-08-24] MEDS: METHYLPREDNISOLONE SOD SUCC 40mg/ml INJECTION IVP SCH (08:56)
[2016-08-24] MEDS: ASPIRIN *EC* 81 MG TABLET PO SCH (08:56)
[2016-08-24] MEDS: MULTI-VITAMIN PLAIN TABLET PO SCH (08:57)
[2016-08-24] MEDS: TIOTROPIUM 18mcg/cap HANDIHALER ORAL INH SCH (09:41)
--- NOTE | 2016-08-24 10:56 | Cardiology Progress Note ---
Subjective Principal diagnosis: dyspnea <Mckenzie Jalloh - 08/24/16 11:02> Interval history: Mr. Gonzalez is sitting up in the recliner after breakfast, has some conversational dyspnea while on 15L/NC. He denies chest pain, reports tightness associated with air hunger. <Mckenzie Jalloh 08/24/16 11:02> Exam Vital signs: Temperature 95.7 F L 08/28/16 07:52 Pulse Rate 84 08/28/16 07:52 Respiratory Rate 27 H 08/28/16 08:01 Blood Pressure 136/69 08/28/16 07:52 Pulse Oximetry 100 08/28/16 08:01 Oxygen Delivery Method BiPAP Oxygen Flow Rate 11 Fraction of Inspired Oxygen 45 SaO2/FiO2 Ratio 186 <KianBeni - 08/28/16 11:18> Temperature 97.8 F 08/24/16 10:00 Pulse Rate 100 08/24/16 10:00 Respiratory Rate 23 08/24/16 10:00 Blood Pressure 111/58 08/24/16 10:00 Pulse Oximetry 89 L 08/24/16 10:00 Oxygen Delivery Method High Flow Nasal Cannula Oxygen Flow Rate 15 Fraction of Inspired Oxygen 50 SaO2/FiO2 Ratio 186 <Mckenzie Jalloh 08/24/16 11:02> - Constitutional no acute distress, cooperative <ShubhamMckenzie lundberg Hyacinth 08/24/16 11:02> - Routine HEENT Exam ENT: Present: mucous membranes moist <ShubhamMckenzie Claros 08/24/16 11:02> - Routine Neck Exam Absent: JVD, carotid bruit <ShubhamMckenzie lundberg Hyacinth 08/24/16 11:02> - Routine Chest/Breast/Axilla Exam Chest wall: Absent: tenderness <ShubhamMckenzie Hyacinth 08/24/16 11:02> - Routine Respiratory Exam Present: dyspnea, decreased breath sounds <Mckenzie Jalloh 08/24/16 11:02> - Routine Cardiovascular Exam Present: RRR, murmur (II/), bradycardia <ShubhamMckenzie lundberg 08/24/16 11:02> - Routine Abdominal Exam Present: soft, normoactive bowel sounds <Mckenzie Jalloh 08/24/16 11:02> - Routine Extremities Exam Present: edema <Mckenzie Jalloh 08/24/16 11:02> - Routine Skin Exam Present: intact <Mckenize Jalloh 08/24/16 11:02> - Routine Neurological Exam Present: alert, oriented X3 <Mckenzie Jalloh 08/24/16 11:02> - Routine Psychiatric Exam Present: normal affect, normal thought process <Mckenzie Jalloh 08/24/16 11: 02> - Urinary Catheter Management Urethral Cath placed during this visit: no <Beni Langston - 08/28/16 11:18> yes <Mckenzie Jalloh - 08/25/16 12:13> Urethral indwelling: Yes <Mckenzie Jalloh 08/24/16 11:02> Reason for continuing: Accurate I&O/Aggressive Diuresis <Mckenzie Jalloh 08/06 12:13> Insertion date: 08/16/16 <Mckenzie Jalloh 08/24/16 11:02> Insertion time: 16:45 <Mckenzie Jalloh 08/24/16 11:02> Hospital Course This is a general summary of the patient's hospital course. For more details refer to the complete medical record. <Beni Langston - 08/28/16 11:18> This is a general summary of the patient's hospital course. For more details refer to the complete medical record. <Mckenzie Jalloh - 08/24/16 11:02> Hospital course: 08/16/16 17:50 Admit to inpatient status under the hospitalist service. Acute respiratory failure requiring BiPAP secondary to severe pulmonary edema superimposed on progressive idiopathic pulmonary fibrosis; diastolic CHF -Continue BiPAP -Bumex 1 mg IV now, likely will need further diuresis -Repeat echocardiogram. Last echocardiogram was done September 2015 showing an EF of 56%, diastolic dysfunction, and trace MR, trace TR. Pulmonary pressures were unable to be estimated. -trend troponin -baseline oxygen about 4L -Technician Automatic is Dr. Jocy Ko -continue pirfenidone -repeat CXR in am Severe sepsis (possible), based on lactic acidosis and respiratory failure; also with SIRS criteria including leukocytosis and tachypnea -Repeat lactate improved to 0.9 -lactic acidosis could be secondary to profound hypoxia rather than infectious cause -however, cannot rule out pneumonia -Start Rocephin and azithromycin -repeat PCT in am Elevated creatinine -Hold losartan Elevated LFTs -Hold Tylenol and statin -poss liver congestion from CHF Acute encephalopathy -likely from hypoxia -much improved with BiPAP Weakness -Will need PT/OT evaluation once medical condition stabilizes CAD, HTN, HLD -cont ASA, atenolol -hold statin d/t elevated LFTs Advanced directives -DPOA - Tamela -DNR, DNI requested following discussion of resuscitation and expected outcomes. Family in agreement. Pt is critically ill, and >30 minutes were spent at the bedside evaluating the patient and discussing plans. Discussed with Dr. Evans. 08/18/16 Change Atenolol to Metoprolol 25mg BID 08/22/16 BP elevated over the weekend with metoprolol hold by primary due to bradycardia. He has prn amlodipine 5mg for sbp>180. Received a one time dose of hydralazine IV this am, bp systolic 130's right now. Loartan restarted, cr stable at 1.6. Will follow, discussed nitrates as a treatment option. 08/24/16 Increase Bumex to 2mg BID, D/C Lasix and HCTZ. Follow renal and electrolytes <Mckenzie Jalloh - 08/24/16 13:49> Progress Note-A&P (1) Severe sepsis Status: Resolved Current Visit: Yes (2) Elevated troponin Status: Resolved Current Visit: Yes (3) CAD (coronary artery disease) Status: Chronic Current Visit: Yes (4) Pulmonary fibrosis Status: Chronic Current Visit: Yes (5) Pulmonary hypertension Status: Chronic Current Visit: Yes (6) Hypertension Status: Acute Current Visit: Yes (7) Bradycardia Status: Resolved Current Visit: Yes <Beni Langston - 08/28/16 11:18> (1) Severe sepsis Status: Resolved Current Visit: Yes (2) Elevated troponin Status: Resolved Current Visit: Yes (3) CAD (coronary artery disease) Status: Chronic Current Visit: Yes (4) Pulmonary fibrosis Status: Chronic Current Visit: Yes (5) Pulmonary hypertension Status: Chronic Current Visit: Yes (6) Hypertension Status: Acute Current Visit: Yes (7) Bradycardia Status: Acute Current Visit: Yes <Mckenzie Jalloh - 08/25/16 12:13> - Time Spent With Patient Total time spent is greater than 50% in coordination of care (as documented) at patient's floor/unit and/or counseling patient: <Beni Langston - 08/28/16 11:18> Total time spent is greater than 50% in coordination of care (as documented) at patient's floor/unit and/or counseling patient: <Mckenzie Jalloh - 08/24/16 11:02> less than 15 minutes <Mckenzie Jalloh - 08/24/16 11:02> - Attestation Attestation Narrative: Recommendation After examining the patient I agree with the above assessment. I am involved in the formulation of the patient's plan of care. <Beni Langston - 08/28/16 11:18> Sepsis Assessment - Evaluation Sepsis screening result: Sepsis Risk <Mckenzie Jalloh - 08/24/16 11:02>
[2016-08-24] MEDS: LOSARTAN 50 MG TABLET PO SCH (12:12)
[2016-08-24] MEDS: NS 1,000 ML IV SCH (17:38)
[2016-08-24] MEDS: PredniSONE 10 MG TABLET PO SCH (17:39)
--- NOTE | 2016-08-24 18:06 | Progress Note ---
Subjective: Pt was seen earlier today and was on Bipap sleeping; he is not up in his bed having his dinner, saturating on the mid to high 80's with his high flow nasal cannula (HR in the high 90's). This is the best I have seen him; yet he remains with high demands for O2 and is requiring CPAP still intermittently. Discussed with family the importance of transfer out to a facility that can take him once he is as stable as he will be - due to risk of infections with MDRO. Family verbalized understanding also, they asked about hospice. I told them it was appropriate but did not make a decision about it. Pt is mentally clear and oriented x 3 Objective Vital signs: Temperature 97.8 F 08/24/16 10:00 Pulse Rate 91 08/24/16 16:00 Respiratory Rate 27 H 08/24/16 16:00 Blood Pressure 122/69 08/24/16 16:00 Pulse Oximetry 94 08/24/16 16:00 Oxygen Delivery Method BiPAP Oxygen Flow Rate 14 Fraction of Inspired Oxygen 45 SaO2/FiO2 Ratio 186 Rhythm: Normal Sinus Rhythm Weight: 71.9 kg - Constitutional Present: no acute distress, mild distress Comments: No distress despite him saturating at 86 % or so. - Routine HEENT Exam Head: Present: normocephalic, atraumatic Eye: Present: EOMI, PERRL - Routine Respiratory Exam Present: dyspnea Comments: Diminished air entry bilaterallly. - Routine Cardiovascular Exam Present: RRR - Routine Abdominal Exam Present: soft, non distended, non tender - Routine Extremities Exam Absent: cyanosis, clubbing, edema - Routine Neurological Exam Present: alert, oriented X3, CN II-XII intact Currently sleeping - Routine Psychiatric Exam Present: normal affect, good insight, good judgment Results - Labs CBC & Chem 7: 08/24/16 16:42 08/24/16 16:42 Assessment and Plan (1) Pulmonary edema Current visit: Yes Status: Acute (2) Severe sepsis Current visit: Yes Status: Resolved (3) Acute respiratory failure Problem details: Acute hypoxic respiratory failure Current visit: Yes Status : Acute (4) Acute encephalopathy Current visit: Yes Status: Acute (5) Diastolic CHF, acute on chronic Current visit: Yes Status: Acute (6) Elevated serum creatinine Problem details: Baseline creatinine 1.1-1.3 per outpatient records Current visit: Yes Status: Acute (7) Elevated troponin Current visit: Yes Status: Resolved (8) Anemia Current visit: Yes Status: Acute (9) CKD (chronic kidney disease) stage 3, GFR 30-59 ml/min Current visit: Yes Status: Chronic (10) CAD (coronary artery disease) Current visit: Yes Status: Chronic (11) Pulmonary fibrosis Current visit: Yes Status: Chronic (12) Pulmonary hypertension Current visit: Yes Status: Chronic Assessment and Plan: Summary - This is an 80 YO with IPF, that came due to SOB and has been slowly improving on the ICU. He had a recent high-resolution CT of the lungs that showed advanced pulmonary fibrosis with changes primarily in the mid and lower lung marinelli. Pt has advanced IPF + Pulmonary HTN, CHF (Systolic and diastolic), and presented with renal failure, on admission. He had an episode of acute decompensation (Shortness of breath -desaturation - on 08/17) probably due to hypoxemia ? of bronchospasm. At that time he was on a non-selective BB that was changed to a selective BB. Pt was managed with IV morphine and SL NTG + Duonebs , with improved status. His BB was changed from Atenolol to Metoprolol on 08/18. He was off BB since 08/18 due to low HR, that was resumed on 08/22. HR was higher and it was resumed. On admission there was discussion about hospice, pt is a DNR /DNI, but has not been placed on Hospice yes. Pt has been a bit better since his BB were stopped, allowing for his oxygen carrying capacity to improve at expense of a higher HR. Labs today show the following Elevated WBC, elevated H/H, elevated BUN, Na is lower. Wt dropped form yesterday 74.7 kg to 71.9 today. Changes are probably due to dehydration with hemoconcentration and leukoconcentration. Will hydrate gently - pt was cultured from blood and his midline. procalcitonin could be high due to recent infection but will get a baseline. If pt BP drops without other signs of infection would increase steroids again first. DIAGNOSIS 1) IPF - With superimposed bronchitis/PNA + possible pulmonary edema on admission - Remains with hypoxemia due to his IPF, probably reaching his baseline. - Type II TnI elevation on admission trending down. - Continue pirfenidone - LFT normal (08/18) - Will recheck. - Tapering IV steroids, slowly -> today to oral prednisone. - Added Tiotropium (08/23) - Changed Duonebs to Albuterol nebs (08/23) - Add Symbicort (08/24) 2) CARDIOVASCULAR ASSESSMENT A) CONGESTIVE HEART FAILURE - SYSTOLIC (Reduced LVEF) AND DIASTOLIC - CHRONIC + ACUTE - STABILIZING. - 2-D echo (09/2015) EF of 56%, diastolic dysfunction, and trace MR, trace TR. New Echo (This admission) EF has decreased now to 40-45%, with bi-atrial dilatation, MR, TR and severe pulmonary HTN with estimated pressure of 80mmHg - Continue Bipap. - Hydralazine added on 08/22 for better BP control. - Severe pulmonary HTN due to fibrosis/hypoxemia. B) CAD - no [place] - TnI with type II elevation trending down. - Continue ASA - Initial troponin modestly elevated, EKG with anterior T-wave inversion and minor ST depression-appears to be old. C) HTN - BP control is good now, pt was overdiuresed - will hold diuretics and resume in tomorrow in the PM if kindey function is stable. D) Hyperlipidemia on Zocor - CPK was normal. 3) Anemia, most likely ACD + possibly due to CKD. - Iron - 95 (N); TIBC 229 (L); Saturation - 41 (N), Ferritin 481 (H) 4) MONITORING/STABLE - Acute Renal failure, with an admission creatinine of 2.0 - > 1.5 (08/19) -> 1.3 (08/21) - resumed ARB (08/21) -> sCr - 1.5 (08/23); 1.6 (08/24) - Resume Losartan (08/21) at a lower dose (50mg/day) creatinine was 1.2 pre- losartan - trending up as expected. - CPK - 62 (normal - on 08/19/2016) 5) RESOLVED - Severe sepsis on admission, probably lactate elevation was more due to hypoxemia than infection. Blood cultures x 2 negative, sputum culture - normal calin. WBC fluctuating above 15K probably due to streoids will start weaning off steroids and observe. - WBC trending up - probably not related to infection but DHT - clinically very stable, last day of antibiotics yesterday. - On admission - Lactic acid high, SIRS criteria, leukocytosis and tachypnea. - Possible superimposed PNA; Started on admission on Rocephin and azithromycin -> then changed to - - Zosyn COMPETED 7 DAYS -> STOPPED (08/23) - Azithro COMPETED 7 DAYS -> STOPPED (08/22) 6) Hyponatremia with Na level of 130 (6/30) and 130 (7/2) - NORMAL (08/22) -> LOW 127 (/) - Hypovolemic hyponatemia due to overdiuresis - likely - Hydrate with NS - 100 cc/hr x 1 liter. - recheck labs in the AM. 7) CODE STATUS - DNR - DNI. -CARLOS - Tamela -Hauling Contractor is Dr. Jocy Ko Discussed current situation and plan of care with pt and family. Sepsis Assessment - Evaluation Sepsis screening result: No Definite Risk Hospital Course Summary Disclaimer: The visit summary below is not to be considered part of the above Progress Note. Hospital Course: 08/16/16 17:50 Admit to inpatient status under the hospitalist service. Acute respiratory failure requiring BiPAP secondary to severe pulmonary edema superimposed on progressive idiopathic pulmonary fibrosis; diastolic CHF -Continue BiPAP -Bumex 1 mg IV now, likely will need further diuresis -Repeat echocardiogram. Last echocardiogram was done September 2015 showing an EF of 56%, diastolic dysfunction, and trace MR, trace TR. Pulmonary pressures were unable to be estimated. -trend troponin -baseline oxygen about 4L -Hauling Contractor is Dr. Jocy Ko -continue pirfenidone -repeat CXR in am Severe sepsis (possible), based on lactic acidosis and respiratory failure; also with SIRS criteria including leukocytosis and tachypnea -Repeat lactate improved to 0.9 -lactic acidosis could be secondary to profound hypoxia rather than infectious cause -however, cannot rule out pneumonia -Start Rocephin and azithromycin -repeat PCT in am Elevated creatinine -Hold losartan Elevated LFTs -Hold Tylenol and statin -poss liver congestion from CHF Acute encephalopathy -likely from hypoxia -much improved with BiPAP Weakness -Will need PT/OT evaluation once medical condition stabilizes CAD, HTN, HLD -cont ASA, atenolol -hold statin d/t elevated LFTs Advanced directives -DPCHARLES - Tamela -DNR, DNI requested following discussion of resuscitation and expected outcomes. Family in agreement. Pt is critically ill, and >30 minutes were spent at the bedside evaluating the patient and discussing plans. Discussed with Dr. Evans. 08/18/16 Change Atenolol to Metoprolol 25mg BID 08/22/16 BP elevated over the weekend with metoprolol hold by primary due to bradycardia. He has prn amlodipine 5mg for sbp>180. Received a one time dose of hydralazine IV this am, bp systolic 130's right now. Loartan restarted, cr stable at 1.6. Will follow, discussed nitrates as a treatment option. 08/24/16 Increase Bumex to 2mg BID, D/C Lasix and HCTZ. Follow renal and electrolytes
[2016-08-24] MEDS: ALFUZOSIN ER 10 MG TABLET PO SCH (21:00)
[2016-08-24] MEDS: FINASTERIDE 5 MG TABLET PO SCH (21:00)
[2016-08-24] MEDS: SIMVASTATIN 20 MG TABLET PO SCH (21:00)
[2016-08-24] MEDS: ACETAMINOPHEN 325 MG TABLET PO PRN (21:00)
[2016-08-25] MEDS: HEPARIN SUB-Q 5,000 UNITS/0.5 ML INJECTION SQ SCH ×3 (01:36→17:17)
[2016-08-25] MEDS: ALBUTEROL 2.5mg/3ml (0.083%) NEB AEROSOL SCH ×4 (01:52→19:05)
[2016-08-25] MEDS: NS 1,000 ML IV SCH (03:50)
[2016-08-25] MEDS: TIOTROPIUM 18mcg/cap HANDIHALER ORAL INH SCH (08:30)
[2016-08-25] MEDS: MULTI-VITAMIN PLAIN TABLET PO SCH (08:35)
[2016-08-25] MEDS: LOSARTAN 50 MG TABLET PO SCH (08:36)
[2016-08-25] MEDS: NON-FORMULARY MEDICATION 1 EACH EACH (Pirfenidone [Esbriet] 801 MG) PO SCH ×4 (08:36→18:36)
[2016-08-25] MEDS: BUMETANIDE 1 MG TABLET PO SCH ×2 (08:36→14:20)
[2016-08-25] MEDS: ASPIRIN *EC* 81 MG TABLET PO SCH (08:36)
[2016-08-25] MEDS: PredniSONE 10 MG TABLET PO SCH ×2 (08:36→17:18)
--- NOTE | 2016-08-25 12:08 | Cardiology Progress Note ---
Subjective Principal diagnosis: dyspnea <Mckenzie Jalloh Hyacinth - 08/25/16 12:12> Interval history: Bashir is seen in his roon in CCU. He is sitting up in the recliner while on 15L/NC and has some conversational dyspnea and dry cough. He denies chest pain, reports tightness associated with air hunger. <ShubhamMckenzie Hyacinth - 08/25/16 12:12> Exam Vital signs: Temperature 95.7 F L 08/28/16 07:52 Pulse Rate 84 08/28/16 07:52 Respiratory Rate 27 H 08/28/16 08:01 Blood Pressure 136/69 08/28/16 07:52 Pulse Oximetry 100 08/28/16 08:01 Oxygen Delivery Method BiPAP Oxygen Flow Rate 11 Fraction of Inspired Oxygen 45 SaO2/FiO2 Ratio 186 <KianBeni - 08/28/16 11:21> Temperature 97.8 F 08/24/16 10:00 Pulse Rate 125 H 08/25/16 10:00 Respiratory Rate 36 H 08/25/16 10:00 Blood Pressure 129/59 08/25/16 10:00 Pulse Oximetry 83 L 08/25/16 10:00 Oxygen Delivery Method Nasal Cannula Oxygen Flow Rate 15 Fraction of Inspired Oxygen 45 SaO2/FiO2 Ratio 186 <ShubhamMckenzie 08/25/16 12:12> - Constitutional no acute distress, cooperative <Mckenzie Jalloh 08/25/16 12:12> - Routine HEENT Exam ENT: Present: mucous membranes moist <ShubhamMckenzie Hyacinth 08/25/16 12:12> - Routine Neck Exam Absent: JVD, carotid bruit <ShubhamMckenzie lundberg Hyacinth 08/25/16 12:12> - Routine Chest/Breast/Axilla Exam Chest wall: Absent: tenderness <ShubhamMckenzie Hyacinth 08/25/16 12:12> - Routine Respiratory Exam Present: dyspnea, decreased breath sounds. Absent: rales, wheezes <Mckenzie Jalloh 08/25/16 12:12> - Routine Cardiovascular Exam Present: murmur (II/), tachycardia <Mckenzie Jalloh 08/25/16 12:12> - Routine Abdominal Exam Present: soft, non tender <ShubhamMckenzie lundberg 08/25/16 12:12> - Routine Extremities Exam Present: no edema <Mckenzie Jalloh - 08/25/16 12:12> - Routine Skin Exam Present: intact <Mckenzie Jalolh 08/25/16 12:12> - Routine Neurological Exam Present: alert, oriented X3 <Mckenzie Jalloh 08/25/16 12:12> - Routine Psychiatric Exam Present: normal affect, normal thought process <Mckenzie Jalloh 08/25/16 12: 12> - Urinary Catheter Management Urethral Cath placed during this visit: no <Beni Langston - 08/28/16 11:21> yes <Mckenzie Jalloh 08/25/16 14:18> Urethral indwelling: Yes <Mckenzie Jalloh 08/25/16 12:12> Reason for continuing: Accurate I&O/Aggressive Diuresis <Mckenzie Jalloh 08/06 14:18> Insertion date: 08/16/16 <Mckenzie Jalloh 08/25/16 12:12> Insertion time: 16:45 <Mckenzie Jalloh 08/25/16 12:12> Hospital Course This is a general summary of the patient's hospital course. For more details refer to the complete medical record. <Beni Langston - 08/28/16 11:21> This is a general summary of the patient's hospital course. For more details refer to the complete medical record. <Mckenzie Jalloh - 08/25/16 12:12> Hospital course: 08/16/16 17:50 Admit to inpatient status under the hospitalist service. Acute respiratory failure requiring BiPAP secondary to severe pulmonary edema superimposed on progressive idiopathic pulmonary fibrosis; diastolic CHF -Continue BiPAP -Bumex 1 mg IV now, likely will need further diuresis -Repeat echocardiogram. Last echocardiogram was done September 2015 showing an EF of 56%, diastolic dysfunction, and trace MR, trace TR. Pulmonary pressures were unable to be estimated. -trend troponin -baseline oxygen about 4L -[employer] Bookmaker is Dr. Jocy Ko -continue pirfenidone -repeat CXR in am Severe sepsis (possible), based on lactic acidosis and respiratory failure; also with SIRS criteria including leukocytosis and tachypnea -Repeat lactate improved to 0.9 -lactic acidosis could be secondary to profound hypoxia rather than infectious cause -however, cannot rule out pneumonia -Start Rocephin and azithromycin -repeat PCT in am Elevated creatinine -Hold losartan Elevated LFTs -Hold Tylenol and statin -poss liver congestion from CHF Acute encephalopathy -likely from hypoxia -much improved with BiPAP Weakness -Will need PT/OT evaluation once medical condition stabilizes CAD, HTN, HLD -cont ASA, atenolol -hold statin d/t elevated LFTs Advanced directives -DPOA - Tamela -DNR, DNI requested following discussion of resuscitation and expected outcomes. Family in agreement. Pt is critically ill, and >30 minutes were spent at the bedside evaluating the patient and discussing plans. Discussed with Dr. Evasn. 08/18/16 Change Atenolol to Metoprolol 25mg BID 08/22/16 BP elevated over the weekend with metoprolol hold by primary due to bradycardia. He has prn amlodipine 5mg for sbp>180. Received a one time dose of hydralazine IV this am, bp systolic 130's right now. Loartan restarted, cr stable at 1.6. Will follow, discussed nitrates as a treatment option. 08/24/16 Increase Bumex to 2mg BID, D/C Lasix and HCTZ. Follow renal and electrolytes. 08/25/16 HR consistently 110s today. Add low dose BB, Metoprolol 12.5mg po BID, monitor response. Withams HR is 90s. <Mckenzie Jalloh - 08/25/16 14:18> Progress Note-A&P (1) Severe sepsis Status: Resolved Current Visit: Yes (2) Elevated troponin Status: Resolved Current Visit: Yes (3) CAD (coronary artery disease) Status: Chronic Current Visit: Yes (4) Pulmonary fibrosis Status: Chronic Current Visit: Yes (5) Pulmonary hypertension Status: Chronic Current Visit: Yes (6) Hypertension Status: Acute Current Visit: Yes (7) Bradycardia Status: Resolved Current Visit: Yes <Beni Langston - 08/28/16 11:21> (1) Severe sepsis Status: Resolved Current Visit: Yes (2) Elevated troponin Status: Resolved Current Visit: Yes (3) CAD (coronary artery disease) Status: Chronic Current Visit: Yes (4) Pulmonary fibrosis Status: Chronic Current Visit: Yes (5) Pulmonary hypertension Status: Chronic Current Visit: Yes (6) Hypertension Status: Acute Current Visit: Yes (7) Bradycardia Status: Resolved Current Visit: Yes <Mckenzie Jalloh - 08/25/16 14:17> - Time Spent With Patient Total time spent is greater than 50% in coordination of care (as documented) at patient's floor/unit and/or counseling patient: <Beni Langston - 08/28/16 11:21> Total time spent is greater than 50% in coordination of care (as documented) at patient's floor/unit and/or counseling patient: <Mckenzie Jalloh - 08/25/16 12:12> less than 15 minutes <Mckenzie Jalloh - 08/25/16 14:18> - Attestation Attestation Narrative: Recommendation After examining the patient I agree with the above assessment. I am involved in the formulation of the patient's plan of care. <Beni Langston - 08/28/16 11:21> Sepsis Assessment - Evaluation Sepsis screening result: Sepsis Risk <Mckenzie Jalloh - 08/25/16 12:12>
--- NOTE | 2016-08-25 19:12 | Progress Note ---
Subjective: Mr. Gonzalez was seen with his at the bedside. He reports increased cough and sore throat today. Cough is productive of thick clear sputum. Overall he thinks his breathing is better and he tolerated being off BiPAP all night but was more hypoxic than typical this morning requiring reinitiation of BiPAP this morning. The patient did not rest well last night but otherwise denied acute symptoms including nausea, fever, pain, or dizziness. Douglas remains present. Objective Vital signs: Temperature 97.3 F 08/25/16 18:12 Pulse Rate 102 H 08/25/16 18:12 Respiratory Rate 18 08/25/16 18:12 Blood Pressure 133/75 08/25/16 18:12 Pulse Oximetry 94 08/25/16 18:12 Oxygen Delivery Method BiPAP Oxygen Flow Rate 15 Fraction of Inspired Oxygen 45 SaO2/FiO2 Ratio 186 EXAM General-NAD, alert HEENT-conjunctiva clear, oropharynx clear, no exudate or evidence of thrush Lungs-respirations nonlabored, fair airflow, minimal basilar crackles- significantly improved from admission exam Cardiac-regular rhythm, S1-S2 Abd-protuberant, soft, nontender, diminished bowel sounds Ext-+1 edema bilateral ankles Neuro-moves extremities spontaneously/symmetrically Psych-calm, cooperative - Weight: 72.3 kg Results - Labs CBC & Chem 7: 08/25/16 04:23 08/25/16 04:23 Labs: Magnesium 2.1 Microbiology Results: Microbiology 08/24/16 18:59 Peripheral/Iv Start Blood Culture - Preliminary No Growth After 1 Day 08/24/16 17:25 Urine, Cath Douglas Urine Culture - Preliminary No Growth After 1 Day 08/24/16 17:08 Peripheral/Iv Start Blood Culture - Preliminary No Growth After 1 Day 08/25/16 14:17 Sputum, Expectorated Gram Stain - few epithelial cells, moderate gram-positive cocci in chains, few gram-positive cocci in pairs, few gram-positive rods, few gram-negative cocci; presence of leukocytes not commented on 08/25/16 14:17 Sputum, Expectorated Sputum Culture - Preliminary Culture Initiated - Results Pending Assessment and Plan (1) Acute respiratory failure Problem details: Acute hypoxic respiratory failure Current visit: Yes Status : Acute (2) Pulmonary fibrosis Current visit: Yes Status: Chronic (3) Pulmonary edema Current visit: Yes Status: Resolved (4) Severe sepsis Current visit: Yes Status: Resolved (5) Acute encephalopathy Current visit: Yes Status: Acute (6) Diastolic CHF, acute on chronic Current visit: Yes Status: Acute (7) Elevated serum creatinine Problem details: Baseline creatinine 1.1-1.3 per outpatient records Current visit: Yes Status: Acute (8) Elevated troponin Current visit: Yes Status: Resolved (9) Anemia Current visit: Yes Status: Acute (10) CKD (chronic kidney disease) stage 3, GFR 30-59 ml/min Current visit: Yes Status: Chronic (11) CAD (coronary artery disease) Current visit: Yes Status: Chronic (12) Pulmonary hypertension Current visit: Yes Status: Chronic (13) Hyponatremia Current visit: Yes Status: Acute (14) Leukocytosis Current visit: Yes Status: Acute DVT Prophylaxis: SQ Heparin Resuscitation Status: Do Not Resuscitate Assessment and Plan: Overall the patient is clinically improved from admission and is tolerating periods of time off BiPAP. He tolerated being off BiPAP almost 24 hours that showed signs of fatiguing. I advised patient and his that I believe he should use BiPAP at night and as needed during the day. Tolerating steroid taper. - Continue pirfenidone - Added Tiotropium (08/23) - Changed Duonebs to Albuterol nebs (08/23) - Add Symbicort (08/24) Reassess chest x-ray in a.m. Marked hyponatremia has evolved in the past 2 days-unchanged with normal saline infusion overnight. Fluids discontinued to avoid pulmonary compromise. Check urine sodium/creatinine/osmolality. Persistent leukocytosis although white count somewhat better than yesterday. Lactic acid and procalcitonin unremarkable. Cultures pending. Low-grade tachycardia recurred following discontinuation of beta lucie. Metoprolol resumed at low dose per cardiology. Known coronary disease/CHF. Echo with ejection fraction 40-45%, biatrial enlargement, MR, TR, and severe pulmonary hypertension with PAP 80 mm. Hemoglobin stable-anemia of chronic disease/chronic kidney disease. Mild bump in creatinine yesterday, improved after fluids overnight. Continue to assess Stable to transfer out of ICU. Patient prefers to avoid transfer to LTAC. Begin bladder training with goal of discontinuing Douglas catheter in 48 hours. PT/OT. Need to discuss discharge options with the patient's daughters when they're present later. Hospice support may be needed at discharge. -DPOA - Tamela -Aboriginal Liaison Officer is Dr. Jocy Ko Discussed current situation and plan of care with pt and family. - Time spent with patient greater than 35 minutes Coordination of Care: >50% of visit spent providing counseling/coordination of care (discharge planning and needs prior to discharge discussed extensively with patient and his .) Sepsis Assessment - Evaluation Sepsis screening result: No Definite Risk Hospital Course Summary Disclaimer: The visit summary below is not to be considered part of the above Progress Note. Hospital Course: 08/16/16 17:50 Admit to inpatient status under the hospitalist service. Acute respiratory failure requiring BiPAP secondary to severe pulmonary edema superimposed on progressive idiopathic pulmonary fibrosis; diastolic CHF -Continue BiPAP -Bumex 1 mg IV now, likely will need further diuresis -Repeat echocardiogram. Last echocardiogram was done September 2015 showing an EF of 56%, diastolic dysfunction, and trace MR, trace TR. Pulmonary pressures were unable to be estimated. -trend troponin -baseline oxygen about 4L -Aboriginal Liaison Officer is Dr. Jocy Ko -continue pirfenidone -repeat CXR in am Severe sepsis (possible), based on lactic acidosis and respiratory failure; also with SIRS criteria including leukocytosis and tachypnea -Repeat lactate improved to 0.9 -lactic acidosis could be secondary to profound hypoxia rather than infectious cause -however, cannot rule out pneumonia -Start Rocephin and azithromycin -repeat PCT in am Elevated creatinine -Hold losartan Elevated LFTs -Hold Tylenol and statin -poss liver congestion from CHF Acute encephalopathy -likely from hypoxia -much improved with BiPAP Weakness -Will need PT/OT evaluation once medical condition stabilizes CAD, HTN, HLD -cont ASA, atenolol -hold statin d/t elevated LFTs Advanced directives -CARLOS Rapp -DNR, DNI requested following discussion of resuscitation and expected outcomes. Family in agreement. Pt is critically ill, and >30 minutes were spent at the bedside evaluating the patient and discussing plans. Discussed with Dr. Evans. 08/18/16 Change Atenolol to Metoprolol 25mg BID 08/22/16 BP elevated over the weekend with metoprolol hold by primary due to bradycardia. He has prn amlodipine 5mg for sbp>180. Received a one time dose of hydralazine IV this am, bp systolic 130's right now. Loartan restarted, cr stable at 1.6. Will follow, discussed nitrates as a treatment option. 08/24/16 Increase Bumex to 2mg BID, D/C Lasix and HCTZ. Follow renal and electrolytes. 08/24/16-Jax Summary - This is an 80 YO with IPF, that came due to SOB and has been slowly improving on the ICU. He had a recent high-resolution CT of the lungs that showed advanced pulmonary fibrosis with changes primarily in the mid and lower lung marinelli. Pt has advanced IPF + Pulmonary HTN, CHF (Systolic and diastolic), and presented with renal failure, on admission. He had an episode of acute decompensation (Shortness of breath -desaturation - on 08/17) probably due to hypoxemia ? of bronchospasm. At that time he was on a non-selective BB that was changed to a selective BB. Pt was managed with IV morphine and SL NTG + Duonebs , with improved status. His BB was changed from Atenolol to Metoprolol on 08/18. He was off BB since 08/18 due to low HR, that was resumed on 08/22. HR was higher and it was resumed. On admission there was discussion about hospice, pt is a DNR /DNI, but has not been placed on Hospice yes. Pt has been a bit better since his BB were stopped, allowing for his oxygen carrying capacity to improve at expense of a higher HR. 08/25/16 HR consistently 110s today. Add low dose BB, Metoprolol 12.5mg po BID, monitor response. Deville HR is 90s. 08/25/16 19:26-Cristina Overall the patient is clinically improved from admission and is tolerating periods of time off BiPAP. He tolerated being off BiPAP almost 24 hours that showed signs of fatiguing. I advised patient and his that I believe he should use BiPAP at night and as needed during the day. Tolerating steroid taper. - Continue pirfenidone - Added Tiotropium (08/23) - Changed Duonebs to Albuterol nebs (08/23) - Added Symbicort (08/24) Reassess chest x-ray in a.m. Marked hyponatremia has evolved in the past 2 days-unchanged with normal saline infusion overnight. Fluids discontinued to avoid pulmonary compromise. Check urine sodium/creatinine/osmolality. Persistent leukocytosis although white count somewhat better than yesterday. Lactic acid and procalcitonin unremarkable. Cultures pending. Low-grade tachycardia recurred following discontinuation of beta lucie. Metoprolol resumed at low dose per cardiology. Known coronary disease/CHF. Echo with ejection fraction 40-45%, biatrial enlargement, MR, TR, and severe pulmonary hypertension with PAP 80 mm. Hemoglobin stable-anemia of chronic disease/chronic kidney disease. Mild bump in creatinine yesterday, improved after fluids overnight. Continue to assess Stable to transfer out of ICU. Patient prefers to avoid transfer to LTAC. Begin bladder training with goal of discontinuing Douglas catheter in 48 hours. PT/OT. Need to discuss discharge options with the patient's daughters when they're present later. Hospice support may be needed at discharge. 08/25/16 19:48
[2016-08-25] MEDS: ALFUZOSIN ER 10 MG TABLET PO SCH (21:16)
[2016-08-25] MEDS: INSULIN ASPART 100unit/ml INJECTION SQ PRN (21:16)
[2016-08-25] MEDS: FINASTERIDE 5 MG TABLET PO SCH (21:16)
[2016-08-25] MEDS: SIMVASTATIN 20 MG TABLET PO SCH (21:16)
[2016-08-25] MEDS ORDERED: FALL RISK - PHARMACY CONSULT MC PRN (23:21)
[2016-08-26] MEDS: HEPARIN SUB-Q 5,000 UNITS/0.5 ML INJECTION SQ SCH ×3 (00:21→17:59)
[2016-08-26] MEDS: ALBUTEROL 2.5mg/3ml (0.083%) NEB AEROSOL SCH ×4 (02:18→20:55)
--- NOTE | 2016-08-26 08:12 | XRay Report ---
Indication: hypoxia, pulmonary fibrosis PROCEDURE: XR chest 1V: Encounter: Initial Comparison: August 17, 2016 Findings: Continued bilateral airspace disease with slight improvement in aeration of the lower lobes. Significant fibrosis present as well. No pneumothorax. Trace effusions. Heart size and mediastinal contours are stable. Prior sternotomy. Pulmonary vascularity appears congested. Impression: Slight improvement in appearance of the lower lobes. .
[2016-08-26] MEDS: BUMETANIDE 1 MG TABLET PO SCH ×2 (09:41→16:45)
[2016-08-26] MEDS: MULTI-VITAMIN PLAIN TABLET PO SCH (09:41)
[2016-08-26] MEDS: LOSARTAN 50 MG TABLET PO SCH (09:41)
[2016-08-26] MEDS: PredniSONE 10 MG TABLET PO SCH ×2 (09:42→18:00)
[2016-08-26] MEDS: NON-FORMULARY MEDICATION 1 EACH EACH (Pirfenidone [Esbriet] 801 MG) PO SCH ×3 (09:43→18:00)
[2016-08-26] MEDS: ACETAMINOPHEN 325 MG TABLET PO PRN (09:47)
[2016-08-26] MEDS: ASPIRIN *EC* 81 MG TABLET PO SCH (09:47)
[2016-08-26] MEDS: MENTHOL COUGH DROPS (RICOLA) MM PRN ×2 (09:47→16:17)
--- NOTE | 2016-08-26 12:11 | Progress Note ---
<Judy Rangel - Last Filed: 08/26/16 13:06> Subjective: Mr. Gonzalez feels a little better today. He continues to have a productive cough. His Tamela states that he occasionally needs BiPAP while awake, but not as frequently. He complains of a sore throat and sore heels, and indicated that staff placed him in foam boots to protect his heels. No abdominal pain or nausea. He is very weak, and started to work with therapy for a few minutes yesterday. They both know that his breathing will probably not get back to his pre-illness baseline. Objective Vital signs: Temperature 96.9 F 08/26/16 12:00 Pulse Rate 79 08/26/16 12:00 Respiratory Rate 18 08/26/16 12:00 Blood Pressure 101/61 08/26/16 12:00 Pulse Oximetry 99 08/26/16 12:00 Oxygen Delivery Method High Flow Nasal Cannula Oxygen Flow Rate 15 Fraction of Inspired Oxygen 45 SaO2/FiO2 Ratio 186 Weight: 72.6 kg - Constitutional Present: no acute distress, well nourished, well developed - Routine HEENT Exam ENT: Present: mucous membranes dry. Absent: oropharynx clear (thrush) - Routine Respiratory Exam Present: crackles - Routine Cardiovascular Exam Present: RRR, S1, S2 - Routine Abdominal Exam Present: soft, normoactive bowel sounds, non distended, non tender - Routine Extremities Exam Present: edema (b/l pedal and lower legs), pulses intact - Routine Musculoskeletal Exam Musculoskeletal: Absent: joint swelling - Routine Skin Exam Present: intact, warm - Routine Neurological Exam Present: alert, oriented X3 - Routine Psychiatric Exam Present: normal affect, normal thought process Results - Labs CBC & Chem 7: 08/26/16 04:26 08/26/16 04:26 Microbiology Results: Microbiology 08/25/16 14:17 Sputum, Expectorated Gram Stain - Final 08/25/16 14:17 Sputum, Expectorated Sputum Culture - Preliminary Early growth 08/24/16 18:59 Peripheral/Iv Start Blood Culture - Preliminary No Growth After 1 Day 08/24/16 17:25 Urine, Cath Douglas Urine Culture - Preliminary No Growth After 1 Day 08/24/16 17:08 Peripheral/Iv Start Blood Culture - Preliminary No Growth After 1 Day Assessment and Plan (1) Pulmonary edema Current visit: Yes Status: Resolved (2) Severe sepsis Current visit: Yes Status: Resolved (3) Acute respiratory failure Problem details: Acute hypoxic respiratory failure Current visit: Yes Status : Acute (4) Acute encephalopathy Current visit: Yes Status: Acute (5) Diastolic CHF, acute on chronic Current visit: Yes Status: Acute (6) Elevated serum creatinine Problem details: Baseline creatinine 1.1-1.3 per outpatient records Current visit: Yes Status: Acute (7) Elevated troponin Current visit: Yes Status: Resolved (8) Anemia Current visit: Yes Status: Acute (9) CKD (chronic kidney disease) stage 3, GFR 30-59 ml/min Current visit: Yes Status: Chronic (10) CAD (coronary artery disease) Current visit: Yes Status: Chronic (11) Pulmonary fibrosis Current visit: Yes Status: Chronic (12) Pulmonary hypertension Current visit: Yes Status: Chronic (13) Hyponatremia Current visit: Yes Status: Acute (14) Leukocytosis Current visit: Yes Status: Acute DVT Prophylaxis: SCD's Assessment and Plan: Acute/chronic resp failure -- still requiring 15L of O2 -continue pred taper, tiotropium, albuterol, symbicort, pifenidone -cxr this am shows slight improvement in aeration of lower lobes with continued b/l airspace disease, sig. fibrosis and trace effusions -developed thrush - start nystatin Hyponatremia -still low at 126 -urine creatinine 37.3; urine sodium 71 (high, indicating it could be from diuresis; or SIADH; or hypothyroid; could also be cortisol deficiency); urine osm pending Leukocytosis -persistent but improving -bc negative; initial sputum cx was neg. CHF, systolic, valvular, with sev PH -continue BB, bumex, asa -cardiology following CKD -stabilizing; cr 1.3; BUN decreasing Sepsis Assessment - Evaluation Sepsis screening result: Severe Sepsis Risk Hospital Course Summary Disclaimer: The visit summary below is not to be considered part of the above Progress Note. Hospital Course: 08/16/16 17:50 Admit to inpatient status under the hospitalist service. Acute respiratory failure requiring BiPAP secondary to severe pulmonary edema superimposed on progressive idiopathic pulmonary fibrosis; diastolic CHF -Continue BiPAP -Bumex 1 mg IV now, likely will need further diuresis -Repeat echocardiogram. Last echocardiogram was done September 2015 showing an EF of 56%, diastolic dysfunction, and trace MR, trace TR. Pulmonary pressures were unable to be estimated. -trend troponin -baseline oxygen about 4L -Tower Control Operator is Dr. Jocy Ko -continue pirfenidone -repeat CXR in am Severe sepsis (possible), based on lactic acidosis and respiratory failure; also with SIRS criteria including leukocytosis and tachypnea -Repeat lactate improved to 0.9 -lactic acidosis could be secondary to profound hypoxia rather than infectious cause -however, cannot rule out pneumonia -Start Rocephin and azithromycin -repeat PCT in am Elevated creatinine -Hold losartan Elevated LFTs -Hold Tylenol and statin -poss liver congestion from CHF Acute encephalopathy -likely from hypoxia -much improved with BiPAP Weakness -Will need PT/OT evaluation once medical condition stabilizes CAD, HTN, HLD -cont ASA, atenolol -hold statin d/t elevated LFTs Advanced directives -DPOA - Tamela -DNR, DNI requested following discussion of resuscitation and expected outcomes. Family in agreement. Pt is critically ill, and >30 minutes were spent at the bedside evaluating the patient and discussing plans. Discussed with Dr. Evans. 08/18/16 Change Atenolol to Metoprolol 25mg BID 08/22/16 BP elevated over the weekend with metoprolol hold by primary due to bradycardia. He has prn amlodipine 5mg for sbp>180. Received a one time dose of hydralazine IV this am, bp systolic 130's right now. Loartan restarted, cr stable at 1.6. Will follow, discussed nitrates as a treatment option. 08/24/16 Increase Bumex to 2mg BID, D/C Lasix and HCTZ. Follow renal and electrolytes. 08/24/16-Jax Summary - This is an 80 YO with IPF, that came due to SOB and has been slowly improving on the ICU. He had a recent high-resolution CT of the lungs that showed advanced pulmonary fibrosis with changes primarily in the mid and lower lung marinelli. Pt has advanced IPF + Pulmonary HTN, CHF (Systolic and diastolic), and presented with renal failure, on admission. He had an episode of acute decompensation (Shortness of breath -desaturation - on 08/17) probably due to hypoxemia ? of bronchospasm. At that time he was on a non-selective BB that was changed to a selective BB. Pt was managed with IV morphine and SL NTG + Duonebs , with improved status. His BB was changed from Atenolol to Metoprolol on 08/18. He was off BB since 08/18 due to low HR, that was resumed on 08/22. HR was higher and it was resumed. On admission there was discussion about hospice, pt is a DNR /DNI, but has not been placed on Hospice yes. Pt has been a bit better since his BB were stopped, allowing for his oxygen carrying capacity to improve at expense of a higher HR. 08/25/16 HR consistently 110s today. Add low dose BB, Metoprolol 12.5mg po BID, monitor response. [place] HR is 90s. 08/25/16 19:26-Cristina Overall the patient is clinically improved from admission and is tolerating periods of time off BiPAP. He tolerated being off BiPAP almost 24 hours that showed signs of fatiguing. I advised patient and his that I believe he should use BiPAP at night and as needed during the day. Tolerating steroid taper. - Continue pirfenidone - Added Tiotropium (08/23) - Changed Duonebs to Albuterol nebs (08/23) - Added Symbicort (08/24) Reassess chest x-ray in a.m. Marked hyponatremia has evolved in the past 2 days-unchanged with normal saline infusion overnight. Fluids discontinued to avoid pulmonary compromise. Check urine sodium/creatinine/osmolality. Persistent leukocytosis although white count somewhat better than yesterday. Lactic acid and procalcitonin unremarkable. Cultures pending. Low-grade tachycardia recurred following discontinuation of beta lucie. Metoprolol resumed at low dose per cardiology. Known coronary disease/CHF. Echo with ejection fraction 40-45%, biatrial enlargement, MR, TR, and severe pulmonary hypertension with PAP 80 mm. Hemoglobin stable-anemia of chronic disease/chronic kidney disease. Mild bump in creatinine yesterday, improved after fluids overnight. Continue to assess Stable to transfer out of ICU. Patient prefers to avoid transfer to LTAC. Begin bladder training with goal of discontinuing Douglas catheter in 48 hours. PT/OT. Need to discuss discharge options with the patient's daughters when they're present later. Hospice support may be needed at discharge. 08/26/16 13:49 Acute/chronic resp failure -- still requiring 15L of O2 -continue pred taper, tiotropium, albuterol, symbicort, pifenidone -cxr this am shows slight improvement in aeration of lower lobes with continued b/l airspace disease, sig. fibrosis and trace effusions -developed thrush - start nystatin Hyponatremia -still low at 126 -urine creatinine 37.3; urine sodium 71 (high, indicating it could be from diuresis; or SIADH; or hypothyroid; could also be cortisol deficiency); urine osm pending Leukocytosis -persistent but improving -bc negative; initial sputum cx was neg. CHF, systolic, valvular, with sev PH -continue BB, bumex, asa -cardiology following CKD -stabilizing; cr 1.3; BUN decreasing <Hazel Evans - Last Filed: 08/26/16 21:51> Objective Vital signs: Temperature 94.6 F L 08/26/16 19:49 Pulse Rate 81 08/26/16 19:49 Respiratory Rate 24 08/26/16 20:55 Blood Pressure 116/65 08/26/16 19:49 Pulse Oximetry 96 08/26/16 20:55 Oxygen Delivery Method High Flow Nasal Cannula Oxygen Flow Rate 15 Fraction of Inspired Oxygen 45 SaO2/FiO2 Ratio 186 Results - Labs CBC & Chem 7: 08/26/16 04:26 08/26/16 04:26 Microbiology Results: Microbiology 08/24/16 18:59 Peripheral/Iv Start Blood Culture - Preliminary No Growth After 2 Days 08/24/16 17:25 Urine, Cath Douglas Urine Culture - Final No Growth After 2 Days 08/24/16 17:08 Peripheral/Iv Start Blood Culture - Preliminary No Growth After 2 Days 08/25/16 14:17 Sputum, Expectorated Gram Stain - Final 08/25/16 14:17 Sputum, Expectorated Sputum Culture - Preliminary Early growth Assessment and Plan (1) Acute respiratory failure Problem details: Acute hypoxic respiratory failure Current visit: Yes Status : Acute (2) Pulmonary fibrosis Current visit: Yes Status: Chronic (3) Pulmonary edema Current visit: Yes Status: Resolved (4) Severe sepsis Current visit: Yes Status: Resolved (5) Acute encephalopathy Current visit: Yes Status: Acute (6) Diastolic CHF, acute on chronic Current visit: Yes Status: Acute (7) Elevated serum creatinine Problem details: Baseline creatinine 1.1-1.3 per outpatient records Current visit: Yes Status: Acute (8) Elevated troponin Current visit: Yes Status: Resolved (9) Anemia Current visit: Yes Status: Acute (10) CKD (chronic kidney disease) stage 3, GFR 30-59 ml/min Current visit: Yes Status: Chronic (11) CAD (coronary artery disease) Current visit: Yes Status: Chronic (12) Pulmonary hypertension Current visit: Yes Status: Chronic (13) Hyponatremia Current visit: Yes Status: Acute (14) Leukocytosis Current visit: Yes Status: Acute Resuscitation Status: Do Not Resuscitate Assessment and Plan: I have independently evaluated and examined this patient. I reviewed the chart, the patient's history, and the BUTTON PUNCHER's documented findings as above. We discussed and formulated the assessment and plan as above with additions as below: Mr. Gonzalez was seen with his and sons at bedside. He complains of sore throat but reports that he slept much better last night and his appetite is good. He continues to have minor cough but overall feels his breathing is improved from admission. He was able to take several steps with physical therapy today. Patient is alert and in no distress. There are white plaques present on the lateral oral membranes but not on the tongue. Posterior pharynx is clear. Respirations are nonlabored with good airflow, crackles are present at the bases posteriorly. +2 pitting edema at the ankles bilaterally His chest x-ray reviewed by myself demonstrates mild improvement in vascular markings/fibrotic markings compared to admission. BNP significantly improved from admission. Continues to require high flow oxygen, encouraged to use BiPAP at night. Discussed with case management-will require mask to vent at discharge (Trilogy) due to chronic respiratory failure. Continue therapy, continue bladder retraining with goal of removing catheter Monday morning. Pulse in the 90s on low dose metoprolol. Blood pressure stable. Given clinical stability do not plan intervention for hyponatremia. Hospital Course Summary Disclaimer: The visit summary below is not to be considered part of the above Progress Note.
[2016-08-26] MEDS: NYSTATIN 500,000 units/5 ml ORAL LIQUID PO SCH ×3 (13:39→21:23)
--- NOTE | 2016-08-26 16:16 | Cardiology Progress Note ---
Subjective Principal diagnosis: dyspnea <Mckenzie Jalloh - 08/26/16 16:21> Interval history: Bashir is sitting up in his room on the medical unit. He has many family at the bedside. He is currently on O2 / NC, and has conversational dyspnea and dry cough. He denies chest pain, or palpitations. <Mckenzie Jalloh - 08/26/16 16:21> Exam Vital signs: Temperature 95.7 F L 08/28/16 07:52 Pulse Rate 84 08/28/16 07:52 Respiratory Rate 27 H 08/28/16 08:01 Blood Pressure 136/69 08/28/16 07:52 Pulse Oximetry 100 08/28/16 08:01 Oxygen Delivery Method BiPAP Oxygen Flow Rate 11 Fraction of Inspired Oxygen 45 SaO2/FiO2 Ratio 186 <Beni Langston - 08/28/16 11:28> Temperature 96.9 F 08/26/16 12:00 Pulse Rate 79 08/26/16 12:00 Respiratory Rate 24 08/26/16 15:14 Blood Pressure 101/61 08/26/16 12:00 Pulse Oximetry 97 08/26/16 15:14 Oxygen Delivery Method High Flow Nasal Cannula Oxygen Flow Rate 15 Fraction of Inspired Oxygen 45 SaO2/FiO2 Ratio 186 <Mckenzie Jalloh 08/26/16 16:21> - Constitutional mild distress, cooperative <Mckenzie Jalloh 08/26/16 16:21> - Routine HEENT Exam ENT: Present: mucous membranes moist <Mckenzie Jalloh 08/26/16 16:21> - Routine Neck Exam Absent: JVD, carotid bruit <Mckenzie Jalloh 08/26/16 16:21> - Routine Chest/Breast/Axilla Exam Chest wall: Absent: tenderness <Mckenzie Jalloh 08/26/16 16:21> - Routine Respiratory Exam Present: dyspnea, rales, diminished air movement <Mckenzie Jalloh 08/26/16 16 :21> - Routine Cardiovascular Exam Present: RRR, S1, S2, tachycardia (at times) Mckenzie Carvalho 08/26/16 16:21> - Routine Abdominal Exam Present: soft, normoactive bowel sounds <Mckenzie Jalloh 08/26/16 16:21> - Routine Extremities Exam Present: edema <Mckenzie Jalloh 08/26/16 16:21> - Routine Skin Exam Present: intact <Mckenzie Jalloh 08/26/16 16:21> - Routine Neurological Exam Present: alert, oriented X3 <Mckenzie Jalloh 08/26/16 16:21> - Routine Psychiatric Exam Present: normal affect, normal thought process <Mckenzie Jalloh 08/26/16 16: 21> - Urinary Catheter Management Urethral Cath placed during this visit: no <Beni Langston - 08/28/16 11:28> yes <Mckenzie Jalloh 08/26/16 17:51> Urethral indwelling: Yes <Mckenzie Jalloh 08/26/16 16:21> Reason for continuing: Accurate I&O/Aggressive Diuresis <Mckenzie Jalloh 09/05 16:21> Insertion date: 08/16/16 <Mckenzie Jalloh 08/26/16 16:21> Insertion time: 16:45 <Mckenzie Jalloh 08/26/16 16:21> Hospital Course This is a general summary of the patient's hospital course. For more details refer to the complete medical record. <Beni Langston - 08/28/16 11:28> This is a general summary of the patient's hospital course. For more details refer to the complete medical record. <Mckenzie Jalloh - 08/26/16 16:21> Hospital course: 08/16/16 17:50 Admit to inpatient status under the hospitalist service. Acute respiratory failure requiring BiPAP secondary to severe pulmonary edema superimposed on progressive idiopathic pulmonary fibrosis; diastolic CHF -Continue BiPAP -Bumex 1 mg IV now, likely will need further diuresis -Repeat echocardiogram. Last echocardiogram was done September 2015 showing an EF of 56%, diastolic dysfunction, and trace MR, trace TR. Pulmonary pressures were unable to be estimated. -trend troponin -baseline oxygen about 4L -Net Application Architect is Dr. Jocy Ko -continue pirfenidone -repeat CXR in am Severe sepsis (possible), based on lactic acidosis and respiratory failure; also with SIRS criteria including leukocytosis and tachypnea -Repeat lactate improved to 0.9 -lactic acidosis could be secondary to profound hypoxia rather than infectious cause -however, cannot rule out pneumonia -Start Rocephin and azithromycin -repeat PCT in am Elevated creatinine -Hold losartan Elevated LFTs -Hold Tylenol and statin -poss liver congestion from CHF Acute encephalopathy -likely from hypoxia -much improved with BiPAP Weakness -Will need PT/OT evaluation once medical condition stabilizes CAD, HTN, HLD -cont ASA, atenolol -hold statin d/t elevated LFTs Advanced directives -DPOA - Tamela -DNR, DNI requested following discussion of resuscitation and expected outcomes. Family in agreement. Pt is critically ill, and >30 minutes were spent at the bedside evaluating the patient and discussing plans. Discussed with Dr. Evans. 08/18/16 Change Atenolol to Metoprolol 25mg BID 08/22/16 BP elevated over the weekend with metoprolol hold by primary due to bradycardia. He has prn amlodipine 5mg for sbp>180. Received a one time dose of hydralazine IV this am, bp systolic 130's right now. Loartan restarted, cr stable at 1.6. Will follow, discussed nitrates as a treatment option. 08/24/16 Increase Bumex to 2mg BID, D/C Lasix and HCTZ. Follow renal and electrolytes. 08/24/16-Jax Summary - This is an 80 YO with IPF, that came due to SOB and has been slowly improving on the ICU. He had a recent high-resolution CT of the lungs that showed advanced pulmonary fibrosis with changes primarily in the mid and lower lung marinelli. Pt has advanced IPF + Pulmonary HTN, CHF (Systolic and diastolic), and presented with renal failure, on admission. He had an episode of acute decompensation (Shortness of breath -desaturation - on 08/17) probably due to hypoxemia ? of bronchospasm. At that time he was on a non-selective BB that was changed to a selective BB. Pt was managed with IV morphine and SL NTG + Duonebs , with improved status. His BB was changed from Atenolol to Metoprolol on 08/18. He was off BB since 08/18 due to low HR, that was resumed on 08/22. HR was higher and it was resumed. On admission there was discussion about hospice, pt is a DNR /DNI, but has not been placed on Hospice yes. Pt has been a bit better since his BB were stopped, allowing for his oxygen carrying capacity to improve at expense of a higher HR. 08/25/16 HR consistently 110s today. Add low dose BB, Metoprolol 12.5mg po BID, monitor response. [place] HR is 90s. 08/25/16 19:26-Cristina Overall the patient is clinically improved from admission and is tolerating periods of time off BiPAP. He tolerated being off BiPAP almost 24 hours that showed signs of fatiguing. I advised patient and his that I believe he should use BiPAP at night and as needed during the day. Tolerating steroid taper. - Continue pirfenidone - Added Tiotropium (08/23) - Changed Duonebs to Albuterol nebs (08/23) - Added Symbicort (08/24) Reassess chest x-ray in a.m. Marked hyponatremia has evolved in the past 2 days-unchanged with normal saline infusion overnight. Fluids discontinued to avoid pulmonary compromise. Check urine sodium/creatinine/osmolality. Persistent leukocytosis although white count somewhat better than yesterday. Lactic acid and procalcitonin unremarkable. Cultures pending. Low-grade tachycardia recurred following discontinuation of beta lucie. Metoprolol resumed at low dose per cardiology. Known coronary disease/CHF. Echo with ejection fraction 40-45%, biatrial enlargement, MR, TR, and severe pulmonary hypertension with PAP 80 mm. Hemoglobin stable-anemia of chronic disease/chronic kidney disease. Mild bump in creatinine yesterday, improved after fluids overnight. Continue to assess Stable to transfer out of ICU. Patient prefers to avoid transfer to LTAC. Begin bladder training with goal of discontinuing Douglas catheter in 48 hours. PT/OT. Need to discuss discharge options with the patient's daughters when they're present later. Hospice support may be needed at discharge. 08/26/16 13:49 Acute/chronic resp failure -- still requiring 15L of O2 -continue pred taper, tiotropium, albuterol, symbicort, pifenidone -cxr this am shows slight improvement in aeration of lower lobes with continued b/l airspace disease, sig. fibrosis and trace effusions -developed thrush - start nystatin Hyponatremia -still low at 126 -urine creatinine 37.3; urine sodium 71 (high, indicating it could be from diuresis; or SIADH; or hypothyroid; could also be cortisol deficiency); urine osm pending Leukocytosis -persistent but improving -bc negative; initial sputum cx was neg. CHF, systolic, valvular, with sev PH -continue BB, bumex, asa -cardiology following CKD -stabilizing; cr 1.3; BUN decreasing 08/26/16- Cardiology HR mostly 90s which is target for patient. Continue low dose BB. continue to monitor telemetry. <Mckenzie Jalloh - 08/26/16 17:51> Progress Note-A&P (1) Severe sepsis Status: Resolved Current Visit: Yes (2) Elevated troponin Status: Resolved Current Visit: Yes (3) CAD (coronary artery disease) Status: Chronic Current Visit: Yes (4) Pulmonary fibrosis Status: Chronic Current Visit: Yes (5) Pulmonary hypertension Status: Chronic Current Visit: Yes (6) Hypertension Status: Acute Current Visit: Yes (7) Bradycardia Status: Resolved Current Visit: Yes <Beni Langston - 08/28/16 11:28> (1) Severe sepsis Status: Resolved Current Visit: Yes (2) Elevated troponin Status: Resolved Current Visit: Yes (3) CAD (coronary artery disease) Status: Chronic Current Visit: Yes (4) Pulmonary fibrosis Status: Chronic Current Visit: Yes (5) Pulmonary hypertension Status: Chronic Current Visit: Yes (6) Hypertension Status: Acute Current Visit: Yes (7) Bradycardia Status: Resolved Current Visit: Yes <Mckenzie Jalloh 08/26/16 17:51> - Time Spent With Patient Total time spent is greater than 50% in coordination of care (as documented) at patient's floor/unit and/or counseling patient: <Beni Langston - 08/28/16 11:28> Total time spent is greater than 50% in coordination of care (as documented) at patient's floor/unit and/or counseling patient: <Mckenzie Jalloh 08/26/16 16:21> less than 15 minutes <Mckenzie Jalloh 08/26/16 16:21> - Attestation Attestation Narrative: Recommendation After examining the patient I agree with the above assessment. I am involved in the formulation of the patient's plan of care. <Beni Langston - 08/28/16 11:28> Sepsis Assessment - Evaluation Sepsis screening result: Severe Sepsis Risk <Mckenzie Jalloh - 08/26/16 16:21>
[2016-08-26] MEDS: SALINE FLUSH 10ml SYRINGE IVF PRN ×2 (16:44→21:26)
[2016-08-26] MEDS: INSULIN ASPART 100unit/ml INJECTION SQ PRN (18:04)
[2016-08-26] MEDS: ALFUZOSIN ER 10 MG TABLET PO SCH (21:22)
[2016-08-26] MEDS: SIMVASTATIN 20 MG TABLET PO SCH (21:22)
[2016-08-26] MEDS: FINASTERIDE 5 MG TABLET PO SCH (21:22)
[2016-08-27] MEDS: HEPARIN SUB-Q 5,000 UNITS/0.5 ML INJECTION SQ SCH ×3 (01:37→17:50)
[2016-08-27] MEDS: ALBUTEROL 2.5mg/3ml (0.083%) NEB AEROSOL SCH ×4 (02:59→17:00)
[2016-08-27] MEDS: TIOTROPIUM 18mcg/cap HANDIHALER ORAL INH SCH ×2 (08:44→08:50)
[2016-08-27] MEDS: BUMETANIDE 1 MG TABLET PO SCH ×2 (09:32→17:49)
[2016-08-27] MEDS: LOSARTAN 50 MG TABLET PO SCH (09:32)
[2016-08-27] MEDS: MULTI-VITAMIN PLAIN TABLET PO SCH (09:32)
[2016-08-27] MEDS: NYSTATIN 500,000 units/5 ml ORAL LIQUID PO SCH ×4 (09:32→21:56)
[2016-08-27] MEDS: PredniSONE 10 MG TABLET PO SCH ×2 (09:33→17:51)
[2016-08-27] MEDS: NON-FORMULARY MEDICATION 1 EACH EACH (Pirfenidone [Esbriet] 801 MG) PO SCH ×3 (09:33→17:53)
[2016-08-27] MEDS: ASPIRIN *EC* 81 MG TABLET PO SCH (09:33)
[2016-08-27] MEDS: INSULIN ASPART 100unit/ml INJECTION SQ PRN (13:16)
--- NOTE | 2016-08-27 16:15 | Progress Note ---
<Corie Wright V - Last Filed: 08/27/16 16:12> Subjective: Bashir is seen today in follow up while up in the chair with family at his at his side. He is currently on 15 liters of oxygen on I-Flow nasal cannula and was on BiPAP overnight. He denies having chest pain, or GI complaints. He states that his oral thrush, tongue feel significantly better today. Denies any other discomfort or problems. Objective Vital signs: Temperature 96.5 F L 08/27/16 07:43 Pulse Rate 71 08/27/16 11:00 Respiratory Rate 23 08/27/16 11:47 Blood Pressure 98/63 08/27/16 11:00 Pulse Oximetry 98 08/27/16 11:47 Oxygen Delivery Method BiPAP Oxygen Flow Rate 15 Fraction of Inspired Oxygen 45 SaO2/FiO2 Ratio 186 Weight: 77 kg - Constitutional Present: no acute distress - Routine HEENT Exam Head: Present: normocephalic, atraumatic Eye: Present: EOMI, PERRL ENT: Present: mucous membranes moist - Routine Respiratory Exam Present: diminished air movement (bilateral bases) - Routine Cardiovascular Exam Present: RRR, S1 - Routine Abdominal Exam Present: soft, normoactive bowel sounds - Routine Back/Spine/Pelvis Exam Back/Spine: Present: full ROM - Routine Skin Exam Present: intact, dry, warm - Routine Neurological Exam Present: alert, oriented X3, CN II-XII intact - Routine Psychiatric Exam Present: normal affect, normal thought process Results - Labs CBC & Chem 7: 08/27/16 04:36 08/27/16 04:36 Microbiology Results: Microbiology 08/25/16 14:17 Sputum, Expectorated Gram Stain - Final 08/25/16 14:17 Sputum, Expectorated Sputum Culture - Preliminary Kenisha albicans 08/24/16 18:59 Peripheral/Iv Start Blood Culture - Preliminary No Growth After 2 Days 08/24/16 17:25 Urine, Cath Douglas Urine Culture - Final No Growth After 2 Days 08/24/16 17:08 Peripheral/Iv Start Blood Culture - Preliminary No Growth After 2 Days Assessment and Plan (1) Pulmonary edema Current visit: Yes Status: Resolved (2) Severe sepsis Current visit: Yes Status: Resolved (3) Acute respiratory failure Problem details: Acute hypoxic respiratory failure Current visit: Yes Status : Acute (4) Acute encephalopathy Current visit: Yes Status: Acute (5) Diastolic CHF, acute on chronic Current visit: Yes Status: Acute (6) Elevated serum creatinine Problem details: Baseline creatinine 1.1-1.3 per outpatient records Current visit: Yes Status: Acute (7) Elevated troponin Current visit: Yes Status: Resolved (8) Anemia Current visit: Yes Status: Acute (9) CKD (chronic kidney disease) stage 3, GFR 30-59 ml/min Current visit: Yes Status: Chronic (10) CAD (coronary artery disease) Current visit: Yes Status: Chronic (11) Pulmonary fibrosis Current visit: Yes Status: Chronic (12) Pulmonary hypertension Current visit: Yes Status: Chronic (13) Hyponatremia Current visit: Yes Status: Acute (14) Leukocytosis Current visit: Yes Status: Acute Assessment and Plan: 08/27/16 Overall less states that he is feeling better today. He does continue to require 15 liters of oxygen by high flow nasal cannula, accompanied with BiPAP overnight. Oral discomfort feels much improved today. Continue on nystatin 4 times a day. Patient continues to be on prednisone 10 milligrams twice a day Continue to monitor blood pressures. He did have 1 lower pressure today 98/63, however, this appears to be the only hypotension. He has had over the past 48 hours. Continue to monitor. May need to consider lowering antihypertensives. Blood sugars have been well controlled, fasting sugar this morning 93 Persistent hyponatremia. Continue to follow carefully Heparin subcutaneous every 8 hours for DVT prophylaxis Overall making gains. West states that he feels like he is getting stronger each day. Discuss further plan of care with attending, Dr. Evans Sepsis Assessment - Evaluation Sepsis screening result: Severe Sepsis Risk Hospital Course Summary Disclaimer: The visit summary below is not to be considered part of the above Progress Note. Hospital Course: 08/16/16 17:50 Admit to inpatient status under the hospitalist service. Acute respiratory failure requiring BiPAP secondary to severe pulmonary edema superimposed on progressive idiopathic pulmonary fibrosis; diastolic CHF -Continue BiPAP -Bumex 1 mg IV now, likely will need further diuresis -Repeat echocardiogram. Last echocardiogram was done September 2015 showing an EF of 56%, diastolic dysfunction, and trace MR, trace TR. Pulmonary pressures were unable to be estimated. -trend troponin -baseline oxygen about 4L -Perforating Machine Operator is Dr. Jocy Ko -continue pirfenidone -repeat CXR in am Severe sepsis (possible), based on lactic acidosis and respiratory failure; also with SIRS criteria including leukocytosis and tachypnea -Repeat lactate improved to 0.9 -lactic acidosis could be secondary to profound hypoxia rather than infectious cause -however, cannot rule out pneumonia -Start Rocephin and azithromycin -repeat PCT in am Elevated creatinine -Hold losartan Elevated LFTs -Hold Tylenol and statin -poss liver congestion from CHF Acute encephalopathy -likely from hypoxia -much improved with BiPAP Weakness -Will need PT/OT evaluation once medical condition stabilizes CAD, HTN, HLD -cont ASA, atenolol -hold statin d/t elevated LFTs Advanced directives -DPOA - Tamela -DNR, DNI requested following discussion of resuscitation and expected outcomes. Family in agreement. Pt is critically ill, and >30 minutes were spent at the bedside evaluating the patient and discussing plans. Discussed with Dr. Evans. 08/18/16 Change Atenolol to Metoprolol 25mg BID 08/22/16 BP elevated over the weekend with metoprolol hold by primary due to bradycardia. He has prn amlodipine 5mg for sbp>180. Received a one time dose of hydralazine IV this am, bp systolic 130's right now. Loartan restarted, cr stable at 1.6. Will follow, discussed nitrates as a treatment option. 08/24/16 Increase Bumex to 2mg BID, D/C Lasix and HCTZ. Follow renal and electrolytes. 08/24/16-Camara Summary - This is an 80 YO with IPF, that came due to SOB and has been slowly improving on the ICU. He had a recent high-resolution CT of the lungs that showed advanced pulmonary fibrosis with changes primarily in the mid and lower lung marinelli. Pt has advanced IPF + Pulmonary HTN, CHF (Systolic and diastolic), and presented with renal failure, on admission. He had an episode of acute decompensation (Shortness of breath -desaturation - on 08/17) probably due to hypoxemia ? of bronchospasm. At that time he was on a non-selective BB that was changed to a selective BB. Pt was managed with IV morphine and SL NTG + Duonebs , with improved status. His BB was changed from Atenolol to Metoprolol on 08/18. He was off BB since 08/18 due to low HR, that was resumed on 08/22. HR was higher and it was resumed. On admission there was discussion about hospice, pt is a DNR /DNI, but has not been placed on Hospice yes. Pt has been a bit better since his BB were stopped, allowing for his oxygen carrying capacity to improve at expense of a higher HR. 08/25/16 HR consistently 110s today. Add low dose BB, Metoprolol 12.5mg po BID, monitor response. [place] HR is 90s. 08/25/16 19:26-Cristina Overall the patient is clinically improved from admission and is tolerating periods of time off BiPAP. He tolerated being off BiPAP almost 24 hours that showed signs of fatiguing. I advised patient and his that I believe he should use BiPAP at night and as needed during the day. Tolerating steroid taper. - Continue pirfenidone - Added Tiotropium (08/23) - Changed Duonebs to Albuterol nebs (08/23) - Added Symbicort (08/24) Reassess chest x-ray in a.m. Marked hyponatremia has evolved in the past 2 days-unchanged with normal saline infusion overnight. Fluids discontinued to avoid pulmonary compromise. Check urine sodium/creatinine/osmolality. Persistent leukocytosis although white count somewhat better than yesterday. Lactic acid and procalcitonin unremarkable. Cultures pending. Low-grade tachycardia recurred following discontinuation of beta lucie. Metoprolol resumed at low dose per cardiology. Known coronary disease/CHF. Echo with ejection fraction 40-45%, biatrial enlargement, MR, TR, and severe pulmonary hypertension with PAP 80 mm. Hemoglobin stable-anemia of chronic disease/chronic kidney disease. Mild bump in creatinine yesterday, improved after fluids overnight. Continue to assess Stable to transfer out of ICU. Patient prefers to avoid transfer to LTAC. Begin bladder training with goal of discontinuing Douglas catheter in 48 hours. PT/OT. Need to discuss discharge options with the patient's daughters when they're present later. Hospice support may be needed at discharge. 08/26/16 13:49 Acute/chronic resp failure -- still requiring 15L of O2 -continue pred taper, tiotropium, albuterol, symbicort, pifenidone -cxr this am shows slight improvement in aeration of lower lobes with continued b/l airspace disease, sig. fibrosis and trace effusions -developed thrush - start nystatin Hyponatremia -still low at 126 -urine creatinine 37.3; urine sodium 71 (high, indicating it could be from diuresis; or SIADH; or hypothyroid; could also be cortisol deficiency); urine osm pending Leukocytosis -persistent but improving -bc negative; initial sputum cx was neg. CHF, systolic, valvular, with sev PH -continue BB, bumex, asa -cardiology following CKD -stabilizing; cr 1.3; BUN decreasing 08/26/16- Cardiology HR mostly 90s which is target for patient. Continue low dose BB. continue to monitor telemetry. 08/27/16 Overall less states that he is feeling better today. He does continue to require 15 liters of oxygen by high flow nasal cannula, accompanied with BiPAP overnight. Oral discomfort feels much improved today. Continue on nystatin 4 times a day. Patient continues to be on prednisone 10 milligrams twice a day Continue to monitor blood pressures. He did have 1 lower pressure today 98/63, however, this appears to be the only hypotension. He has had over the past 48 hours. Continue to monitor. May need to consider lowering antihypertensives. Blood sugars have been well controlled, fasting sugar this morning 93 Persistent hyponatremia. Continue to follow carefully Heparin subcutaneous every 8 hours for DVT prophylaxis Overall making gains. West states that he feels like he is getting stronger each day. Discuss further plan of care with attending, Dr. Evans <Hazel Evans - Last Filed: 08/27/16 20:59> Objective Vital signs: Temperature 96.5 F L 08/27/16 07:43 Pulse Rate 85 08/27/16 16:00 Respiratory Rate 22 08/27/16 17:02 Blood Pressure 98/63 08/27/16 11:00 Pulse Oximetry 94 08/27/16 17:02 Oxygen Delivery Method Nasal Cannula Oxygen Flow Rate 10 Fraction of Inspired Oxygen 45 SaO2/FiO2 Ratio 186 Results - Labs CBC & Chem 7: 08/27/16 04:36 08/27/16 04:36 Microbiology Results: Microbiology 08/24/16 18:59 Peripheral/Iv Start Blood Culture - Preliminary No Growth After 3 Days 08/24/16 17:08 Peripheral/Iv Start Blood Culture - Preliminary No Growth After 3 Days 08/25/16 14:17 Sputum, Expectorated Gram Stain - Final 08/25/16 14:17 Sputum, Expectorated Sputum Culture - Preliminary Kenisha albicans 08/24/16 17:25 Urine, Cath Douglas Urine Culture - Final No Growth After 2 Days Assessment and Plan (1) Acute respiratory failure Problem details: Acute hypoxic respiratory failure Current visit: Yes Status : Acute (2) Pulmonary fibrosis Current visit: Yes Status: Chronic (3) Pulmonary edema Current visit: Yes Status: Resolved (4) Severe sepsis Current visit: Yes Status: Resolved (5) Acute encephalopathy Current visit: Yes Status: Acute (6) Diastolic CHF, acute on chronic Current visit: Yes Status: Acute (7) Elevated serum creatinine Problem details: Baseline creatinine 1.1-1.3 per outpatient records Current visit: Yes Status: Acute (8) Elevated troponin Current visit: Yes Status: Resolved (9) Anemia Current visit: Yes Status: Acute (10) CKD (chronic kidney disease) stage 3, GFR 30-59 ml/min Current visit: Yes Status: Chronic (11) CAD (coronary artery disease) Current visit: Yes Status: Chronic (12) Pulmonary hypertension Current visit: Yes Status: Chronic (13) Hyponatremia Current visit: Yes Status: Acute (14) Leukocytosis Current visit: Yes Status: Acute DVT Prophylaxis: SQ Heparin Resuscitation Status: Do Not Resuscitate Assessment and Plan: I have independently evaluated and examined this patient. I reviewed the chart, the patient's history, and the BRIM PLATER's documented findings as above. We discussed and formulated the assessment and plan as above with additions as below: Patient continues to make slow progress. He reports no awareness of his bladder when Douglas was clamped and nursing report incontinence around Douglas making bladder training ineffective. Patient complains it is but is sore and there is minor erythema but no skin breakdown per nursing. Patient described minor nausea this morning but has been able to eat. He had some abdominal cramping prior to a bowel movement which continued for a little while after the bowel movement this subsequently resolved. Respiratory symptoms are stable although he was able to be titrated to 10 L O2 per high flow cannula later in the day. He continues to use BiPAP at night and as needed. NAD, alert, in good spirits Respirations nonlabored, good airflow, basilar crackles +1 bilateral lower extremity edema Douglas catheter to be removed; add Zofran if needed for nausea. Plans discussed with and daughters-anticipate discharge to [facility] with continued ventilatory assistance and high flow O2. Decrease prednisone to 15 mg daily starting in a.m. Cytosis slowly resolving, renal function slowly improving. Persistent hyponatremia but clinically patient asymptomatic. Hospital Course Summary Disclaimer: The visit summary below is not to be considered part of the above Progress Note.
[2016-08-27] MEDS ORDERED: ONDANSETRON 4 MG/2 ML INJECTION IVP PRN (20:52)
[2016-08-27] MEDS: SALINE FLUSH 10ml SYRINGE IVF PRN (21:00)
[2016-08-27] MEDS: SIMVASTATIN 20 MG TABLET PO SCH (21:55)
[2016-08-27] MEDS: ALFUZOSIN ER 10 MG TABLET PO SCH (21:55)
[2016-08-27] MEDS: FINASTERIDE 5 MG TABLET PO SCH (21:56)
[2016-08-27] MEDS: MENTHOL COUGH DROPS (RICOLA) MM PRN (21:56)
[2016-08-28] MEDS ORDERED: FALL RISK - PHARMACY CONSULT MC PRN
[2016-08-28] MEDS: HEPARIN SUB-Q 5,000 UNITS/0.5 ML INJECTION SQ SCH ×3 (02:22→17:24)
[2016-08-28] MEDS: ALBUTEROL 2.5mg/3ml (0.083%) NEB AEROSOL SCH ×4 (06:00→19:27)
[2016-08-28] MEDS: PredniSONE 5 MG TABLET PO SCH (09:37)
[2016-08-28] MEDS: NYSTATIN 500,000 units/5 ml ORAL LIQUID PO SCH ×4 (09:37→21:46)
[2016-08-28] MEDS: ASPIRIN *EC* 81 MG TABLET PO SCH (09:38)
[2016-08-28] MEDS: BUMETANIDE 1 MG TABLET PO SCH (09:38)
[2016-08-28] MEDS: MULTI-VITAMIN PLAIN TABLET PO SCH (09:38)
[2016-08-28] MEDS: LOSARTAN 50 MG TABLET PO SCH (09:38)
[2016-08-28] MEDS: NON-FORMULARY MEDICATION 1 EACH EACH (Pirfenidone [Esbriet] 801 MG) PO SCH ×3 (09:39→17:25)
[2016-08-28] MEDS: INSULIN ASPART 100unit/ml INJECTION SQ PRN ×3 (10:36→20:26)
[2016-08-28] MEDS: SIMVASTATIN 20 MG TABLET PO SCH (21:46)
[2016-08-28] MEDS: FINASTERIDE 5 MG TABLET PO SCH (21:46)
[2016-08-28] MEDS: ALFUZOSIN ER 10 MG TABLET PO SCH (21:46)
--- NOTE | 2016-08-28 22:52 | Progress Note ---
Subjective: Mr. Gonzalez was seen with multiple family members. Reports his breathing is doing okay other than mild exertional dyspnea. Cough is productive of clear sputum in small volumes. He took a couple of steps to get from bed to chair earlier today. His throat feels better and is having no difficulty swallowing. Appetite is good and he denied nausea or vomiting. Douglas was removed earlier today and the patient has voided well since removal. He denied fevers. expressed frustration with dietary restrictions indicating that he really wants to have macaroni and cheese and biscuits and gravy. Objective Vital signs: Temperature 97.4 F 08/28/16 20:00 Pulse Rate 80 08/28/16 20:00 Respiratory Rate 16 08/28/16 20:00 Blood Pressure 99/54 08/28/16 20:00 Pulse Oximetry 95 08/28/16 20:00 Oxygen Delivery Method Nasal Cannula Oxygen Flow Rate 10 Fraction of Inspired Oxygen 45 SaO2/FiO2 Ratio 186 EXAM General-NAD, alert HEENT-oropharynx clear other than a few white plaques on the lateral buccal jordan Lungs-respirations nonlabored, good airflow, breath sounds clear Cardiac-regular rhythm, S1-S2 Abd-soft, nontender, bowel sounds diminished but present Ext-trace edema present at the ankles bilaterally Psych-calm, pleasant, cooperative - Weight: 68.5 kg Results - Labs CBC & Chem 7: 08/28/16 05:20 08/28/16 05:20 Labs: Segs 96, lymphocytes 4 Serum osmolality 252 Urine sodium 45, urine creatinine 36.1, urine osmolality pending Microbiology Results: Microbiology 08/24/16 18:59 Peripheral/Iv Start Blood Culture - Preliminary No Growth After 4 Days 08/24/16 17:08 Peripheral/Iv Start Blood Culture - Preliminary No Growth After 4 Days 08/25/16 14:17 Sputum, Expectorated Gram Stain - Final 08/25/16 14:17 Sputum, Expectorated Sputum Culture - Final Kenisha albicans Normal Respiratory Jamia 08/24/16 17:25 Urine, Cath Douglas Urine Culture - Final No Growth After 2 Days Assessment and Plan (1) Acute respiratory failure Problem details: Acute hypoxic respiratory failure Current visit: Yes Status : Acute (2) Pulmonary fibrosis Current visit: Yes Status: Chronic (3) Pulmonary edema Current visit: Yes Status: Resolved (4) Severe sepsis Current visit: Yes Status: Resolved (5) Acute encephalopathy Current visit: Yes Status: Acute (6) Diastolic CHF, acute on chronic Current visit: Yes Status: Acute (7) Elevated serum creatinine Problem details: Baseline creatinine 1.1-1.3 per outpatient records Current visit: Yes Status: Acute (8) Elevated troponin Current visit: Yes Status: Resolved (9) Anemia Current visit: Yes Status: Acute (10) CKD (chronic kidney disease) stage 3, GFR 30-59 ml/min Current visit: Yes Status: Chronic (11) CAD (coronary artery disease) Current visit: Yes Status: Chronic (12) Pulmonary hypertension Current visit: Yes Status: Chronic (13) Hyponatremia Current visit: Yes Status: Acute (14) Leukocytosis Current visit: Yes Status: Acute DVT Prophylaxis: SQ Heparin Assessment and Plan: Respiratory status doing well-titrated to 10 L per high flow cannula while awake , nocturnal BiPAP. Will need BiPAP or Trilogy vent/mask at discharge-case management assisting in coordinating for home use. Check ABG in a.m. BiPAP currently set at 16/8, rate 16 with FiO2 45%-on admission required FiO2 of 100% to maintain marginal saturations. Continue PT and gradually increase activity. Prednisone decreased to 15 mg daily this morning. Continue to titrate slowly. Renal function slowly improving. Persistent hyponatremia but clinically patient asymptomatic. Hyponatremia initially attributed to over diuresis when noted on but at that time urine creatinine was relatively low. Hyponatremia has worsened progressively since diuretics were held. Weight is up over the past 4- 5 days (excluding today's weight which is obviously wrong). Resume furosemide at 40 mg daily-home dose. Dietary salt restriction decreased slightly. Blood pressure borderline low-losartan decreased to 25 mg daily. Leukocytosis resolving, likely result steroids. Hemoglobin stable, renal function stable-improved from admission. Continues to improve slowly. Sepsis Assessment - Evaluation Sepsis screening result: No Definite Risk Hospital Course Summary Disclaimer: The visit summary below is not to be considered part of the above Progress Note. Hospital Course: 08/16/16 17:50 Admit to inpatient status under the hospitalist service. Acute respiratory failure requiring BiPAP secondary to severe pulmonary edema superimposed on progressive idiopathic pulmonary fibrosis; diastolic CHF -Continue BiPAP -Bumex 1 mg IV now, likely will need further diuresis -Repeat echocardiogram. Last echocardiogram was done September 2015 showing an EF of 56%, diastolic dysfunction, and trace MR, trace TR. Pulmonary pressures were unable to be estimated. -trend troponin -baseline oxygen about 4L -[employer]sembler [employer] is Dr. Jocy Ko -continue pirfenidone -repeat CXR in am Severe sepsis (possible), based on lactic acidosis and respiratory failure; also with SIRS criteria including leukocytosis and tachypnea -Repeat lactate improved to 0.9 -lactic acidosis could be secondary to profound hypoxia rather than infectious cause -however, cannot rule out pneumonia -Start Rocephin and azithromycin -repeat PCT in am Elevated creatinine -Hold losartan Elevated LFTs -Hold Tylenol and statin -poss liver congestion from CHF Acute encephalopathy -likely from hypoxia -much improved with BiPAP Weakness -Will need PT/OT evaluation once medical condition stabilizes CAD, HTN, HLD -cont ASA, atenolol -hold statin d/t elevated LFTs Advanced directives -DPOA - Tamela -DNR, DNI requested following discussion of resuscitation and expected outcomes. Family in agreement. Pt is critically ill, and >30 minutes were spent at the bedside evaluating the patient and discussing plans. Discussed with Dr. Evans. 08/18/16 Change Atenolol to Metoprolol 25mg BID 08/22/16 BP elevated over the weekend with metoprolol hold by primary due to bradycardia. He has prn amlodipine 5mg for sbp>180. Received a one time dose of hydralazine IV this am, bp systolic 130's right now. Loartan restarted, cr stable at 1.6. Will follow, discussed nitrates as a treatment option. 08/24/16 Increase Bumex to 2mg BID, D/C Lasix and HCTZ. Follow renal and electrolytes. 08/24/16-Camara Summary - This is an 80 YO with IPF, that came due to SOB and has been slowly improving on the ICU. He had a recent high-resolution CT of the lungs that showed advanced pulmonary fibrosis with changes primarily in the mid and lower lung marinelli. Pt has advanced IPF + Pulmonary HTN, CHF (Systolic and diastolic), and presented with renal failure, on admission. He had an episode of acute decompensation (Shortness of breath -desaturation - on 08/17) probably due to hypoxemia ? of bronchospasm. At that time he was on a non-selective BB that was changed to a selective BB. Pt was managed with IV morphine and SL NTG + Duonebs , with improved status. His BB was changed from Atenolol to Metoprolol on 08/18. He was off BB since 08/18 due to low HR, that was resumed on 08/22. HR was higher and it was resumed. On admission there was discussion about hospice, pt is a DNR /DNI, but has not been placed on Hospice yes. Pt has been a bit better since his BB were stopped, allowing for his oxygen carrying capacity to improve at expense of a higher HR. 08/25/16 HR consistently 110s today. Add low dose BB, Metoprolol 12.5mg po BID, monitor response. [place] HR is 90s. 08/25/16 19:26-Cristina Overall the patient is clinically improved from admission and is tolerating periods of time off BiPAP. He tolerated being off BiPAP almost 24 hours that showed signs of fatiguing. I advised patient and his that I believe he should use BiPAP at night and as needed during the day. Tolerating steroid taper. - Continue pirfenidone - Added Tiotropium (08/23) - Changed Duonebs to Albuterol nebs (08/23) - Added Symbicort (08/24) Reassess chest x-ray in a.m. Marked hyponatremia has evolved in the past 2 days-unchanged with normal saline infusion overnight. Fluids discontinued to avoid pulmonary compromise. Check urine sodium/creatinine/osmolality. Persistent leukocytosis although white count somewhat better than yesterday. Lactic acid and procalcitonin unremarkable. Cultures pending. Low-grade tachycardia recurred following discontinuation of beta lucie. Metoprolol resumed at low dose per cardiology. Known coronary disease/CHF. Echo with ejection fraction 40-45%, biatrial enlargement, MR, TR, and severe pulmonary hypertension with PAP 80 mm. Hemoglobin stable-anemia of chronic disease/chronic kidney disease. Mild bump in creatinine yesterday, improved after fluids overnight. Continue to assess Stable to transfer out of ICU. Patient prefers to avoid transfer to LTAC. Begin bladder training with goal of discontinuing Douglas catheter in 48 hours. PT/OT. Need to discuss discharge options with the patient's daughters when they're present later. Hospice support may be needed at discharge. 08/26/16 13:49 Acute/chronic resp failure -- still requiring 15L of O2 -continue pred taper, tiotropium, albuterol, symbicort, pifenidone -cxr this am shows slight improvement in aeration of lower lobes with continued b/l airspace disease, sig. fibrosis and trace effusions -developed thrush - start nystatin Hyponatremia -still low at 126 -urine creatinine 37.3; urine sodium 71 (high, indicating it could be from diuresis; or SIADH; or hypothyroid; could also be cortisol deficiency); urine osm pending Leukocytosis -persistent but improving -bc negative; initial sputum cx was neg. CHF, systolic, valvular, with sev PH -continue BB, bumex, asa -cardiology following CKD -stabilizing; cr 1.3; BUN decreasing 08/26/16- Cardiology HR mostly 90s which is target for patient. Continue low dose BB. continue to monitor telemetry. 08/27/16 Overall less states that he is feeling better today. He does continue to require 15 liters of oxygen by high flow nasal cannula, accompanied with BiPAP overnight. Oral discomfort feels much improved today. Continue on nystatin 4 times a day. Patient continues to be on prednisone 10 milligrams twice a day Continue to monitor blood pressures. He did have 1 lower pressure today 98/63, however, this appears to be the only hypotension. He has had over the past 48 hours. Continue to monitor. May need to consider lowering antihypertensives. Blood sugars have been well controlled, fasting sugar this morning 93 Persistent hyponatremia. Continue to follow carefully Heparin subcutaneous every 8 hours for DVT prophylaxis Overall making gains. Bashir states that he feels like he is getting stronger each day. 08/28/16 23:10 Respiratory status doing well-titrated to 10 L per high flow cannula while awake , nocturnal BiPAP. Will need BiPAP or Trilogy vent/mask at discharge-case management assisting in coordinating for home use. Check ABG in a.m. BiPAP currently set at 16/8, rate 16 with FiO2 45%-on admission required FiO2 of 100% to maintain marginal saturations. Continue PT and gradually increase activity. Prednisone decreased to 15 mg daily this morning. Continue to titrate slowly. Renal function slowly improving. Persistent hyponatremia but clinically patient asymptomatic. Hyponatremia initially attributed to over diuresis when noted on but at that time urine creatinine was relatively low. Hyponatremia has worsened progressively since diuretics were held. Weight is up over the past 4- 5 days (excluding today's weight which is obviously wrong). Resume furosemide at 40 mg daily-home dose. Dietary salt restriction decreased slightly. Blood pressure borderline low-losartan decreased to 25 mg daily. Leukocytosis resolving, likely result steroids. Hemoglobin stable, renal function stable-improved from admission.
[2016-08-29] MEDS: HEPARIN SUB-Q 5,000 UNITS/0.5 ML INJECTION SQ SCH ×3 (01:59→17:49)
[2016-08-29] MEDS: ALBUTEROL 2.5mg/3ml (0.083%) NEB AEROSOL SCH ×4 (05:05→20:44)
[2016-08-29] MEDS: TIOTROPIUM 18mcg/cap HANDIHALER ORAL INH SCH ×2 (06:21→10:14)
[2016-08-29] MEDS: NYSTATIN 500,000 units/5 ml ORAL LIQUID PO SCH ×4 (09:30→21:10)
[2016-08-29] MEDS: FUROSEMIDE 20 MG TABLET PO SCH (09:30)
[2016-08-29] MEDS: PredniSONE 5 MG TABLET PO SCH (09:30)
[2016-08-29] MEDS: MULTI-VITAMIN PLAIN TABLET PO SCH (09:31)
[2016-08-29] MEDS: LOSARTAN 50 MG TABLET PO SCH (09:31)
[2016-08-29] MEDS: NON-FORMULARY MEDICATION 1 EACH EACH (Pirfenidone [Esbriet] 801 MG) PO SCH ×3 (09:32→17:50)
[2016-08-29] MEDS: ASPIRIN *EC* 81 MG TABLET PO SCH (12:07)
[2016-08-29] MEDS: ACETAMINOPHEN 325 MG TABLET PO PRN (12:07)
--- NOTE | 2016-08-29 14:17 | Cardiology Progress Note ---
Subjective Principal diagnosis: dyspnea <Mckenzie Jalloh - 08/29/16 14:33> Interval history: Bashir is seen in his room on the medical unit with his daughter Nalini at the bedside. He is currently on 10L O2 / NC, and has no dyspnea. He denies chest pain, or palpitations. <Mckenzie Jalloh - 08/29/16 14:33> Exam Vital signs: Temperature 97.4 F 08/30/16 16:00 Pulse Rate 92 08/30/16 16:00 Respiratory Rate 22 08/30/16 16:00 Blood Pressure 131/61 08/30/16 16:00 Pulse Oximetry 91 08/30/16 16:00 Oxygen Delivery Method Nasal Cannula Oxygen Flow Rate 10 Fraction of Inspired Oxygen 45 SaO2/FiO2 Ratio 186 <Beni Langston - 08/31/16 13:21> Temperature 97.1 F 08/29/16 07:48 Pulse Rate 79 08/29/16 12:10 Respiratory Rate 18 08/29/16 12:10 Blood Pressure 103/59 08/29/16 12:10 Pulse Oximetry 94 08/29/16 12:10 Oxygen Delivery Method High Flow Nasal Cannula Oxygen Flow Rate 10 Fraction of Inspired Oxygen 45 SaO2/FiO2 Ratio 186 <Mckenzie Jalloh - 08/29/16 14:33> - Constitutional no acute distress, cooperative <Mckenzie Jalloh 08/29/16 14:33> - Routine HEENT Exam ENT: Present: mucous membranes moist <Mckenzie Jalloh 08/29/16 14:33> - Routine Neck Exam Absent: JVD, carotid bruit <Mckenzie Jalloh 08/29/16 14:33> - Routine Chest/Breast/Axilla Exam Chest wall: Absent: tenderness <Mckenzie Jalloh 08/29/16 14:33> - Routine Respiratory Exam Present: CTA bilaterally. Absent: rales, wheezes <Mckenzie Jalloh 08/29/16 14:33> - Routine Cardiovascular Exam Present: RRR, no murmur. Absent: JVD <Mckenzie Jalloh 08/29/16 14:33> - Routine Abdominal Exam Present: soft, normoactive bowel sounds <Mckenzie Jalloh 08/29/16 14:33> - Routine Extremities Exam Present: edema <Mckenzie Jalloh - 08/29/16 14:33> - Routine Skin Exam Present: intact <Mckenzie Jalloh 08/29/16 14:33> - Routine Neurological Exam Present: alert, oriented X3 <Mckenzie Jalloh - 08/29/16 14:33> - Routine Psychiatric Exam Present: normal affect, normal thought process <Mckenzie Jalloh 08/29/16 14: 33> - Urinary Catheter Management Urethral Cath placed during this visit: no <Beni Langston - 08/31/16 13:21> yes <Mckenzie Jalloh - 08/30/16 12:21> Urethral indwelling: No <Mckenzie Jalloh 08/29/16 14:33> Insertion date: 08/16/16 <Mckenzie Jalloh 08/29/16 14:33> Insertion time: 16:45 <Mckenzie Jalloh 08/29/16 14:33> Hospital Course This is a general summary of the patient's hospital course. For more details refer to the complete medical record. <Beni Langston - 08/31/16 13:21> This is a general summary of the patient's hospital course. For more details refer to the complete medical record. <Mckenzie Jalloh - 08/29/16 14:33> Hospital course: 08/16/16 17:50 Admit to inpatient status under the hospitalist service. Acute respiratory failure requiring BiPAP secondary to severe pulmonary edema superimposed on progressive idiopathic pulmonary fibrosis; diastolic CHF -Continue BiPAP -Bumex 1 mg IV now, likely will need further diuresis -Repeat echocardiogram. Last echocardiogram was done September 2015 showing an EF of 56%, diastolic dysfunction, and trace MR, trace TR. Pulmonary pressures were unable to be estimated. -trend troponin -baseline oxygen about 4L -Clin Nurse Spec is Dr. Jocy Ko -continue pirfenidone -repeat CXR in am Severe sepsis (possible), based on lactic acidosis and respiratory failure; also with SIRS criteria including leukocytosis and tachypnea -Repeat lactate improved to 0.9 -lactic acidosis could be secondary to profound hypoxia rather than infectious cause -however, cannot rule out pneumonia -Start Rocephin and azithromycin -repeat PCT in am Elevated creatinine -Hold losartan Elevated LFTs -Hold Tylenol and statin -poss liver congestion from CHF Acute encephalopathy -likely from hypoxia -much improved with BiPAP Weakness -Will need PT/OT evaluation once medical condition stabilizes CAD, HTN, HLD -cont ASA, atenolol -hold statin d/t elevated LFTs Advanced directives -DPOA - Tamela -DNR, DNI requested following discussion of resuscitation and expected outcomes. Family in agreement. Pt is critically ill, and >30 minutes were spent at the bedside evaluating the patient and discussing plans. Discussed with Dr. Evans. 08/18/16 Change Atenolol to Metoprolol 25mg BID 08/22/16 BP elevated over the weekend with metoprolol hold by primary due to bradycardia. He has prn amlodipine 5mg for sbp>180. Received a one time dose of hydralazine IV this am, bp systolic 130's right now. Loartan restarted, cr stable at 1.6. Will follow, discussed nitrates as a treatment option. 08/24/16 Increase Bumex to 2mg BID, D/C Lasix and HCTZ. Follow renal and electrolytes. 08/24/16-Jax Summary - This is an 80 YO with IPF, that came due to SOB and has been slowly improving on the ICU. He had a recent high-resolution CT of the lungs that showed advanced pulmonary fibrosis with changes primarily in the mid and lower lung marinelli. Pt has advanced IPF + Pulmonary HTN, CHF (Systolic and diastolic), and presented with renal failure, on admission. He had an episode of acute decompensation (Shortness of breath -desaturation - on 08/17) probably due to hypoxemia ? of bronchospasm. At that time he was on a non-selective BB that was changed to a selective BB. Pt was managed with IV morphine and SL NTG + Duonebs , with improved status. His BB was changed from Atenolol to Metoprolol on 08/18. He was off BB since 08/18 due to low HR, that was resumed on 08/22. HR was higher and it was resumed. On admission there was discussion about hospice, pt is a DNR /DNI, but has not been placed on Hospice yes. Pt has been a bit better since his BB were stopped, allowing for his oxygen carrying capacity to improve at expense of a higher HR. 08/25/16 HR consistently 110s today. Add low dose BB, Metoprolol 12.5mg po BID, monitor response. [place] HR is 90s. 08/25/16 19:26-Cristina Overall the patient is clinically improved from admission and is tolerating periods of time off BiPAP. He tolerated being off BiPAP almost 24 hours that showed signs of fatiguing. I advised patient and his that I believe he should use BiPAP at night and as needed during the day. Tolerating steroid taper. - Continue pirfenidone - Added Tiotropium (08/23) - Changed Duonebs to Albuterol nebs (08/23) - Added Symbicort (08/24) Reassess chest x-ray in a.m. Marked hyponatremia has evolved in the past 2 days-unchanged with normal saline infusion overnight. Fluids discontinued to avoid pulmonary compromise. Check urine sodium/creatinine/osmolality. Persistent leukocytosis although white count somewhat better than yesterday. Lactic acid and procalcitonin unremarkable. Cultures pending. Low-grade tachycardia recurred following discontinuation of beta lucie. Metoprolol resumed at low dose per cardiology. Known coronary disease/CHF. Echo with ejection fraction 40-45%, biatrial enlargement, MR, TR, and severe pulmonary hypertension with PAP 80 mm. Hemoglobin stable-anemia of chronic disease/chronic kidney disease. Mild bump in creatinine yesterday, improved after fluids overnight. Continue to assess Stable to transfer out of ICU. Patient prefers to avoid transfer to LTAC. Begin bladder training with goal of discontinuing Douglas catheter in 48 hours. PT/OT. Need to discuss discharge options with the patient's daughters when they're present later. Hospice support may be needed at discharge. 08/26/16 13:49 Acute/chronic resp failure -- still requiring 15L of O2 -continue pred taper, tiotropium, albuterol, symbicort, pifenidone -cxr this am shows slight improvement in aeration of lower lobes with continued b/l airspace disease, sig. fibrosis and trace effusions -developed thrush - start nystatin Hyponatremia -still low at 126 -urine creatinine 37.3; urine sodium 71 (high, indicating it could be from diuresis; or SIADH; or hypothyroid; could also be cortisol deficiency); urine osm pending Leukocytosis -persistent but improving -bc negative; initial sputum cx was neg. CHF, systolic, valvular, with sev PH -continue BB, bumex, asa -cardiology following CKD -stabilizing; cr 1.3; BUN decreasing 08/26/16- Cardiology HR mostly 90s which is target for patient. Continue low dose BB. continue to monitor telemetry. 08/27/16 Overall less states that he is feeling better today. He does continue to require 15 liters of oxygen by high flow nasal cannula, accompanied with BiPAP overnight. Oral discomfort feels much improved today. Continue on nystatin 4 times a day. Patient continues to be on prednisone 10 milligrams twice a day Continue to monitor blood pressures. He did have 1 lower pressure today 98/63, however, this appears to be the only hypotension. He has had over the past 48 hours. Continue to monitor. May need to consider lowering antihypertensives. Blood sugars have been well controlled, fasting sugar this morning 93 Persistent hyponatremia. Continue to follow carefully Heparin subcutaneous every 8 hours for DVT prophylaxis Overall making gains. Bashir states that he feels like he is getting stronger each day. 08/28/16 23:10 Respiratory status doing well-titrated to 10 L per high flow cannula while awake , nocturnal BiPAP. Will need BiPAP or Trilogy vent/mask at discharge-case management assisting in coordinating for home use. Check ABG in a.m. BiPAP currently set at 16/8, rate 16 with FiO2 45%-on admission required FiO2 of 100% to maintain marginal saturations. Continue PT and gradually increase activity. Prednisone decreased to 15 mg daily this morning. Continue to titrate slowly. Renal function slowly improving. Persistent hyponatremia but clinically patient asymptomatic. Hyponatremia initially attributed to over diuresis when noted on but at that time urine creatinine was relatively low. Hyponatremia has worsened progressively since diuretics were held. Weight is up over the past 4- 5 days (excluding today's weight which is obviously wrong). Resume furosemide at 40 mg daily-home dose. Dietary salt restriction decreased slightly. Blood pressure borderline low-losartan decreased to 25 mg daily. Leukocytosis resolving, likely result steroids. Hemoglobin stable, renal function stable-improved from admission. 08/29/16 -Cardiology Doing well from cardiac standpoint <Mckenzie Jalloh - 08/30/16 12:21> Progress Note-A&P (1) Severe sepsis Status: Resolved (2) Elevated troponin Status: Resolved (3) CAD (coronary artery disease) Status: Chronic (4) Pulmonary fibrosis Status: Chronic (5) Pulmonary hypertension Status: Chronic (6) Hypertension Status: Acute (7) Bradycardia Status: Resolved <Beni Langston - 08/31/16 13:21> (1) Severe sepsis Status: Resolved (2) Elevated troponin Status: Resolved (3) CAD (coronary artery disease) Status: Chronic (4) Pulmonary fibrosis Status: Chronic (5) Pulmonary hypertension Status: Chronic (6) Hypertension Status: Acute (7) Bradycardia Status: Resolved <Mckenzie Jalloh - 08/30/16 12:18> - Time Spent With Patient Total time spent is greater than 50% in coordination of care (as documented) at patient's floor/unit and/or counseling patient: <Beni Langston - 08/31/16 13:21> Total time spent is greater than 50% in coordination of care (as documented) at patient's floor/unit and/or counseling patient: <Mckenzie Jalloh - 08/29/16 14:33> less than 15 minutes <Mckenzie Jalloh - 08/30/16 12:21> - Attestation Attestation Narrative: Recommendation After examining the patient I agree with the above assessment. I am involved in the formulation of the patient's plan of care. <Beni Langston - 08/31/16 13:21> Sepsis Assessment - Evaluation Sepsis screening result: No Definite Risk <Mckenzie Jalloh - 08/29/16 14:33>
[2016-08-29] MEDS ORDERED: acetaZOLAMIDE SR 500 MG CAPSULE PO ONE (15:37)
--- NOTE | 2016-08-29 15:41 | Progress Note ---
Subjective: F/U: Acute respiratory failure. Pulmonary fibrosis. Doing fair. Breathing okay at rest, but gets very winded with any activities. Hard to build up strength due to his pulmonary debility. Notes some cough, minimal sputum. No pain with breathing. Appetite okay. No nausea or ab pain. Bowel moving. Urinating without problems now that arias removed. Objective Vital signs: Temperature 97.1 F 08/29/16 07:48 Pulse Rate 91 08/29/16 15:19 Respiratory Rate 22 08/29/16 15:19 Blood Pressure 103/57 08/29/16 15:19 Pulse Oximetry 98 08/29/16 15:19 Oxygen Delivery Method High Flow Nasal Cannula Oxygen Flow Rate 10 Fraction of Inspired Oxygen 45 SaO2/FiO2 Ratio 186 Weight: 69.3 kg - Constitutional Present: mild distress, well nourished, well developed, cooperative - Routine HEENT Exam Head: Present: normocephalic, atraumatic Eye: Present: EOMI, PERRL ENT: Present: mucous membranes moist (No thrush ) - Routine Respiratory Exam Present: decreased breath sounds, prolonged expiratory phase, crackles, distant breath sounds, diminished air movement - Routine Cardiovascular Exam Present: RRR - Routine Abdominal Exam Present: soft, normoactive bowel sounds, non distended, non tender. Absent: rebound, guarding - Routine Extremities Exam Present: edema (+1 B LE), pulses intact. Absent: cyanosis - Routine Musculoskeletal Exam Musculoskeletal: Present: no clubbing or cyanosis, no tenderness - Routine Skin Exam Present: intact, warm. Absent: mottling - Routine Neurological Exam Present: alert, oriented X3, CN II-XII intact, vision grossly intact, hearing grossly intact. Absent: motor deficit - Routine Psychiatric Exam Present: normal affect, normal thought process, cooperative Results - Labs CBC & Chem 7: 08/28/16 05:20 08/28/16 05:20 Microbiology Results: Microbiology 08/24/16 18:59 Peripheral/Iv Start Blood Culture - Preliminary No Growth After 4 Days 08/24/16 17:08 Peripheral/Iv Start Blood Culture - Preliminary No Growth After 4 Days 08/25/16 14:17 Sputum, Expectorated Gram Stain - Final 08/25/16 14:17 Sputum, Expectorated Sputum Culture - Final Kenisha albicans Normal Respiratory Jamia 08/24/16 17:25 Urine, Cath Arias Urine Culture - Final No Growth After 2 Days - ABG Interpretation ABG results: 08/29/16 08:18 ABG pH 7.490 H ABG pCO2 48 H ABG pO2 84 ABG HCO3 37 H ABG Total CO2 38.1 H ABG O2 Saturation 97.0 ABG Base Excess 11.6 H Assessment and Plan (1) Acute respiratory failure Problem details: Acute hypoxic respiratory failure Current visit: Yes Status : Acute (2) Pulmonary fibrosis Current visit: Yes Status: Chronic (3) Pulmonary edema Current visit: Yes Status: Resolved (4) Severe sepsis Current visit: Yes Status: Resolved (5) Acute encephalopathy Current visit: Yes Status: Resolved (6) Diastolic CHF, acute on chronic Current visit: Yes Status: Acute (7) Elevated serum creatinine Problem details: POA - Baseline creatinine 1.1-1.3 per outpatient records Current visit: Yes Status: Resolved (8) CKD (chronic kidney disease) stage 3, GFR 30-59 ml/min Current visit: Yes Status: Chronic (9) Elevated troponin Current visit: Yes Status: Resolved (10) Anemia Current visit: Yes Status: Acute (11) CAD (coronary artery disease) Current visit: Yes Status: Chronic (12) Pulmonary hypertension Current visit: Yes Status: Chronic (13) Hyponatremia Problem details: Not POA Current visit: Yes Status: Acute (14) Leukocytosis Current visit: Yes Status: Acute DVT Prophylaxis: SQ Heparin Resuscitation Status: Do Not Resuscitate Assessment and Plan: Continue with current respiratory support. Prednisone decrease to 15mg today - will need to slowly taper. Diamox 500mg x1 now as CO2 increasing and ABG showing alkalosis - contraction alkalosis with diuretics. Encourage activities as able - arm/leg movements in chair if not able to be up and ambulatory. Continue sodium restriction. Check BMP in am due to hyponatremia. CBC in am due to leukocytosis and anemia. CM making arrangements for skilled care-likely be able to discharge tomorrow. Hospice considerations if pt not making gains with skilled care or developed further set back. Case discussed with family and CM. - Time spent with patient 25 - 35 minutes Sepsis Assessment - Evaluation Sepsis screening result: No Definite Risk Hospital Course Summary Disclaimer: The visit summary below is not to be considered part of the above Progress Note. Hospital Course: 08/16/16 17:50 Admit to inpatient status under the hospitalist service. Acute respiratory failure requiring BiPAP secondary to severe pulmonary edema superimposed on progressive idiopathic pulmonary fibrosis; diastolic CHF -Continue BiPAP -Bumex 1 mg IV now, likely will need further diuresis -Repeat echocardiogram. Last echocardiogram was done September 2015 showing an EF of 56%, diastolic dysfunction, and trace MR, trace TR. Pulmonary pressures were unable to be estimated. -trend troponin -baseline oxygen about 4L -Public Welfare Director is Dr. Jocy Ko -continue pirfenidone -repeat CXR in am Severe sepsis (possible), based on lactic acidosis and respiratory failure; also with SIRS criteria including leukocytosis and tachypnea -Repeat lactate improved to 0.9 -lactic acidosis could be secondary to profound hypoxia rather than infectious cause -however, cannot rule out pneumonia -Start Rocephin and azithromycin -repeat PCT in am Elevated creatinine -Hold losartan Elevated LFTs -Hold Tylenol and statin -poss liver congestion from CHF Acute encephalopathy -likely from hypoxia -much improved with BiPAP Weakness -Will need PT/OT evaluation once medical condition stabilizes CAD, HTN, HLD -cont ASA, atenolol -hold statin d/t elevated LFTs Advanced directives -DPOA - Tamela -DNR, DNI requested following discussion of resuscitation and expected outcomes. Family in agreement. Pt is critically ill, and >30 minutes were spent at the bedside evaluating the patient and discussing plans. Discussed with Dr. Evans. 08/18/16 Change Atenolol to Metoprolol 25mg BID 08/22/16 BP elevated over the weekend with metoprolol hold by primary due to bradycardia. He has prn amlodipine 5mg for sbp>180. Received a one time dose of hydralazine IV this am, bp systolic 130's right now. Loartan restarted, cr stable at 1.6. Will follow, discussed nitrates as a treatment option. 08/24/16 Increase Bumex to 2mg BID, D/C Lasix and HCTZ. Follow renal and electrolytes. 08/24/16 - Jax Summary - This is an 80 YO with IPF, that came due to SOB and has been slowly improving on the ICU. He had a recent high-resolution CT of the lungs that showed advanced pulmonary fibrosis with changes primarily in the mid and lower lung marinelli. Pt has advanced IPF + Pulmonary HTN, CHF (Systolic and diastolic), and presented with renal failure, on admission. He had an episode of acute decompensation (Shortness of breath -desaturation - on 08/17) probably due to hypoxemia ? of bronchospasm. At that time he was on a non-selective BB that was changed to a selective BB. Pt was managed with IV morphine and SL NTG + Duonebs , with improved status. His BB was changed from Atenolol to Metoprolol on 08/18. He was off BB since 08/18 due to low HR, that was resumed on 08/22. HR was higher and it was resumed. On admission there was discussion about hospice, pt is a DNR /DNI, but has not been placed on Hospice yes. Pt has been a bit better since his BB were stopped, allowing for his oxygen carrying capacity to improve at expense of a higher HR. 08/25/16 HR consistently 110s today. Add low dose BB, Metoprolol 12.5mg po BID, monitor response. [place] HR is 90s. 08/25/16 19:26-Cristina Overall the patient is clinically improved from admission and is tolerating periods of time off BiPAP. He tolerated being off BiPAP almost 24 hours that showed signs of fatiguing. I advised patient and his that I believe he should use BiPAP at night and as needed during the day. Tolerating steroid taper. - Continue pirfenidone - Added Tiotropium (08/23) - Changed Duonebs to Albuterol nebs (08/23) - Added Symbicort (08/24) Reassess chest x-ray in a.m. Marked hyponatremia has evolved in the past 2 days-unchanged with normal saline infusion overnight. Fluids discontinued to avoid pulmonary compromise. Check urine sodium/creatinine/osmolality. Persistent leukocytosis although white count somewhat better than yesterday. Lactic acid and procalcitonin unremarkable. Cultures pending. Low-grade tachycardia recurred following discontinuation of beta lucie. Metoprolol resumed at low dose per cardiology. Known coronary disease/CHF. Echo with ejection fraction 40-45%, biatrial enlargement, MR, TR, and severe pulmonary hypertension with PAP 80 mm. Hemoglobin stable-anemia of chronic disease/chronic kidney disease. Mild bump in creatinine yesterday, improved after fluids overnight. Continue to assess Stable to transfer out of ICU. Patient prefers to avoid transfer to LTAC. Begin bladder training with goal of discontinuing Arias catheter in 48 hours. PT/OT. Need to discuss discharge options with the patient's daughters when they're present later. Hospice support may be needed at discharge. 08/26/16 13:49 Acute/chronic resp failure -- still requiring 15L of O2 -continue pred taper, tiotropium, albuterol, symbicort, pifenidone -cxr this am shows slight improvement in aeration of lower lobes with continued b/l airspace disease, sig. fibrosis and trace effusions -developed thrush - start nystatin Hyponatremia -still low at 126 -urine creatinine 37.3; urine sodium 71 (high, indicating it could be from diuresis; or SIADH; or hypothyroid; could also be cortisol deficiency); urine osm pending Leukocytosis -persistent but improving -bc negative; initial sputum cx was neg. CHF, systolic, valvular, with sev PH -continue BB, bumex, asa -cardiology following CKD -stabilizing; cr 1.3; BUN decreasing 08/26/16 - Cardiology HR mostly 90s which is target for patient. Continue low dose BB. continue to monitor telemetry. 08/27/16 Overall less states that he is feeling better today. He does continue to require 15 liters of oxygen by high flow nasal cannula, accompanied with BiPAP overnight. Oral discomfort feels much improved today. Continue on nystatin 4 times a day. Patient continues to be on prednisone 10 milligrams twice a day Continue to monitor blood pressures. He did have 1 lower pressure today 98/63, however, this appears to be the only hypotension. He has had over the past 48 hours. Continue to monitor. May need to consider lowering antihypertensives. Blood sugars have been well controlled, fasting sugar this morning 93 Persistent hyponatremia. Continue to follow carefully Heparin subcutaneous every 8 hours for DVT prophylaxis Overall making gains. Bashir states that he feels like he is getting stronger each day. 08/28/16 23:10 Respiratory status doing well-titrated to 10 L per high flow cannula while awake , nocturnal BiPAP. Will need BiPAP or Trilogy vent/mask at discharge-case management assisting in coordinating for home use. Check ABG in a.m. BiPAP currently set at 16/8, rate 16 with FiO2 45%-on admission required FiO2 of 100% to maintain marginal saturations. Continue PT and gradually increase activity. Prednisone decreased to 15 mg daily this morning. Continue to titrate slowly. Renal function slowly improving. Persistent hyponatremia but clinically patient asymptomatic. Hyponatremia initially attributed to over diuresis when noted on but at that time urine creatinine was relatively low. Hyponatremia has worsened progressively since diuretics were held. Weight is up over the past 4- 5 days (excluding today's weight which is obviously wrong). Resume furosemide at 40 mg daily-home dose. Dietary salt restriction decreased slightly. Blood pressure borderline low-losartan decreased to 25 mg daily. Leukocytosis resolving, likely result steroids. Hemoglobin stable, renal function stable-improved from admission. 08/29/16 Doing fair. Breathing okay at rest, but gets very winded with any activities. Hard to build up strength due to his pulmonary debility. Notes some cough, minimal sputum. No pain with breathing. Appetite okay. No nausea or ab pain. Bowel moving. Urinating without problems now that arias removed. Continue with current respiratory support. Prednisone decrease to 15mg today - will need to slowly taper. Diamox 500mg x1 now as CO2 increasing and ABG showing alkalosis - contraction alkalosis with diuretics. Encourage activities as able - arm/leg movements in chair if not able to be up and ambulatory. Continue sodium restriction. Check BMP in am due to hyponatremia. CBC in am due to leukocytosis and anemia. CM making arrangements for skilled care-likely be able to discharge tomorrow. Hospice considerations if pt not making gains with skilled care or developed further set back.
[2016-08-29] MEDS: INSULIN ASPART 100unit/ml INJECTION SQ PRN ×2 (15:44→21:10)
[2016-08-29] MEDS: FINASTERIDE 5 MG TABLET PO SCH (21:10)
[2016-08-29] MEDS: SIMVASTATIN 20 MG TABLET PO SCH (21:10)
[2016-08-29] MEDS: ALFUZOSIN ER 10 MG TABLET PO SCH (21:11)
[2016-08-29] MEDS: SALINE FLUSH 10ml SYRINGE IVF PRN (21:22)
[2016-08-29] MEDS ORDERED: FALL RISK - PHARMACY CONSULT XX PRN (21:24)
[2016-08-30] MEDS: HEPARIN SUB-Q 5,000 UNITS/0.5 ML INJECTION SQ SCH ×2 (00:20→08:55)
[2016-08-30] MEDS: ALBUTEROL 2.5mg/3ml (0.083%) NEB AEROSOL SCH ×3 (03:20→15:22)
[2016-08-30] MEDS: PredniSONE 5 MG TABLET PO SCH (09:01)
[2016-08-30] MEDS: LOSARTAN 50 MG TABLET PO SCH (09:02)
[2016-08-30] MEDS: FUROSEMIDE 20 MG TABLET PO SCH (09:02)
[2016-08-30] MEDS: NYSTATIN 500,000 units/5 ml ORAL LIQUID PO SCH ×2 (09:03→12:53)
[2016-08-30] MEDS: MULTI-VITAMIN PLAIN TABLET PO SCH (09:03)
[2016-08-30] MEDS: NON-FORMULARY MEDICATION 1 EACH EACH (Pirfenidone [Esbriet] 801 MG) PO SCH ×2 (09:04→12:53)
[2016-08-30] MEDS: ASPIRIN *EC* 81 MG TABLET PO SCH (09:05)
[2016-08-30] MEDS ORDERED: acetaZOLAMIDE SR 500 MG CAPSULE PO ONE (09:16)
[2016-08-30 09:56] VITALS: O2SAT 91
[2016-08-30] MEDS: INSULIN ASPART 100unit/ml INJECTION SQ PRN ×2 (11:25→15:25)
--- NOTE | 2016-08-30 12:05 | Progress Note ---
Subjective: F/U: Acute hypoxic respiratory failure, pulmonary fibrosis Doing about the same-notes some slight increased congestion today. Nonproductive cough. No pain with breathing. Still gets very winded with activities. Appetite fair. Notes less mouth pain and pain with swallowing. No nausea or ab pain. No f/c. Objective Vital signs: Temperature 96.3 F L 08/30/16 08:00 Pulse Rate 87 08/30/16 08:00 Respiratory Rate 24 08/30/16 09:47 Blood Pressure 126/65 08/30/16 08:00 Pulse Oximetry 91 08/30/16 09:47 Oxygen Delivery Method Nasal Cannula Oxygen Flow Rate 10 Fraction of Inspired Oxygen 45 SaO2/FiO2 Ratio 186 Weight: 67.9 kg - Constitutional Present: well nourished, well developed, cooperative - Routine HEENT Exam Head: Present: normocephalic, atraumatic Eye: Present: EOMI, PERRL ENT: Present: mucous membranes moist - Routine Respiratory Exam Present: decreased breath sounds, respiratory distress (Mild at rest ), crackles (Fibrotic crackles bilaterally ), distant breath sounds, diminished air movement - Routine Cardiovascular Exam Present: RRR - Routine Abdominal Exam Present: soft, normoactive bowel sounds, non distended, non tender - Routine Extremities Exam Present: cyanosis, clubbing, edema (Trace bilateral lower ext. ), pulses intact - Routine Musculoskeletal Exam Musculoskeletal: Present: no clubbing or cyanosis, no joint swelling - Routine Skin Exam Present: intact, warm. Absent: mottling - Routine Neurological Exam Present: alert, oriented X3, CN II-XII intact, vision grossly intact, hearing grossly intact. Absent: motor deficit - Routine Psychiatric Exam Present: normal affect, normal thought process, cooperative. Absent: anxious, agitated Results - Labs CBC & Chem 7: 08/30/16 04:34 08/30/16 04:34 Microbiology Results: Microbiology 08/24/16 18:59 Peripheral/Iv Start Blood Culture - Final No Growth After 5 Days 08/24/16 17:08 Peripheral/Iv Start Blood Culture - Final No Growth After 5 Days 08/25/16 14:17 Sputum, Expectorated Gram Stain - Final 08/25/16 14:17 Sputum, Expectorated Sputum Culture - Final Kenisha albicans Normal Respiratory Jamia 08/24/16 17:25 Urine, Cath Arias Urine Culture - Final No Growth After 2 Days - ABG Interpretation ABG results: 08/29/16 08:18 ABG pH 7.490 H ABG pCO2 48 H ABG pO2 84 ABG HCO3 37 H ABG Total CO2 38.1 H ABG O2 Saturation 97.0 ABG Base Excess 11.6 H Assessment and Plan (1) Acute respiratory failure Problem details: Acute hypoxic respiratory failure Current visit: Yes Status : Acute (2) Pulmonary fibrosis Current visit: Yes Status: Chronic (3) Pulmonary edema Current visit: Yes Status: Resolved (4) Severe sepsis Current visit: Yes Status: Resolved (5) Acute encephalopathy Current visit: Yes Status: Resolved (6) Diastolic CHF, acute on chronic Current visit: Yes Status: Acute (7) Elevated serum creatinine Problem details: POA - Baseline creatinine 1.1-1.3 per outpatient records Current visit: Yes Status: Resolved (8) CKD (chronic kidney disease) stage 3, GFR 30-59 ml/min Current visit: Yes Status: Chronic (9) Elevated troponin Current visit: Yes Status: Resolved (10) Anemia Current visit: Yes Status: Acute (11) CAD (coronary artery disease) Current visit: Yes Status: Chronic (12) Pulmonary hypertension Current visit: Yes Status: Chronic (13) Hyponatremia Problem details: Not POA Current visit: Yes Status: Acute (14) Leukocytosis Current visit: Yes Status: Acute DVT Prophylaxis: SQ Heparin Resuscitation Status: Do Not Resuscitate Assessment and Plan: Arrangements made for continuation of care at . Will give Diamox 500mg x1 today. Slow taper of Prednisone:15mg daily x 4 more days, then continue at 10mg daily. Family wondering about more liberal diet (off of cardiac) Advised could worsen respiratory status. They feel comfort with diet important as well. Will have PT/OT and nursing try to improve functional status. Discussed with pt and his that if gains are not being made, hospice care would be reasonable. F/U with Dr Fleming in 1 week Will check BMP in 1 week secondary to medication use. Overall prognosis not good - nearing end stage pulmonary disease. Case discussed with CM and pt's . Time spent with patient care and discharge greater than 35 minutes. - Time spent with patient discharge greater than 30 minutes Sepsis Assessment - Evaluation Sepsis screening result: No Definite Risk Hospital Course Summary Disclaimer: The visit summary below is not to be considered part of the above Progress Note. Hospital Course: 08/16/16 17:50 Admit to inpatient status under the hospitalist service. Acute respiratory failure requiring BiPAP secondary to severe pulmonary edema superimposed on progressive idiopathic pulmonary fibrosis; diastolic CHF -Continue BiPAP -Bumex 1 mg IV now, likely will need further diuresis -Repeat echocardiogram. Last echocardiogram was done September 2015 showing an EF of 56%, diastolic dysfunction, and trace MR, trace TR. Pulmonary pressures were unable to be estimated. -trend troponin -baseline oxygen about 4L -[employer] is Dr. Jocy Ko -continue pirfenidone -repeat CXR in am Severe sepsis (possible), based on lactic acidosis and respiratory failure; also with SIRS criteria including leukocytosis and tachypnea -Repeat lactate improved to 0.9 -lactic acidosis could be secondary to profound hypoxia rather than infectious cause -however, cannot rule out pneumonia -Start Rocephin and azithromycin -repeat PCT in am Elevated creatinine -Hold losartan Elevated LFTs -Hold Tylenol and statin -poss liver congestion from CHF Acute encephalopathy -likely from hypoxia -much improved with BiPAP Weakness -Will need PT/OT evaluation once medical condition stabilizes CAD, HTN, HLD -cont ASA, atenolol -hold statin d/t elevated LFTs Advanced directives -DPOA - Tamela -DNR, DNI requested following discussion of resuscitation and expected outcomes. Family in agreement. Pt is critically ill, and >30 minutes were spent at the bedside evaluating the patient and discussing plans. Discussed with Dr. Evans. 08/18/16 Change Atenolol to Metoprolol 25mg BID 08/22/16 BP elevated over the weekend with metoprolol hold by primary due to bradycardia. He has prn amlodipine 5mg for sbp>180. Received a one time dose of hydralazine IV this am, bp systolic 130's right now. Loartan restarted, cr stable at 1.6. Will follow, discussed nitrates as a treatment option. 08/24/16 - Cardiology Increase Bumex to 2mg BID, D/C Lasix and HCTZ. Follow renal and electrolytes. 08/24/16 - Camara Summary - This is an 80 YO with IPF, that came due to SOB and has been slowly improving on the ICU. He had a recent high-resolution CT of the lungs that showed advanced pulmonary fibrosis with changes primarily in the mid and lower lung marinelli. Pt has advanced IPF + Pulmonary HTN, CHF (Systolic and diastolic), and presented with renal failure, on admission. He had an episode of acute decompensation (Shortness of breath -desaturation - on 08/17) probably due to hypoxemia ? of bronchospasm. At that time he was on a non-selective BB that was changed to a selective BB. Pt was managed with IV morphine and SL NTG + Duonebs , with improved status. His BB was changed from Atenolol to Metoprolol on 08/18. He was off BB since 08/18 due to low HR, that was resumed on 08/22. HR was higher and it was resumed. On admission there was discussion about hospice, pt is a DNR /DNI, but has not been placed on Hospice yes. Pt has been a bit better since his BB were stopped, allowing for his oxygen carrying capacity to improve at expense of a higher HR. 08/25/16 HR consistently 110s today. Add low dose BB, Metoprolol 12.5mg po BID, monitor response. [place] HR is 90s. 08/25/16 19:26-Cristina Overall the patient is clinically improved from admission and is tolerating periods of time off BiPAP. He tolerated being off BiPAP almost 24 hours that showed signs of fatiguing. I advised patient and his that I believe he should use BiPAP at night and as needed during the day. Tolerating steroid taper. - Continue pirfenidone - Added Tiotropium (08/23) - Changed Duonebs to Albuterol nebs (08/23) - Added Symbicort (08/24) Reassess chest x-ray in a.m. Marked hyponatremia has evolved in the past 2 days-unchanged with normal saline infusion overnight. Fluids discontinued to avoid pulmonary compromise. Check urine sodium/creatinine/osmolality. Persistent leukocytosis although white count somewhat better than yesterday. Lactic acid and procalcitonin unremarkable. Cultures pending. Low-grade tachycardia recurred following discontinuation of beta lucie. Metoprolol resumed at low dose per cardiology. Known coronary disease/CHF. Echo with ejection fraction 40-45%, biatrial enlargement, MR, TR, and severe pulmonary hypertension with PAP 80 mm. Hemoglobin stable-anemia of chronic disease/chronic kidney disease. Mild bump in creatinine yesterday, improved after fluids overnight. Continue to assess Stable to transfer out of ICU. Patient prefers to avoid transfer to LTAC. Begin bladder training with goal of discontinuing Arias catheter in 48 hours. PT/OT. Need to discuss discharge options with the patient's daughters when they're present later. Hospice support may be needed at discharge. 08/26/16 Acute/chronic resp failure -- still requiring 15L of O2 -continue pred taper, tiotropium, albuterol, symbicort, pifenidone -cxr this am shows slight improvement in aeration of lower lobes with continued b/l airspace disease, sig. fibrosis and trace effusions -developed thrush - start nystatin Hyponatremia -still low at 126 -urine creatinine 37.3; urine Na 71 (high, indicating it possible from diuresis; or SIADH; or hypothyroid; possible cortisol deficiency); urine osm pending Leukocytosis -persistent but improving -bc negative; initial sputum cx was neg. CHF, systolic, valvular, with sev PH -continue BB, bumex, asa -cardiology following CKD -stabilizing; cr 1.3; BUN decreasing 08/26/16 - Cardiology HR mostly 90s which is target for patient. Continue low dose BB. continue to monitor telemetry. 08/27/16 Overall less states that he is feeling better today. He does continue to require 15 liters of oxygen by high flow nasal cannula, accompanied with BiPAP overnight. Oral discomfort feels much improved today. Continue on nystatin 4 times a day. Patient continues to be on prednisone 10 milligrams twice a day Continue to monitor blood pressures. He did have 1 lower pressure today 98/63, however, this appears to be the only hypotension. He has had over the past 48 hours. Continue to monitor. May need to consider lowering antihypertensives. Blood sugars have been well controlled, fasting sugar this morning 93 Persistent hyponatremia. Continue to follow carefully Heparin subcutaneous every 8 hours for DVT prophylaxis Overall making gains. Bashir states that he feels like he is getting stronger each day. 08/28/16 Respiratory status doing well-titrated to 10 L per high flow cannula while awake , nocturnal BiPAP. Will need BiPAP or Trilogy vent/mask at discharge-case management assisting in coordinating for home use. Check ABG in a.m. BiPAP currently set at 16/8, rate 16 with FiO2 45%-on admission required FiO2 of 100% to maintain marginal saturations. Continue PT and gradually increase activity. Prednisone decreased to 15 mg daily this morning. Continue to titrate slowly. Renal function slowly improving. Persistent hyponatremia but clinically patient asymptomatic. Hyponatremia initially attributed to over diuresis when noted on but at that time urine creatinine was relatively low. Hyponatremia has worsened progressively since diuretics were held. Weight is up over the past 4- 5 days (excluding today's weight which is obviously wrong). Resume furosemide at 40 mg daily-home dose. Dietary salt restriction decreased slightly. Blood pressure borderline low-losartan decreased to 25 mg daily. Leukocytosis resolving, likely result steroids. Hemoglobin stable, renal function stable-improved from admission. 08/29/16 Doing fair. Breathing okay at rest, but gets very winded with any activities. Hard to build up strength due to his pulmonary debility. Notes some cough, minimal sputum. No pain with breathing. Appetite okay. No nausea or ab pain. Bowel moving. Urinating without problems now that arias removed. Continue with current respiratory support. Prednisone decrease to 15mg today - will need to slowly taper. Diamox 500mg x1 now as CO2 increasing and ABG showing alkalosis - contraction alkalosis with diuretics. Encourage activities as able - arm/leg movements in chair if not able to be up and ambulatory. Continue sodium restriction. Check BMP in am due to hyponatremia. CBC in am due to leukocytosis and anemia. CM making arrangements for skilled care-likely be able to discharge tomorrow. Hospice considerations if pt not making gains with skilled care or developed further set back. 08/30/16 Respiratory status stable - needing 10L at rest and BiPAP when sleeping. Arrangements made for continuation of care at [facility]. Will give Diamox 500mg x1 today. Slow taper of Prednisone:15mg daily x 4 more days, then continue at 10mg daily. Family wondering about more liberal diet (off of cardiac) Advised could worsen respiratory status. They feel comfort with diet important as well. Will have PT/OT and nursing try to improve functional status. Discussed with pt and his that if gains are not being made, hospice care would be reasonable. F/U with Dr Fleming in 1 week Will check BMP in 1 week secondary to medication use. Overall prognosis not good - nearing end stage pulmonary disease.
[2016-08-30] MEDS: TIOTROPIUM 18mcg/cap HANDIHALER ORAL INH SCH (12:14)
--- NOTE | 2016-08-30 12:22 | Extended Care Facility Orders ---
Admission Orders Admit to:: Detention Allergies/Adverse Reactions: Allergies No Known Drug Allergies Allergy (Unknown, Verified 08/16/16 17:53) Admitting Diagnosis: Acute respiratory failure, Pulmonary fibrosis Admitting Physician: Hazel Evans MD Attending Physician: Dr Mancini Code Status: Do Not Resuscitate Anticiapted Length of Stay: 30 days or less Rehab Potential: poor Rehab Prognosis: poor Diet: No added salt. May use Facility Protocol or Standing Orders: Yes May have flu vaccine: Yes Evaluations/Treatment: PT, OT Detention Certification: I certify that SNF services are required to be given on an Inpatient basis because of the patients need for long-term care on a continuing basis for the condition(s) for which he/she received inpatient hospital services prior to his/her transfer to the SNF. SNF inpatient care is necessary for the following reasons Indication for Detention: Teach CHF, Teach COPD Management (Pulmonary fibrosis ), Other (Skilled PT/OT to maximize functional status.) - Additional Information Resident is Aware of Diagnosis: Yes Referrals: Shiva Mancini MD [Family Provider] - 1 Week (Hospital F/U. ) Jocy Ko MD [Physician] - 2 Weeks (Pulmonary f/u. ) Additional Orders: F/U with Dr Mancini in 1 week. BMP in 1 week secondary to medication use. O2 at 10L when awake. BiPAP at night and when sleeping. Acapella QID. Considerations for Hospice care to be given if pt not progressing with therapy.
--- NOTE | 2016-08-30 12:37 | Discharge Summary ---
Discharge Information Date of admission: 08/16/16 17:10 Anticipated date of discharge: 08/30/16 Attending Physician: Hazel Evans MD Primary care physician: Shiva Mancini MD Consults: 08/16/16 Pharmacy Consult [CONS] Routine Pharmacy Consult: Heparin Comment: for cardiac purposes 08/16/16 19:54 Physician Consult [CONS] Routine Consulting Provider: Beni Langston Reason For Exam: elevated troponin, elevated pulm pressure Ordering Provider has Notified Insulation Estimator: Yes 08/17/16 15:22 Physician Consult [CONS] Routine Consulting Provider: Gloria Sheridan Reason For Exam: CONTINUITY OF CARE Ordering Provider has Notified Insulation Estimator: Yes Comment: CONT CARE - Discharge Diagnosis (1) Acute respiratory failure Qualifiers: Respiratory failure complication: hypoxia Qualified Code(s): J96.01 - Acute respiratory failure with hypoxia Problem Details: Acute hypoxic respiratory failure Status: Acute (2) Pulmonary fibrosis Status: Chronic (3) Pulmonary edema Qualifiers: Chronicity: acute Qualified Code(s): J81.0 - Acute pulmonary edema Status: Resolved (4) Severe sepsis Status: Resolved (5) Acute encephalopathy Status: Resolved (6) Diastolic CHF, acute on chronic Status: Acute (7) Elevated serum creatinine Problem Details: POA - Baseline creatinine 1.1-1.3 per outpatient records Status: Resolved (8) CKD (chronic kidney disease) stage 3, GFR 30-59 ml/min Status: Chronic (9) Elevated troponin Status: Resolved (10) Anemia Qualifiers: Anemia type: unspecified type Qualified Code(s): D64.9 - Anemia, unspecified Status: Acute (11) CAD (coronary artery disease) Qualifiers: Coronary Disease-Associated Artery/Lesion type: [place] artery [place] vs. transplanted heart: [place] heart Associated angina: without angina Qualified Code(s): I25.10 - Atherosclerotic heart disease of [place] coronary artery without angina pectoris Status: Chronic (12) Pulmonary hypertension Status: Chronic (13) Hyponatremia Problem Details: Not POA Status: Acute (14) Leukocytosis Qualifiers: Leukocytosis type: unspecified Qualified Code(s): D72.829 - Elevated white blood cell count, unspecified Status: Acute - Procedures Procedures: US echo doppler complete DATE OF PROCEDURE: August 16, 2016 This is a two-dimensional echo with spectral Doppler, color-flow and M-mode. It was obtained in a patient with pulmonary edema. Left atrium is dilated. Left ventricle end-diastolic dimension is normal. Left ventricle wall thickness is normal. LV systolic function is reduced with global hypokinesia with ejection fraction of about 40-45%. Right atrium is dilated. Right ventricle is normal. Aortic root dimension is normal. Mitral valve annulus is calcified. Mitral valve leaflets are sclerotic with no stenosis. Mild mitral regurgitation is present. Aortic valve shows no stenosis with trace of aortic insufficiency. Tricuspid valve shows moderate tricuspid regurgitation with severe pulmonary hypertension with estimated pulmonary artery systolic pressure of 80. Pulmonary valve shows trace of pulmonary insufficiency. There is no pericardial effusion. IMPRESSION 1. Technically difficult study. 2. Global hypokinesia with ejection fraction of about 40-45%. 3. Biatrial dilation. 4. Mitral annulus calcification with mitral sclerosis and mild mitral regurgitation. 5. Moderate tricuspid regurgitation with severe pulmonary hypertension with estimated pulmonary artery systolic pressure of 80. 6. Trace of aortic insufficiency. 7. Trace of pulmonary insufficiency. - Laboratory Labs: 08/30/16 04:34 08/30/16 04:34 - Microbiology Microbiology 08/24/16 18:59 Peripheral/Iv Start Blood Culture - Final No Growth After 5 Days 08/24/16 17:08 Peripheral/Iv Start Blood Culture - Final No Growth After 5 Days 08/25/16 14:17 Sputum, Expectorated Gram Stain - Final 08/25/16 14:17 Sputum, Expectorated Sputum Culture - Final Kenisha albicans Normal Respiratory Jamia 08/24/16 17:25 Urine, Cath Arias Urine Culture - Final No Growth After 2 Days History of Present Illness HPI: Eliot Gonzalez is an 80 y/o male with a hx of chronic O2 use secondary to progressive idiopathic pulmonary fibrosis which has significantly worsened from 09/2015 to 05/2016. According to his family, he has had mild difficulty breathing that started about a month ago but became quite worse about 3 days ago. They've increased his oxygen from 4L to 8L, and on 08/15/16 he was still gasping and breathing hard. Family saw his head droop down and actually thought he . He' s been poorly responsive, lethargic, and not able to speak well. , Tamela, notes increased lower ext swelling over the last few days. He has had a poor appetite without n/v. He's had a low-grade fever of 99.1. He has had a productive cough, but brown-red sputum has increased x1 months. He's been weak and dizzy. Notes constipation. Hx of nocturia - chronic d/t BPH. Tends to bruise easily. No sores or rashes. He's lost a few lbs over the last few months. No paresthesias. Family took him to the emergency department on 08/16/16 for evaluation. His oxygen sats were 53% on 4L of oxygen and he was placed on BiPAP. CXR showed severe pulmonary edema. He also received a DuoNeb. Labs were consistent with severe sepsis - lactate was elevated at 2.3; PCT 1.69; BNP markedly elevated at 21,500; SIRS = WBC were high at 21.5; resp rate was 58. He was given Lasix 20 mg IV, cefepime 1 gm. He improved greatly on BiPAP, and was A &O when I arrived to see him. He was able to participate in discussion, ROS (as above), and advanced care discussion ( Tamela - DPOA; no living will but does not want intubation; requests DNR status). For complete details of the H&P, refer to that document. Objective Vital signs: Temperature 96.3 F L 08/30/16 08:00 Pulse Rate 87 08/30/16 08:00 Respiratory Rate 24 08/30/16 09:47 Blood Pressure 126/65 08/30/16 08:00 Pulse Oximetry 91 08/30/16 09:47 Oxygen Delivery Method Nasal Cannula Oxygen Flow Rate 10 Fraction of Inspired Oxygen 45 SaO2/FiO2 Ratio 186 Weight: 67.9 kg Hospital Course This is a general summary of the patient's hospital course. For more details refer to the complete medical record. Hospital course: 08/16/16 17:50 Admit to inpatient status under the hospitalist service. Acute respiratory failure requiring BiPAP secondary to severe pulmonary edema superimposed on progressive idiopathic pulmonary fibrosis; diastolic CHF -Continue BiPAP -Bumex 1 mg IV now, likely will need further diuresis -Repeat echocardiogram. Last echocardiogram was done September 2015 showing an EF of 56%, diastolic dysfunction, and trace MR, trace TR. Pulmonary pressures were unable to be estimated. -trend troponin -baseline oxygen about 4L -Journal Clerk is Dr. Jocy Ko -continue pirfenidone -repeat CXR in am Severe sepsis (possible), based on lactic acidosis and respiratory failure; also with SIRS criteria including leukocytosis and tachypnea -Repeat lactate improved to 0.9 -lactic acidosis could be secondary to profound hypoxia rather than infectious cause -however, cannot rule out pneumonia -Start Rocephin and azithromycin -repeat PCT in am Elevated creatinine -Hold losartan Elevated LFTs -Hold Tylenol and statin -poss liver congestion from CHF Acute encephalopathy -likely from hypoxia -much improved with BiPAP Weakness -Will need PT/OT evaluation once medical condition stabilizes CAD, HTN, HLD -cont ASA, atenolol -hold statin d/t elevated LFTs Advanced directives -DPOA - Tamela -DNR, DNI requested following discussion of resuscitation and expected outcomes. Family in agreement. Pt is critically ill, and >30 minutes were spent at the bedside evaluating the patient and discussing plans. Discussed with Dr. Evans. 08/18/16 Change Atenolol to Metoprolol 25mg BID 08/22/16 BP elevated over the weekend with metoprolol hold by primary due to bradycardia. He has prn amlodipine 5mg for sbp>180. Received a one time dose of hydralazine IV this am, bp systolic 130's right now. Loartan restarted, cr stable at 1.6. Will follow, discussed nitrates as a treatment option. 08/24/16 - Cardiology Increase Bumex to 2mg BID, D/C Lasix and HCTZ. Follow renal and electrolytes. 08/24/16-Camara Summary - This is an 80 YO with IPF, that came due to SOB and has been slowly improving on the ICU. He had a recent high-resolution CT of the lungs that showed advanced pulmonary fibrosis with changes primarily in the mid and lower lung marinelli. Pt has advanced IPF + Pulmonary HTN, CHF (Systolic and diastolic), and presented with renal failure, on admission. He had an episode of acute decompensation (Shortness of breath -desaturation - on 08/17) probably due to hypoxemia ? of bronchospasm. At that time he was on a non-selective BB that was changed to a selective BB. Pt was managed with IV morphine and SL NTG + Duonebs , with improved status. His BB was changed from Atenolol to Metoprolol on 08/18. He was off BB since 08/18 due to low HR, that was resumed on 08/22. HR was higher and it was resumed. On admission there was discussion about hospice, pt is a DNR /DNI, but has not been placed on Hospice yes. Pt has been a bit better since his BB were stopped, allowing for his oxygen carrying capacity to improve at expense of a higher HR. 08/25/16 HR consistently 110s today. Add low dose BB, Metoprolol 12.5mg po BID, monitor response. [place] HR is 90s. 08/25/16 19:26-Cristina Overall the patient is clinically improved from admission and is tolerating periods of time off BiPAP. He tolerated being off BiPAP almost 24 hours that showed signs of fatiguing. I advised patient and his that I believe he should use BiPAP at night and as needed during the day. Tolerating steroid taper. - Continue pirfenidone - Added Tiotropium (08/23) - Changed Duonebs to Albuterol nebs (08/23) - Added Symbicort (08/24) Reassess chest x-ray in a.m. Marked hyponatremia has evolved in the past 2 days-unchanged with normal saline infusion overnight. Fluids discontinued to avoid pulmonary compromise. Check urine sodium/creatinine/osmolality. Persistent leukocytosis although white count somewhat better than yesterday. Lactic acid and procalcitonin unremarkable. Cultures pending. Low-grade tachycardia recurred following discontinuation of beta lucie. Metoprolol resumed at low dose per cardiology. Known coronary disease/CHF. Echo with ejection fraction 40-45%, biatrial enlargement, MR, TR, and severe pulmonary hypertension with PAP 80 mm. Hemoglobin stable-anemia of chronic disease/chronic kidney disease. Mild bump in creatinine yesterday, improved after fluids overnight. Continue to assess Stable to transfer out of ICU. Patient prefers to avoid transfer to LTAC. Begin bladder training with goal of discontinuing Arias catheter in 48 hours. PT/OT. Need to discuss discharge options with the patient's daughters when they're present later. Hospice support may be needed at discharge. 08/26/16 Acute/chronic resp failure -- still requiring 15L of O2 -continue pred taper, tiotropium, albuterol, symbicort, pifenidone -cxr this am shows slight improvement in aeration of lower lobes with continued b/l airspace disease, sig. fibrosis and trace effusions -developed thrush - start nystatin Hyponatremia -still low at 126 -urine creatinine 37.3; urine Na 71 (high, poss from diuresis; or SIADH; or hypothyroid; could also be cortisol deficiency); urine osm pending Leukocytosis -persistent but improving -bc negative; initial sputum cx was neg. CHF, systolic, valvular, with sev PH -continue BB, bumex, asa -cardiology following CKD -stabilizing; cr 1.3; BUN decreasing 08/26/16 - Cardiology HR mostly 90s which is target for patient. Continue low dose BB. continue to monitor telemetry. 08/27/16 Overall less states that he is feeling better today. He does continue to require 15 liters of oxygen by high flow nasal cannula, accompanied with BiPAP overnight. Oral discomfort feels much improved today. Continue on nystatin 4 times a day. Patient continues to be on prednisone 10 milligrams twice a day Continue to monitor blood pressures. He did have 1 lower pressure today 98/63, however, this appears to be the only hypotension. He has had over the past 48 hours. Continue to monitor. May need to consider lowering antihypertensives. Blood sugars have been well controlled, fasting sugar this morning 93 Persistent hyponatremia. Continue to follow carefully Heparin subcutaneous every 8 hours for DVT prophylaxis Overall making gains. Bashir states that he feels like he is getting stronger each day. 08/28/16 Respiratory status doing well-titrated to 10 L per high flow cannula while awake , nocturnal BiPAP. Will need BiPAP or Trilogy vent/mask at discharge-case management assisting in coordinating for home use. Check ABG in a.m. BiPAP currently set at 16/8, rate 16 with FiO2 45%-on admission required FiO2 of 100% to maintain marginal saturations. Continue PT and gradually increase activity. Prednisone decreased to 15 mg daily this morning. Continue to titrate slowly. Renal function slowly improving. Persistent hyponatremia but clinically patient asymptomatic. Hyponatremia initially attributed to over diuresis when noted on but at that time urine creatinine was relatively low. Hyponatremia has worsened progressively since diuretics were held. Weight is up over the past 4- 5 days (excluding today's weight which is obviously wrong). Resume furosemide at 40 mg daily-home dose. Dietary salt restriction decreased slightly. Blood pressure borderline low-losartan decreased to 25 mg daily. Leukocytosis resolving, likely result steroids. Hemoglobin stable, renal function stable-improved from admission. 08/29/16 Doing fair. Breathing okay at rest, but gets very winded with any activities. Hard to build up strength due to his pulmonary debility. Notes some cough, minimal sputum. No pain with breathing. Appetite okay. No nausea or ab pain. Bowel moving. Urinating without problems now that arias removed. Continue with current respiratory support. Prednisone decrease to 15mg today - will need to slowly taper. Diamox 500mg x1 now as CO2 increasing and ABG showing alkalosis - contraction alkalosis with diuretics. Encourage activities as able - arm/leg movements in chair if not able to be up and ambulatory. Continue sodium restriction. Check BMP in am due to hyponatremia. CBC in am due to leukocytosis and anemia. CM making arrangements for skilled care-likely be able to discharge tomorrow. Hospice considerations if pt not making gains with skilled care or developed further set back. Time spent with patient: discharge greater than 30 minutes DVT Prophylaxis: SQ Heparin Discharge Plan - Med Rec/Dispo Referrals/Follow Up: Shiva Mancini MD [Family Provider] - 1 Week (Hospital F/U. ) Jocy Ko MD [Physician] - 2 Weeks (Pulmonary f/u. ) Prescriptions: New LORazepam [Ativan] 0.5 mg PO Q4HR PRN #20 tablet PRN Reason: Air Hunger/Anxiety Losartan [Cozaar] 25 mg PO DAILY tablet Menthol Cough Drops [Ricola Sf] 1 lozenge MM Q2H PRN lozenge PRN Reason: Cough Nystatin Oral Liq. [Mycostatin] 5 ml PO QID udc PredniSONE [Deltasone] See Protocol PO WB #60 tablet Albuterol Neb (0.083%) [Proventil Neb (0.083%)] 2.5 mg AEROSOL QID neb Metoprolol Tartrate [Lopressor] 12.5 mg PO BIDWM tablet Tiotropium [place] [Spiriva] 1 cap ORAL INH DAILY cap.w.dev Continue Finasteride [Proscar] 5 mg PO DAILY #0 Acetaminophen [Tylenol Extra Strength] 500 mg PO Q4HR PRN #0 PRN Reason: PAIN Furosemide 20 mg PO DAILY #0 Multivitamin [Multivitamins] 1 tab PO DAILY #0 Pirfenidone [Esbriet] 801 mg PO TID Alfuzosin HCl [Uroxatral] 10 mg PO HS #0 Simvastatin 20 mg PO HS #0 Aspirin [Aspir 81] 81 mg PO DAILY #0 Discontinued Losartan Potassium 100 mg PO DAILY #0 Atenolol 100 mg PO DAILY #0 Discharge Instructions/Outpatient Orders: Final Provider Discharge Instructions Location: Determined By Patient - Disposition 03 To [facility] ([facility])
[2016-08-30 16:07] VITALS: BP 131/61; PULSE 92; RESP 22; TEMP 97.4
== END 2016-08-30 16:25 | DRG 871 ==
LOC: ED 14:26 → CCU 17:10 → MED 08-25 18:04
PROVIDERS: ADMIT Internal Medicine; ATTEND Internal Medicine

== ENCOUNTER 2016-09-03 00:53 | Inpatient (IN) ==
[2016-09-03] MEDS ORDERED: ALBUTEROL/IPRATROPIUM 2.5mg-0.5mg/3ml NEB AEROSOL PRN (01:13)
--- NOTE | 2016-09-03 04:01 | Emergency Department Report ---
SOB HPI - General Chief Complaint: Shortness of Breath/Dyspnea Stated Complaint: diff breathing Time Seen by Provider: 09/03/16 01:08 - History of Present Illness 80-year-old gentleman brought in by EMS with respiratory distress. He was discharged from hospital admission for CHF and pulmonary edema exacerbation with severe sepsis. Discharge was proximate 4 days ago. Plan the family was to get him onto hospice as he is DO NOT RESUSCITATE and does not want to continue with his current direction. Today the snf, is oxygen saturation was poor. He is on a 12 L high flow nasal cannula. O2 sats dropped to 60%. EMS was contacted and patient was transported to the emergency department. En route he was given Solu-Medrol 125 mg and an albuterol nebulizer treatment. He is brought in with CPAP in place and nasal cannula underneath with high flow. O2 sats are 80% as he enters the ED. He has not had any appetite, did not eat today or yesterday. Family is all coming in and some are already in the waiting room when he arrives. - Related Data Home Medications Medication Instructions Recorded Confirmed Acetaminophen [Tylenol Extra 500 mg PO Q4HR PRN #0 10/15/08 09/03/16 Strength] Alfuzosin HCl [Uroxatral] 10 mg PO HS #0 10/15/08 09/03/16 Finasteride [Proscar] 5 mg PO DAILY #0 10/15/08 09/03/16 Simvastatin 20 mg PO HS #0 10/15/08 09/03/16 Aspirin [Aspir 81] 81 mg PO DAILY #0 10/18/10 09/03/16 Furosemide 20 mg PO DAILY #0 05/22/16 09/03/16 Multivitamin [Multivitamins] 1 tab PO DAILY #0 05/22/16 09/03/16 Pirfenidone [Esbriet] 801 mg PO TID 08/16/16 09/03/16 Previous Rx's Medication Instructions Recorded Albuterol Neb (0.083%) [Proventil 2.5 mg AEROSOL QID neb 08/30/16 Neb (0.083%)] LORazepam [Ativan] 0.5 mg PO Q4HR PRN #20 tablet 08/30/16 Losartan [Cozaar] 25 mg PO DAILY tablet 08/30/16 Menthol Cough Drops [Ricola Sf] 1 lozenge MM Q2H PRN lozenge 08/30/16 Metoprolol Tartrate [Lopressor] 12.5 mg PO BIDWM tablet 08/30/16 Nystatin Oral Liq. [Mycostatin] 5 ml PO QID udc 08/30/16 PredniSONE [Deltasone] See Protocol PO WB #60 tablet 08/30/16 Tiotropium [place] [Spiriva] 1 cap ORAL INH DAILY cap.w.dev 08/30/16 Allergies Allergy/AdvReac Type Severity Reaction Status Date / Time No Known Drug Allergies Allergy Unknown Verified 08/16/16 17:53 Review of Systems All systems: reviewed and negative except as stated Cardiovascular: Reports: palpitations, dyspnea on exertion, orthopnea, edema Respiratory: Reports: as per HPI PFSH Patient Stated Medical History Hearing Loss Yes: Bilateral hearing aides Congestive Heart Failure Yes Hypertension Yes Myocardial Infarction Yes Other Respiratory Yes: PULMONARY FIBROSIS Gastroesophageal Reflux Yes Disease Other Yes: Difficulty starting stream Other Musculoskeletal Yes: "A LITTLE" ARTHRITIS PER SPOUSE Surgical History: Bilateral knee replacements. foreign body, removed from the knee 07/15/11. Cystoscopy with ureteral dilatation 2008. 4 vessel bypass 2005. Orchiectomy 2002 - Social History Smoking status: Never smoker Physical Exam - Limitations Limitations: physical limitation (patient cannot get enough air to speak.) - Normal Exams: Head:: Normocephalic without trauma - Chest Chest inspection: Present: symmetric chest wall rise - Respiratory Respiratory exam: Present: respiratory distress, wheezes, accessory muscle use, prolonged expiratory phase, crackles - Cardiovascular Cardiovascular exam: Present: tachycardia. Absent: irregular rhythm - Abdominal Exam Abdominal exam: Present: soft, distention, diminished bowel sounds. Absent: tenderness, guarding - Extremities Exam Extremities exam: Present: pedal edema - Skin Skin exam: Present: mottled Course Vital Signs Temperature 97.6 F 09/03/16 00:53 Pulse Rate 98 09/03/16 00:53 Respiratory Rate 30 H 09/03/16 00:53 Blood Pressure 136/66 09/03/16 00:53 Pulse Oximetry 94 09/03/16 00:53 Temperature 97.6 F 09/03/16 00:53 Pulse Rate 90 09/03/16 03:00 Respiratory Rate 26 H 09/03/16 03:00 Blood Pressure 100/55 09/03/16 03:00 Pulse Oximetry 99 09/03/16 03:00 Shortness of Breath/Dyspnea - [facility] Narrative Medical decision making narrative: White count 21, patient has sodium abnormality as well. Chest x-ray shows pulmonary edema diffusely with probable underlying infiltrate. CRP is elevated as is BNP. Patient was placed on BiPAP with 20/10 pressure. 100% oxygen given and patient's O2 sats slowly willis into appropriate level he was ultimately able to be decreased to 55% FiO2 as long as the BiPAP was maintained. He is definitely exhausted. Initially on arrival he was able to interact. However fairly rapidly fell asleep and is not responding to us at this point. Family states that his desire is to pass on if his situation worsens at all. Entire family is in agreement and would like to place him on hospice at this time. We did discuss at length options including ICU admission, for an attempt at full recovery. Patient has severely elevated pulmonary pressure and mortality in this situation is nearly 100%. I spoke with hospitalist on-call who was agreeable to admit the patient for hospice consult in the morning. At this point we'll continue the BiPAP to keep him comfortable until hospice is able to take over and manage medication. Patient be given Ativan for anxiety or air hunger. - Lab Data Result diagrams: 09/03/16 01:43 09/03/16 01:43 Lab Results 09/03/16 09/03/16 09/03/16 Range/Units 01:43 01:43 01:43 WBC 21.5 H (4.5-11.0) T/MM3 RBC 3.51 L (4.50-5.90) M/MM3 Hgb 10.5 L (13.5-17.5) GM/DL Hct 30.2 L (41-53) % MCV 86.0 (80-100) UM3 MCH 29.9 (26-34) UUG MCHC 34.8 (31-37) GM/DL RDW Std Deviation 44.5 (36.9-50.2) FL Plt Count 229 (130-400) T/MM3 MPV 10.7 (9.4-12.4) UM3 Immature Gran % (Auto) Not performed Neut % (Auto) Not performed Lymph % (Auto) Not performed Hunt % (Auto) Not performed Eos % (Auto) Not performed Baso % (Auto) Not performed Neut # Not performed Lymph # Not performed Hunt # Not performed Eos # Not performed Baso # Not performed Abs Immat Gran (auto) Not performed Neutrophils % (Manual) 95.0 H (33-66) % Lymphocytes % (Manual) 3.0 L (23-45) % Monocytes % (Manual) 2.0 (0-9.0) % Neutrophils # (Manual) 20.4 H (1.8-7.7) T/MM3 Lymphocytes # (Manual) 0.6 L (1-4.8) T/MM3 Monocytes # (Manual) 0.4 (0-0.8) T/MM3 RBC Morph Comment Normal ABG pH (7.350-7.450) ABG pCO2 (34-45) MMHG ABG pO2 (80-100) MMHG ABG HCO3 (22-26) MEQ/L ABG Total CO2 (23-27) MEQ/L ABG O2 Saturation (95.0-98.0) % ABG Base Excess (-2.0-2.0) MMOL/L O2 Delivery Method FiO2 % Turbidity < 20 (0-20) Sodium 124 L (134-144) MEQ/L Potassium 3.5 L (3.6-5) MEQ/L Chloride 93 L (98-107) MEQ/L Carbon Dioxide 21 L (22-30) MEQ/L Anion Gap 10 (5-15) MEQ/L BUN 27.0 H (9-20) MG/DL Creatinine 1.1 (0.8-1.5) MG/DL GFR Calculation 64 BUN/Creatinine Ratio 25 (6-26) RATIO Glucose 133 H (75-110) MG/DL Calculated Osmolality 247 L (261-280) MOSM/KG Calcium 8.8 (8.4-10.2) MG/DL Magnesium 2.2 (1.6-2.3) MG/DL Total Bilirubin 1.20 (0.20-1.30) MG/DL Icterus Index < 2 (0-7) AST 35 (17-59) U/L ALT 54 (21-72) U/L Alkaline Phosphatase 64 (38-126) U/L Troponin I 0.043 (0-0.12) ng/ml B-Natriuretic Peptide 2610 H (0-175) pg/mL Total Protein 6.1 L (6.3-8.2) G/DL Albumin 3.7 (3.5-5.0) G/DL Globulin 2.4 (2.4-3.6) G/DL Albumin/Globulin Ratio 1.5 (1.1-2.2) RATIO Plasma Lactate (0.6-2.2) MMOL/L Procalcitonin 0.08 NG/ML Specimen Hemolysis < 15 (0-25) 09/03/16 09/03/16 Range/Units 01:43 01:44 WBC (4.5-11.0) T/MM3 RBC (4.50-5.90) M/MM3 Hgb (13.5-17.5) GM/DL Hct (41-53) % MCV (80-100) UM3 MCH (26-34) UUG MCHC (31-37) GM/DL RDW Std Deviation (36.9-50.2) FL Plt Count (130-400) T/MM3 MPV (9.4-12.4) UM3 Immature Gran % (Auto) Neut % (Auto) Lymph % (Auto) Hunt % (Auto) Eos % (Auto) Baso % (Auto) Neut # Lymph # Hunt # Eos # Baso # Abs Immat Gran (auto) Neutrophils % (Manual) (33-66) % Lymphocytes % (Manual) (23-45) % Monocytes % (Manual) (0-9.0) % Neutrophils # (Manual) (1.8-7.7) T/MM3 Lymphocytes # (Manual) (1-4.8) T/MM3 Monocytes # (Manual) (0-0.8) T/MM3 RBC Morph Comment ABG pH 7.420 (7.350-7.450) ABG pCO2 35 (34-45) MMHG ABG pO2 107 H (80-100) MMHG ABG HCO3 23 (22-26) MEQ/L ABG Total CO2 23.8 (23-27) MEQ/L ABG O2 Saturation 98.0 (95.0-98.0) % ABG Base Excess -1.3 (-2.0-2.0) MMOL/L O2 Delivery Method Bpap, % FiO2 % 65 Turbidity (0-20) Sodium (134-144) MEQ/L Potassium (3.6-5) MEQ/L Chloride (98-107) MEQ/L Carbon Dioxide (22-30) MEQ/L Anion Gap (5-15) MEQ/L BUN (9-20) MG/DL Creatinine (0.8-1.5) MG/DL GFR Calculation BUN/Creatinine Ratio (6-26) RATIO Glucose (75-110) MG/DL Calculated Osmolality (261-280) MOSM/KG Calcium (8.4-10.2) MG/DL Magnesium (1.6-2.3) MG/DL Total Bilirubin (0.20-1.30) MG/DL Icterus Index (0-7) AST (17-59) U/L ALT (21-72) U/L Alkaline Phosphatase (38-126) U/L Troponin I (0-0.12) ng/ml B-Natriuretic Peptide (0-175) pg/mL Total Protein (6.3-8.2) G/DL Albumin (3.5-5.0) G/DL Globulin (2.4-3.6) G/DL Albumin/Globulin Ratio (1.1-2.2) RATIO Plasma Lactate 1.9 (0.6-2.2) MMOL/L Procalcitonin NG/ML Specimen Hemolysis (0-25) Disposition Clinical Impression: Pulmonary fibrosis, Pulmonary hypertension, Acute respiratory failure Disposition: 02 To [facility] Condition: Stable Prescriptions: No Action Finasteride [Proscar] 5 mg PO DAILY #0 Acetaminophen [Tylenol Extra Strength] 500 mg PO Q4HR PRN #0 PRN Reason: PAIN Furosemide 20 mg PO DAILY #0 Multivitamin [Multivitamins] 1 tab PO DAILY #0 Pirfenidone [Esbriet] 801 mg PO TID LORazepam [Ativan] 0.5 mg PO Q4HR PRN #20 tablet PRN Reason: Air Hunger/Anxiety Losartan [Cozaar] 25 mg PO DAILY tablet Menthol Cough Drops [Ricola Sf] 1 lozenge MM Q2H PRN lozenge PRN Reason: Cough Nystatin Oral Liq. [Mycostatin] 5 ml PO QID udc PredniSONE [Deltasone] See Protocol PO WB #60 tablet Alfuzosin HCl [Uroxatral] 10 mg PO HS #0 Simvastatin 20 mg PO HS #0 Aspirin [Aspir 81] 81 mg PO DAILY #0 Albuterol Neb (0.083%) [Proventil Neb (0.083%)] 2.5 mg AEROSOL QID neb Metoprolol Tartrate [Lopressor] 12.5 mg PO BIDWM tablet Tiotropium [place] [Spiriva] 1 cap ORAL INH DAILY cap.w.dev Referrals: Shiva Mancini MD [Family Provider] - Time of Disposition: 04:08 - Seen By: physician
[2016-09-03] MEDS ORDERED: ONDANSETRON 4 MG/2 ML INJECTION IVP PRN (05:01)
[2016-09-03] MEDS ORDERED: SALINE FLUSH 10ml SYRINGE IVF PRN (05:01)
[2016-09-03] MEDS ORDERED: FUROSEMIDE 20 MG/2 ML INJECTION IVP ONE (05:05)
--- NOTE | 2016-09-03 05:18 | History & Physical Report ---
<Jordan Colon P - Last Filed: 09/03/16 05:13> History of Present Illness Date: 09/03/16 Chief complaint: none by patient, increased difficulty breathing per and daughter HPI: Please note that the patient was seen via telemedicine with nursing assistance on 09/03/2016. Chart with 2 week stay DC 08/30/2016 reviewed at length. Mr. Gonzalez is an 80yo man with h/o COPD and pulmonary fibrosis leading to severe pulmonary hypertension and chronic respiratory failure recently admitted for this with acute on chronic diastolic heart failure and severe sepsis. Since DC the patient per the has had no quality of life and has gotten progressively more dyspneic with 10L NC O2 by NC with SpO2 less than 90% and more confused and less responsive. No emesis or other focal symptoms with noted cough. Patient is obtunded and cannot provide history. 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 Pulmonary HTN. Chronic diastolic heart failure Surgical History: Bilateral knee replacements. foreign body, removed from the knee 07/15/11. Cystoscopy with ureteral dilatation 2008. 4 vessel bypass 2005. Orchiectomy 2002 - Social History Smoking status: Never smoker Substance use type: does not use Alcohol intake frequency: does not drink Housing: assisted living facility Medications Home Medications Medication Instructions Recorded Confirmed Type Acetaminophen [Tylenol Extra 500 mg PO Q4HR PRN #0 10/15/08 09/03/16 History Strength] Alfuzosin HCl [Uroxatral] 10 mg PO HS #0 10/15/08 09/03/16 History Finasteride [Proscar] 5 mg PO DAILY #0 10/15/08 09/03/16 History Simvastatin 20 mg PO HS #0 10/15/08 09/03/16 History Aspirin [Aspir 81] 81 mg PO DAILY #0 10/18/10 09/03/16 History Furosemide 20 mg PO DAILY #0 05/22/16 09/03/16 History Multivitamin [Multivitamins] 1 tab PO DAILY #0 05/22/16 09/03/16 History Pirfenidone [Esbriet] 801 mg PO TID 08/16/16 09/03/16 History Allergies Allergy/AdvReac Type Severity Reaction Status Date / Time No Known Drug Allergies Allergy Unknown Verified 08/16/16 17:53 Exam Vital Signs: Temperature 97.6 F 09/03/16 00:53 Pulse Rate 102 H 09/03/16 04:30 Respiratory Rate 24 09/03/16 04:30 Blood Pressure 121/65 09/03/16 04:30 Pulse Oximetry 99 09/03/16 04:30 Oxygen Delivery Method BiPAP Fraction of Inspired Oxygen 55 SaO2/FiO2 Ratio 181 Telemetry Rhythm: Sinus Rhythm Weight: 68.3 kg - Constitutional Present: moderate distress - Routine HEENT Exam Head: Present: normocephalic - Routine Respiratory Exam Present: accessory muscle use, respiratory distress, wheezes, crackles - Routine Cardiovascular Exam Present: RRR, S1, S2, murmur - Routine Abdominal Exam Present: soft, normoactive bowel sounds - Routine Skin Exam Present: intact - Routine Neurological Exam obtunded with no response to verbal stimuli Results - Labs CBC & Chem 7: 09/03/16 01:43 09/03/16 01:43 Assessment and Plan (1) Acute respiratory failure Problem details: Acute hypoxic respiratory failure Current visit: Yes Status : Acute 09/03/16 05:21 Now DNR and family agrees to hospice consult. Focus on symptom management. Start fentanyl 25mcg patch, dose lasix and solumedrol IV once with duonebs. BIPAP for now, but goal for comfort care should lead to removal over the next day and O2 titration down. Severe pulm HTN with echo last admit PAP 80 is terminal. Hold on any additional antibiotics after severe sepsis admission. No additional aggressive labs. Morphine IV as needed along with Ativan IV prn as well. 09/03/16 05:23 Note acute metabolic encephalopathy as well due to hypoxia, hyponatremia, other (2) Pulmonary fibrosis Current visit: Yes Status: Chronic 09/03/16 05:23 see above (3) Pulmonary hypertension Current visit: Yes Status: Chronic 09/03/16 05:23 see above Sepsis Assessment - Evaluation Sepsis screening result: No Definite Risk Hospital Course Summary Disclaimer: The visit summary below is not to be considered part of the above Progress Note. <Estefany Carlin - Last Filed: 09/03/16 18:38> History of Present Illness Date: 09/03/16 [facility] Patient Stated Medical History Cataracts Yes Dental Problems Yes Hearing Loss Yes: Bilateral hearing aides Congestive Heart Failure Yes Heart Murmur Yes Hypertension Yes Myocardial Infarction Yes Chronic Obstructive Pulmonary Yes Disease (COPD) Pneumonia Yes Other Respiratory Yes: PULMONARY FIBROSIS Gastroesophageal Reflux Yes Disease Hx Benign Prostatic Yes Hyperplasia Other Yes: Difficulty starting stream Osteoarthritis Yes Exam Vital Signs: Temperature 95.6 F L 09/03/16 08:00 Pulse Rate 103 H 09/03/16 16:00 Respiratory Rate 36 H 09/03/16 16:00 Blood Pressure 138/66 09/03/16 16:00 Pulse Oximetry 99 09/03/16 15:40 Oxygen Delivery Method BiPAP Fraction of Inspired Oxygen 50 SaO2/FiO2 Ratio 198 Height: 1.68 m Weight: 68.1 kg Results - Labs CBC & Chem 7: 09/03/16 01:43 09/03/16 01:43 Assessment and Plan (1) Acute respiratory failure Problem details: Acute hypoxic respiratory failure Current visit: Yes Status : Acute (2) Pulmonary fibrosis Current visit: Yes Status: Chronic (3) Pulmonary hypertension Current visit: Yes Status: Chronic 09/03/16 18:32 I reviewed the H&P above dictated by Dr. Colon. I've seen and examined the patient independently. History is obtained from the patient's daughter. Multiple family members are present. The patient was admitted last evening with increasing respiratory failure. He is requiring continuous BiPAP. Family discussed desire for hospice. Unable to get further history or review of systems from the patient secondary to somnolence. Per the patient's daughter, there is no family history of pulmonary fibrosis. GEN-somnolent, on BiPAP, appears chronically ill HEENT-currently on BiPAP CV-regular rate and rhythm CHEST-decreased breath sounds throughout ABD-soft, nontender, nondistended EXT-no edema NEURO-somnolent SKIN-warm and dry Acute on chronic hypoxic respiratory failure secondary to COPD and pulmonary fibrosis Pulmonary hypertension Hypernatremia Hypokalemia Leukocytosis Plan Patient is currently BiPAP dependent. Family requested hospice consult and [facility] did evaluate the patient and stated he was appropriate for inpatient. The patient's daughter is coming in tomorrow afternoon and the plan is to discontinue BiPAP after she has visited. Discussed medications for comfort with the patient's hospice nurse. We'll give scheduled morphine and Ativan. He is already on fentanyl patch. Will hold morphine or Ativan if he is overly sedated. The patient will have when necessary morphine as well. Hospital Course Summary Disclaimer: The visit summary below is not to be considered part of the above Progress Note.
[2016-09-03 05:20] VITALS: BMI 22.3
[2016-09-03] MEDS ORDERED: FALL RISK - PHARMACY CONSULT MC PRN (05:30)
[2016-09-03] MEDS: MORPHINE SULFATE 4 MG SYRINGE IVP PRN ×2 (06:38→21:45)
[2016-09-03] MEDS: METHYLPREDNISOLONE SOD SUCC 125mg/2ml INJECTION IVP SCH (06:47)
[2016-09-03] MEDS: ALBUTEROL/IPRATROPIUM 2.5mg-0.5mg/3ml NEB IH SCH ×4 (08:27→15:46)
[2016-09-03] MEDS ORDERED: ATROPINE 1% EYE DROPS PO/SL PRN (14:06)
[2016-09-03] MEDS: MORPHINE SULFATE 10 MG SYRINGE IV SCH ×2 (17:58→20:18)
[2016-09-04] MEDS: MORPHINE SULFATE 10 MG SYRINGE IV SCH ×5 (00:19→18:55)
[2016-09-04 01:08] VITALS: TEMP 97.6
[2016-09-04] MEDS: METHYLPREDNISOLONE SOD SUCC 125mg/2ml INJECTION IVP SCH (05:28)
--- NOTE | 2016-09-04 10:32 | Progress Note ---
Subjective: The patient is currently on hospice for respiratory failure. He is still on BiPAP. He is unresponsive. The patient's and several other family members are here. They think he appears comfortable. Objective Vital signs: Temperature 97.6 F 09/04/16 01:06 Pulse Rate 110 H 09/04/16 08:04 Respiratory Rate 14 09/04/16 08:04 Blood Pressure 102/44 09/04/16 08:04 Pulse Oximetry 95 09/04/16 08:04 Oxygen Delivery Method BiPAP Fraction of Inspired Oxygen 50 SaO2/FiO2 Ratio 194 Weight: 66.3 kg Comments: Patient is currently on BiPAP at 50% FiO2. He is unresponsive. Chest is clear to auscultation. Cardio vascular reveals a borderline tachycardic rate with irregular rhythm Abdomen is soft and nontender with hypoactive bowel sounds Extremities are free of edema Skin is warm and dry and without rashes No new lab or x-ray ordered. Results - Labs CBC & Chem 7: 09/03/16 01:43 09/03/16 01:43 Assessment and Plan (1) Acute respiratory failure Problem details: Acute hypoxic respiratory failure Current visit: Yes Status : Acute 09/03/16 05:21 Now DNR and family agrees to hospice consult. Focus on symptom management. Start fentanyl 25mcg patch, dose lasix and solumedrol IV once with duonebs. BIPAP for now, but goal for comfort care should lead to removal over the next day and O2 titration down. Severe pulm HTN with echo last admit PAP 80 is terminal. Hold on any additional antibiotics after severe sepsis admission. No additional aggressive labs. Morphine IV as needed along with Ativan IV prn as well. 09/03/16 05:23 Note acute metabolic encephalopathy as well due to hypoxia, hyponatremia, other (2) Pulmonary fibrosis Current visit: Yes Status: Chronic 09/03/16 05:23 see above (3) Pulmonary hypertension Current visit: Yes Status: Chronic 09/03/16 18:32 I reviewed the H&P above dictated by Dr. Colon. I've seen and examined the patient independently. History is obtained from the patient's daughter. Multiple family members are present. The patient was admitted last evening with increasing respiratory failure. He is requiring continuous BiPAP. Family discussed desire for hospice. Unable to get further history or review of systems from the patient secondary to somnolence. Per the patient's daughter, there is no family history of pulmonary fibrosis. GEN-somnolent, on BiPAP, appears chronically ill HEENT-currently on BiPAP CV-regular rate and rhythm CHEST-decreased breath sounds throughout ABD-soft, nontender, nondistended EXT-no edema NEURO-somnolent SKIN-warm and dry Acute on chronic hypoxic respiratory failure secondary to COPD and pulmonary fibrosis Pulmonary hypertension Hypernatremia Hypokalemia Leukocytosis Plan Patient is currently BiPAP dependent. Family requested hospice consult and [facility] did evaluate the patient and stated he was appropriate for inpatient. The patient's daughter is coming in tomorrow afternoon and the plan is to discontinue BiPAP after she has visited. Discussed medications for comfort with the patient's hospice nurse. We'll give scheduled morphine and Ativan. He is already on fentanyl patch. Will hold morphine or Ativan if he is overly sedated. The patient will have when necessary morphine as well. 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 He is BiPAP dependent at this time. Hospice was consulted yesterday. One of the patient's daughters is coming in today and family states that after she has arrived they will let us know when they are ready to discontinue BiPAP. At that time, we will give oxygen per nasal cannula and continue morphine and Ativan for air hunger/pain. The patient's family was encouraged to notify nursing staff if the patient appears uncomfortable in any way. Sepsis Assessment - Evaluation Sepsis screening result: No Definite Risk Hospital Course Summary Disclaimer: The visit summary below is not to be considered part of the above Progress Note.
--- NOTE | 2016-09-04 10:46 | XRay Report ---
Indication: dyspnea PROCEDURE: XR chest 1V: Encounter: Initial Comparison: August 26, 2016 and August 17, 2016 Findings: Bilateral pulmonary fibrotic changes are again noted with superimposed left basilar and right midlung infiltrates without significant change. Pulmonary vascularity is congested. No pneumothorax. Small effusions. Heart size and mediastinal contours are stable. Poststernotomy changes. Impression: Continued bilateral infiltrates with slight improvement in the left lower lobe since August 17. .
[2016-09-04 15:41] VITALS: BP 87/68; PULSE 100; RESP 16
[2016-09-04 15:42] VITALS: O2SAT 79
[2016-09-04] MEDS: SALINE FLUSH 10ml SYRINGE IVF PRN ×2 (15:54→17:22)
[2016-09-04] MEDS: MORPHINE SULFATE 4 MG SYRINGE IVP PRN ×2 (15:54→17:22)
[2016-09-04] MEDS ORDERED: MORPHINE SULFATE 4 MG SYRINGE IVP PRN (18:27)
[2016-09-04] MEDS ORDERED: MORPHINE SULFATE 10 MG SYRINGE IV SCH (18:28)
--- NOTE | 2016-09-07 07:46 | Discharge Summary ---
Discharge Information Date of admission: 09/03/16 03:49 Attending Physician: Estefany Carlin MD Primary care physician: Shiva Mancini MD - Discharge Diagnosis (1) Acute respiratory failure Qualifiers: Problem Details: Acute hypoxic respiratory failure Status: Acute (2) Pulmonary fibrosis Status: Chronic (3) Pulmonary hypertension Status: Chronic - Procedures Procedures: None - Laboratory Labs: Significant labs on admission: White count 21.5, hemoglobin 10.5, platelets 229, neutrophils 95, lymphocytes 3 ABG with pH 7.42, PCO2 35, PO2 107 on BiPAP with FiO2 of 65% Sodium 124, potassium 3.5, chloride 93, carbon dioxide 21, BNP 2610 - Radiology Radiology: Chest x-ray on admission showed continued bilateral infiltrates with slight improvement in the left lower lobe since August 17 History of Present Illness HPI: Please note that the patient was seen via telemedicine with nursing assistance on 09/03/2016. Chart with 2 week stay DC 08/30/2016 reviewed at length. Mr. Gonzalez is an 80yo man with h/o COPD and pulmonary fibrosis leading to severe pulmonary hypertension and chronic respiratory failure recently admitted for this with acute on chronic diastolic heart failure and severe sepsis. Since DC the patient per the has had no quality of life and has gotten progressively more dyspneic with 10L NC O2 by NC with SpO2 less than 90% and more confused and less responsive. No emesis or other focal symptoms with noted cough. Patient is obtunded and cannot provide history. Objective Vital signs: Temperature 97.6 F 09/04/16 01:06 Pulse Rate 100 09/04/16 15:39 Respiratory Rate 16 09/04/16 15:39 Blood Pressure 87/68 09/04/16 15:39 Pulse Oximetry 79 L 09/04/16 15:42 Oxygen Delivery Method BiPAP Oxygen Flow Rate 2 Fraction of Inspired Oxygen 50 SaO2/FiO2 Ratio 194 Weight: 66.3 kg Hospital Course This is a general summary of the patient's hospital course. For more details refer to the complete medical record. Patient was admitted with acute on chronic hypoxic respiratory failure secondary to known pulmonary fibrosis, pulmonary hypertension and COPD. The patient was requiring BiPAP for adequate oxygenation. The patient was minimally responsive. Family requested hospice services. [facility] was consulted and felt the patient was appropriate for inpatient hospice services. The patient was given morphine and Ativan as needed for comfort. Family requested removal of BiPAP on September 04 after all family members had arrived to be with the patient. Patient did on the evening of 09/04/2016. Discharge Plan - Med Rec/Dispo Prescriptions: No Action Finasteride [Proscar] 5 mg PO DAILY #0 Acetaminophen [Tylenol Extra Strength] 500 mg PO Q4HR PRN #0 PRN Reason: PAIN Furosemide 20 mg PO DAILY #0 Multivitamin [Multivitamins] 1 tab PO DAILY #0 Pirfenidone [Esbriet] 801 mg PO TID LORazepam [Ativan] 0.5 mg PO Q4HR PRN #20 tablet PRN Reason: Air Hunger/Anxiety Losartan [Cozaar] 25 mg PO DAILY tablet Menthol Cough Drops [Ricola Sf] 1 lozenge MM Q2H PRN lozenge PRN Reason: Cough Nystatin Oral Liq. [Mycostatin] 5 ml PO QID udc PredniSONE [Deltasone] See Protocol PO WB #60 tablet Alfuzosin HCl [Uroxatral] 10 mg PO HS #0 Simvastatin 20 mg PO HS #0 Aspirin [Aspir 81] 81 mg PO DAILY #0 Albuterol Neb (0.083%) [Proventil Neb (0.083%)] 2.5 mg AEROSOL QID neb Metoprolol Tartrate [Lopressor] 12.5 mg PO BIDWM tablet Tiotropium Keeler [Spiriva] 1 cap ORAL INH DAILY cap.w.dev - Disposition 20
== END 2016-09-04 19:44 | disposition expired | DRG 189 ==
LOC: ED 00:53 → MED 03:49
PROVIDERS: ADMIT Hospitalist; ATTEND Internal Medicine